=== PATIENT | male | born 1950 | race Caucasian/White ===

== ENCOUNTER 2018-04-19 16:59 | Emergency (ER) | payer MEDICARE, OTHER ==
[2018-04-19 17:04] VITALS: BMI 29.6
[2018-04-19] MEDS ORDERED: Albuterol-Ipratrop 3 mg / 0.5 (3 ml) UD IH STA (17:39)
--- NOTE | 2018-04-19 17:53 | ED PDOC ---
Arrival/HPI - General Chief Complaint: Shortness Of Breath Time Seen by Provider: 04/19/18 17:09 Historian: Patient, Spouse - History of Present Illness Narrative History of Present Illness (Text): 04/19/18 17:52 Pt is a 67 yo M with PMH of CHF, COPD, asthma, a. fib presents to ED with progressively worsening dyspnea. Patient states that he always short of breath at baseline. He states that he can only walk 1 one block before becoming short of breath and requires 3 pillows at night to sleep. Patient states that the shortness of breath has progressively worsened over the last month. Patient saw his PMD, Dr. Martinez, 4 days ago who gave him augmentin and prednisone. However, symptoms did not improve. Patient was evaluated by his PMD today, who also noticed new LE swelling. She could not give an Rx for Lasix at that time due to minor hypotension. At that time, Dr. Martinez advised the patient to proceed to the ED for evaluation. Currently, patient denies CP, n/v/d, abdominal pain, fever, chills, WATSON, or dizziness. Of note patient's has noticed that the patient has been audibly more wheezy recently. PMD: Michelle Time/Duration: 1 week Past Medical History - Infectious Disease Hx of Infectious Diseases: None - Cardiac Hx Congestive Heart Failure: Yes Hx Hypertension: Yes - Pulmonary Hx Asthma: Yes - Neurological Hx Paralysis: No - Hematological/Oncological Hx Blood Transfusions: No - Musculoskeletal/Rheumatological Hx Musculoskeletal Disorders: No - Psychiatric Hx Emotional Abuse: No Hx Physical Abuse: No Hx Substance Use: No - Anesthesia Hx Anesthesia Reactions: No Hx Malignant Hyperthermia: No - Suicidal Assessment Feels Threatened In Home Enviroment: No Family/Social History Family/Social History: No Known Family HX Smoking Status: Never Smoked Hx Alcohol Use: No Hx Substance Use: No Allergies/Home Meds Allergies/Adverse Reactions: Allergies No Known Allergies Allergy (Verified 04/03/12 12:26) Home Medications: Home Meds Medication Instructions Recorded Confirmed Albuterol Sulfate [Proair Hfa] 0.09 mg IH DAILY PRN 08/11/15 04/19/18 Amiodarone [Cordarone] 200 mg PO DAILY 08/11/15 04/19/18 Carvedilol [Coreg] 3.125 mg PO BID 08/11/15 04/19/18 Enalapril Maleate 2.5 mg PO DAILY 08/11/15 04/19/18 Montelukast [Singulair] 10 mg PO DAILY 08/11/15 04/19/18 Digoxin [Lanoxin] 0.125 mg PO DAILY 07/09/17 04/19/18 Ascorbic Acid [Vitamin C 500 mg 1 tab PO DAILY 04/19/18 04/19/18 Tab] Docusate [Colace] 1 cap PO DAILY 04/19/18 04/19/18 Esomeprazole Magnesium [Nexium] 1 cap PO DAILY 04/19/18 04/19/18 Ferrous Sulfate [Feosol] 1 tab PO DAILY 04/19/18 04/19/18 Fluticasone/Vilanterol [Breo 1 puff IH DAILY 04/19/18 04/19/18 Ellipta 200-25 Mcg INH] Folic Acid [Folic Acid] 1 tab PO DAILY 04/19/18 04/19/18 Levocetirizine Dihydrochloride 1 tab PO DAILY 04/19/18 04/19/18 [Xyzal] Tiotropium [place] [Spiriva 2.5 puff IH DAILY 04/19/18 04/19/18 Respimat] Review of Systems - Physician Review All systems were reviewed & negative as marked: Yes (12 point ROS reviewed and is negative other than what is stated in HPI.) Physical Exam Vital Signs Reviewed: Yes Vital Signs Temp Pulse Resp BP Pulse Ox 04/19/18 19:26 97.7 F 53 L 18 125/60 99 04/19/18 18:07 52 L 20 122/59 L 99 04/19/18 18:06 122/59 L 04/19/18 17:08 97.5 F L 53 L 18 146/65 100 Temperature: Afebrile Blood Pressure: Normal Pulse: Bradycardic Respiratory Rate: Normal Appearance: Positive for: Non-Toxic Pain Distress: None Mental Status: Positive for: Alert and Oriented X 3 - Systems Exam Head: Present: Atraumatic, Normocephalic Pupils: Present: PERRL Extroacular Muscles: Present: EOMI Conjunctiva: Present: Normal Mouth: Present: Moist Mucous Membranes Neck: Present: Normal Range of Motion Respiratory/Chest: Present: Wheezes (b/l). No: Clear to Auscultation, Respiratory Distress, Accessory Muscle Use, Rales, Rhonchi Cardiovascular: Present: Normal S1, S2, Bradycardic. No: Murmurs, Irregular Rhythm, Rub, Gallop Abdomen: No: Tenderness, Distention, Rebound, Guarding Upper Extremity: Present: Normal Inspection. No: Cyanosis, Edema Lower Extremity: Present: Edema (b/l 2+). No: Tenderness, Swelling Neurological: Present: GCS=15, CN II-XII Intact, Speech Normal Skin: Present: Warm, Dry, Normal Color. No: Rashes Psychiatric: Present: Alert, Oriented x 3, Normal Insight, Normal Concentration Medical Decision Making ED Course and Treatment: 04/19/18 18:45 67 yo M presents to ED with progressive dyspnea and LE swelling. Plan: - CBC, CMP, coags - ABG shock - BNP - Cardiac Iso - CXR - EKG - Solumedrol - Lasix - duoneb EKG reviewed and showed rate 52. Sinus bradcardia with 1st degree AV block. 04/19/18 19:36 CXR reviewed by myself shows minor blunting of the right costovertebral angle. No active disease otherwise. Labs were reviewed and discussed with patient. Mild elevation of BNP (1500) and LFT's in setting of chronic CHF. Patient stated that dyspnea improved with breathing treatments and solumedrol. Patient was able to ambulate around without dyspnea. As patient is hemodynamically stable, he will be discharged. Patient was advised to complete his already prescribed prednisone and amoxicillin and to continue his other medications as prescribed. Patient given an Rx for PO Lasix and counselled on the adverse affects. Patient to follow up with PMD on discharge. - Lab Interpretations Lab Results: 04/19/18 17:45 04/19/18 17:45 Lab Results 04/19/18 18:17: pCO2 29 L, pO2 86.0, HCO3 17.6 L, ABG pH 7.39, ABG Total CO2 18.5 L, ABG O2 Saturation 96.3, ABG Base Excess -6.0 L, ABG Potassium 3.8, Glucose 93, Lactate 1.4, FiO2 21.0, Sodium 131.0 L, Chloride 106.0, Arterial Blood Potassium 3.8 04/19/18 17:45: Digoxin 1.2 04/19/18 17:45: Sodium 132, Potassium 4.3, Chloride 102, Carbon Dioxide 19 L, Anion Gap 16, BUN 19, Creatinine 1.2, Est GFR ( Amer) > 60, Est GFR (Non- Af Amer) > 60, Random Glucose 100, Calcium 8.3 L, Phosphorus 3.9, Magnesium 1.7 , Total Bilirubin 0.9, AST 101 H, ALT 64 H, Alkaline Phosphatase 144 H, Lactate Dehydrogenase 653, Total Creatine Kinase 60, Troponin I < 0.01, NT-Pro-B Natriuret Pep 1500 H, Total Protein 6.6, Albumin 3.3, Globulin 3.3, Albumin/ Globulin Ratio 1.0 L 04/19/18 17:45: PT 14.8 H, INR 1.29 H, APTT 28.9 04/19/18 17:45: WBC 6.5 D, RBC 3.05 L, Hgb 10.0 L, Hct 29.7 L, MCV 97.4, MCH 32.8, MCHC 33.7, RDW 14.9 H, Plt Count 81 L, MPV 12.3 H, Gran % 73.7 H, Lymph % (Auto) 15.5 L, Mcintosh % (Auto) 10.1 H, Eos % (Auto) 0.5 L, Baso % (Auto) 0.2, Gran # 4.81, Lymph # (Auto) 1.0 L, Mcintosh # (Auto) 0.7 H, Eos # (Auto) 0.0, Baso # (Auto) 0.01 - RAD Interpretation Radiology Orders: 04/19/18 18:31 CXR [CHEST PORTABLE] [RAD] Stat - Medication Orders Current Medication Orders: Discontinued Medications Albuterol/Ipratropium (Duoneb 3 Mg/0.5 Mg (3 Ml) Ud) 3 ml IH STAT STA Stop: 04/19/18 17:40 Last Admin: 04/19/18 17:52 Dose: 3 ml Furosemide (Lasix) 40 mg IVP STAT STA Stop: 04/19/18 17:52 Last Admin: 04/19/18 18:06 Dose: 40 mg MAR Blood Pressure Document 04/19/18 18:06 SRE (Rec: 04/19/18 18:06 SRE [id number]) Blood Pressure Blood Pressure (100/60-150/90) 122/59 IVP Administration Document 04/19/18 18:06 SRE (Rec: 04/19/18 18:06 SRE [id number]) Charges for Administration # of IVP Administrations 1 Methylprednisolone (Solu-Medrol) 125 mg IVP STAT STA Stop: 04/19/18 17:40 Last Admin: 04/19/18 17:51 Dose: 125 mg IVP Administration Document 04/19/18 17:51 SRE (Rec: 04/19/18 17:52 SRE [id number]) Charges for Administration # of IVP Administrations 1 Disposition/Present on Arrival - Present on Arrival Any Indicators Present on Arrival: No History of DVT/PE: No History of Uncontrolled Diabetes: No Urinary Catheter: No History of Decub. Ulcer: No History Surgical Site Infection Following: None - Disposition Have Diagnosis and Disposition been Completed?: Yes Diagnosis: CHF (congestive heart failure), COPD (chronic obstructive pulmonary disease), Edema of lower extremity Disposition: HOME/ ROUTINE Disposition Time: 19:45 Patient Plan: Discharge Patient Problems: Current Active Problems Problem Status Onset CHF (congestive heart failure) Acute COPD (chronic obstructive pulmonary disease) Acute Edema of lower extremity Acute Condition: STABLE Discharge Instructions (ExitCare): Heart Failure (ED), Exacerbation of COPD (DC ) Additional Instructions: 1. Follow up with PMD within 1 week 2. Complete Prednisone and Amoxicillin as prescribed 3. Take Lasix once daily, if BP becomes to low or symptoms such as excessive fatigue or feeling like you will pass out, stop medications 4. Maintain adequate hydration as Lasix will cause increased urination 5. Take all other medications as prescribed 6. Return to ED if symptoms persist. MIN MILLER, thank you for letting us take care of you today. Your provider was Rahul Mendoza DO and you were treated for SOB AND ANKLES SWOLLEN. The emergency medical care you received today was directed at your acute symptoms. If you were prescribed any medication, please fill it and take as directed. It may take several days for your symptoms to resolve. Return to the Emergency Department if your symptoms worsen, do not improve, or if you have any other problems. Please contact your doctor or call one of the physicians/clinics you have been referred to that are listed on the Patient Visit Information form that is included in your discharge packet. Bring any paperwork you were given at discharge with you along with any medications you are taking to your follow up visit. Our treatment cannot replace ongoing medical care by a primary care provider outside of the emergency department. Thank you for allowing the [facility] team to be part of your care today. Prescriptions: Furosemide [Lasix] 20 mg PO DAILY #10 tablet Forms: [facility] ([place]inyar[place])
[2018-04-19 17:57] LABS: BASO # 0.01 K/mm3 (0.0-2.0); BASO % 0.2 % (0.0-3.0); EOS % 0.5 % (1.5-5.0); GRAN # 4.81 (1.4-6.5); GRAN % 73.7 % (50.0-68.0); LYMPH % 15.5 % (22.0-35.0); MEAN CELL VOLUME 97.4 fl (80.0-105.0); MEAN CORPUSCULAR HEMOGLOBIN 32.8 pg (25.0-35.0); MEAN CORPUSCULAR HGB CONC 33.7 g/dl (31.0-37.0); MEAN PLATELET VOLUME 12.3 fl (7.0-11.0); MONO # 0.7 (0.1-0.6); MONO % 10.1 % (1.0-6.0); RBC 3.05 10^6/uL (3.5-6.1); RED CELL DISTRIBUTION WIDTH 14.9 % (11.5-14.5)
[2018-04-19 17:59] LABS: WHITE BLOOD COUNT 6.5 10^3/ul (4.5-11.0)
[2018-04-19 18:08] VITALS: O2SAT 99
[2018-04-19 18:13] LABS: INR 1.29 (0.93-1.08); PARTIAL THROMBOPLASTIN TIME 28.9 Seconds (25.1-36.5); PROTHROMBIN TIME 14.8 SECONDS (9.4-12.5)
[2018-04-19 18:17] LABS: ALBUMIN 3.3 g/dL (3.0-4.8); ALT/SGPT 64 U/L (7-56); AST/SGOT 101 U/L (17-59); BLOOD UREA NITROGEN 19 mg/dL (7-21); CALCIUM 8.3 mg/dL (8.4-10.5); GFR AFRICAN-AMERICAN > 60; GFR NON-AFRICAN AMERICAN > 60
[2018-04-19 18:22] LABS: ARTERIAL BLOOD GAS HCO3 17.6 mmol/L (21-28); ARTERIAL BLOOD GAS O2 SAT 96.3 % (95-98); ARTERIAL BLOOD GAS PCO2 29 mm/Hg (35-45); ARTERIAL BLOOD GAS PH 7.39 (7.35-7.45); ARTERIAL BLOOD GAS TCO2 18.5 mmol.L (22-28)
[2018-04-19 18:28] LABS: B-TYPE NATRIURETIC PEPTIDE 1500 pg/mL (0-450); TROPONIN I < 0.01 ng/mL
[2018-04-19 19:27] VITALS: BP 125/60; PULSE 53; RESP 18; TEMP 97.7
--- NOTE | 2018-04-20 08:55 | RAD ---
HISTORY: dyspnea COMPARISON: No prior. FINDINGS: LUNGS: No active pulmonary disease. PLEURA: No significant pleural effusion identified, no pneumothorax apparent. CARDIOVASCULAR: Mild cardiomegaly OSSEOUS STRUCTURES: No significant abnormalities. VISUALIZED UPPER ABDOMEN: Normal. OTHER FINDINGS: None. IMPRESSION: No active disease.
--- NOTE | 2018-04-20 09:54 | CARD ---
APPROVED REPORT EKG Measurement Heart [id number] <Conclusion> Sinus bradycardia with 1st degree AV block Low voltage QRS limb leads NSSTW changes
== END 2018-04-19 19:38 | disposition home or self-care (01) ==
LOC: ED 16:59
DX: J44.9 Chronic obstructive pulmonary disease, unspecified (principal); I50.9 Heart failure, unspecified; R60.0 Localized edema; I10 Essential (primary) hypertension; I48.91 Unspecified atrial fibrillation
CPT/HCPCS: 36600; 71045; 80053; 80162; 82550; 82803; 83615; 83735; 83880; 84100; 84484; 85025; 85610; 85730; 93005; 94640; 96374; 96375; 99285; J1940; J2930

== ENCOUNTER 2018-09-17 19:21 | Inpatient (IN) | payer OTHER, MEDICARE ==
[2018-09-17 19:39] VITALS: BMI 25.7
--- NOTE | 2018-09-17 20:16 | ED PDOC ---
Arrival/HPI - General Chief Complaint: Shortness Of Breath Time Seen by Provider: 09/17/18 19:30 Historian: Patient - History of Present Illness Narrative History of Present Illness (Text): 09/17/18 19:25 68 year old male, whose past medical history includes CHF, COPD, asthma, and a- fib, presents to the emergency department complaining of shortness of breath and leg swelling. Patient reports leg swelling is more on the right than the left for the past 3 days. Patient states he's has shortness of breath. The patient denies any fever, chills, chest pain, abdominal pain, nausea, vomiting, diarrhea, urinary symptoms, back pain, neck pain, headache, dizziness, or any other complaints. PMD: Dr. Martinez Time/Duration: Other (3 days) Symptom Onset: Gradual Symptom Course: Unchanged Activities at Onset: Light Context: Home Past Medical History - Provider Review Nursing Documentation Reviewed: Yes - Infectious Disease Hx of Infectious Diseases: None - Cardiac Hx Congestive Heart Failure: Yes Hx Hypertension: Yes - Pulmonary Hx Asthma: Yes - Neurological Hx Paralysis: No - Hematological/Oncological Hx Blood Transfusions: No - Musculoskeletal/Rheumatological Hx Musculoskeletal Disorders: No - Psychiatric Hx Emotional Abuse: No Hx Physical Abuse: No Hx Substance Use: No - Surgical History Hx Cataract Extraction: Yes - Anesthesia Hx Anesthesia Reactions: No Hx Malignant Hyperthermia: No - Suicidal Assessment Feels Threatened In Home Enviroment: No Family/Social History - Physician Review Nursing Documentation Reviewed: Yes Family/Social History: No Known Family HX Smoking Status: Never Smoked Hx Alcohol Use: No Hx Substance Use: No Allergies/Home Meds Allergies/Adverse Reactions: Allergies No Known Allergies Allergy (Verified 04/03/12 12:26) Home Medications: Home Meds Medication Instructions Recorded Confirmed RX: Albuterol Sulfate [Proair Hfa] 0.09 mg IH DAILY PRN 08/11/15 09/18/18 RX: Amiodarone [Cordarone] 200 mg PO DAILY 08/11/15 09/18/18 RX: Carvedilol [Coreg] 3.125 mg PO BID 08/11/15 09/18/18 RX: Enalapril Maleate 2.5 mg PO DAILY 08/11/15 09/18/18 RX: Montelukast [Singulair] 10 mg PO DAILY 08/11/15 09/18/18 Ascorbic Acid [Vitamin C 500 mg 1 tab PO DAILY 04/19/18 09/18/18 Tab] Docusate [Colace] 1 cap PO DAILY 04/19/18 09/18/18 Ferrous Sulfate [Feosol] 1 tab PO DAILY 04/19/18 09/18/18 Fluticasone/Vilanterol [Breo 1 puff IH DAILY 04/19/18 09/18/18 Ellipta 200-25 Mcg INH] Folic Acid 1 tab PO DAILY 04/19/18 09/18/18 Levocetirizine Dihydrochloride 1 tab PO DAILY 04/19/18 09/18/18 [Xyzal] RX: Esomeprazole Magnesium [Nexium] 1 cap PO DAILY 04/19/18 09/18/18 Tiotropium [place] [Spiriva 2.5 puff IH DAILY 04/19/18 09/18/18 Respimat] Review of Systems - Physician Review All systems were reviewed & negative as marked: Yes - Review of Systems Constitutional: absent: Fevers, Other (Chills) Respiratory: SOB Cardiovascular: absent: Chest Pain Gastrointestinal: absent: Abdominal Pain, Diarrhea, Nausea, Vomiting Genitourinary Male: absent: Dysuria, Frequency, Hematuria Musculoskeletal: Other (leg swelling ). absent: Back Pain, Neck Pain Neurological: absent: Headache, Dizziness Physical Exam Vital Signs Reviewed: Yes Vital Signs Temp Pulse Resp BP Pulse Ox 09/17/18 19:43 98.3 F 50 L 18 125/60 99 Temperature: Afebrile Blood Pressure: Normal Pulse: Bradycardic Respiratory Rate: Normal Appearance: Positive for: Well-Appearing, Non-Toxic, Comfortable Pain Distress: None Mental Status: Positive for: Alert and Oriented X 3 - Systems Exam Head: Present: Atraumatic, Normocephalic Pupils: Present: PERRL Extroacular Muscles: Present: EOMI Conjunctiva: Present: Normal Mouth: Present: Moist Mucous Membranes Neck: Present: Normal Range of Motion Respiratory/Chest: Present: Rales (at bases ), Other (poor airway entry). No: Respiratory Distress, Accessory Muscle Use Cardiovascular: Present: Regular Rate and Rhythm, Normal S1, S2. No: Murmurs Abdomen: No: Tenderness, Distention, Peritoneal Signs Back: Present: Normal Inspection Upper Extremity: Present: Normal Inspection. No: Cyanosis, Edema Lower Extremity: Present: Swelling (right leg swelling ). No: Tommie's Sign Neurological: Present: GCS=15, CN II-XII Intact, Speech Normal Skin: Present: Warm, Dry, Normal Color. No: Rashes Psychiatric: Present: Alert, Oriented x 3, Normal Insight, Normal Concentration Medical Decision Making ED Course and Treatment: 09/17/18 19:25 Impression: 68 year old male presents complaining of shortness of breath and leg swelling for the past 3 days. Plan: -- EKG -- Labs -- CXR -- Duplex LE bilaterally US -- Blood Culture -- Reassess and disposition Prior Visits: Notes and results from previous visits were reviewed. Progress Notes: 09/17/18 19:34 EKG shows Sinus Bradycardia at 51 BPM with low voltage QRS, non-specific ST/T wave changes. Interpreted by me 09/17/18 21:22 CXR Impression: As read by me, mild CHF with cardiomegaly 09/17/18 21:23 Duplex LE bilaterally US Impressive: Negative for DVT 09/17/18 22:[address] Martinez who is aware and agrees with the plan. Accepts patient into her service. - Lab Interpretations I have reviewed the lab results: Yes - RAD Interpretation Radiology Orders: 09/17/18 19:36 DUPLEX LOWER EXTRM VEIN BILAT [US] Stat 09/17/18 19:37 CHEST PORTABLE [RAD] Stat - EKG Interpretation Interpreted by ED Physician: Yes Type: 12 lead EKG - Scribe Statement The provider has reviewed the documentation as recorded by the Shannan Kumar Provider Scribe Attestation: All medical record entries made by the Shannan were at my direction and personally dictated by me. I have reviewed the chart and agree that the record accurately reflects my personal performance of the history, physical exam, medical decision making, and the department course for this patient. I have also personally directed, reviewed, and agree with the discharge instructions and disposition. Disposition/Present on Arrival - Present on Arrival Any Indicators Present on Arrival: No History of DVT/PE: No History of Uncontrolled Diabetes: No Urinary Catheter: No History of Decub. Ulcer: No History Surgical Site Infection Following: None - Disposition Have Diagnosis and Disposition been Completed?: Yes Diagnosis: CHF (congestive heart failure), COPD (chronic obstructive pulmonary disease) Disposition: HOSPITALIZED Disposition Time: :00 Condition: FAIR
[2018-09-17 20:20] LABS: INR 1.37; PARTIAL THROMBOPLASTIN TIME 35.8 Seconds (25.1-36.5); PROTHROMBIN TIME 15.7 SECONDS (9.4-12.5)
[2018-09-17 20:21] LABS: BASO # 0.02 K/mm3 (0.0-2.0); BASO % 0.3 % (0.0-3.0); EOS # 0.1 (0.0-0.7); EOS % 1.7 % (1.5-5.0); GRAN # 4.32 (1.4-6.5); GRAN % 71.4 % (50.0-68.0); HEMOGLOBIN 10.4 g/dL (14.0-18.0); LYMPH # 0.8 (1.2-3.4); LYMPH % 13.7 % (22.0-35.0); MEAN CELL VOLUME 94.1 fl (80.0-105.0); MEAN CORPUSCULAR HEMOGLOBIN 32.4 pg (25.0-35.0); MEAN CORPUSCULAR HGB CONC 34.4 g/dl (31.0-37.0); MEAN PLATELET VOLUME 12.1 fl (7.0-11.0); MONO # 0.8 (0.1-0.6); MONO % 12.9 % (1.0-6.0); RBC 3.21 10^6/uL (3.5-6.1); RED CELL DISTRIBUTION WIDTH 14.8 % (11.5-14.5); WHITE BLOOD COUNT 6.1 10^3/uL (4.5-11.0)
[2018-09-17 20:22] LABS: ALBUMIN 3.3 g/dL (3.0-4.8); ALT/SGPT 52 U/L (7-56); AST/SGOT 91 U/L (17-59); BLOOD UREA NITROGEN 15 mg/dL (7-21); CALCIUM 8.2 mg/dL (8.4-10.5); GFR NON-AFRICAN AMERICAN 50
[2018-09-17 20:32] LABS: B-TYPE NATRIURETIC PEPTIDE 2030 pg/mL (0-450); TROPONIN I < 0.01 ng/mL
[2018-09-17] MEDS ORDERED: Albuterol-Ipratrop 3 mg / 0.5 (3 ml) UD IH STA (21:52)
[2018-09-18] MEDS: Albuterol-Ipratrop 3 mg / 0.5 (3 ml) UD IH PRN (03:02)
--- NOTE | 2018-09-18 08:50 | RAD ---
Date of service: 09/17/2018 HISTORY: sob COMPARISON: 04/19/2018 FINDINGS: LUNGS: No active pulmonary disease. PLEURA: No significant pleural effusion identified, no pneumothorax apparent. CARDIOVASCULAR: No aortic atherosclerotic calcification present. Mild cardiomegaly no pulmonary vascular congestion. OSSEOUS STRUCTURES: No significant abnormalities. VISUALIZED UPPER ABDOMEN: Normal. OTHER FINDINGS: None. IMPRESSION: No active disease.
--- NOTE | 2018-09-18 09:31 | US ---
HISTORY: Leg pain and swelling. Evaluate for DVT PHYSICIAN(S): Justin Husain MD. TECHNIQUE: Duplex sonography and color-flow Doppler with graded compression were used to evaluate the deep venous systems of both lower extremities. The exam is somewhat limited by edema FINDINGS: The visualized deep venous systems of both lower extremities are sonographically normal and compressible. Normal wave forms and augmentation are seen. There is no sonographic evidence for deep venous thrombosis in the visualized segments of both lower extremities. IMPRESSION: No sonographic evidence for deep venous thrombosis in the visualized segments of both lower extremities.
[2018-09-18] MEDS ORDERED: Albuterol HFA 90 mcg/actuation (8 g) IH PRN (11:31)
[2018-09-18] MEDS ORDERED: TIOTROPIUM BROMIDE IH SCH (11:45)
[2018-09-18] MEDS ORDERED: Non Formulary Medication (Fluticasone/Vilanterol [Breo Ellipta 200-25 Mcg Inh] 1 PUFF) IH SCH (11:45)
[2018-09-18] MEDS ORDERED: Tiotropium 18 mcg Cap For Inhalation IH ONE (11:45)
[2018-09-18] MEDS: PREDNISOLONE ACETATE 1% OS SCH ×3 (13:46→21:22)
[2018-09-18] MEDS: PREDNISOLONE ACETATE 1% OD SCH ×2 (13:50→18:11)
[2018-09-18] MEDS ORDERED: Home Med 1 UNIT OD SCH (14:00)
[2018-09-18] MEDS: Sodium Chloride 3% 500 ML IV SCH (21:17)
--- NOTE | 2018-09-19 01:00 | CON ---
DATE: 09/18/2018 REASON FOR CONSULTATION: Cardiac evaluation, history of paroxysmal atrial fibrillation, admitted with shortness of breath. BRIEF CLINICAL HISTORY: This is a 68-year-old male with past medical history significant for mitral stenosis, moderate mitral regurgitation, atrial fibrillation, mild cardiomyopathy, admitted with progressively shortness of breath and increased leg swelling for 3 to 4 days. Denies any chest pain. Denies any palpitation. PAST MEDICAL HISTORY: Significant for CHF, COPD, asthma, atrial fibrillation, mitral stenosis as well as mitral regurgitation in the past. History of cardiac workup as follows: Most recently a stress test on 07/09/2018 shows abnormal myocardial perfusion study partially reversible anterior apical suspicious ischemia. In compared the last study 08/11, the scan findings are similar except for slightly lesser reversible, ejection fraction 61%. Following that, patient had a cardiac catheterization done dated 09/02/2015 that revealed normal coronaries, moderate decreased LV function, ejection fraction 35%, EDP in the range of 16 to 18. Anterolateral hypokinesis noted consistent with VA, spontaneously dissolution of the clot in LAD. Right heart cath upper limit normal to border line. Patient underwent right heart catheterization at that time, also that revealed RA pressure 15, right ventricular pressure 35/16, pulmonary capillary wedge pressure 33/10, PA pressure 33/10, mean PA of 20, pulmonary capillary catheter wedge pressure 16-17 mm, pulmonary vascular resistance is 1 Ward unit, cardiac output index using thermodilution, cardiac output 3.7 L, cardiac index 2.3 L/min. Mean gradient across the mitral valve 3.26 mm, mitral valve area came out 1.94 mmHg consistent with mild mitral stenosis. The patient had recent echo dated 07/08/2018 that shows no PE, no vegetation, no thrombus, mitral valve noted, [id number] mitral regurgitation, moderate mitral stenosis, mild aortic stenosis, aortic sclerosis, trace aortic regurgitation, [id number] mitral regurgitation, [id number]-xr-[id number] tricuspid regurgitation, [id number] pulmonary insufficiency, ejection fraction 55% to 60%. Patient was in AFib by the time of this study, the echo calculated right ventricular systolic pressure 50 with underestimating the two RSV because of configuration of the TR jet dated 07/08/2018, mostly sent EKG in the office Dr. Galvez 08/30/2018 with a normal sinus rate of 56. SOCIAL HISTORY: Denies any history of alcohol abuse. PHYSICAL EXAMINATION: VITAL SIGNS: Height of the patient 5 feet 3 niches. Weight of the patient 174 pounds. Body mass index 30 kg/m2. Heart rate of 51 and blood pressure 115/56. HEENT: PERRLA. Extraocular muscles intact. NECK: Supple. No carotid bruit or thyromegaly. CHEST: Clear to auscultation. HEART: S1 and S2 regular. ABDOMEN: Soft. EXTREMITIES: Clubbing and cyanosis negative. LABORATORY DATA: WBC , hemoglobin 10.5, hematocrit 30.2, platelet count 82,000. Chemistry shows sodium 125, potassium , chloride 94, carbon dioxide 19, anion gap of 15, BUN 15, creatinine 1.4. BNP 2030. Troponin 0.01. Chest x-ray, mild congestion noted. EKG showed sinus bradycardia at the rate of 51. IMPRESSION: A 68-year-old male with past medical history significant for rheumatic mitral valve disease, mild mitral stenosis, [id number] mitral regurgitation, mild aortic stenosis, fkbaigzq-[id number]-twfvfl tricuspid regurgitation, average systolic pressure 60, severe tricuspid regurgitation. Dilated right atrium, dilated left atrium, right ventricle with dilated decreased left ventricular function, preserved left ventricular function. History of paroxysmal atrial fibrillation, on amiodarone. The bradycardia is most likely secondary to beta-elsie and amiodarone. Admitted with mild congestive heart failure, patient with right heart failure. RECOMMENDATIONS: Continue heparin, continue Coreg, continue Lasix. Further recommendation will depend on hospital course. We will start 3% saline and continue free water excretion with IV Lasix. We will supplement electrolytes as needed. We will follow with you. Thank you Dr. Martinez for providing us the opportunity in taking care of the patient, Des Billy. Alfonso Almodovar MD
--- NOTE | 2018-09-19 03:28 | CON ---
DATE: 09/18/2018 PULMONARY CONSULT REFERRING PHYSICIAN: Dr. Martinez REASON FOR CONSULTATION: Cough, shortness of breath, history of sleep apnea syndrome and asthma. HISTORY OF PRESENT ILLNESS: This is a 68-year-old gentleman well known to me from the office, known, very compliant with the followup, has a known history of sleep apnea syndrome and noncompliant, recently re-qualified, but waiting for CPAP arrival. Also, has a history of cardiomyopathy with alcohol-induced which improved LV function from the last couple of years, has also but not very compliant with his bronchodilator, history of hypertension, comes into ER with cough, shortness of breath, leg swelling. PAST MEDICAL HISTORY: As per history of present illness. ALLERGIES: NONE KNOWN. SOCIAL HISTORY: No history of smoking. Alcohol use 4 years ago. FAMILY HISTORY: No significant cardiopulmonary disease reported. MEDICATIONS: He is on albuterol/Atrovent nebulizer, also on Colace 100 mg twice a day, amiodarone 200 mg daily, Coreg 3.125 mg twice a day, DuoNeb every 4 hours p.r.n., ferrous sulfate 324 mg daily, getting Breo Ellipta 1 puff daily, hypertonic saline was given at 20 mL per hour, Lasix 40 mg twice a day, Xyzal 1 tablet daily, Pepcid 40 mg daily, Singulair 10 mg daily, Spiriva inhaled daily, Tylenol p.r.n., vitamin C 500 mg daily, Zestril 2.5 mg daily. REVIEW OF SYSTEMS: No headache, no rhinitis. Has cough, shortness of breath. No chest pain. Has increased abdominal girth and leg swelling. No dysuria. No diarrhea. PHYSICAL EXAMINATION: GENERAL: Mild distress. VITAL SIGNS: Temperature is 98, heart rate 50, respiratory rate is 20, blood pressure 110/59, pulse ox 99%, 2 liters nasal cannula. HEENT: Moist mucous membrane. Crowded airway. Mallampati score is four. NECK: Supple. No JVD. LUNGS: Has one third of crackles. HEART: S1, S2. ABDOMEN: Soft, nontender, no organomegaly. EXTREMITIES: There is edema of the both lower extremities. NEUROLOGIC: Awake, follows simple commands. LABORATORY DATA: Shows hemoglobin 10.4, hematocrit 30.2, WBC 6.1, platelet count is 82,000. INR 1.37. PTT 36. Sodium 125, potassium 4.1, chloride 94, bicarbonate 19, BUN 15, creatinine 1.4, glucose 116, calcium 8.2, magnesium 1.5, total bili 1.7, AST 21, ALT 52, alk phos is 168. Troponin less than 0.01. ProBNP 2030. Albumin is 3.3. Microbiology, blood culture, there is no growth. Chest x-ray done in ER shows no active pulmonary disease. 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 Need to get a new echocardiogram, assess RV, LV function. Agree with Lasix, afterload generation manager, beta-elsie. We will place him on inhaled bronchodilator. CPAP with 35% oxygen while sleeping. Follow up labs in the morning. Thank you and we will follow with you. Alfonso Ansari MD
--- NOTE | 2018-09-19 03:45 | HP ---
DATE OF EXAM: 09/18/2018 The patient was seen and examined at the bedside on 09/18/2018. CHIEF COMPLAINT: Shortness of breath, swelling of the leg. HISTORY OF PRESENT ILLNESS: Mr. Des Billy is a 68-year-old male with past medical history of congestive heart failure, COPD, asthma, atrial fibrillation, came to the emergency department complaining of shortness of breath, swelling of the leg, he has cataract surgery 3 days ago. The patient reports leg swelling, is more on the right than the left over the past 3 days. The patient states he has shortness of breath. Denies fever, chills and nausea, vomiting, diarrhea. No hematuria or hematochezia. No headache. No dizziness. PAST MEDICAL HISTORY: Congestive heart failure, hypertension, asthma, cataract surgery. FAMILY HISTORY: Father and mother, noncontributory. HABITS: No smoking. No drugs. No ethanol. ALLERGIES: THE PATIENT IS NOT ALLERGIC WITH ANY MEDICATIONS. HOME MEDICATIONS: ProAir, methadone, Coreg, enalapril, Singulair, Colace, iron, fluticasone, folic acid, Xyzal, Nexium, Respimat. REVIEW OF SYSTEMS: The patient was seen and examined at the bedside. Still having shortness of breath with coughing. Still has swelling of the legs. No fever. No chills. No headache. No dizziness. Still has swelling of the legs. PHYSICAL EXAMINATION: VITAL SIGNS: Temperature 98.3, pulse 50, respiratory rate 18, blood pressure 127/60, pulse oximetry 99. HEENT: Head is normocephalic and atraumatic. Eyes; PERRLA. Extraocular muscles are intact. Conjunctivae are clear. Nose is patent. Mucous membranes are moist. NECK: Supple. No carotid bruit. No JVD or thyromegaly. CHEST: Bilaterally symmetrical. HEART: S1 and S2 positive. LUNGS: Positive wheezing bilaterally. ABDOMEN: Soft. Bowel sounds present. No organomegaly. EXTREMITIES: Positive edema. NEUROLOGIC: The patient is awake, alert. Moving all 4 extremities. No focal deficit. LABORATORY DATA: White blood cells 6.1, hemoglobin 10.4, hematocrit 30.2, platelets 82,000. Sodium 125, potassium 4.1, BUN 15, creatinine 1.2. ASSESSMENT AND PLAN: Mr. Des Billy is a 68-year-old male with anemia, thrombocytopenia, hyponatremia, hypochloremia, hypomagnesemia, hypocalcemia, abnormal liver function test, congestive heart failure, history of cardiomyopathy, history of chronic obstructive pulmonary disease, asthma, history of ethanol abuse. Bilateral Doppler of the leg is done. No sonographic evidence of deep vein thrombosis, individualized segments of the both lower extremities. Chest x-ray is reviewed by me. History of atrial fibrillation. Came with shortness of breath, swelling of the leg, started on home medications, Lasix. Seen by Dr. Almodovar and Dr. Ansari. Gastrointestinal and deep venous thrombosis prophylaxes given. Repeat labs. We will follow up. Jewell Martinez MD
[2018-09-19 06:58] LABS: GRAN # 6.37 (1.4-6.5); GRAN % 89.7 % (50.0-68.0); HEMOGLOBIN 10.3 g/dL (14.0-18.0); LYMPH # 0.4 (1.2-3.4); LYMPH % 6.1 % (22.0-35.0); MEAN CELL VOLUME 91.8 fl (80.0-105.0); MEAN CORPUSCULAR HEMOGLOBIN 32.3 pg (25.0-35.0); MEAN CORPUSCULAR HGB CONC 35.2 g/dl (31.0-37.0); MEAN PLATELET VOLUME 12.5 fl (7.0-11.0); MONO # 0.3 (0.1-0.6); MONO % 4.2 % (1.0-6.0); RBC 3.19 10^6/uL (3.5-6.1); RED CELL DISTRIBUTION WIDTH 14.6 % (11.5-14.5); WHITE BLOOD COUNT 7.1 10^3/uL (4.5-11.0)
[2018-09-19 07:06] LABS: B-TYPE NATRIURETIC PEPTIDE 2920 pg/mL (0-450)
[2018-09-19 07:10] LABS: LDL CHOLESTEROL 103 mg/dL (0-129)
[2018-09-19 07:18] LABS: ALBUMIN 3.1 g/dL (3.0-4.8); ALT/SGPT 54 U/L (7-56); AST/SGOT 78 U/L (17-59); BLOOD UREA NITROGEN 20 mg/dL (7-21); CALCIUM 8.4 mg/dL (8.4-10.5); GFR NON-AFRICAN AMERICAN 50; HDL CHOLESTEROL 40 mg/dL (29-60)
--- NOTE | 2018-09-19 09:37 | CP.PCM.PN ---
Subjective - Date & Time of Evaluation Date of Evaluation: 09/19/18 Time of Evaluation: 06:35 - Subjective Subjective: Awake, alert, no distress Reason for consultation and follow up: Cardiac evaluation of shortness of breath, history of paroxysmal atrial fibrillation Seen and examined by me and Dr. Almodovar Objective - Vital Signs/Intake and Output Vital Signs (last 24 hours): Temp Pulse Resp BP Pulse Ox 98.1 F 66 20 112/58 L 99 09/18/18 18:00 09/19/18 06:00 09/18/18 18:00 09/18/18 21:24 09/18/18 06:00 Intake and Output: 09/19/18 09/19/18 06:59 18:59 Intake Total 1280 Output Total 2400 Balance -1120 - Medications Medications: Current Medications Acetaminophen (Tylenol 325mg Tab) 650 mg PO Q4H PRN PRN Reason: Pain, Mild (1-3) Albuterol Sulfate (Albuterol 0.5% Inhal Liana (2.5 Mg/0.5 Ml) Ud) 2.5 mg IH DAILY [facility] Albuterol/Ipratropium (Duoneb 3 Mg/0.5 Mg (3 Ml) Ud) 3 ml IH Q4H PRN PRN Reason: Shortness of Breath Last Admin: 09/18/18 03:02 Dose: 3 ml Amiodarone HCl (Cordarone) 200 mg PO DAILY [facility] Last Admin: 09/18/18 12:17 Dose: 200 mg Ascorbic Acid (Vitamin C 500 Mg Tab) 500 mg PO DAILY [facility] Carvedilol (Coreg) 3.125 mg PO BID [facility] Last Admin: 09/18/18 17:33 Dose: Not Given Docusate Sodium (Colace) 100 mg PO DAILY [facility] Famotidine (Pepcid) 40 mg PO HS [facility] Last Admin: 09/18/18 21:23 Dose: 40 mg Ferrous Sulfate (Feosol) 324 mg PO DAILY [facility] Folic Acid (Folic Acid) 1 mg PO DAILY [facility] Furosemide (Lasix) 40 mg IVP Q12 [facility] Last Admin: 09/18/18 21:24 Dose: 40 mg Home Med (Home Med) 0 unit OS QID [facility] Last Admin: 09/18/18 21:23 Dose: 1 unit Home Med (Home Med) 0 unit OS QID [facility] Last Admin: 09/18/18 21:22 Dose: 1 unit Home Med (Home Med) 0 unit OD BID [facility] Sodium Chloride (Hypertonic Saline 3%) 500 mls @ 20 mls/hr IV .Q24H [facility] Stop: 09/20/18 23:59 Last Admin: 09/18/18 21:17 Dose: 20 mls/hr Lisinopril (Zestril) 2.5 mg PO DAILY [facility] Montelukast Sodium (Singulair) 10 mg PO DAILY [facility] Last Admin: 09/18/18 12:12 Dose: 10 mg Non-Formulary Medication (Fluticasone/Vilanterol [Breo Ellipta 200-25 Mcg Inh]) 1 puff IH DAILY [facility] Non-Formulary Medication (Levocetirizine Dihydrochloride [Xyzal]) 1 tab PO DAILY [facility] Tiotropium [place] (Spiriva) 18 mcg IH DAILY [facility] - Labs Labs: 09/19/18 06:00 09/19/18 06:00 PT 15.7 SECONDS (9.4-12.5) H 09/17/18 19:52 INR 1.37 09/17/18 19:52 APTT 35.8 Seconds (25.1-36.5) 09/17/18 19:52 - Constitutional Appears: Non-toxic, No Acute Distress - Head Exam Head Exam: NORMAL INSPECTION, NORMOCEPHALIC - Eye Exam Eye Exam: Normal appearance Pupil Exam: NORMAL ACCOMODATION - ENT Exam ENT Exam: Mucous Membranes Moist, Normal Exam - Respiratory Exam Respiratory Exam: Decreased Breath Sounds, Clear to Ausculation Bilateral, NORMAL BREATHING PATTERN - Cardiovascular Exam Cardiovascular Exam: REGULAR RHYTHM, +S1, +S2 Additional comments: Telemetry NSR 70's - GI/Abdominal Exam GI & Abdominal Exam: Soft, Normal Bowel Sounds - Extremities Exam Extremities Exam: Full ROM, Normal Capillary Refill - Neurological Exam Neurological Exam: Alert, Awake, Oriented x3 - Psychiatric Exam Psychiatric exam: Normal Affect, Normal Mood - Skin Skin Exam: Dry, Normal Color, Warm Assessment and Plan - Assessment and Plan (Free Text) Assessment: A 68 year old male who came in to the ER due to shortness of breath and leg swelling for the past 3 days prior to admission. History of mitral stenosis,moderate mitral regurgitation, CHF, COPD,, asthma, atrial fibrillation. chest Xray showed mild congestion on admission, EKG, bradycardia at 50's. Troponin normal, elevated BNP, Admitted for mild exacerbation of CHF. Bradycardia maybe due to betablocker and Amiodarone.Will continue. Plan: Denies shortness of breath Heart rate stable Blood pressure controlled Sodium today 128, improving will continue 3%NSS total 500cc Continue to diurese On Amiodarone 200 mg daily,Coreg 3.125 mg BID, Lasix 40 mg BID,Lisinopril 2.5 mg daily Continue current treatment Continue current medication Strict I&O Chart reviewed So far ,clinically stable Will follow up Plan and treatment discussed with Dr. Almodovar
[2018-09-19] MEDS ORDERED: LEVOCETIRIZINE DIHYDROCHLORIDE PO SCH (10:00)
[2018-09-19] MEDS ORDERED: ENALAPRIL MALEATE 2.5 MG PO SCH (10:00)
[2018-09-19] MEDS ORDERED: Non Formulary Medication (Ferrous Sulfate [Feosol] 1 TAB) PO SCH (10:00)
[2018-09-19] MEDS: Tiotropium 18 mcg Cap For Inhalation IH SCH (10:28)
[2018-09-19] MEDS: PREDNISOLONE ACETATE 1% OD SCH ×2 (10:29→18:56)
[2018-09-19] MEDS: Non Formulary Medication (Fluticasone/Vilanterol [Breo Ellipta 200-25 Mcg Inh] 1 PUFF) IH SCH (10:33)
[2018-09-19] MEDS: PREDNISOLONE ACETATE 1% OS SCH ×4 (10:35→21:34)
[2018-09-19] MEDS: LEVOCETIRIZINE DIHYDROCHLORIDE PO SCH (11:07)
[2018-09-19] MEDS: Albuterol 0.5% Inhal Sol (2.5 mg/0.5 ml) UD IH SCH (20:12)
--- NOTE | 2018-09-19 23:13 | PN ---
DATE: 09/19/2018 PULMONARY PROGRESS NOTE REFERRING PHYSICIAN: Jewell Martinez MD. SUBJECTIVE: He is lying in the bed, feeling a little better, seen by Cardiology. Still, no echocardiogram available. No chest pain or nausea. Still gets short of breath with exertion. Used CPAP about 2 to 3 hours last night. No nausea, no vomiting. No diarrhea. Still has leg swelling. PHYSICAL EXAMINATION: GENERAL: In no acute distress. VITAL SIGNS: Temperature 98, heart rate 62, respiratory rate 18, blood pressure 97/60, pulse ox 99% on nasal cannula. HEENT: Moist mucous membrane. Crowded airway. Mallampati score is 4. NECK: Supple. No JVD. LUNGS: Has one third of crackles. HEART: S1, S2. ABDOMEN: Soft, nontender, no organomegaly. EXTREMITIES: Still has edema. NEUROLOGIC: Awake, alert, follows simple commands. MEDICATIONS: He is on Albuterol Atrovent nebulizer; also on Colace 100 mg daily; amiodarone 200 mg daily; Coreg 3.125 mg twice a day; DuoNeb every 4 hours p.r.n.; ferrous sulfate 324 mg daily; folic acid 1 mg daily; also on hypertonic saline 20 mL per hour, this is 3%; Lasix 40 mg twice day; Xyzal 1 tab daily; Pepcid 40 mg daily; Singulair 10 mg daily; Spiriva inhaled daily; Tylenol p.r.n.; vitamin C 500 mg daily; and Zestril 2.5 mg daily. LABORATORY DATA: Shows hemoglobin 10.3, hematocrit 29.3, WBC 7.1, platelet count is 72, INR 1.37, PTT 36. Last sodium is 131, potassium 4.4, chloride 98, bicarbonate 19, BUN 20, creatinine 1.4, glucose 130, hemoglobin A1c 5.2, calcium 8.4, phosphorus 3.7, magnesium 1.4. Total bilirubin 1.5, AST 78, ALT 54, alkaline phosphatase 119. ProBNP 2920. Albumin is 3.1. Cholesterol is 147. TSH is 1.87. Microbiology: Blood culture, there is no growth. IMPRESSION AND PLAN: Cardiomyopathy, history of alcohol use in the remote past, atrial fibrillation, chronic obstructive lung disease, sleep apnea syndrome, hyponatremia. Recently had sleep study, has sleep apnea syndrome. Encouraged to use CPAP at least 4 to 6 hour. Need echocardiogram to assess right ventricular and left ventricular function. Continue diuretics, afterload scheme technician, bronchodilator. Follow up labs in the morning. Thank you and we will follow with you. Alfonso Ansari MD
[2018-09-20] MEDS: Sodium Chloride 3% 500 ML IV SCH (00:26)
--- NOTE | 2018-09-20 02:13 | PN ---
DATE: 09/19/2018 SUBJECTIVE: Patient is 68 years old male. Patient was seen and examined at the bedside, looking comfortable. Swelling of the leg is better, but still there. Shortness of breath is better. No chest pain. No nausea, vomiting, diarrhea. Used CPAP about 2-3 hours last night. No fever. No chill. PHYSICAL EXAMINATION: VITAL SIGNS: Temperature 98, heart rate 80 , respiratory rate 18, blood pressure 97/60, pulse oximetry 99% on room air. HEENT: Head: Normocephalic, atraumatic. Eyes: PERRLA. Extraocular muscles intact. Conjunctivae clear. Nose patent. Mucous membranes moist. NECK: Supple. No carotid bruit. No JVD or thyromegaly. CHEST: Bilaterally symmetrical. HEART: S1 and S2 positive. LUNGS: Clear to auscultation. ABDOMEN: Soft. Bowel sounds present. No organomegaly. EXTREMITIES: Positive edema. NEUROLOGICAL: Awake, alert, and moving all 4 extremities. No focal deficit. MEDICATIONS: Albuterol, Colace, amiodarone, Coreg, DuoNeb, folic acid , Pepcid, Singulair, Spiriva, Tylenol. LABORATORY DATA: Hemoglobin 10.3, hematocrit is noted , white blood 7.3, platelets 72,000. Sodium 131, potassium 4.4, BUN 20, creatinine 1.4. Hemoglobin A1c is 5.2. AST 78 and ALT 54. TSH 1.84. ASSESSMENT AND PLAN: Mr. Des Billy with multiple medical problems, chronic obstructive pulmonary disease, cardiomyopathy, history of alcohol abuse in the remote past, atrial fibrillation, chronic obstructive lung disease, hyponatremia, and sleep apnea syndrome. I encouraged to use continuous positive airway at least 4 to 6 hours. Need echocardiogram to assess the right ventricular and left ventricular function. Associate Product Manager is on the case. Continue diuretics, afterload reduction, bronchodilator, physical therapy, out of bed. Reviewed Dr. Ansari's note and equipment service associate's note. Discussion done with patient and nursing staff. Gastrointestinal and deep venous thrombosis prophylaxes. Repeat labs. We will follow up. Jewell Martinez MD [facility] # [id number]
[2018-09-20 06:18] LABS: EOS % 0.1 % (1.5-5.0); GRAN # 5.93 (1.4-6.5); GRAN % 78.5 % (50.0-68.0); HEMOGLOBIN 10.3 g/dL (14.0-18.0); LYMPH # 0.8 (1.2-3.4); LYMPH % 10.6 % (22.0-35.0); MEAN CELL VOLUME 93.4 fl (80.0-105.0); MEAN CORPUSCULAR HEMOGLOBIN 32.5 pg (25.0-35.0); MEAN CORPUSCULAR HGB CONC 34.8 g/dl (31.0-37.0); MEAN PLATELET VOLUME 12.1 fl (7.0-11.0); MONO # 0.8 (0.1-0.6); MONO % 10.8 % (1.0-6.0); RBC 3.17 10^6/uL (3.5-6.1); RED CELL DISTRIBUTION WIDTH 15.1 % (11.5-14.5); WHITE BLOOD COUNT 7.6 10^3/uL (4.5-11.0)
[2018-09-20 06:23] LABS: BLOOD UREA NITROGEN 23 mg/dL (7-21); CALCIUM 8.4 mg/dL (8.4-10.5); GFR NON-AFRICAN AMERICAN 50
--- NOTE | 2018-09-20 07:31 | CP.PCM.PN ---
Subjective - Date & Time of Evaluation Date of Evaluation: 09/20/18 Time of Evaluation: 06:50 - Subjective Subjective: Lying in bed,awake, alert, no distress Reason for consultation and follow up: Cardiac evaluation of shortness of breath, history of paroxysmal atrial fibrillation Seen and examined by me and Dr. Almodovar Objective - Vital Signs/Intake and Output Vital Signs (last 24 hours): Temp Pulse Resp BP Pulse Ox 97.7 F 56 L 19 110/54 L 100 09/20/18 06:00 09/20/18 06:00 09/20/18 06:00 09/20/18 06:00 09/20/18 06:00 Intake and Output: 09/20/18 09/20/18 06:59 18:59 Intake Total 620 Output Total 825 Balance -205 - Medications Medications: Current Medications Acetaminophen (Tylenol 325mg Tab) 650 mg PO Q4H PRN PRN Reason: Pain, Mild (1-3) Albuterol Sulfate (Albuterol 0.5% Inhal Liana (2.5 Mg/0.5 Ml) Ud) 2.5 mg IH DAILY [facility] Last Admin: 09/19/18 20:12 Dose: 2.5 mg Albuterol/Ipratropium (Duoneb 3 Mg/0.5 Mg (3 Ml) Ud) 3 ml IH Q4H PRN PRN Reason: Shortness of Breath Last Admin: 09/18/18 03:02 Dose: 3 ml Amiodarone HCl (Cordarone) 200 mg PO DAILY [facility] Last Admin: 09/19/18 10:28 Dose: 200 mg Ascorbic Acid (Vitamin C 500 Mg Tab) 500 mg PO DAILY [facility] Last Admin: 09/19/18 10:28 Dose: 500 mg Carvedilol (Coreg) 3.125 mg PO BID [facility] Last Admin: 09/19/18 18:57 Dose: Not Given Docusate Sodium (Colace) 100 mg PO DAILY [facility] Last Admin: 09/19/18 10:29 Dose: 100 mg Famotidine (Pepcid) 40 mg PO HS [facility] Last Admin: 09/19/18 21:33 Dose: 40 mg Ferrous Sulfate (Feosol) 324 mg PO DAILY [facility] Last Admin: 09/19/18 10:28 Dose: 324 mg Folic Acid (Folic Acid) 1 mg PO DAILY [facility] Last Admin: 09/19/18 10:29 Dose: 1 mg Furosemide (Lasix) 40 mg IVP Q12 [facility] Last Admin: 09/19/18 21:33 Dose: 40 mg Home Med (Home Med) 0 unit OS QID [facility] Last Admin: 09/19/18 21:34 Dose: 1 unit Home Med (Home Med) 0 unit OS QID [facility] Last Admin: 09/19/18 21:34 Dose: 1 unit Home Med (Home Med) 0 unit OD BID [facility] Last Admin: 09/19/18 18:56 Dose: 1 unit Sodium Chloride (Hypertonic Saline 3%) 500 mls @ 20 mls/hr IV .Q24H [facility] Stop: 09/20/18 23:59 Last Admin: 09/20/18 00:26 Dose: 20 mls/hr Lisinopril (Zestril) 2.5 mg PO DAILY [facility] Last Admin: 09/19/18 10:28 Dose: 2.5 mg Montelukast Sodium (Singulair) 10 mg PO DAILY [facility] Last Admin: 09/19/18 10:28 Dose: 10 mg Non-Formulary Medication (Fluticasone/Vilanterol [Breo Ellipta 200-25 Mcg Inh]) 1 puff IH DAILY [facility] Last Admin: 09/19/18 10:33 Dose: 1 puff Non-Formulary Medication (Levocetirizine Dihydrochloride [Xyzal]) 1 tab PO DAILY [facility] Last Admin: 09/19/18 11:07 Dose: Not Given Tiotropium [place] (Spiriva) 18 mcg IH DAILY [facility] Last Admin: 09/19/18 10:28 Dose: 18 mcg - Labs Labs: 09/20/18 05:30 09/20/18 05:30 PT 15.7 SECONDS (9.4-12.5) H 09/17/18 19:52 INR 1.37 09/17/18 19:52 APTT 35.8 Seconds (25.1-36.5) 09/17/18 19:52 - Constitutional Appears: Non-toxic, No Acute Distress - Head Exam Head Exam: NORMAL INSPECTION, NORMOCEPHALIC - Eye Exam Eye Exam: Normal appearance Pupil Exam: NORMAL ACCOMODATION - ENT Exam ENT Exam: Mucous Membranes Dry - Respiratory Exam Respiratory Exam: Decreased Breath Sounds, NORMAL BREATHING PATTERN - Cardiovascular Exam Cardiovascular Exam: Bradycardia, +S1, +S2 - GI/Abdominal Exam GI & Abdominal Exam: Soft, Normal Bowel Sounds - Extremities Exam Extremities Exam: Full ROM, Normal Capillary Refill - Neurological Exam Neurological Exam: Alert, Awake, Oriented x3 - Psychiatric Exam Psychiatric exam: Normal Affect, Normal Mood - Skin Skin Exam: Dry, Normal Color, Warm Assessment and Plan - Assessment and Plan (Free Text) Assessment: A 68 year old male who came in to the ER due to shortness of breath and leg swelling for the past 3 days prior to admission. History of mitral stenosis,moderate mitral regurgitation, CHF, COPD,, asthma, atrial fibrillation. chest Xray showed mild congestion on admission, EKG, bradycardia at 50's. Troponin normal, elevated BNP, Admitted for mild exacerbation of CHF. Bradycardia maybe due to betablocker and Amiodarone.Will continue. NSS 3% for low sodium with improvement. For ECHO to evaluate LV function. Plan: Symptoms clinically improved For Echo today to evaluate LV function Denies shortness of breath Heart rate stable Blood pressure controlled Sodium 134 today, improved, completed 3% NSS total 500cc given Continue to paz On Amiodarone 200 mg daily,Coreg 3.125 mg BID, Lasix 40 mg BID, Lisinopril 2.5 mg daily Continue current treatment Continue current medication Strict I&O Chart reviewed Will follow up Plan and treatment discussed with Dr. Almodovar
--- NOTE | 2018-09-20 08:45 | PN ---
DATE: 09/19/2018 REASON FOR CONSULTATION: Cardiac evaluation, history of paroxysmal atrial fibrillation, admitted with shortness of breath, decompensated congestive heart failure, acute on chronic systolic dysfunction as well as valvular dysfunction. SUBJECTIVE: The patient feels a little better. not in acute distress. PHYSICAL EXAMINATION VITAL SIGNS: Examination as follows, vital signs, temperature afebrile, heart rate 54, blood pressure 109/58. HEENT: PERRLA intact. NECK: Supple. No carotid bruits or thyromegaly. CHEST: Clear to auscultation. HEART: S1 and S2, regular. ABDOMEN: Soft. EXTREMITIES: Clubbing and cyanosis, negative. LABORATORY DATA: WBC 7.1, hemoglobin 10.3, hematocrit 29.3, platelet count 72. Chemistry shows sodium 120, potassium 4.4, chloride 90, carbon dioxide 19, anion gap of 15, BUN 20, creatinine 1.4. IMPRESSION: Acute decompensated congestive heart failure secondary to valvular dysfunction. Last echo shows preserved left ventricular function, history of atrial fibrillation, on amiodarone, now he is in normal sinus bradycardia. Last echo dated shows no pulmonary embolism. No vegetation. No thrombus. Moderate mitral stenosis. Mild aortic stenosis. Mild to moderate mitral regurgitation. Ejection fraction 60%. RECOMMENDATION: Continue IV Lasix. Bradycardia secondary to amiodarone. Continue lisinopril. Continue Coreg. We will get MUGA scan tomorrow to assess LV function. Monitor electrolytes and supplement as needed. The patient was on 3% saline with Lasix to get free excretion of the water and the sodium is going up, today is 128. We will repeat SMA-7 tomorrow. We will repeat the blood workup in the morning. Monitor I's and O's. Again this note is an addition to dictated by our nurse practitioner. The patient has 1.2 L or 1200 mL negative fluid balance. Feels a lot better. Thank you Dr. Martinez for providing us the opportunity in taking care of the patient, Des Billy. Alfonso Almodovar MD
[2018-09-20] MEDS ORDERED: Potassium Chloride 20 mEq ER Tab PO ONE (09:34)
--- NOTE | 2018-09-20 10:20 | CARD ---
APPROVED REPORT Date of service: 09/17/2018 EKG Measurement Heart [id number] <Conclusion> Sinus bradycardia with 1st degree AV block Low voltage QRS Poor Progression of R in V1-V2. Non Specific ST_T Changes. Abnormal ECG
[2018-09-20] MEDS: PREDNISOLONE ACETATE 1% OD SCH ×2 (10:49→18:36)
[2018-09-20] MEDS: Magnesium Sulfate 2 gm/50 ml 2 GM/50 ML BAG IVPB ONE ×2 (10:53→11:53)
--- NOTE | 2018-09-20 12:23 | PN ---
DATE: 09/20/2018 REASON FOR CONSULTATION: History of paroxysmal atrial fibrillation, decompensated congestive heart failure, swelling of the legs, hyponatremia. SUBJECTIVE: Patient feels a lot better. Denies any chest pain, shortness of breath or any palpitation. LABORATORY DATA: Sodium went to 134, potassium 3.8, magnesium 1.8. ASSESSMENT AND PLAN: Acute decompensated congestive heart failure, paroxysmal atrial fibrillation, mitral stenosis and mitral regurgitation. RECOMMENDATION: Discontinue 3% saline, supplement potassium, supplement magnesium. We will get MUGA scan today to assess LV function. We will change Lasix to p.o. from tomorrow. Possible discharge home in a.m. He will supplement and potassium. Discontinue IV Lasix. Hopefully, they will start from 40 from tomorrow. This note is in addition to dictated by our nurse practitioner, Alie Perea. Thank you Dr. Martinez for providing us the opportunity in taking care of the patient, Des Billy. Alfonso Almodovar MD
[2018-09-20] MEDS: PREDNISOLONE ACETATE 1% OS SCH ×2 (15:20→21:23)
[2018-09-20] MEDS: Tiotropium 18 mcg Cap For Inhalation IH SCH (15:29)
[2018-09-20] MEDS: LEVOCETIRIZINE DIHYDROCHLORIDE PO SCH (15:33)
[2018-09-20] MEDS: Non Formulary Medication (Fluticasone/Vilanterol [Breo Ellipta 200-25 Mcg Inh] 1 PUFF) IH SCH (15:38)
--- NOTE | 2018-09-20 18:53 | CARD ---
APPROVED REPORT Date of service: 09/20/2018 EXAM: Two-dimensional and M-mode echocardiogram with Doppler and color Doppler. INDICATION PULMONARY EDEMA 2D DIMENSIONS Left Atrium (2D)4.4 (1.6-4.0cm)IVSd1.0 (0.7-1.1cm) LVDd4.1 (3.9-5.9cm)PWd0.9 (0.7-1.1cm) LVDs2.9 (2.5-4.0cm)FS (%) 29.7 % LVEF (%)57.2 (>50%) M-Mode DIMENSIONS Aortic Root3.00 (2.2-3.7cm)Aortic Cusp Exc.1.60 (1.5-2.0cm) Aortic Valve AoV Peak Flltmmdl264.0cm/Srinivasan Peak GR.14mmHg Mitral Valve MV E Zioorcsi242.0cm/sMV A Ipguufcz11.9cm/sMV [id number] E/A ratio1.9MVA (PHT)1.22ue8FIA (Planimetry)1.63cm2 TDI E/Lateral E'0.0E/Medial E'0.0 Pulmonary Valve PV Peak Bfoqjayw67.3cm/sPV Peak Grad.3mmHg Tricuspid Valve TR Peak Qxbvykzl816fq/sRAP JBRWRGTZ52kvNlZQ Peak Gr.41mmHg [id number] LEFT VENTRICLE The left ventricle is normal size. There is normal left ventricular wall thickness. The left ventricular function is normal.EF-55% There is normal LV segmental wall motion. Transmitral Doppler flow pattern is Grade II-pseudonormal filling dynamics. No left ventricle thrombus noted on this study. There is no ventricular septal defect visualized. There is no left ventricular aneurysm. There is no mass noted in the left ventricle. RIGHT VENTRICLE The right ventricle is moderately dilated. There is normal right ventricular wall thickness. Systolic function of RV is moderately reduced. ATRIA The left atrium is mild to moderately dilated. The right atrium is severely dilated. The interatrial septum is intact with no evidence for an atrial septal defect. The interatrial septum bows toward left atrium consistent with elevated right atrial pressure. AORTIC VALVE The aortic valve is normal in structure. There is mild aortic regurgitation. There is no aortic valvular stenosis. There is no aortic valvular vegetation. MITRAL VALVE The mitral valve appears rheumatic, with decrease excursion. The mitral valve is calcified and displays decreased opening. Mitral annular calcification is moderate to severe. Mitral regurgitation is mild. There is moderate mitral valve stenosis. ( Rheumatic) MVA 1.2-1.3 by PHT, and !.6 by planimetry. There is no evidence of mitral valve prolapse. TRICUSPID VALVE The tricuspid valve leaflets are thickened , but open well. There is severe tricuspid regurgitation.RVSP-51 mmof Hg. There is moderate pulmonary hypertension. There is no tricuspid valve stenosis. There is no tricuspid valve prolapse or vegetation. PULMONIC VALVE The pulmonary valve is normal in structure. There is mild pulmonic valvular regurgitation. There is no pulmonic valvular stenosis. GREAT VESSELS The aortic root is normal in size. The ascending aorta is normal in size. The pulmonary artery is normal. The IVC is normal in size and collapses >50% with inspiration. PERICARDIAL EFFUSION There is no pleural effusion. There is no pericardial effusion. <Conclusion> The left ventricular function is normal.EF-55% Systolic function of RV is moderately reduced. The right atrium is severely dilated. The interatrial septum is intact with no evidence for an atrial septal defect. The interatrial septum bows toward left atrium consistent with elevated right atrial pressure. There is mild aortic regurgitation. Mitral regurgitation is mild. There is moderate mitral valve stenosis. ( Rheumatic) MVA 1.2-1.3 by PHT, and !.6 by planimetry. There is severe tricuspid regurgitation.RVSP-51 mmof Hg. There is moderate pulmonary hypertension. There is mild pulmonic valvular regurgitation. The IVC is normal in size and collapses >50% with inspiration. There is no pericardial effusion.
--- NOTE | 2018-09-21 00:32 | PN ---
DATE: 09/20/2018 SUBJECTIVE: The patient is 68 years old male. The patient was seen and examined at bedside, 09/20/2018 and looking comfortable. Still has swelling of the legs, but little bit better. Shortness of breath is better. Cough is better. No fever. No chills. No nausea, vomiting, or diarrhea. No hematuria. No hematochezia. No headache. No dizziness. No chest pain. No palpitations. PHYSICAL EXAMINATION: VITAL SIGNS: Temperature 97.7, pulse 56, respiratory rate 19, blood pressure 110/57, and pulse oximetry 100%. HEENT: Head is normocephalic and atraumatic. Eyes; PERRLA. Extraocular muscles are intact. Conjunctivae clear. Nose patent. NECK: Supple. No carotid bruits, JVD, thyromegaly. CHEST: Bilaterally symmetrical. HEART: S1 and S2 positive. LUNGS: Clear to auscultation. ABDOMEN: Soft. Bowel sounds present. No organomegaly. EXTREMITIES: No edema. No cyanosis. NEUROLOGIC: The patient is awake, alert, moving all four extremities. No focal deficits. LABORATORY DATA: White blood cell 7.6, hemoglobin 10.3, hematocrit 29.6, platelets 71,000. Sodium 134, potassium 3.8, BUN 23, creatinine 1.4, and glucose 100. MEDICATIONS: Tylenol, albuterol, DuoNeb, amiodarone, vitamin C, Colace, Pepcid, Zestril, Singulair, Xyzal, and Spiriva. ASSESSMENT AND PLAN: Mr. Des Billy is a 68-year-old male with anemia, came with shortness of breath, swelling of the legs, still has swelling of the legs, but little bit better, history of mitral stenosis, moderate mitral regurgitation, has decompensated congestive heart failure, chronic obstructive pulmonary disease, asthma, and atrial fibrillation. Chest x-ray showed mild congestion, history of bradycardia at 50s. Elevated BNP. According to staff mechanical engineer, bradycardic and was on beta-elsie and amiodarone. Sodium improved. Symptoms clinically improved. Need echo and liver function evaluation. Sodium improved with 3% normal saline. Continue diuretics, amiodarone, Lasix, out of bed with physical therapy. Actually, echocardiography done showed left ventricular function is normal 55%, right atrium is severely dilated, severe tricuspid regurgitation, no pericardial effusion. Seen by Dr. Almodovar and Dr. Ansari. The patient has a history of cardiomyopathy, history of alcohol abuse in the remote past, sleep apnea syndrome. Gastrointestinal and deep venous thrombosis prophylaxes. Repeat labs. We will follow up. Jewell Martinez MD MTDGhazal
--- NOTE | 2018-09-21 02:36 | PN ---
DATE: 09/20/2018 PULMONARY PROGRESS NOTE REFERRING PHYSICIAN: Dr. Martinez. SUBJECTIVE: The patient is lying in the bed, head at 45 degrees. Night was unremarkable. Tolerated CPAP for 5 hours. Cough and shortness breath are improved. No chest pain, nausea, vomiting, or diarrhea. Decreased leg swelling. OBJECTIVE: GENERAL: No acute distress. VITAL SIGNS: Temperature is 99, heart rate is 97, respiratory rate is 18, blood pressure 105/57. HEENT: Moist mucous membranes. Crowded airway. NECK: Supple. No JVD. LUNGS: Have one-third of crackles. HEART: S1, S2. ABDOMEN: Soft, nontender. No organomegaly. EXTREMITY: Has edema. NEUROLOGIC: Neurologically, awake, alert, follows simple commands. MEDICATIONS: He is on Colace 100 mg daily, amiodarone 200 mg daily, Coreg 3.15 mg daily, DuoNeb every 4 hours p.r.n., ferrous sulfate 324 mg daily, folic acid 1 mg daily, Lasix 40 mg daily, Xyzal 1 tablet daily, Pepcid 40 mg daily, Singulair 10 mg daily, Spiriva inhaled daily, Tylenol p.r.n., vitamin C 500 mg daily, and Zestril 2.5 mg daily. LABORATORY DATA: Shows hemoglobin 10.3, hematocrit 29.6, WBC 7.6, platelet count is 71. Sodium 134, potassium 3.8, chloride 103, bicarbonate 23, BUN 23, creatinine 1.4, glucose is 100, calcium 8.4, phosphorus 3.5, magnesium is 1.4. Microbiology, blood culture had been negative. Had echocardiogram done today, which shows right ventricular systolic pressure is 51, severe tricuspid regurg, LV ejection fraction 55, systolic function of RV is moderately reduced, right atrium is severely dilated, mitral regurg is mild. There is a moderate mitral valve stenosis, severe tricuspid regurg, moderate pulmonary hypertension. IMPRESSION AND PLAN: Cardiomyopathy with valvular heart disease, mildly decreased systolic function with severe pulmonary hypertension, history of asthma, sleep apnea syndrome, hyponatremia. Pulmonary point of view slowly improving. Continue diuretics, afterload patient support tech, beta-elsie. Add inhaled bronchodilator, gastric prophylaxis, deep venous thrombosis prophylaxis. Cardiology followup. Encourage CPAP use at night. We will follow with you. Alfonso Ansari MD [facility] # [id number]
[2018-09-21] MEDS: Arformoterol 15 mcg/2 ml Inh Sol IH SCH ×2 (07:45→20:50)
[2018-09-21] MEDS: Budesonide 0.5 mg/2 ml Inhal Susp UD IH SCH ×2 (07:45→20:51)
[2018-09-21 07:57] LABS: HEMOGLOBIN 10.3 g/dL (14.0-18.0); MEAN CELL VOLUME 94.7 fl (80.0-105.0); MEAN CORPUSCULAR HGB CONC 33.8 g/dl (31.0-37.0); MEAN PLATELET VOLUME 11.8 fl (7.0-11.0); RBC 3.22 10^6/uL (3.5-6.1); RED CELL DISTRIBUTION WIDTH 15.2 % (11.5-14.5); WHITE BLOOD COUNT 5.7 10^3/uL (4.5-11.0)
[2018-09-21 08:10] LABS: ALB/GLOB RATIO 0.9 (1.1-1.8); ALBUMIN 2.9 g/dL (3.0-4.8); ALT/SGPT 57 U/L (7-56); AST/SGOT 77 U/L (17-59); BILIRUBIN,DIRECT 0.8 mg/dL (0.0-0.4); BLOOD UREA NITROGEN 23 mg/dL (7-21); CALCIUM 8.3 mg/dL (8.4-10.5); GFR NON-AFRICAN AMERICAN 50
[2018-09-21] MEDS: Tiotropium 18 mcg Cap For Inhalation IH SCH (09:56)
[2018-09-21] MEDS: LEVOCETIRIZINE DIHYDROCHLORIDE PO SCH (09:58)
[2018-09-21] MEDS: PREDNISOLONE ACETATE 1% OD SCH ×2 (09:59→18:54)
[2018-09-21] MEDS: Non Formulary Medication (Fluticasone/Vilanterol [Breo Ellipta 200-25 Mcg Inh] 1 PUFF) IH SCH (10:00)
[2018-09-21] MEDS: PREDNISOLONE ACETATE 1% OS SCH ×2 (10:00→14:30)
[2018-09-21] MEDS: Albuterol 0.5% Inhal Sol (2.5 mg/0.5 ml) UD IH SCH (11:37)
--- NOTE | 2018-09-21 14:05 | CP.PCM.CON ---
<Narciso Pablo - Last Filed: 09/21/18 14:07> History of Present Illness - History of Present Illness History of Present Illness: PGY6 GI Fellow Consult Note Patient is a 68yo male with PMHx significant for CHF, COPD, asthma, history of alcohol abuse (sober 6 years) and atrial fibrillation who presented to the ED with complain of SOB and LE edema. Our service was consulted for abnormal LFTs and diarrhea. Per the patient and nursing staff, no episodes of diarrhea noted since arrival to the floor. Patient also denies this history and has no abdominal pain at time of interview/examination. Symptoms have improved since admission with diuresis and breathing treatments. In regards to the abnormal LFTs, there is concern for congestive hepatopathy given his known history of CHF with right sided disease/severe TR/moderate pulmonary hypertension. At present, denies any abdominal pain, nausea, vomiting, weight loss, change in bowel habits, rectal bleeding. No prior history of IVDU and denies knowledge of viral hepatitis infection. 12 system ROS performed and negative except where stated PMHx: See HPI PSHx: Nasal fracture repair FHx: Discussed with patient and noncontributory Social: Sober for 6 years, prior heavy EtOH abuse; denies tobacco or illicit drug use Endo: No prior endoscopic evaluations Past Patient History - Infectious Disease Hx of Infectious Diseases: None - Past Social History Smoking Status: Never Smoked - CARDIAC Hx Cardiac Disorders: Yes (A fib) Hx Congestive Heart Failure: Yes - PULMONARY Hx Chronic Obstructive Pulmonary Disease (COPD): Yes - NEUROLOGICAL Hx Paralysis: No - HEMATOLOGICAL/ONCOLOGICAL Hx Blood Transfusions: No - MUSCULOSKELETAL/RHEUMATOLOGICAL Hx Musculoskeletal Disorders: No - PSYCHIATRIC Hx Emotional Abuse: No Hx Physical Abuse: No Hx Substance Use: No - SURGICAL HISTORY Hx Cataract Extraction: Yes - ANESTHESIA Hx Anesthesia Reactions: No Hx Malignant Hyperthermia: No Meds Allergies/Adverse Reactions: Allergies Allergy/AdvReac Type Severity Reaction Status Date / Time No Known Allergies Allergy Verified 04/03/12 12:26 - Medications Medications: Current Medications Acetaminophen (Tylenol 325mg Tab) 650 mg PO Q4H PRN PRN Reason: Pain, Mild (1-3) Albuterol Sulfate (Albuterol 0.5% Inhal Liana (2.5 Mg/0.5 Ml) Ud) 2.5 mg IH DAILY [facility] Last Admin: 09/21/18 11:37 Dose: 2.5 mg Albuterol/Ipratropium (Duoneb 3 Mg/0.5 Mg (3 Ml) Ud) 3 ml IH Q4H PRN PRN Reason: Shortness of Breath Last Admin: 09/18/18 03:02 Dose: 3 ml Amiodarone HCl (Cordarone) 200 mg PO DAILY [facility] Last Admin: 09/20/18 10:47 Dose: 200 mg Arformoterol Tartrate (Brovana) 15 mcg IH [id number] [facility] Last Admin: 09/21/18 07:45 Dose: 15 mcg Ascorbic Acid (Vitamin C 500 Mg Tab) 500 mg PO DAILY [facility] Last Admin: 09/21/18 09:58 Dose: 500 mg Budesonide (Pulmicort Respules) 0.5 mg IH [id number] [facility] Last Admin: 09/21/18 07:45 Dose: 0.5 mg Carvedilol (Coreg) 3.125 mg PO BID [facility] Last Admin: 09/20/18 18:34 Dose: 3.125 mg Docusate Sodium (Colace) 100 mg PO DAILY [facility] Last Admin: 09/21/18 09:57 Dose: 100 mg Famotidine (Pepcid) 40 mg PO HS [facility] Last Admin: 09/20/18 21:22 Dose: 40 mg Ferrous Sulfate (Feosol) 324 mg PO DAILY [facility] Last Admin: 09/21/18 09:57 Dose: 324 mg Folic Acid (Folic Acid) 1 mg PO DAILY [facility] Last Admin: 09/21/18 09:56 Dose: 1 mg Furosemide (Lasix) 40 mg PO DAILY [facility] Home Med (Home Med) 0 unit OS QID [facility] Last Admin: 09/21/18 09:59 Dose: 1 unit Home Med (Home Med) 0 unit OS QID [facility] Last Admin: 09/21/18 10:00 Dose: Not Given Home Med (Home Med) 0 unit OD BID [facility] Last Admin: 09/21/18 09:59 Dose: 1 unit Lisinopril (Zestril) 2.5 mg PO DAILY [facility] Last Admin: 09/20/18 10:50 Dose: 2.5 mg Montelukast Sodium (Singulair) 10 mg PO DAILY [facility] Last Admin: 09/21/18 09:57 Dose: 10 mg Non-Formulary Medication (Fluticasone/Vilanterol [Breo Ellipta 200-25 Mcg Inh]) 1 puff IH DAILY [facility] Last Admin: 09/21/18 10:00 Dose: Not Given Non-Formulary Medication (Levocetirizine Dihydrochloride [Xyzal]) 1 tab PO DAILY [facility] Last Admin: 09/21/18 09:58 Dose: Not Given Tiotropium [place] (Spiriva) 18 mcg IH DAILY [facility] Last Admin: 09/21/18 09:56 Dose: 18 mcg Physical Exam - Constitutional Appears: Non-toxic, No Acute Distress - Eye Exam Eye Exam: EOMI, PERRL - ENT Exam ENT Exam: Mucous Membranes Moist - Respiratory Exam Respiratory Exam: Rales, Wheezes. absent: Clear to Auscultation Bilateral, Rhonchi - Cardiovascular Exam Cardiovascular Exam: RRR, +S1, +S2 - GI/Abdominal Exam GI & Abdominal Exam: Normal Bowel Sounds, Soft. absent: Distended, Firm, Gua rding, Organomegaly, Rigid, Tenderness - Extremities Exam Extremities exam: Positive for: pedal edema Additional comments: 2+ LE edema - Neurological Exam Neurological exam: Alert, Oriented x3 - Psychiatric Exam Psychiatric exam: Normal Affect, Normal Mood - Skin Skin Exam: Dry, Warm Results - Vital Signs Recent Vital Signs: Last Vital Signs Temp 98.3 F 09/21/18 06:00 Pulse 56 L 09/21/18 06:00 Resp 17 09/21/18 06:00 BP 111/54 L 09/21/18 06:00 Pulse Ox 98 09/21/18 06:00 - Labs Result Diagrams: 09/21/18 07:00 09/21/18 07:00 Labs: Laboratory Results - last 24 hr 09/21/18 09/21/18 07:00 07:00 WBC 5.7 D RBC 3.22 L Hgb 10.3 L Hct 30.5 L MCV 94.7 MCH 32.0 MCHC 33.8 RDW 15.2 H Plt Count 75 L MPV 11.8 H Sodium 134 Potassium 3.8 Chloride 103 Carbon Dioxide 22 Anion Gap 12 BUN 23 H Creatinine 1.4 Est GFR ( Amer) > 60 Est GFR (Non-Af Amer) 50 Random Glucose 95 Calcium 8.3 L Total Bilirubin 2.1 H Direct Bilirubin 0.8 H AST 77 H ALT 57 H Alkaline Phosphatase 99 Total Protein 6.2 Albumin 2.9 L Globulin 3.3 Albumin/Globulin Ratio 0.9 L Assessment & Plan - Assessment and Plan (Free Text) Assessment: Patient is a 68yo male with PMHx significant for CHF, COPD, asthma, history of alcohol abuse (sober 6 years) and atrial fibrillation who presented to the ED with complain of SOB and LE edema -Acute CHF exacerbation -Abnormal LFTs - concern for congestive hepatopathy -Indirect hyperbilirubinemia Plan: -LFTs noted; recommend trending CMP in conjunction with ongoing acute CHF therapy -Indirect hyperbilirubinemia may be 2/2 stressed, volume overloaded state - known valvular lesions may predispose patient to hemolysis -Check LDH, reticulocyte count, viral hepatitis panel -Recommend CT abdomen/pelvis with oral contrast to evaluate liver -Ongoing CHF care with cardiology recommendations noted -Diet as tolerated - Date & Time Date: 09/21/18 Time: 07:00 <Julian Godoy V - Last Filed: 09/23/18 00:12> Meds - Medications Medications: Current Medications Acetaminophen (Tylenol 325mg Tab) 650 mg PO Q4H PRN PRN Reason: Pain, Mild (1-3) Albuterol Sulfate (Albuterol 0.5% Inhal Liana (2.5 Mg/0.5 Ml) Ud) 2.5 mg IH DAILY [facility] Last Admin: 09/22/18 07:43 Dose: 2.5 mg Albuterol/Ipratropium (Duoneb 3 Mg/0.5 Mg (3 Ml) Ud) 3 ml IH Q4H PRN PRN Reason: Shortness of Breath Last Admin: 09/18/18 03:02 Dose: 3 ml Amiodarone HCl (Cordarone) 200 mg PO DAILY [facility] Last Admin: 09/22/18 09:44 Dose: 200 mg Arformoterol Tartrate (Brovana) 15 mcg IH [id number] [facility] Last Admin: 09/22/18 20:28 Dose: 15 mcg Ascorbic Acid (Vitamin C 500 Mg Tab) 500 mg PO DAILY [facility] Last Admin: 09/22/18 09:44 Dose: 500 mg Budesonide (Pulmicort Respules) 0.5 mg IH [id number] [facility] Last Admin: 09/22/18 20:28 Dose: 0.5 mg Carvedilol (Coreg) 3.125 mg PO BID [facility] Last Admin: 09/22/18 09:45 Dose: Not Given Docusate Sodium (Colace) 100 mg PO DAILY [facility] Last Admin: 09/22/18 09:43 Dose: 100 mg Famotidine (Pepcid) 40 mg PO HS [facility] Last Admin: 09/22/18 22:21 Dose: 40 mg Ferrous Sulfate (Feosol) 324 mg PO DAILY [facility] Last Admin: 09/22/18 09:44 Dose: 324 mg Folic Acid (Folic Acid) 1 mg PO DAILY [facility] Last Admin: 09/22/18 09:43 Dose: 1 mg Furosemide (Lasix) 40 mg IVP BID [facility] Last Admin: 09/22/18 16:30 Dose: 40 mg Home Med (Home Med) 0 unit OS QID [facility] Last Admin: 09/22/18 22:09 Dose: 1 unit Home Med (Home Med) 0 unit OD BID [facility] Last Admin: 09/22/18 10:30 Dose: 1 unit Home Med (Home Med) 1 unit OD QID [facility] Last Admin: 09/22/18 22:11 Dose: 1 unit Lisinopril (Zestril) 2.5 mg PO DAILY [facility] Last Admin: 09/22/18 09:47 Dose: 2.5 mg Montelukast Sodium (Singulair) 10 mg PO DAILY [facility] Last Admin: 09/22/18 09:43 Dose: 10 mg Non-Formulary Medication (Fluticasone/Vilanterol [Breo Ellipta 200-25 Mcg Inh]) 1 puff IH DAILY [facility] Last Admin: 09/22/18 09:59 Dose: Not Given Non-Formulary Medication (Levocetirizine Dihydrochloride [Xyzal]) 1 tab PO DAILY [facility] Last Admin: 09/22/18 09:53 Dose: Not Given Tiotropium [place] (Spiriva) 18 mcg IH DAILY [facility] Last Admin: 09/22/18 09:44 Dose: 18 mcg Results - Vital Signs Recent Vital Signs: Last Vital Signs Temp 98.7 F 09/22/18 22:00 Pulse 66 09/22/18 22:00 Resp 20 09/22/18 22:00 BP 119/52 L 09/22/18 22:00 Pulse Ox 94 L 09/22/18 22:00 - Labs Result Diagrams: 09/21/18 07:00 09/22/18 07:00 Labs: Laboratory Results - last 24 hr 09/22/18 07:00 Sodium 135 Potassium 3.4 L Chloride 103 Carbon Dioxide 23 Anion Gap 12 BUN 22 H Creatinine 1.2 Est GFR ( Amer) > 60 Est GFR (Non-Af Amer) 60 Random Glucose 97 Calcium 8.0 L Total Bilirubin 2.4 H AST 92 H ALT 62 H Alkaline Phosphatase 93 Total Protein 6.0 Albumin 2.8 L Globulin 3.2 Albumin/Globulin Ratio 0.9 L Attending/Attestation - Attestation I have personally seen and examined this patient.: Yes I have fully participated in the care of the patient.: Yes I have reviewed all pertinent clinical information: Yes Notes (Text): p 09/23/18 00:12
[2018-09-21] MEDS ORDERED: PrednisoLONE 1% Opht Susp(5 ml) OD SCH (18:00)
[2018-09-21] MEDS ORDERED: Home Med 1 UNIT OD SCH ×3 (18:00)
[2018-09-21] MEDS: PREDNISOLONE 1% OD SCH ×2 (18:54→21:57)
--- NOTE | 2018-09-21 21:14 | PN ---
DATE: 09/21/2018 PULMONARY PROGRESS NOTE REFERRING PHYSICIAN: Jewell Martinez MD. SUBJECTIVE: He is lying in the bed, still has some cough and shortness of breath. No chest pain. No nausea, no vomiting, no diarrhea. Decreased leg swelling but still there. PHYSICAL EXAMINATION: GENERAL: In no acute distress. VITAL SIGNS: Temperature is 98, heart rate is 62, respiratory rate is 18, blood pressure 106/66, pulse ox 98% on room air. HEENT: Moist mucous membrane. Crowded airway. Mallampati score is 4. NECK: Supple. No JVD. LUNGS: Have basilar crackles, scattered rhonchi. HEART: S1 and S2. ABDOMEN: Soft, nontender, no organomegaly. EXTREMITIES: Does have edema. NEUROLOGIC: Awake, alert, and follows simple command. MEDICATIONS: He is on Brovana inhaled twice a day, Colace 100 mg daily, amiodarone 200 mg daily, Coreg 3.125 mg twice a day, DuoNeb every 4 hours p.r.n., ferrous sulfate 324 mg daily, folic acid 1 mg daily, also on Lasix now 40 mg daily, Xyzal 1 tablet daily, Pepcid 40 mg at bedtime, Pulmicort inhaled twice a day, Singulair 10 mg daily , Spiriva 1 capsule inhaled daily, Tylenol p.r.n., vitamin C 500 mg daily, and Zestril 2.5 mg daily. LABORATORY DATA: Shows hemoglobin 10.3, hematocrit 30.5, WBC 5.7, platelet count is 75, retic count is 1.57. Sodium 134, potassium 3.8, chloride 103, bicarbonate 22, BUN 23, creatinine 1.4, glucose 95, calcium is 8.3. Total bili 0.8, AST 77, ALT 57, alk phos is 99. Albumin is 2.9. Microbiology, blood culture, there is no growth. IMPRESSION AND PLAN: Cardiomyopathy, valvular heart disease, also mildly decreased systolic function, pulmonary hypertension, chronic obstructive lung disease, sleep apnea syndrome, status post hyponatremia. Case discussed with Dr. Martinez. Still has basilar crackles and edema. We will increase Lasix to 40 twice a day. Continue inhaled bronchodilator, beta-elsie, afterload infectious waste technician. Follow up electrolytes in the morning. Thank you and we will follow with you. Alfonso Ansari MD [facility] # [id number]
--- NOTE | 2018-09-22 07:16 | PN ---
DATE: 09/21/2018 SUBJECTIVE: The patient was seen and examined at the bedside, looking comfortable, still having shortness of breath, still having swelling of the ankles. Cough is better. No chest pain. No abdominal pain. PHYSICAL EXAMINATION: VITAL SIGNS: Temperature 98, heart rate 62, blood pressure 102/62, pulse oximetry 98% on room air. HEENT: Head: Normocephalic, atraumatic. Eyes: PERRLA. Extraocular muscles intact. Conjunctivae clear. Nose patent. NECK: Supple. No carotid bruit or thyromegaly. CHEST: Bilaterally symmetrical. HEART: S1 and S2 positive. LUNGS: Have bilateral crackles, scattered rhonchi. ABDOMEN: Soft, nontender. No organomegaly. EXTREMITIES: Still has edema, especially on the ankles, pitting edema. NEUROLOGIC: The patient is awake, alert, follows simple commands. MEDICATIONS: Colace, amiodarone, Coreg, DuoNeb, ferrous sulfate, folic acid, Lasix, Xyzal, Pepcid, Singulair, Spiriva, Tylenol and Zestril. LABORATORY DATA: Hemoglobin 10.3, hematocrit 30.5, white blood cells 5.7 and platelets 75,000. Sodium 135, potassium 3.8, BUN 23, creatinine 1.4. AST 74, ALT 67. ASSESSMENT AND PLAN: Mr. Des Billy is a 68-year-old male with cardiomyopathy, valvular heart disease, decreased diastolic dysfunction, pulmonary hypertension, chronic obstructive lung disease, sleep apnea syndrome, hyponatremia who is admitted with exacerbation of decompensated congestive heart failure, still has bibasilar crackles and edema. I will increase Lasix to 40 twice a day. Discussion with Dr. Ansari, patient's and patient himself. Continue inhaled bronchodilator after load reduction. Repeat labs. We will follow up. Jewell Martinez MD MTDD
[2018-09-22] MEDS: Budesonide 0.5 mg/2 ml Inhal Susp UD IH SCH ×2 (07:36→20:28)
[2018-09-22] MEDS: Arformoterol 15 mcg/2 ml Inh Sol IH SCH ×2 (07:43→20:28)
[2018-09-22] MEDS: Albuterol 0.5% Inhal Sol (2.5 mg/0.5 ml) UD IH SCH (07:43)
[2018-09-22 08:46] LABS: ALB/GLOB RATIO 0.9 (1.1-1.8); ALBUMIN 2.8 g/dL (3.0-4.8); ALT/SGPT 62 U/L (7-56); AST/SGOT 92 U/L (17-59); BLOOD UREA NITROGEN 22 mg/dL (7-21); GFR NON-AFRICAN AMERICAN 60
[2018-09-22] MEDS: Tiotropium 18 mcg Cap For Inhalation IH SCH (09:44)
[2018-09-22] MEDS: LEVOCETIRIZINE DIHYDROCHLORIDE PO SCH (09:53)
[2018-09-22] MEDS: PREDNISOLONE 1% OD SCH ×4 (09:58→22:11)
[2018-09-22] MEDS: Non Formulary Medication (Fluticasone/Vilanterol [Breo Ellipta 200-25 Mcg Inh] 1 PUFF) IH SCH (09:59)
[2018-09-22] MEDS: PREDNISOLONE ACETATE 1% OD SCH (10:30)
[2018-09-22] MEDS ORDERED: Barium Sulfate Susp 2.1% w/v, 2.0% w/w 450 mL Bottle PO ONE (10:58)
--- NOTE | 2018-09-22 12:32 | CP.PCM.PN ---
<Narciso Pablo - Last Filed: 09/22/18 12:29> Subjective - Date & Time of Evaluation Date of Evaluation: 09/22/18 Time of Evaluation: 08:20 - Subjective Subjective: PGY6 GI Fellow Progress Note Patient seen and examined bedside this morning. The patient states that he is feeling much better. Denies any shortness of breath this morning. Lower extremities less edematous per patient. 12 system ROS performed and negative except where stated Objective - Vital Signs/Intake and Output Vital Signs (last 24 hours): Temp Pulse Resp BP Pulse Ox 98.7 F 59 L 18 110/56 L 97 09/22/18 06:00 09/22/18 09:47 09/22/18 06:00 09/22/18 09:49 09/22/18 06:00 Intake and Output: 09/22/18 09/22/18 06:59 18:59 Intake Total 200 Output Total 400 Balance -200 - Medications Medications: Current Medications Acetaminophen (Tylenol 325mg Tab) 650 mg PO Q4H PRN PRN Reason: Pain, Mild (1-3) Albuterol Sulfate (Albuterol 0.5% Inhal Liana (2.5 Mg/0.5 Ml) Ud) 2.5 mg IH DAILY [facility] Last Admin: 09/22/18 07:43 Dose: 2.5 mg Albuterol/Ipratropium (Duoneb 3 Mg/0.5 Mg (3 Ml) Ud) 3 ml IH Q4H PRN PRN Reason: Shortness of Breath Last Admin: 09/18/18 03:02 Dose: 3 ml Amiodarone HCl (Cordarone) 200 mg PO DAILY [facility] Last Admin: 09/22/18 09:44 Dose: 200 mg Arformoterol Tartrate (Brovana) 15 mcg IH [id number] [facility] Last Admin: 09/22/18 07:43 Dose: 15 mcg Ascorbic Acid (Vitamin C 500 Mg Tab) 500 mg PO DAILY [facility] Last Admin: 09/22/18 09:44 Dose: 500 mg Budesonide (Pulmicort Respules) 0.5 mg IH [id number] [facility] Last Admin: 09/22/18 07:36 Dose: 0.5 mg Carvedilol (Coreg) 3.125 mg PO BID [facility] Last Admin: 09/22/18 09:45 Dose: Not Given Docusate Sodium (Colace) 100 mg PO DAILY [facility] Last Admin: 09/22/18 09:43 Dose: 100 mg Famotidine (Pepcid) 40 mg PO HS [facility] Last Admin: 09/21/18 21:42 Dose: 40 mg Ferrous Sulfate (Feosol) 324 mg PO DAILY [facility] Last Admin: 09/22/18 09:44 Dose: 324 mg Folic Acid (Folic Acid) 1 mg PO DAILY [facility] Last Admin: 09/22/18 09:43 Dose: 1 mg Furosemide (Lasix) 40 mg IVP BID [facility] Last Admin: 09/22/18 09:49 Dose: Not Given Home Med (Home Med) 0 unit OS QID [facility] Last Admin: 09/22/18 09:58 Dose: 1 unit Home Med (Home Med) 0 unit OD BID [facility] Last Admin: 09/21/18 18:54 Dose: 1 unit Home Med (Home Med) 1 unit OD QID [facility] Last Admin: 09/22/18 09:58 Dose: 1 unit Lisinopril (Zestril) 2.5 mg PO DAILY [facility] Last Admin: 09/22/18 09:47 Dose: 2.5 mg Montelukast Sodium (Singulair) 10 mg PO DAILY [facility] Last Admin: 09/22/18 09:43 Dose: 10 mg Non-Formulary Medication (Fluticasone/Vilanterol [Breo Ellipta 200-25 Mcg Inh]) 1 puff IH DAILY [facility] Last Admin: 09/22/18 09:59 Dose: Not Given Non-Formulary Medication (Levocetirizine Dihydrochloride [Xyzal]) 1 tab PO DAILY [facility] Last Admin: 09/22/18 09:53 Dose: Not Given Tiotropium [place] (Spiriva) 18 mcg IH DAILY [facility] Last Admin: 09/22/18 09:44 Dose: 18 mcg - Labs Labs: 09/21/18 07:00 09/22/18 07:00 PT 15.7 SECONDS (9.4-12.5) H 09/17/18 19:52 INR 1.37 09/17/18 19:52 APTT 35.8 Seconds (25.1-36.5) 09/17/18 19:52 - Constitutional Appears: Non-toxic, No Acute Distress - Eye Exam Eye Exam: EOMI, PERRL - ENT Exam ENT Exam: Mucous Membranes Moist - Respiratory Exam Respiratory Exam: Rales. absent: Clear to Ausculation Bilateral, Rhonchi, Wheezes - Cardiovascular Exam Cardiovascular Exam: RRR, +S1, +S2 - GI/Abdominal Exam GI & Abdominal Exam: Soft, Normal Bowel Sounds. absent: Distended, Firm, Guarding, Rigid, Tenderness, Organomegaly - Extremities Exam Additional comments: 1+ B/L LE edema - Neurological Exam Neurological Exam: Alert, Awake, Oriented x3 - Psychiatric Exam Psychiatric exam: Normal Affect, Normal Mood - Skin Skin Exam: Dry, Warm Assessment and Plan - Assessment and Plan (Free Text) Assessment: Patient is a 68yo male with PMHx significant for CHF, COPD, asthma, history of alcohol abuse (sober 6 years) and atrial fibrillation who presented to the ED with complain of SOB and LE edema -Acute CHF exacerbation -Abnormal LFTs - concern for congestive hepatopathy -Indirect hyperbilirubinemia Plan: -Riticulocyte count and LDH both borderline high; indirect hyperbilirubinemia noted -LFTs noted -Suspect congestive hepatopathy and underlying cirrhosis in setting of severe right sided heart disease (Severe TR and pulmonary HTN) -Viral hepatitis panel pending -CT A/P ordered yesterday, remains pending - evaluate liver parencyhma -Treatment of acute CHF ongoing - cardiology following -Diet as tolerated <Jayne,Kovil V - Last Filed: 09/23/18 00:00> Objective - Vital Signs/Intake and Output Vital Signs (last 24 hours): Temp Pulse Resp BP Pulse Ox 98.7 F 66 20 119/52 L 94 L 09/22/18 22:00 09/22/18 22:00 09/22/18 22:00 09/22/18 22:00 09/22/18 22:00 Intake and Output: 09/22/18 09/23/18 18:59 06:59 Intake Total 920 240 Output Total 851 200 Balance 69 40 - Medications Medications: Current Medications Acetaminophen (Tylenol 325mg Tab) 650 mg PO Q4H PRN PRN Reason: Pain, Mild (1-3) Albuterol Sulfate (Albuterol 0.5% Inhal Liana (2.5 Mg/0.5 Ml) Ud) 2.5 mg IH DAILY [facility] Last Admin: 09/22/18 07:43 Dose: 2.5 mg Albuterol/Ipratropium (Duoneb 3 Mg/0.5 Mg (3 Ml) Ud) 3 ml IH Q4H PRN PRN Reason: Shortness of Breath Last Admin: 09/18/18 03:02 Dose: 3 ml Amiodarone HCl (Cordarone) 200 mg PO DAILY [facility] Last Admin: 09/22/18 09:44 Dose: 200 mg Arformoterol Tartrate (Brovana) 15 mcg IH [id number] [facility] Last Admin: 09/22/18 20:28 Dose: 15 mcg Ascorbic Acid (Vitamin C 500 Mg Tab) 500 mg PO DAILY [facility] Last Admin: 09/22/18 09:44 Dose: 500 mg Budesonide (Pulmicort Respules) 0.5 mg IH [id number] [facility] Last Admin: 09/22/18 20:28 Dose: 0.5 mg Carvedilol (Coreg) 3.125 mg PO BID [facility] Last Admin: 09/22/18 09:45 Dose: Not Given Docusate Sodium (Colace) 100 mg PO DAILY [facility] Last Admin: 09/22/18 09:43 Dose: 100 mg Famotidine (Pepcid) 40 mg PO HS [facility] Last Admin: 09/22/18 22:21 Dose: 40 mg Ferrous Sulfate (Feosol) 324 mg PO DAILY [facility] Last Admin: 09/22/18 09:44 Dose: 324 mg Folic Acid (Folic Acid) 1 mg PO DAILY [facility] Last Admin: 09/22/18 09:43 Dose: 1 mg Furosemide (Lasix) 40 mg IVP BID [facility] Last Admin: 09/22/18 16:30 Dose: 40 mg Home Med (Home Med) 0 unit OS QID [facility] Last Admin: 09/22/18 22:09 Dose: 1 unit Home Med (Home Med) 0 unit OD BID [facility] Last Admin: 09/22/18 10:30 Dose: 1 unit Home Med (Home Med) 1 unit OD QID [facility] Last Admin: 09/22/18 22:11 Dose: 1 unit Lisinopril (Zestril) 2.5 mg PO DAILY [facility] Last Admin: 09/22/18 09:47 Dose: 2.5 mg Montelukast Sodium (Singulair) 10 mg PO DAILY [facility] Last Admin: 09/22/18 09:43 Dose: 10 mg Non-Formulary Medication (Fluticasone/Vilanterol [Breo Ellipta 200-25 Mcg Inh]) 1 puff IH DAILY [facility] Last Admin: 09/22/18 09:59 Dose: Not Given Non-Formulary Medication (Levocetirizine Dihydrochloride [Xyzal]) 1 tab PO DAILY [facility] Last Admin: 09/22/18 09:53 Dose: Not Given Tiotropium [place] (Spiriva) 18 mcg IH DAILY [facility] Last Admin: 09/22/18 09:44 Dose: 18 mcg - Labs Labs: 09/21/18 07:00 09/22/18 07:00 PT 15.7 SECONDS (9.4-12.5) H 09/17/18 19:52 INR 1.37 09/17/18 19:52 APTT 35.8 Seconds (25.1-36.5) 09/17/18 19:52 Attending/Attestation - Attestation I have personally seen and examined this patient.: Yes I have fully participated in the care of the patient.: Yes I have reviewed all pertinent clinical information, including history, physical exam and plan: Yes Notes (Text): p 09/23/18 00:00
--- NOTE | 2018-09-22 16:01 | CT ---
Date of service: 09/22/2018 PROCEDURE: CT Abdomen and Pelvis with contrast HISTORY: abnormal LFTs, diarrhea COMPARISON: 08/18/2016. TECHNIQUE: CT scan of the abdomen and pelvis was performed without administration of intravenous contrast. Oral contrast was administered. Coronal and sagittal reformatted images were obtained. Radiation dose: Total exam DLP = 619.96 mGy-cm. This CT exam was performed using one or more of the following dose reduction techniques: Automated exposure control, adjustment of the mA and/or kV according to patient size, and/or use of iterative reconstruction technique. FINDINGS: LOWER THORAX: Moderate pleural effusions and compressive atelectasis in the lung bases LIVER: Enlarged nodular cirrhotic liver. Normal homogeneous enhancement. No gross lesion or ductal dilatation. GALLBLADDER AND BILE DUCTS: Well distended. No calcified gallstones, wall thickening or pericholecystic fluid. PANCREAS: Normal in size with homogeneous enhancement. No gross lesion or ductal dilatation. SPLEEN: Severe splenomegaly. ADRENALS: No discrete nodule. KIDNEYS AND URETERS: Normal in size with homogeneous enhancement. No hydronephrosis. No solid mass. VASCULATURE: No aortic aneurysm. There are perisplenic varices. BOWEL: The nasogastric tube terminates in the stomach. The small bowel loops are normal in caliber. The colon is grossly normal in appearance. No bowel wall thickening or obstruction. APPENDIX: Normal appendix. PERITONEUM: Small ascites. No free air. LYMPH NODES: No enlarged lymph nodes. BLADDER: Partially decompressed and grossly normal in appearance. REPRODUCTIVE: The prostate gland is normal in size. BONES: No acute fracture. Within normal limits for the patient's age. OTHER FINDINGS: There is diffuse anasarca. IMPRESSION: Cirrhosis of liver with portal hypertension and moderate splenomegaly. Moderate bilateral pleural effusion and small abdominal and pelvic ascites.
--- NOTE | 2018-09-22 22:30 | PN ---
DATE: 09/22/2018 SUBJECTIVE: The patient was seen and examined on the bedside on 09/22/2018. Looking comfortable, but still has swelling of the legs and even coughing is better. Shortness of breath is better. I reviewed CAT scan of the abdomen and chest. PHYSICAL EXAMINATION: VITAL SIGNS: Temperature 99, blood pressure 115/60, respiratory rate 18, pulse oximetry 94. HEENT: Head normocephalic, atraumatic. Eyes PERRLA. Extraocular muscles intact. Conjunctivae clear. Nose patent. Mucous membrane moist. NECK: Supple. No carotid bruit. No JVD or thyromegaly. CHEST: Bilaterally symmetrical. HEART: S1 and S2 positive. LUNGS: Clear to auscultation. ABDOMEN: Soft. Bowel sounds positive. No organomegaly. EXTREMITIES: Positive edema. No cyanosis. NEUROLOGICAL: The patient is awake and alert. Follows simple commands. Moving all 4 extremities. MEDICATIONS: Albuterol, Brovana, Colace, amiodarone, Coreg, albuterol, ferrous sulfate, folic acid, Lasix, Xyzal, Pepcid, Pulmicort, Singular, Spiriva, Tylenol, Zestril on hold. LABORATORY DATA: White blood cells 5.7, hemoglobin 10.3, hematocrit 30.5, platelets 75, reticulocyte count 1.57. Sodium 135, potassium 4.3, BUN 22, creatinine 1.2, glucose 97, AST 92, ALT 62. ASSESSMENT AND PLAN: Mr. Des Billy, 68-year-old male with hyponatremia, hypokalemia, low BUN, hypocalcemia, abnormal liver function test trending up, anemia, thrombocytopenia. Went for CAT scan of the abdomen and pelvis. It showed cirrhosis of the liver with portal hypertension and moderate splenomegaly. Moderate bilateral pleural effusion, small abdominal and pelvic ascites. The patient has history of ethanol abuse in the past, congestive heart failure, chronic obstructive pulmonary disease, asthma, atrial fibrillation. Swelling of the leg is better, but still there. Acute congestive heart failure exacerbation. Abnormal liver function test. Concern may be "congestive hepatopathy." hyperbilirubinemia noted. Suspect congestive hepatopathy and underlying cirrhosis in the liver of severe right-sided heart disease (severe tricuspid regurgitation and pulmonary hypertension). Rule out viral hepatitis. GI and Cardiology and Pulmonary are on the case. Discussion done with the , was standing on the bedside. Sleep apnea syndrome. Lasix is increased, but is on hold because of the low blood pressure that is why I held lisinopril. Waiting for the watch repair person tomorrow to give opinion. Meanwhile, continue present treatment. Repeat labs. We will follow up. Jewell Martinez MD MTDD
--- NOTE | 2018-09-22 23:55 | PN ---
DATE: 09/22/2018 PULMONARY PROGRESS NOTE REFERRING PHYSICIAN: Jewell Martinez MD SUBJECTIVE: He is lying in the bed, head at 45 degrees. Night was unremarkable. Breathing is improved. No nausea, no vomiting, no diarrhea. No abdominal pain. Still has ankle swelling. OBJECTIVE: GENERAL: In no acute distress. VITAL SIGNS: Temp is 99, heart rate 62, respiratory rate is 18, blood pressure 115/60, pulse ox 97% on room air. HEENT: Moist mucous membranes. Crowded airway. NECK: Supple. No JVD. LUNGS: Have a few crackles at the bases. Prolonged expiratory phase. HEART: S1 and S2. ABDOMEN: Soft, nontender, no organomegaly. EXTREMITIES: Still have lower extremity edema. NEUROLOGICAL: Awake and alert, follows simple command. MEDICATIONS: He is on Brovana inhaled twice a day, Colace 100 mg daily, amiodarone 200 mg daily, Coreg 3.125 mg twice a day, DuoNeb every 4 hours p.r.n., ferrous sulfate 325 mg daily, also getting Breo Ellipta 1 puff daily, folic acid 1 mg daily, also on Lasix 40 mg twice a day, also getting Xyzal 1 tablet daily, Pepcid 40 mg at bedtime, Pulmicort inhaled twice a day, Singulair 10 mg daily, Spiriva 18 mcg inhaled daily, Tylenol p.r.n., vitamin C 500 mg daily and Zestril 2.5 mg daily. LABORATORY DATA: Reviewed. Sodium 135, potassium 3.4, chloride 103, bicarbonate 23, BUN 22, creatinine 1.2, glucose is 97, calcium is 8, total bili 2.4. AST 92, ALT 62, alk phos is 93. Albumin is 2.8. Microbiology: Blood culture, this is no growth. CAT scan of the abdomen and pelvis is done, which shows cirrhosis of the liver with portal hypertension and moderate splenomegaly, moderate bilateral pleural effusion, and small abdominal and pelvic ascites. IMPRESSION AND PLAN: Cardiomyopathy, valvular heart disease, mildly decreased systolic function, pulmonary hypertension, chronic obstructive lung disease, sleep apnea syndrome, has a cirrhotic liver with portal hypertension, small ascites. Spoke to the patient and his in detail. We will continue diuretics, afterload candle maker, bronchodilator. Seen by Gastroenterology, need to do anemia workup. We will restrict fluid for 1200 mL for 24 hours. Follow up labs in the morning. Thank you, and we will follow with you. Alfonso Ansari MD
[2018-09-23] MEDS: Albuterol-Ipratrop 3 mg / 0.5 (3 ml) UD IH PRN (02:38)
--- NOTE | 2018-09-23 06:49 | CP.PCM.PN ---
Subjective - Date & Time of Evaluation Date of Evaluation: 09/23/18 Time of Evaluation: 06:15 - Subjective Subjective: Lying in bed,No distress, awake, alert, feels okay Reason for consultation and follow up: Cardiac evaluation of shortness of breath, history of paroxysmal atrial fibrillation Seen and examined by me and Dr. Almodovar Objective - Vital Signs/Intake and Output Vital Signs (last 24 hours): Temp Pulse Resp BP Pulse Ox 98.7 F 66 20 119/52 L 94 L 09/22/18 22:00 09/22/18 22:00 09/22/18 22:00 09/22/18 22:00 09/22/18 22:00 Intake and Output: 09/22/18 09/23/18 18:59 06:59 Intake Total 920 240 Output Total 851 700 Balance 69 -460 - Medications Medications: Current Medications Acetaminophen (Tylenol 325mg Tab) 650 mg PO Q4H PRN PRN Reason: Pain, Mild (1-3) Albuterol Sulfate (Albuterol 0.5% Inhal Liana (2.5 Mg/0.5 Ml) Ud) 2.5 mg IH DAILY [facility] Last Admin: 09/22/18 07:43 Dose: 2.5 mg Amiodarone HCl (Cordarone) 200 mg PO DAILY [facility] Last Admin: 09/22/18 09:44 Dose: 200 mg Arformoterol Tartrate (Brovana) 15 mcg IH [id number] [facility] Last Admin: 09/22/18 20:28 Dose: 15 mcg Ascorbic Acid (Vitamin C 500 Mg Tab) 500 mg PO DAILY [facility] Last Admin: 09/22/18 09:44 Dose: 500 mg Budesonide (Pulmicort Respules) 0.5 mg IH [id number] [facility] Last Admin: 09/22/18 20:28 Dose: 0.5 mg Carvedilol (Coreg) 3.125 mg PO BID [facility] Last Admin: 09/22/18 09:45 Dose: Not Given Docusate Sodium (Colace) 100 mg PO DAILY [facility] Last Admin: 09/22/18 09:43 Dose: 100 mg Famotidine (Pepcid) 40 mg PO HS [facility] Last Admin: 09/22/18 22:21 Dose: 40 mg Ferrous Sulfate (Feosol) 324 mg PO DAILY [facility] Last Admin: 09/22/18 09:44 Dose: 324 mg Folic Acid (Folic Acid) 1 mg PO DAILY [facility] Last Admin: 09/22/18 09:43 Dose: 1 mg Furosemide (Lasix) 40 mg IVP BID [facility] Last Admin: 09/22/18 16:30 Dose: 40 mg Home Med (Home Med) 0 unit OS QID [facility] Last Admin: 09/22/18 22:09 Dose: 1 unit Home Med (Home Med) 0 unit OD BID [facility] Last Admin: 09/22/18 10:30 Dose: 1 unit Home Med (Home Med) 1 unit OD QID [facility] Last Admin: 09/22/18 22:11 Dose: 1 unit Lisinopril (Zestril) 2.5 mg PO DAILY [facility] Last Admin: 09/22/18 09:47 Dose: 2.5 mg Montelukast Sodium (Singulair) 10 mg PO DAILY [facility] Last Admin: 09/22/18 09:43 Dose: 10 mg Non-Formulary Medication (Fluticasone/Vilanterol [Breo Ellipta 200-25 Mcg Inh]) 1 puff IH DAILY [facility] Last Admin: 09/22/18 09:59 Dose: Not Given Non-Formulary Medication (Levocetirizine Dihydrochloride [Xyzal]) 1 tab PO DAILY [facility] Last Admin: 09/22/18 09:53 Dose: Not Given Tiotropium [place] (Spiriva) 18 mcg IH DAILY [facility] Last Admin: 09/22/18 09:44 Dose: 18 mcg - Labs Labs: 09/21/18 07:00 09/22/18 07:00 PT 15.7 SECONDS (9.4-12.5) H 09/17/18 19:52 INR 1.37 09/17/18 19:52 APTT 35.8 Seconds (25.1-36.5) 09/17/18 19:52 - Constitutional Appears: Non-toxic, No Acute Distress - Head Exam Head Exam: NORMAL INSPECTION, NORMOCEPHALIC - Eye Exam Eye Exam: Normal appearance Pupil Exam: NORMAL ACCOMODATION - ENT Exam ENT Exam: Mucous Membranes Moist, Normal Exam - Respiratory Exam Respiratory Exam: Decreased Breath Sounds, Clear to Ausculation Bilateral, NORMAL BREATHING PATTERN - Cardiovascular Exam Cardiovascular Exam: +S1, +S2 Additional comments: No JVD - GI/Abdominal Exam GI & Abdominal Exam: Soft, Normal Bowel Sounds - Extremities Exam Extremities Exam: Full ROM Additional comments: trace edema - Neurological Exam Neurological Exam: Alert, Awake, Oriented x3 - Psychiatric Exam Psychiatric exam: Normal Affect, Normal Mood - Skin Skin Exam: Dry, Normal Color, Warm Assessment and Plan - Assessment and Plan (Free Text) Assessment: A 68 year old male who came in to the ER due to shortness of breath and leg swelling for the past 3 days prior to admission. History of mitral stenosis,moderate mitral regurgitation, CHF, COPD,, asthma, atrial fibrillation. chest Xray showed mild congestion on admission, EKG, bradycardia at 50's. Troponin normal, elevated BNP, Admitted for mild exacerbation of CHF. Bradycardia maybe due to betablocker and Amiodarone.Will continue. NSS 3% for low sodium with improvement. ECHO done, LVEF 55%, moderatley reduced systolic function of RV,Severely dilated right atrium,mild aortic and mitral regurgitation, moderate mitral valve stenosis (rheumatic), severe tricuspid regurgitation, RVSP 51 mmHg, moderate pulmonary hypertension, mild pulmonic valve regurgitation, no pericardial effusion. Plan: Denies shortness of breath, feels better Refuses CPAP/BIPAP at night Lisinopril held due to low blood pressure over the weekend Elevated LFT's, CT of abdomen done-cirrhosis of liver with portal hypertension and moderate splenomegaly, moderate bilateral pleural effusion and small abdominal and pelvic ascites. For MUGA to evaluate LV function Heart rate stable Blood pressure controlled Continue to diurese as long as blood pressure tolerates On Amiodarone 200 mg daily,Coreg 3.125 mg BID, Lasix 40 mg BID, Lisinopril 2.5 mg daily Continue current treatment Continue current medication Strict I&O Chart reviewed Will follow up Plan and treatment discussed with Dr. Almodovar
[2018-09-23 07:10] LABS: HEMOGLOBIN 9.9 g/dL (14.0-18.0); MEAN CELL VOLUME 94.5 fl (80.0-105.0); MEAN CORPUSCULAR HEMOGLOBIN 32.2 pg (25.0-35.0); MEAN CORPUSCULAR HGB CONC 34.1 g/dl (31.0-37.0); MEAN PLATELET VOLUME 11.2 fl (7.0-11.0); RBC 3.07 10^6/uL (3.5-6.1); RED CELL DISTRIBUTION WIDTH 14.9 % (11.5-14.5); WHITE BLOOD COUNT 5.6 10^3/uL (4.5-11.0)
[2018-09-23 07:19] LABS: IRON 48 ug/dL (45-180)
[2018-09-23 07:29] LABS: % IRON SATURATION 19 % (20-55); TOTAL IRON BINDING CAPACITY 256 ug/dL (261-462)
[2018-09-23] MEDS: Albuterol 0.5% Inhal Sol (2.5 mg/0.5 ml) UD IH SCH ×2 (07:31→13:41)
[2018-09-23] MEDS: Arformoterol 15 mcg/2 ml Inh Sol IH SCH ×2 (07:31→19:43)
[2018-09-23] MEDS: Budesonide 0.5 mg/2 ml Inhal Susp UD IH SCH ×2 (07:31→19:43)
[2018-09-23 07:37] LABS: ALB/GLOB RATIO 0.9 (1.1-1.8); ALBUMIN 2.7 g/dL (3.0-4.8); ALT/SGPT 73 U/L (7-56); AST/SGOT 110 U/L (17-59); BLOOD UREA NITROGEN 17 mg/dL (7-21); GFR NON-AFRICAN AMERICAN > 60
[2018-09-23 08:29] VITALS: RESP 18
[2018-09-23 09:14] LABS: HEPATITIS B SURFACE AG Negative (NEGATIVE)
[2018-09-23 09:20] LABS: HEPATITIS A IGM NEGATIVE (NEGATIVE); HEPATITIS B CORE AB NEGATIVE (NEGATIVE)
[2018-09-23 09:31] LABS: HEPATITIS C ANTIBODY NEGATIVE (NEGATIVE)
[2018-09-23] MEDS: PREDNISOLONE ACETATE 1% OD SCH ×2 (11:16→17:57)
[2018-09-23] MEDS: Tiotropium 18 mcg Cap For Inhalation IH SCH (11:16)
[2018-09-23] MEDS: PREDNISOLONE 1% OD SCH ×4 (11:16→21:29)
--- NOTE | 2018-09-23 11:17 | CP.PCM.PN ---
Subjective - Date & Time of Evaluation Date of Evaluation: 09/23/18 Time of Evaluation: 11:14 - Subjective Subjective: Gastroenterology Fellow/PGY6 Progress Note Patient feels well. Tolerating diet. Resolved shortness of breath. Normal bowel movement yesterday. A 12-point review of systems negative except for as above. Objective - Vital Signs/Intake and Output Vital Signs (last 24 hours): Temp Pulse Resp BP Pulse Ox 98 F 63 18 101/54 L 98 09/23/18 06:00 09/23/18 06:00 09/23/18 06:00 09/23/18 06:00 09/23/18 06:00 Intake and Output: 09/23/18 09/23/18 06:59 18:59 Intake Total 240 Output Total 700 Balance -460 - Medications Medications: Current Medications Acetaminophen (Tylenol 325mg Tab) 650 mg PO Q4H PRN PRN Reason: Pain, Mild (1-3) Albuterol Sulfate (Albuterol 0.5% Inhal Liana (2.5 Mg/0.5 Ml) Ud) 2.5 mg IH DAILY [facility] Last Admin: 09/23/18 07:31 Dose: 2.5 mg Amiodarone HCl (Cordarone) 200 mg PO DAILY [facility] Last Admin: 09/22/18 09:44 Dose: 200 mg Arformoterol Tartrate (Brovana) 15 mcg IH [id number] [facility] Last Admin: 09/23/18 07:31 Dose: 15 mcg Ascorbic Acid (Vitamin C 500 Mg Tab) 500 mg PO DAILY [facility] Last Admin: 09/22/18 09:44 Dose: 500 mg Budesonide (Pulmicort Respules) 0.5 mg IH [id number] [facility] Last Admin: 09/23/18 07:31 Dose: 0.5 mg Carvedilol (Coreg) 3.125 mg PO BID [facility] Last Admin: 09/22/18 09:45 Dose: Not Given Docusate Sodium (Colace) 100 mg PO DAILY [facility] Last Admin: 09/22/18 09:43 Dose: 100 mg Famotidine (Pepcid) 40 mg PO HS [facility] Last Admin: 09/22/18 22:21 Dose: 40 mg Ferrous Sulfate (Feosol) 324 mg PO DAILY [facility] Last Admin: 09/22/18 09:44 Dose: 324 mg Folic Acid (Folic Acid) 1 mg PO DAILY [facility] Last Admin: 09/22/18 09:43 Dose: 1 mg Furosemide (Lasix) 40 mg IVP BID [facility] Last Admin: 09/22/18 16:30 Dose: 40 mg Home Med (Home Med) 0 unit OS QID [facility] Last Admin: 09/22/18 22:09 Dose: 1 unit Home Med (Home Med) 0 unit OD BID [facility] Last Admin: 09/22/18 10:30 Dose: 1 unit Home Med (Home Med) 1 unit OD QID [facility] Last Admin: 09/22/18 22:11 Dose: 1 unit Lisinopril (Zestril) 2.5 mg PO DAILY [facility] Last Admin: 09/22/18 09:47 Dose: 2.5 mg Montelukast Sodium (Singulair) 10 mg PO DAILY [facility] Last Admin: 09/22/18 09:43 Dose: 10 mg Non-Formulary Medication (Fluticasone/Vilanterol [Breo Ellipta 200-25 Mcg Inh]) 1 puff IH DAILY [facility] Last Admin: 09/22/18 09:59 Dose: Not Given Non-Formulary Medication (Levocetirizine Dihydrochloride [Xyzal]) 1 tab PO DAILY [facility] Last Admin: 09/22/18 09:53 Dose: Not Given Tiotropium [place] (Spiriva) 18 mcg IH DAILY [facility] Last Admin: 09/22/18 09:44 Dose: 18 mcg - Labs Labs: 09/23/18 06:20 09/23/18 06:20 PT 15.7 SECONDS (9.4-12.5) H 09/17/18 19:52 INR 1.37 09/17/18 19:52 APTT 35.8 Seconds (25.1-36.5) 09/17/18 19:52 - Constitutional Appears: Non-toxic, No Acute Distress - Head Exam Head Exam: ATRAUMATIC, NORMOCEPHALIC - Eye Exam Eye Exam: EOMI, PERRL. absent: Scleral icterus Pupil Exam: PERRL. absent: Miosis, Mydriatic - ENT Exam ENT Exam: Mucous Membranes Moist, Normal Oropharynx - Neck Exam Neck Exam: Full ROM, Normal Inspection - Respiratory Exam Respiratory Exam: Clear to Ausculation Bilateral. absent: Rales, Rhonchi, Wheezes - Cardiovascular Exam Cardiovascular Exam: RRR, +S1, +S2. absent: Gallop, Rubs - GI/Abdominal Exam GI & Abdominal Exam: Soft, Normal Bowel Sounds. absent: Distended, Firm, Guarding, Rigid, Tenderness, Organomegaly, Rebound - Extremities Exam Extremities Exam: Normal Inspection, Pedal Edema - Neurological Exam Neurological Exam: Alert, Awake Additional comments: no asterixis - Psychiatric Exam Psychiatric exam: Normal Affect, Normal Mood - Skin Skin Exam: Dry, Intact, Normal Color, Warm Assessment and Plan - Assessment and Plan (Free Text) Assessment: 68 year old male with PMH of Afib, CHF, COPD, asthma, and prior alcohol abuse (six year sobriety) presenting with shortness of breath and leg swelling. Active treatment of right-sided CHF decompensation, indirect hyperbilirubinemia/elevated transaminasases likely 2/2 congestive hepatopathy. No prior EGD or colonoscopy. Plan: -MELD pending -CT A/P- cirrhosis, small ascites, pleural effusions -hepatitis panel negative -cardiology managing diuretics -consider addition of spironolactone once CHF exacerbation and Lasix dose mo dified -renal function improving -LFTs stable -tolerating diet-low salt -will benefit from elective EGD for variceal screening once medically optimized -will benefit from elective colonoscopy for colorectal cancer screening
[2018-09-23] MEDS: Non Formulary Medication (Fluticasone/Vilanterol [Breo Ellipta 200-25 Mcg Inh] 1 PUFF) IH SCH (11:19)
[2018-09-23] MEDS: LEVOCETIRIZINE DIHYDROCHLORIDE PO SCH (11:20)
[2018-09-23 12:08] LABS: FOLATE > 20.0 ng/mL
[2018-09-23 12:22] LABS: INR 1.6; PROTHROMBIN TIME 18.6 SECONDS (9.4-12.5)
[2018-09-23] MEDS ORDERED: Potassium Chloride 20 mEq ER Tab PO ONE (13:27)
--- NOTE | 2018-09-23 14:53 | PN ---
DATE: 09/23/2018 REASON FOR CONSULTATION: Cardiac evaluation, admitted with CHF, severe diastolic dysfunction and valvular dysfunction, history of paroxysmal atrial fibrillation. This note is in addition to dictated by our nurse practitioner, Alie Perea. SUBJECTIVE: Patient feels okay. Recent echo done on Sunday revealed preserved left ventricular ejection fraction of 55%, moderate mitral stenosis valve area and 1.6 by planimetry, rheumatic mitral valve, aortic valve appears okay, mild aortic regurgitation noted, severe tricuspid regurgitation noted. History of decreased LV function in the past which improved. History of paroxysmal atrial fibrillation, now patient is on amiodarone, now patient is in sinus nae. RECOMMENDATION: We will get a MUGA scan to assess LV function. In the interim, continue amiodarone 200 mg daily, carvedilol 3.125 mg daily and continue Lasix. Further recommended hospital course. Okay to discharge with discharge planning. Once the patient is cleared from Pulmonary point of view, the patient can be discharged home. We will supplement potassium. We can change Lasix to p.o. from tomorrow. We will follow up the echo when it is done. Thank you Dr. Martinez for providing us the opportunity in taking care of the patient, Des Billy. Alfonso Almodovar MD
--- NOTE | 2018-09-23 17:17 | CARD ---
APPROVED REPORT Date of service: 09/23/2018 INDICATION Congestive Heart Failure EVALUATE LV AND RV EJECTION FRACTION PROCEDURE The above named patient recieved 28.3 millicuries of Tc99m tagged red blood cells intravenously. After achieving equilibrium, gated imaging of 16/frame/cycle was performed utillizing Gamma camera interfaced with a digital computer and gated device. Gated imaging was then performed in the left anterior oblique, anterior, and the left lateral projections. Findings Calculated LV Ejection Fraction is 67%. Impressions Calculated Ejection Fraction is 67 %.
--- NOTE | 2018-09-23 23:59 | PN ---
DATE: 09/23/2018 SUBJECTIVE: The patient is seen and examined on the bedside, looking comfortable. Swelling of the legs is better. Shortness of breath is better. Coughing is better. No fever. No chills. Today, he went for nuclear test. PHYSICAL EXAMINATION: VITAL SIGNS: Temperature 98.7, pulse 66, respiratory rate 20, blood pressure 190/52, pulse oximetry 94. HEENT: Head normocephalic, atraumatic. Eyes PERRLA. Extraocular muscles intact. Conjunctivae clear. Nose patent. Mucous membrane moist. NECK: Supple. No carotid bruit. No JVD or thyromegaly. CHEST: Bilaterally symmetrical. HEART: S1 and S2 positive. LUNGS: Clear to auscultation. ABDOMEN: Soft. Bowel sounds positive. No organomegaly. EXTREMITIES: Trace edema. NEUROLOGICAL: The patient is awake and alert. Moving all 4 extremities. No focal deficits. MEDICATIONS: Tylenol, albuterol, amiodarone, Brovana, vitamin C, Pulmicort, Coreg, Colace, Pepcid, Feosol, folic acid, Lasix, Zestril, Singulair. LABORATORY DATA: White blood cells 5.7, hemoglobin 10.3, hematocrit 30.5, platelets 75. Sodium 135, potassium 3.4, BUN 22, creatinine 1.2, glucose 97. ASSESSMENT AND PLAN: Mr. Des Billy, a 68-year-old male with anemia, thrombocytopenia, hypokalemia, renal insufficiency. Came with shortness of breath, swelling of the leg, history of mitral stenosis, moderate mitral regurgitation, congestive heart failure, chronic obstructive pulmonary disease, asthma, atrial fibrillation, bradycardia at 60s. Bradycardia beta blockers and amiodarone. Got IV fluid. Discontinued by Dr. Almodovar. He made the patient's IV Lasix to p.o. I reviewed Dr. Almodovar's notes. I reviewed GI notes also. According to GI, the patient will need Aldactone also. Out of bed, physical therapy. Discussion done with the patient, nursing staff. Continue amiodarone, Coreg, Lasix, lisinopril. The patient went for cardiac imaging nuclear test, showed 67% calculated ejection fraction. Seen by Dr. Ansari. History of cirrhosis, cardiomyopathy, valvular heart disease, pulmonary hypertension, sleep apnea syndrome. Has small ascites. Continue diuretics, afterload reduction, bronchodilators. GI is on the case also. Want to do scopes as outpatient. Discussion done with the patient and the patient's nurse. Out of bed, physical therapy. We will follow up. Jewell Martinez MD MTDD
--- NOTE | 2018-09-24 06:07 | CP.PCM.PN ---
Subjective - Date & Time of Evaluation Date of Evaluation: 09/24/18 Time of Evaluation: 06:20 - Subjective Subjective: Lying in bed,No distress, awake, alert, Reason for consultation and follow up: Cardiac evaluation of shortness of breath, history of paroxysmal atrial fibrillation Seen and examined by me and Dr. Almodovar Objective - Vital Signs/Intake and Output Vital Signs (last 24 hours): Temp Pulse Resp BP Pulse Ox 98.7 F 62 18 111/55 L 96 09/23/18 22:14 09/23/18 22:14 09/23/18 22:14 09/23/18 22:14 09/23/18 22:14 Intake and Output: 09/23/18 09/24/18 18:59 06:59 Intake Total 100 Output Total 300 Balance -200 - Medications Medications: Current Medications Acetaminophen (Tylenol 325mg Tab) 650 mg PO Q4H PRN PRN Reason: Pain, Mild (1-3) Albuterol Sulfate (Albuterol 0.5% Inhal Liana (2.5 Mg/0.5 Ml) Ud) 2.5 mg IH DAILY [facility] Last Admin: 09/23/18 13:41 Dose: Not Given Amiodarone HCl (Cordarone) 200 mg PO DAILY [facility] Last Admin: 09/23/18 11:19 Dose: Not Given Arformoterol Tartrate (Brovana) 15 mcg IH [id number] [facility] Last Admin: 09/23/18 19:43 Dose: 15 mcg Ascorbic Acid (Vitamin C 500 Mg Tab) 500 mg PO DAILY [facility] Last Admin: 09/23/18 11:20 Dose: 500 mg Budesonide (Pulmicort Respules) 0.5 mg IH [id number] [facility] Last Admin: 09/23/18 19:43 Dose: 0.5 mg Carvedilol (Coreg) 3.125 mg PO BID [facility] Last Admin: 09/23/18 17:57 Dose: Not Given Docusate Sodium (Colace) 100 mg PO DAILY [facility] Last Admin: 09/23/18 11:19 Dose: 100 mg Famotidine (Pepcid) 40 mg PO HS [facility] Last Admin: 09/23/18 21:18 Dose: 40 mg Ferrous Sulfate (Feosol) 324 mg PO DAILY [facility] Last Admin: 09/23/18 11:18 Dose: 324 mg Folic Acid (Folic Acid) 1 mg PO DAILY [facility] Last Admin: 09/23/18 11:18 Dose: 1 mg Furosemide (Lasix) 40 mg PO 0800,1400 [facility] Home Med (Home Med) 0 unit OS QID [facility] Last Admin: 09/23/18 21:18 Dose: 1 unit Home Med (Home Med) 0 unit OD BID [facility] Last Admin: 09/23/18 17:57 Dose: 1 unit Home Med (Home Med) 1 unit OD QID [facility] Last Admin: 09/23/18 21:29 Dose: 1 unit Lisinopril (Zestril) 2.5 mg PO DAILY [facility] Last Admin: 09/22/18 09:47 Dose: 2.5 mg Montelukast Sodium (Singulair) 10 mg PO DAILY [facility] Last Admin: 09/23/18 11:20 Dose: 10 mg Non-Formulary Medication (Fluticasone/Vilanterol [Breo Ellipta 200-25 Mcg Inh]) 1 puff IH DAILY [facility] Last Admin: 09/23/18 11:19 Dose: Not Given Non-Formulary Medication (Levocetirizine Dihydrochloride [Xyzal]) 1 tab PO D AILY [facility] Last Admin: 09/23/18 11:20 Dose: Not Given Tiotropium [place] (Spiriva) 18 mcg IH DAILY [facility] Last Admin: 09/23/18 11:16 Dose: 18 mcg - Labs Labs: 09/23/18 06:20 09/23/18 06:20 PT 18.6 SECONDS (9.4-12.5) H 09/23/18 12:00 INR 1.60 09/23/18 12:00 APTT 35.8 Seconds (25.1-36.5) 09/17/18 19:52 - Constitutional Appears: Non-toxic, No Acute Distress - Head Exam Head Exam: NORMAL INSPECTION, NORMOCEPHALIC - Eye Exam Eye Exam: Normal appearance Pupil Exam: NORMAL ACCOMODATION - ENT Exam ENT Exam: Mucous Membranes Moist - Respiratory Exam Respiratory Exam: Decreased Breath Sounds, Clear to Ausculation Bilateral, NORMAL BREATHING PATTERN - Cardiovascular Exam Cardiovascular Exam: +S1, +S2 Additional comments: No JVD - GI/Abdominal Exam GI & Abdominal Exam: Soft, Normal Bowel Sounds - Extremities Exam Extremities Exam: Full ROM - Neurological Exam Neurological Exam: Alert, Awake, Oriented x3 - Psychiatric Exam Psychiatric exam: Normal Affect, Normal Mood - Skin Skin Exam: Dry, Normal Color, Warm Assessment and Plan - Assessment and Plan (Free Text) Assessment: A 68 year old male who came in to the ER due to shortness of breath and leg swelling for the past 3 days prior to admission. History of mitral stenosis,moderate mitral regurgitation, CHF, COPD,, asthma, atrial fibrillation. chest Xray showed mild congestion on admission, EKG, bradycardia at 50's. Troponin normal, elevated BNP, Admitted for mild exacerbation of CHF. Bradycardia maybe due to betablocker and Amiodarone.Will continue. NSS 3% for low sodium with improvement. ECHO done, LVEF 55%, moderatley reduced systolic function of RV,Severely dilated right atrium,mild aortic and mitral regurgitation, moderate mitral valve stenosis (rheumatic), severe tricuspid regurgitation, RVSP 51 mmHg, moderate pulmonary hypertension, mild pulmonic valve regurgitation, no pericardial effusion.Symptoms improved. Elevated LFT's, CT of abdomen done-cirrhosis of liver with portal hypertension and moderate, splenomegaly, moderate bilateral pleural effusion and small abdominal and pelvic,ascites. Plan: Muga done yesterday-LVEF 67% Denies shortness of breath, feels better Heart rate stable Blood pressure controlled On Amiodarone 200 mg daily,Coreg 3.125 mg BID, Lasix 40 mg BID, Lisinopril 2.5 mg daily Out patient EGD as per GI Continue current treatment Continue current medication Cardiac status stable May discharge from cardiac standpoint Strict I&O Chart reviewed Will follow up Plan and treatment discussed with Dr. Almodovar
[2018-09-24] MEDS: Albuterol 0.5% Inhal Sol (2.5 mg/0.5 ml) UD IH SCH (07:15)
[2018-09-24] MEDS: Budesonide 0.5 mg/2 ml Inhal Susp UD IH SCH ×2 (07:15→19:41)
[2018-09-24] MEDS: Arformoterol 15 mcg/2 ml Inh Sol IH SCH (07:15)
[2018-09-24 07:24] LABS: BLOOD UREA NITROGEN 16 mg/dL (7-21); CALCIUM 7.9 mg/dL (8.4-10.5); GFR NON-AFRICAN AMERICAN > 60
--- NOTE | 2018-09-24 08:12 | CP.PCM.PN ---
<DarienVesna - Last Filed: 09/24/18 08:09> Subjective - Date & Time of Evaluation Date of Evaluation: 09/24/18 Time of Evaluation: 08:09 - Subjective Subjective: Gastroenterology Fellow/PGY6 Progress Note Patient feels well. Tolerating diet. Bilateral leg swelling improving. A 12- point review of systems negative except for as above. Objective - Vital Signs/Intake and Output Vital Signs (last 24 hours): Temp Pulse Resp BP Pulse Ox 98.3 F 64 18 108/54 L 98 09/24/18 06:00 09/24/18 06:00 09/24/18 06:00 09/24/18 06:00 09/24/18 06:00 Intake and Output: 09/24/18 09/24/18 06:59 18:59 Intake Total 100 Output Total 300 Balance -200 - Medications Medications: Current Medications Acetaminophen (Tylenol 325mg Tab) 650 mg PO Q4H PRN PRN Reason: Pain, Mild (1-3) Albuterol Sulfate (Albuterol 0.5% Inhal Liana (2.5 Mg/0.5 Ml) Ud) 2.5 mg IH DAILY [facility] Last Admin: 09/24/18 07:15 Dose: 2.5 mg Amiodarone HCl (Cordarone) 200 mg PO DAILY [facility] Last Admin: 09/23/18 11:19 Dose: Not Given Arformoterol Tartrate (Brovana) 15 mcg IH [id number] [facility] Last Admin: 09/24/18 07:15 Dose: 15 mcg Ascorbic Acid (Vitamin C 500 Mg Tab) 500 mg PO DAILY [facility] Last Admin: 09/23/18 11:20 Dose: 500 mg Budesonide (Pulmicort Respules) 0.5 mg IH [id number] [facility] Last Admin: 09/24/18 07:15 Dose: 0.5 mg Carvedilol (Coreg) 3.125 mg PO BID [facility] Last Admin: 09/23/18 17:57 Dose: Not Given Docusate Sodium (Colace) 100 mg PO DAILY [facility] Last Admin: 09/23/18 11:19 Dose: 100 mg Famotidine (Pepcid) 40 mg PO HS [facility] Last Admin: 09/23/18 21:18 Dose: 40 mg Ferrous Sulfate (Feosol) 324 mg PO DAILY [facility] Last Admin: 09/23/18 11:18 Dose: 324 mg Folic Acid (Folic Acid) 1 mg PO DAILY [facility] Last Admin: 09/23/18 11:18 Dose: 1 mg Furosemide (Lasix) 40 mg PO 0800,1400 [facility] Home Med (Home Med) 0 unit OS QID [facility] Last Admin: 09/23/18 21:18 Dose: 1 unit Home Med (Home Med) 0 unit OD BID [facility] Last Admin: 09/23/18 17:57 Dose: 1 unit Home Med (Home Med) 1 unit OD QID [facility] Last Admin: 09/23/18 21:29 Dose: 1 unit Lisinopril (Zestril) 2.5 mg PO DAILY [facility] Last Admin: 09/22/18 09:47 Dose: 2.5 mg Montelukast Sodium (Singulair) 10 mg PO DAILY [facility] Last Admin: 09/23/18 11:20 Dose: 10 mg Non-Formulary Medication (Fluticasone/Vilanterol [Breo Ellipta 200-25 Mcg Inh]) 1 puff IH DAILY [facility] Last Admin: 09/23/18 11:19 Dose: Not Given Non-Formulary Medication (Levocetirizine Dihydrochloride [Xyzal]) 1 tab PO DAILY [facility] Last Admin: 09/23/18 11:20 Dose: Not Given Tiotropium [place] (Spiriva) 18 mcg IH DAILY [facility] Last Admin: 09/23/18 11:16 Dose: 18 mcg - Labs Labs: 09/23/18 06:20 09/24/18 06:30 PT 18.6 SECONDS (9.4-12.5) H 09/23/18 12:00 INR 1.60 09/23/18 12:00 APTT 35.8 Seconds (25.1-36.5) 09/17/18 19:52 - Constitutional Appears: Non-toxic, No Acute Distress - Head Exam Head Exam: ATRAUMATIC, NORMOCEPHALIC - Eye Exam Eye Exam: EOMI, PERRL. absent: Scleral icterus Pupil Exam: PERRL. absent: Miosis, Mydriatic - ENT Exam ENT Exam: Mucous Membranes Moist, Normal Oropharynx - Neck Exam Neck Exam: Full ROM, Normal Inspection - Respiratory Exam Respiratory Exam: Clear to Ausculation Bilateral. absent: Rales, Rhonchi, Wheezes - Cardiovascular Exam Cardiovascular Exam: RRR, +S1, +S2. absent: Gallop, Rubs - GI/Abdominal Exam GI & Abdominal Exam: Soft, Normal Bowel Sounds. absent: Distended, Firm, Guarding, Rigid, Tenderness, Organomegaly, Rebound - Extremities Exam Extremities Exam: Normal Inspection, Pedal Edema - Neurological Exam Neurological Exam: Alert, Awake - Psychiatric Exam Psychiatric exam: Normal Affect, Normal Mood - Skin Skin Exam: Dry, Intact, Normal Color, Warm Assessment and Plan - Assessment and Plan (Free Text) Assessment: 68 year old male with PMH of Afib, CHF, COPD, asthma, and prior alcohol abuse (six year sobriety) presenting with shortness of breath and leg swelling. Active treatment of right-sided CHF decompensation, indirect hyperbilirubinemia/elevated transaminasases likely 2/2 congestive hepatopathy. No prior EGD or colonoscopy. Plan: -CT A/P- cirrhosis, small ascites, pleural effusions -hepatitis panel negative -cardiology managing diuretics -renal function improving -LFTs stable -tolerating low salt diet -will require for outpatient follow up for ongoing medical management of cirrhosis -will benefit from elective EGD for variceal screening once medically optimized -will benefit from elective colonoscopy for colorectal cancer screening <Julian Godoy V - Last Filed: 09/24/18 21:52> Objective - Vital Signs/Intake and Output Vital Signs (last 24 hours): Temp Pulse Resp BP Pulse Ox 98 F 56 L 18 107/54 L 96 09/24/18 14:00 09/24/18 17:52 09/24/18 14:00 09/24/18 17:52 09/24/18 14:00 Intake and Output: 09/24/18 09/25/18 18:59 06:59 Intake Total 540 Output Total 300 Balance 240 - Medications Medications: Current Medications Acetaminophen (Tylenol 325mg Tab) 650 mg PO Q4H PRN PRN Reason: Pain, Mild (1-3) Amiodarone HCl (Cordarone) 200 mg PO DAILY [facility] Last Admin: 09/24/18 13:08 Dose: 200 mg Ascorbic Acid (Vitamin C 500 Mg Tab) 500 mg PO DAILY [facility] Last Admin: 09/24/18 09:32 Dose: 500 mg Budesonide (Pulmicort Respules) 0.5 mg IH [id number] [facility] Last Admin: 09/24/18 19:41 Dose: Not Given Carvedilol (Coreg) 3.125 mg PO BID [facility] Last Admin: 09/24/18 17:52 Dose: Not Given Docusate Sodium (Colace) 100 mg PO DAILY [facility] Last Admin: 09/24/18 09:30 Dose: 100 mg Famotidine (Pepcid) 40 mg PO HS [facility] Last Admin: 09/23/18 21:18 Dose: 40 mg Ferrous Sulfate (Feosol) 324 mg PO DAILY [facility] Last Admin: 09/24/18 09:32 Dose: 324 mg Folic Acid (Folic Acid) 1 mg PO DAILY [facility] Last Admin: 09/24/18 13:07 Dose: 1 mg Furosemide (Lasix) 40 mg PO DAILY [facility] Home Med (Home Med) 0 unit OS QID [facility] Last Admin: 09/24/18 17:53 Dose: 1 unit Home Med (Home Med) 0 unit OD BID [facility] Last Admin: 09/24/18 14:46 Dose: 1 unit Home Med (Home Med) 1 unit OD QID [facility] Last Admin: 09/24/18 17:57 Dose: 1 unit Lisinopril (Zestril) 2.5 mg PO DAILY [facility] Last Admin: 09/22/18 09:47 Dose: 2.5 mg Montelukast Sodium (Singulair) 10 mg PO DAILY [facility] Last Admin: 09/24/18 09:30 Dose: 10 mg Non-Formulary Medication (Fluticasone/Vilanterol [Breo Ellipta 200-25 Mcg Inh]) 1 puff IH DAILY [facility] Last Admin: 09/24/18 14:49 Dose: Not Given Non-Formulary Medication (Levocetirizine Dihydrochloride [Xyzal]) 1 tab PO DAILY [facility] Last Admin: 09/24/18 13:12 Dose: Not Given Spironolactone (Aldactone) 25 mg PO DAILY [facility] Last Admin: 09/24/18 17:58 Dose: 25 mg Tiotropium [place] (Spiriva) 18 mcg IH DAILY [facility] Last Admin: 09/24/18 09:33 Dose: 18 mcg - Labs Labs: 09/23/18 06:20 09/24/18 06:30 PT 18.6 SECONDS (9.4-12.5) H 09/23/18 12:00 INR 1.60 09/23/18 12:00 APTT 35.8 Seconds (25.1-36.5) 09/17/18 19:52 Attending/Attestation - Attestation I have personally seen and examined this patient.: Yes I have fully participated in the care of the patient.: Yes I have reviewed all pertinent clinical information, including history, physical exam and plan: Yes Notes (Text): This is an addendum to GI progress report dictated by the GI Fellow.The patient was seen and examined earlier. Medical records, lab studies, imagings were reviewed. Last 24 hours events reviewed. Agreed with the above treatment plan as outlined in GI Fellow 's notes with the addition of the following Patient is feeling better No complaints of abdominal pain on examination abdomen soer Cirrhosis of the liver probably cardiac cirrhosis secondary to valvular disease patient does have significant tricuspid regurgitation, mitral stenosis Patient would benefit from elective EGD to rule out varices Elective colonoscopy Discussed with patient at length, cardiology note reviewed 09/24/18 21:47
--- NOTE | 2018-09-24 09:11 | PN ---
DATE: 09/23/2018 PULMONARY PROGRESS NOTE REFERRING PHYSICIAN: Jewell Martinez MD. SUBJECTIVE: He is lying in the bed, head at 45 degrees. Feels better. Decreased leg swelling. No nausea, no vomiting, no diarrhea. PHYSICAL EXAMINATION: GENERAL: In no acute distress. VITAL SIGNS: Temperature is 98, heart rate is 56, respiratory rate is 18, blood pressure 110/62, pulse ox 98% on room air. HEENT: Moist mucous membrane. Crowded airway. NECK: Supple. No JVD. LUNGS: Have a few crackles. Prolonged expiratory phase. HEART: S1 and S2. ABDOMEN: Soft, nontender, no organomegaly. EXTREMITIES: Do have edema still. NEUROLOGIC: Awake, alert, and follows simple command. MEDICATIONS: He is on Brovana inhaled twice a day, Colace 100 mg daily, amiodarone 200 mg daily, Coreg 3.125 mg twice a day, ferrous sulfate 324 mg daily, also on Ellipta 1 puff daily, folic acid 1 mg daily, Lasix 40 mg twice a day, Pepcid 40 mg daily, Pulmicort inhaled twice a day, Singulair 10 mg daily, Spiriva 1 capsule inhaled daily, Tylenol p.r.n. basis, vitamin C 500 mg daily, and Zestril 2.5 mg daily. LABORATORY DATA: Shows hemoglobin 9.9, hematocrit is 29, WBC 5.6, platelet is 81, and reticulocyte count is 1.57. INR 1.6. Sodium 134, potassium 2.4, chloride 101, bicarbonate 26, BUN 17, creatinine 1.1, glucose is 93, calcium 8.1. Iron is 48, ferritin is 111. Total bili 2.4, AST 110, ALT 73, alk phos is 85. Albumin is 2.6. Vitamin B12 579. Folate is greater than 20. Hepatitis profile is negative. Microbiology, blood culture has been negative. Had a MUGA scan done which shows calculated ejection fraction about 67%. IMPRESSION AND PLAN: Cardiomyopathy, mostly valvular heart disease; pulmonary hypertension; chronic obstructive lung disease; sleep apnea syndrome; cirrhotic liver with portal hypertension; small ascites. 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 There may be a component of sleep apnea syndrome. Urged him to use CPAP. Gastric and DVT prophylaxis. The patient was placed on fluid restriction. Follow up labs in the morning. Thank you and we will follow with you. Alfonso Ansari MD
[2018-09-24] MEDS: Tiotropium 18 mcg Cap For Inhalation IH SCH (09:33)
[2018-09-24] MEDS: PREDNISOLONE 1% OD SCH ×3 (10:07→17:57)
--- NOTE | 2018-09-24 11:02 | PN ---
DATE: 09/24/2018 REASON FOR CONSULTATION AND FOLLOWUP: Cardiac evaluation with CHF, severe diastolic dysfunction, valvular dysfunction, history of paroxysmal atrial fibrillation. This note again is in addition to dictated by our nurse practitioner. SUBJECTIVE: A 68-year-old male with history of rheumatic valve disease, moderate mitral stenosis, mild aortic regurgitation, severe tricuspid regurgitation. The patient was treated with IV Lasix. Yesterday, MUGA scan was done that showed ejection fraction calculated by MUGA as 67% dated 09/23/2018. The patient had echocardiography on 09/20/2018 that shows ejection fraction of 55%. RECOMMENDATION: Continue Lasix to p.o., continue amiodarone to prevent going back in AFib. The patient is in normal sinus. Continue Coreg 3.125 mg, continue low dose lisinopril. Lasix has been changed to p.o. The patient is stable from Cardiology point of view, cleared to be discharged. The patient will be discharged when cleared by other subspecialists. From Cardiology point of view, cleared. No further cardiac workup is planned or warranted. Continue current treatment. Discussed with the patient. Thank you Dr. Martinez for providing us the opportunity in taking care of the patient, Des Billy. This note is in addition to dictated by our nurse practitioner, Alie Perea. Alfonso Almodovar MD
[2018-09-24] MEDS: PREDNISOLONE ACETATE 1% OD SCH ×2 (12:57→14:46)
[2018-09-24] MEDS: LEVOCETIRIZINE DIHYDROCHLORIDE PO SCH (13:12)
[2018-09-24] MEDS: Non Formulary Medication (Fluticasone/Vilanterol [Breo Ellipta 200-25 Mcg Inh] 1 PUFF) IH SCH (14:49)
[2018-09-24 15:17] VITALS: TEMP 98; O2SAT 96
[2018-09-24 17:58] VITALS: BP 107/54; PULSE 56
--- NOTE | 2018-09-24 21:42 | PN ---
DATE: 09/24/2018 PULMONARY PROGRESS NOTE REFERRING PHYSICIAN: Jewell Martinez MD SUBJECTIVE: The patient is lying in the bed, head at 45 degrees. Night was unremarkable. Feels better. Decreased shortness of breath. No chest pain, tolerated CPAP well. No nausea. No vomiting. No diarrhea. Decreased leg swelling. OBJECTIVE: GENERAL: In no distress. VITAL SIGNS: Temperature is 98, heart rate is 56, respiratory rate is 18, blood pressure is 107/54, and pulse ox 96% on room air. HEENT: Moist mucous membrane. Crowded airway. NECK: Supple. No JVD. LUNGS: Has a better airflow with few rhonchi. HEART: S1 and S2. ABDOMEN: Soft and nontender. No organomegaly. EXTREMITIES: Trace edema. NEUROLOGIC: Awake, alert and follows simple command. MEDICATIONS: He is on Aldactone 25 mg daily, Colace 100 mg daily, amiodarone 200 mg daily, ferrous sulfate 324 mg daily, folic acid 1 mg daily, Lasix 40 mg daily, Xyzal home medication, Pepcid 40 mg daily, Pulmicort inhaled twice a day, Singulair 10 mg daily, Spiriva inhaled daily, Tylenol p.r.n. basis, vitamin C 500 mg daily, and Zestril 2.5 mg daily. LABORATORY DATA: Shows hemoglobin 9.9, hematocrit 29, WBC 5.6, and platelet is 81,000. Sodium 135, potassium 3.8, chloride 100, bicarbonate 27, BUN 16, creatinine 1, glucose 93, and calcium is 7.9. Iron is 48, TIBC 256, ferritin is 111, and total bili 2.4. Vitamin B12 is 579. Folate is more than 20. Microbiology, blood culture has no growth. IMPRESSION AND PLAN: Cardiomyopathy, has a valvular heart disease, pulmonary hypertension, chronic obstructive lung disease, sleep apnea syndrome, cirrhotic liver with portal hypertension, and small ascites. Case discussed with Dr. Martinez in detail. Discharge planning with Lasix and spironolactone. Continue inhaled bronchodilator. Encourage continuous positive airway pressure use. Gastric and deep venous thrombosis prophylaxes. Fluid restriction. The patient educated about fluid restriction. He expressed understanding. Thank you and we will follow with you. Alfonso Ansari MD [facility] # [id number]
--- NOTE | 2018-09-27 17:03 | PQF ---
PROVIDER RESPONSE TEXT: Moderate persistent REVIEWER QUERY TEXT: Asthma Specificity and Type Asthma is documented in the Medical Record. Please specify the type and severity of asthma and indic ate if this is associated with exacerbation or status asthmaticus. Such as: -- Mild intermittent -- Mild persistent -- Moderate persistent -- Severe persistent -- Exercise induced bronchospasm -- Cough variant asthma -- Other, please specify The patient's Clinical Indicators include: Please see below. Thank you. Query created by: Brigid Epstein on 09/25/2018 3:13 PM Electronically signed by: Alfonso Ansari MD 09/27/2018 4:59 PM
== END 2018-09-24 21:51 | disposition home or self-care (01) | DRG 292 ==
LOC: ED 19:21 → ERH 22:55 → 2RNO 09-18 02:25 → OBSVTOIN 09-18 15:13 → 5RNO 09-20 23:37
PROVIDERS: ADMIT Internal Medicine; ATTEND Internal Medicine
PROC: 5A09457 Assistance with Respiratory Ventilation, 24-96 Consecutive Hours, Continuous Positive Airway Pressure (ICD-10-PCS; principal; 2018-09-19)
DX: I11.0 Hypertensive heart disease with heart failure (principal); E87.1 Hypo-osmolality and hyponatremia; K76.6 Portal hypertension; R18.8 Other ascites; I50.43 Acute on chronic combined systolic (congestive) and diastolic (congestive) heart failure; D69.6 Thrombocytopenia, unspecified; E83.42 Hypomagnesemia; E83.51 Hypocalcemia; E87.6 Hypokalemia; E87.8 Other disorders of electrolyte and fluid balance, not elsewhere classified; D64.9 Anemia, unspecified; G47.30 Sleep apnea, unspecified; I27.29 Other secondary pulmonary hypertension; I08.8 Other rheumatic multiple valve diseases; I48.0 Paroxysmal atrial fibrillation; J45.40 Moderate persistent asthma, uncomplicated; I50.82 Biventricular heart failure; J44.9 Chronic obstructive pulmonary disease, unspecified; K74.60 Unspecified cirrhosis of liver; N28.9 Disorder of kidney and ureter, unspecified; Z91.19 Patient's noncompliance with other medical treatment and regimen; Z98.49 Cataract extraction status, unspecified eye

== ENCOUNTER 2018-10-29 13:17 | Inpatient (IN) | payer OTHER, MEDICARE ==
[2018-10-29 13:26] VITALS: BMI 24.7
--- NOTE | 2018-10-29 13:45 | ED PDOC ---
Arrival/HPI - General Time Seen by Provider: 10/29/18 13:29 Historian: Patient, Spouse - History of Present Illness Narrative History of Present Illness (Text): 10/29/18 13:44 68 year old male, whose past medical history includes CHF, COPD, asthma, and a- fib, presents to the emergency department s/p syncopal episode. Patient's states he got up around 5-6 in the morning to use the bathroom when she heard a thumb, she realized the patient had fainted. She denies any seizure activity. Patient states he has been experiencing shortness of breath for the past few days. He spoke to his PMD earlier today who sent him to the emergency department for further evaluation. He denies any chest pain, palpations, trauma, fever, chills, headache, dizziness, chest pain, abdominal pain, nausea, vomiting, diarrhea, back pain, neck pain, or any other complaint. PMD: Dr. Martinez Time/Duration: 4-6 hours Symptom Onset: Sudden Activities at Onset: Light Context: Home Past Medical History - Provider Review Nursing Documentation Reviewed: Yes - Infectious Disease Hx of Infectious Diseases: None - Cardiac Hx Cardiac Disorders: Yes (A fib) Hx Congestive Heart Failure: Yes - Pulmonary Hx Chronic Obstructive Pulmonary Disease (COPD): Yes - Neurological Hx Paralysis: No - Hematological/Oncological Hx Blood Transfusions: No - Musculoskeletal/Rheumatological Hx Musculoskeletal Disorders: No - Psychiatric Hx Emotional Abuse: No Hx Physical Abuse: No Hx Substance Use: No - Surgical History Hx Cataract Extraction: Yes - Anesthesia Hx Anesthesia Reactions: No Hx Malignant Hyperthermia: No - Suicidal Assessment Feels Threatened In Home Enviroment: No Family/Social History - Physician Review Nursing Documentation Reviewed: Yes Family/Social History: No Known Family HX Smoking Status: Never Smoked Hx Alcohol Use: No Hx Substance Use: No Allergies/Home Meds Allergies/Adverse Reactions: Allergies No Known Allergies Allergy (Verified 10/29/18 14:00) Home Medications: Home Meds Medication Instructions Recorded Confirmed Albuterol Sulfate [Proair Hfa] 0.09 mg IH DAILY PRN 08/11/15 10/29/18 Amiodarone [Cordarone] 200 mg PO DAILY 08/11/15 10/29/18 Carvedilol [Coreg] 3.125 mg PO BID 08/11/15 10/29/18 Enalapril Maleate 2.5 mg PO DAILY 08/11/15 10/29/18 Montelukast [Singulair] 10 mg PO DAILY 08/11/15 10/29/18 Ascorbic Acid [Vitamin C 500 mg 1 tab PO DAILY 04/19/18 10/29/18 Tab] Esomeprazole Magnesium [Nexium] 1 cap PO DAILY 04/19/18 10/29/18 Ferrous Sulfate [Feosol] 1 tab PO DAILY 04/19/18 10/29/18 Fluticasone/Vilanterol [Breo 1 puff IH DAILY 04/19/18 10/29/18 Ellipta 200-25 Mcg INH] Folic Acid 1 tab PO DAILY 04/19/18 10/29/18 Levocetirizine Dihydrochloride 1 tab PO DAILY 04/19/18 10/29/18 [Xyzal] Tiotropium [place] [Spiriva 2.5 puff IH DAILY 04/19/18 10/29/18 Respimat] Review of Systems - Physician Review All systems were reviewed & negative as marked: Yes - Review of Systems Constitutional: absent: Fevers Eyes: absent: Vision Changes Respiratory: SOB Cardiovascular: Syncope Gastrointestinal: absent: Abdominal Pain, Diarrhea, Nausea, Vomiting Musculoskeletal: absent: Back Pain, Neck Pain Neurological: absent: Headache, Dizziness Physical Exam Vital Signs Reviewed: Yes Vital Signs Temp Pulse Resp BP Pulse Ox 10/29/18 13:21 98.0 F 57 L 18 99/58 L 95 Temperature: Afebrile Blood Pressure: Hypotensive Pulse: Bradycardic Respiratory Rate: Normal Appearance: Positive for: Well-Appearing, Non-Toxic, Comfortable Pain Distress: None Mental Status: Positive for: Alert and Oriented X 3 Finger Stick Blood Glucose: 130 - Systems Exam Head: Present: Atraumatic, Normocephalic Pupils: Present: PERRL Extroacular Muscles: Present: EOMI Conjunctiva: Present: Normal Mouth: Present: Moist Mucous Membranes Neck: Present: Normal Range of Motion Respiratory/Chest: Present: Rales (mild bibasilar rales). No: Respiratory Distress, Accessory Muscle Use Cardiovascular: Present: Regular Rate and Rhythm, Normal S1, S2. No: Murmurs Abdomen: No: Tenderness, Distention, Peritoneal Signs Back: Present: Normal Inspection Upper Extremity: Present: Normal Inspection. No: Cyanosis, Edema Lower Extremity: Present: Normal Inspection. No: Edema Neurological: Present: GCS=15, CN II-XII Intact, Speech Normal Skin: Present: Warm, Dry, Normal Color. No: Rashes Psychiatric: Present: Alert, Oriented x 3, Normal Insight, Normal Concentration Medical Decision Making ED Course and Treatment: 10/29/18 13:44 Impression: 68 year old male who presents to the emergency department s/p syncopal episode. Plan: -- Head CT w/o contrast -- EKG -- Labs -- Chest X-ray -- Urinalysis -- Reassess and disposition Prior Visits: Notes and results from previous visits were reviewed. Progress Notes: 10/29/18 15:[address] reviewed by radiologist, shows: IMPRESSION: mild age related neuro degenerative findings are appreciated. Motion artifacts degrade the quality of this exam. No definitive acute intracranial findings are appreciable at this time. Follow-up cross-sectional imaging of the brain can be performed as clinically warranted. 10/29/18 15:25 EKG shows normal sinus rhythm rate approximately 60 with a primary AV block and a nonspecific intraventricular conduction delay with no acute ST or T-wave changes and Q waves inferiorly 10/29/18 15:28 reports that the patient got up to use the bathroom early this morning nayeli chiu at was still dark out. She heard a thump in the bathroom and went in to find him on the floor confused. She reports that there was no seizure activity, but in light of his hyponatremia he may have had a seizure and was then postictal. Case was discussed with the PMD who agrees to admit. She requests ICU admission. Discussed with the management trainer who accepts to ICU. 10/29/18 15:56 Chest X-ray reviewed by radiologist, shows: Impression: questionable atypical pneumonitis the reactive airways disease ease/bronchitis are possibility. No alveolitis or pleural effusion bilaterally. No pulmonary vascular congestion. - Lab Interpretations Lab Results: Lab Results 10/29/18 13:23: POC Glucose (mg/dL) 130 H I have reviewed the lab results: Yes - RAD Interpretation Radiology Orders: CT scan of the head as read by the radiologist shows a poor quality exam secondary to motion artifact, but otherwise unremarkable. chest one view shows increased markings with no infiltrate effusion or cardiomegaly. Software Configuration Engineer: Radiologist - EKG Interpretation Interpreted by ED Physician: Yes Type: 12 lead EKG - Scribe Statement The provider has reviewed the documentation as recorded by the Scribe Yohana Macrinacynthia Provider Scribe Attestation: All medical record entries made by the Scribe were at my direction and personally dictated by me. I have reviewed the chart and agree that the record accurately reflects my personal performance of the history, physical exam, medical decision making, and the department course for this patient. I have also personally directed, reviewed, and agree with the discharge instructions and disposition. Disposition/Present on Arrival - Present on Arrival Any Indicators Present on Arrival: No History of DVT/PE: No History of Uncontrolled Diabetes: No Urinary Catheter: No History of Decub. Ulcer: No History Surgical Site Infection Following: None - Disposition Have Diagnosis and Disposition been Completed?: Yes Diagnosis: Hyponatremia, CHF (congestive heart failure), Syncope, Seizure Disposition: HOSPITALIZED Disposition Time: 15:08 Patient Plan: Admission, ICU Condition: SERIOUS Discharge Instructions (ExitCare): Heart Failure (ED), Syncope (ED) Referrals: Jewell Martinez MD [Primary Care Provider] - Follow up with primary
[2018-10-29 14:32] LABS: EOS # 0.1 (0.0-0.7); EOS % 0.4 % (1.5-5.0); GRAN # 9.65 (1.4-6.5); GRAN % 85.7 % (50.0-68.0); HEMOGLOBIN 12.5 g/dL (14.0-18.0); LYMPH # 0.7 (1.2-3.4); LYMPH % 6.3 % (22.0-35.0); MEAN CELL VOLUME 89.3 fl (80.0-105.0); MEAN CORPUSCULAR HEMOGLOBIN 32.6 pg (25.0-35.0); MEAN CORPUSCULAR HGB CONC 36.4 g/dl (31.0-37.0); MEAN PLATELET VOLUME 13.4 fl (7.0-11.0); MONO # 0.9 (0.1-0.6); MONO % 7.6 % (1.0-6.0); RBC 3.84 10^6/uL (3.5-6.1); RED CELL DISTRIBUTION WIDTH 14.2 % (11.5-14.5); WHITE BLOOD COUNT 11.3 10^3/uL (4.5-11.0)
[2018-10-29 14:45] LABS: URINE BILIRUBIN NEGATIVE (NEGATIVE); URINE BLOOD NEGATIVE (NEGATIVE); URINE GLUCOSE (UA) NEGATIVE (NEGATIVE); URINE LEUKOCYTE ESTERASE NEGATIVE Leu/uL (NEGATIVE); URINE PROTEIN NEGATIVE mg/dL (<30 mg/dL); URINE UROBILINOGEN 0.2 E.U./dL (<1 E.U./dL)
[2018-10-29 14:50] LABS: URINE APPEARANCE CLEAR (CLEAR); URINE COLOR YELLOW (YELLOW)
[2018-10-29 14:50] LABS: ALB/GLOB RATIO 0.9 (1.1-1.8); ALBUMIN 3.7 g/dL (3.0-4.8); ALT/SGPT 79 U/L (7-56); AST/SGOT 108 U/L (17-59); BLOOD UREA NITROGEN 26 mg/dL (7-21); CALCIUM 8.9 mg/dL (8.4-10.5); GFR NON-AFRICAN AMERICAN 43
--- NOTE | 2018-10-29 15:07 | CT ---
Date of service: 10/29/2018 PROCEDURE: CT HEAD WITHOUT CONTRAST. HISTORY: syncope COMPARISON: None available. TECHNIQUE: Axial computed tomography images were obtained through the head/brain without intravenous contrast. Radiation dose: Total exam DLP = 1943.44 mGy-cm. This CT exam was performed using one or more of the following dose reduction techniques: Automated exposure control, adjustment of the mA and/or kV according to patient size, and/or use of iterative reconstruction technique. FINDINGS: Motion artifacts degrade the quality of this examination significantly. Numerous series were performed to attempt to overcome this issue. HEMORRHAGE: No intracranial hemorrhage. BRAIN: The benítez-white matter differentiation is well preserved. There is no mass effect or definitive edema pattern appreciated including the cortex. There is proportional expansion of the ventriculosulcal and cisternal spaces however in a pattern most compatible with diffuse cerebral atrophy. No suspicious extra-axial fluid collection is identified in the midline brain anatomy appears grossly nonfocal as imaged. Bilateral basal ganglia calcification identified. VENTRICLES: Unremarkable. No hydrocephalus. CALVARIUM: Unremarkable. PARANASAL SINUSES: Unremarkable as visualized. No significant inflammatory changes. MASTOID AIR CELLS: Unremarkable as visualized. No inflammatory changes. OTHER FINDINGS: None. IMPRESSION: Mild age related neuro degenerative findings are appreciated. Motion artifacts degrade the quality of this exam. No definitive acute intracranial findings are appreciable at this time. Follow-up cross-sectional imaging of the brain can be performed as clinically warranted.
--- NOTE | 2018-10-29 15:44 | RAD ---
Date of service: 10/29/2018 HISTORY: sob COMPARISON: Frontal chest radiograph 09/17/2018. FINDINGS: LUNGS: Improved penetration is appreciate the mid to inferior lung zones with borderline increase in reticular markings at the bases. Remaining lung davis appear clear. PLEURA: No significant pleural effusion identified, no pneumothorax apparent. CARDIOVASCULAR: No aortic atherosclerotic calcification present. Normal cardiac size. No pulmonary vascular congestion. OSSEOUS STRUCTURES: No significant abnormalities. VISUALIZED UPPER ABDOMEN: Normal. OTHER FINDINGS: None. IMPRESSION: Questionable atypical pneumonitis the reactive airways disease ease/bronchitis are possibility. No alveolitis or pleural effusion bilaterally. No pulmonary vascular congestion.
[2018-10-29 15:52] LABS: TROPONIN I < 0.01 ng/mL
[2018-10-29 15:53] LABS: B-TYPE NATRIURETIC PEPTIDE 966 pg/mL (0-450)
--- NOTE | 2018-10-29 16:15 | CP.PCM.CON ---
<Liam Manzo - Last Filed: 10/29/18 15:45> History of Present Illness - History of Present Illness History of Present Illness: Liam Manzo Internal Medicine Resident- Consult Note on Behalf of Critical Care Team Subjective: CC: Dizziness and Fall HPI: Patient is a 68 year old male with a past medical history of cataracts, COPD, alcoholism, and CHF who presents to the emergency room for evaluation and treatment of persistent dizziness and fall. In the emergency department the patient was found to have hyponatremia 117mmol/L. ICU team was consulted for management of aforementioned abnormal lab value. Patient seen at bedside. States dizziness began 3 days ago with no specific provoking event. Admits to being hospitalized 1 month ago where he was discharged with lasix 40mg PO daily in addition to his spironolactone. Also admits to decreased PO intake over the past week. Patient states that he got up from bed to use the bathroom where he attempted to sit however lost his balance causing him to experience a mechanical fall. Denies loss of consciousness and head trauma. Denies fever, chills, chest pain, SOB, palpitations, abdominal pain, nausea, vomiting, diarrhea, constipation, and urinary symptoms. 12 point ROS negative except as indicated in HPI PMHx: cataracts, alcoholism, COPD, and CHF PSHx: cataract surgery Allergies: none Social History: denied current ETOH use, alcoholism in the past last drink 6 years ago, denies tobacco use, denies illicit drug use Family History: mother/father- hypertension Medications: esomeprazole 40mg daily, carvedilol3.125 mg BID, amiodarone 200mg PO daily, levocetirizine 5mg PO daily, montelukast 10mg PO daily, enalapril 2.5 PO daily PMD: Dr. Horne Cardiology: Dr. Galvez Physical Examination: - Constitutional Appears: Well, No Acute Distress - Head Exam Head Exam: ATRAUMATIC, NORMAL INSPECTION, NORMOCEPHALIC - Eye Exam Eye Exam: EOMI, Normal appearance, PERRL - ENT Exam ENT Exam: Mucous Membranes Dry, Normal Exam, No lingular injury - Neck Exam Neck exam: Positive for: Normal Inspection - Respiratory Exam Respiratory Exam: Clear to Auscultation Bilateral, NORMAL BREATHING PATTERN - Cardiovascular Exam Cardiovascular Exam: REGULAR RHYTHM, +S1, +S2. absent: Gallop, JVD, Rubs - GI/Abdominal Exam GI & Abdominal Exam: Normal Bowel Sounds, Soft. absent: Tenderness - Back Exam Back exam: NORMAL INSPECTION - Neurological Exam Neurological exam: AAOx 3, patient is responds to verbal stimuli, follows commands, moves extremities past midline, CN II- XII intact bilaterally, muscle strength is 5/5 bilateral upper and lower extremities, sensation is intact to touch throughout, no dysmetria, NIHSS 0 - Psychiatric Exam Psychiatric exam: Normal Affect, Normal Mood - Skin Skin Exam: Dry, Intact, Normal Color, War Assessment and Plan: Patient is a 68 year old male with a past medical history of cataracts, COPD, alcoholism, and CHF who was admitted for evaluation and treatment of persistent dizziness and fall. In the emergency department the patient was found to have hyponatremia 117mmol/L. ICU team was consulted for management of aforementioned abnormal lab value. Neuro Dizziness - 10/19/2018 CT head without contrast- Mild age related neuro degenerative findings are appreciated. Motion artifacts degrade the quality of this exam. No definitive acute intracranial findings - likely secondary to dehydration - high risk fall precautions - IVF NS @ 60cc/hr Cardiovascular: Congestive Heart Failure - 09/20/18 Echocardiogram- LVEF 57%, systolic function of RV moderately reduced, right atrium dilated - continue home amiodarone 200mg PO daily - hold home carvedilol 3.125 mg PO BID - hold home enalapril 2.5 mg PO daily Resp: COPD - 10/29/18 CXR: Questionable atypical pneumonitis the reactive airways disease ease/bronchitis are possibility. No alveolitis or pleural effusion bilaterally. No pulmonary vascular congestion. - supp O2 prn - maintain SaO2 >92% GI GI ppx: - protonix 40mg PO daily Renal Hyponatremia - serum osmolality, urine osmolality, and urine sodium ordered and pending - continue IVF NS@ 60cc/hr - monitor lytes via BMP q6h Heme DVT Ppx - SCD Patient case discussed with and plan approved by attending physician, Past Patient History - Infectious Disease Hx of Infectious Diseases: None - Past Social History Smoking Status: Never Smoked - CARDIAC Hx Cardiac Disorders: Yes (A fib) Hx Congestive Heart Failure: Yes - PULMONARY Hx Chronic Obstructive Pulmonary Disease (COPD): Yes - NEUROLOGICAL Hx Paralysis: No - HEENT Hx HEENT Problems: Yes Hx Cataracts: Yes - RENAL Hx Chronic Kidney Disease: No - ENDOCRINE/METABOLIC Hx Endocrine Disorders: No - HEMATOLOGICAL/ONCOLOGICAL Hx Blood Transfusions: No - INTEGUMENTARY Hx Dermatological Problems: No - MUSCULOSKELETAL/RHEUMATOLOGICAL Hx Musculoskeletal Disorders: No - GASTROINTESTINAL Hx Gastrointestinal Disorders: No - GENITOURINARY/GYNECOLOGICAL Hx Genitourinary Disorders: No - PSYCHIATRIC Hx Emotional Abuse: No Hx Physical Abuse: No Hx Substance Use: No - SURGICAL HISTORY Hx Cataract Extraction: Yes - ANESTHESIA Hx Anesthesia Reactions: No Hx Malignant Hyperthermia: No Meds Allergies/Adverse Reactions: Allergies Allergy/AdvReac Type Severity Reaction Status Date / Time No Known Allergies Allergy Verified 10/29/18 14:00 Results - Vital Signs Recent Vital Signs: Last Vital Signs Temp 98.0 F 10/29/18 13:21 Pulse 57 L 10/29/18 13:21 Resp 18 10/29/18 13:21 BP 99/58 L 10/29/18 13:21 Pulse Ox 95 10/29/18 13:21 - Labs Result Diagrams: 10/29/18 14:20 10/29/18 14:20 Labs: Laboratory Results - last 24 hr 10/29/18 10/29/18 10/29/18 13:23 14:20 14:20 WBC 11.3 H D RBC 3.84 Hgb 12.5 L D Hct 34.3 L MCV 89.3 D MCH 32.6 MCHC 36.4 RDW 14.2 Plt Count 73 L MPV 13.4 H Gran % 85.7 H Lymph % (Auto) 6.3 L [place] % (Auto) 7.6 H Eos % (Auto) 0.4 L Baso % (Auto) 0.0 Gran # 9.65 H Lymph # (Auto) 0.7 L [place] # (Auto) 0.9 H Eos # (Auto) 0.1 Baso # (Auto) 0.00 Sodium 117 L* Potassium 5.2 H Chloride 85 L Carbon Dioxide 19 L Anion Gap 18 BUN 26 H Creatinine 1.6 H Est GFR ( Amer) 52 Est GFR (Non-Af Amer) 43 POC Glucose (mg/dL) 130 H Random Glucose 128 H Calcium 8.9 Phosphorus 3.2 Magnesium 1.9 Total Bilirubin 2.7 H AST 108 H ALT 79 H Alkaline Phosphatase 169 H D Lactate Dehydrogenase 449 Total Creatine Kinase 27 L Total Protein 7.5 Albumin 3.7 Globulin 3.9 Albumin/Globulin Ratio 0.9 L Urine Color Urine Appearance Urine pH Ur Specific Chicken Urine Protein Urine Glucose (UA) Urine Ketones Urine Blood Urine Nitrate Urine Bilirubin Urine Urobilinogen Ur Leukocyte Esterase 10/29/18 14:30 WBC RBC Hgb Hct MCV MCH MCHC RDW Plt Count MPV Gran % Lymph % (Auto) [place] % (Auto) Eos % (Auto) Baso % (Auto) Gran # Lymph # (Auto) [place] # (Auto) Eos # (Auto) Baso # (Auto) Sodium Potassium Chloride Carbon Dioxide Anion Gap BUN Creatinine Est GFR ( Amer) Est GFR (Non-Af Amer) POC Glucose (mg/dL) Random Glucose Calcium Phosphorus Magnesium Total Bilirubin AST ALT Alkaline Phosphatase Lactate Dehydrogenase Total Creatine Kinase Total Protein Albumin Globulin Albumin/Globulin Ratio Urine Color Yellow Urine Appearance Clear Urine pH 6.0 Ur Specific Chicken 1.015 Urine Protein Negative Urine Glucose (UA) Negative Urine Ketones Negative Urine Blood Negative Urine Nitrate Negative Urine Bilirubin Negative Urine Urobilinogen 0.2 Ur Leukocyte Esterase Negative <Devin Gil - Last Filed: 10/29/18 17:42> Meds - Medications Medications: Current Medications Amiodarone HCl (Cordarone) 200 mg PO DAILY [facility] Sodium Chloride (Sodium Chloride 0.9%) 1,000 mls @ 60 mls/hr IV .[id number] [facility] Last Admin: 10/29/18 16:31 Dose: 60 mls/hr Pantoprazole Sodium (Protonix Ec Tab) 40 mg PO DAILY [facility] Results - Vital Signs Recent Vital Signs: Last Vital Signs Temp 98.0 F 10/29/18 13:21 Pulse 54 L 10/29/18 16:36 Resp 16 10/29/18 16:36 BP 97/48 L 10/29/18 16:36 Pulse Ox 97 10/29/18 16:36 - Labs Result Diagrams: 10/29/18 14:20 10/29/18 14:20 Labs: Laboratory Results - last 24 hr 10/29/18 10/29/18 10/29/18 13:23 14:20 14:20 WBC 11.3 H D RBC 3.84 Hgb 12.5 L D Hct 34.3 L MCV 89.3 D MCH 32.6 MCHC 36.4 RDW 14.2 Plt Count 73 L MPV 13.4 H Gran % 85.7 H Lymph % (Auto) 6.3 L [place] % (Auto) 7.6 H Eos % (Auto) 0.4 L Baso % (Auto) 0.0 Gran # 9.65 H Lymph # (Auto) 0.7 L [place] # (Auto) 0.9 H Eos # (Auto) 0.1 Baso # (Auto) 0.00 Sodium 117 L* Potassium 5.2 H Chloride 85 L Carbon Dioxide 19 L Anion Gap 18 BUN 26 H Creatinine 1.6 H Est GFR ( Amer) 52 Est GFR (Non-Af Amer) 43 POC Glucose (mg/dL) 130 H Random Glucose 128 H Calcium 8.9 Phosphorus 3.2 Magnesium 1.9 Total Bilirubin 2.7 H AST 108 H ALT 79 H Alkaline Phosphatase 169 H D Lactate Dehydrogenase 449 Total Creatine Kinase 27 L Troponin I < 0.01 NT-Pro-B Natriuret Pep 966 H Total Protein 7.5 Albumin 3.7 Globulin 3.9 Albumin/Globulin Ratio 0.9 L Urine Color Urine Appearance Urine pH Ur Specific Chicken Urine Protein Urine Glucose (UA) Urine Ketones Urine Blood Urine Nitrate Urine Bilirubin Urine Urobilinogen Ur Leukocyte Esterase 10/29/18 14:30 WBC RBC Hgb Hct MCV MCH MCHC RDW Plt Count MPV Gran % Lymph % (Auto) [place] % (Auto) Eos % (Auto) Baso % (Auto) Gran # Lymph # (Auto) [place] # (Auto) Eos # (Auto) Baso # (Auto) Sodium Potassium Chloride Carbon Dioxide Anion Gap BUN Creatinine Est GFR ( Amer) Est GFR (Non-Af Amer) POC Glucose (mg/dL) Random Glucose Calcium Phosphorus Magnesium Total Bilirubin AST ALT Alkaline Phosphatase Lactate Dehydrogenase Total Creatine Kinase Troponin I NT-Pro-B Natriuret Pep Total Protein Albumin Globulin Albumin/Globulin Ratio Urine Color Yellow Urine Appearance Clear Urine pH 6.0 Ur Specific Chicken 1.015 Urine Protein Negative Urine Glucose (UA) Negative Urine Ketones Negative Urine Blood Negative Urine Nitrate Negative Urine Bilirubin Negative Urine Urobilinogen 0.2 Ur Leukocyte Esterase Negative Assessment & Plan - Assessment and Plan (Free Text) Assessment: Patient seen and examined on rounds with resident, agree with note with following additions/exceptions: Patient is 68yo male with PMhx cataracts, COPD, alcoholism, and CHF who presents to the emergency room for fall/syncope at home. As per the patient and his , patient was found confused in the bathroom, unclear if syncope/LOC, ?seizure. Pt denies LOC. Pt's labs, imaging, chart reviewed. Na 117, FANNY Patient has been on Lasix and Spironolactone. Does not endorse post ictal state, tounge bites, loss of urinary/bowel control. Hyponatremia FANNY CHF, chronic COPD Dehydration Recommend: - supp2 o2 as needed, duonebs PRN, - panculture, UCx, BCx, Procal - Hold Lasix, Mir - IVF NS 60cc/hr, goal correction of Na 6-8 meq/24hr - check UA, Ulytes, TSH, Uric Acid - Obtain renal eval - VEEG - Renal sono - BP control - GI ppx - DVT ppx - Admit to MICU
[2018-10-29] MEDS ORDERED: Sodium Chloride 0.45% 1,000 ML IV SCH (16:30)
[2018-10-29] MEDS ORDERED: Sodium Chloride 0.9% 1,000 ML IV SCH (16:30)
[2018-10-29 18:22] LABS: CALCIUM 8.4 mg/dL (8.4-10.5)
[2018-10-29] MEDS ORDERED: Sodium Chloride 3% 500 ML IV SCH (20:00)
[2018-10-29] MEDS ORDERED: Influenza Vaccine 60 mcg/0.5 mL SYR (4YR UP) IM ONE (20:27)
[2018-10-29] MEDS ORDERED: Pneumococcal 23-Valent Vaccine IM ONE (20:27)
[2018-10-29 21:13] LABS: OSMOLALITY,URINE 397 mosm/kg (300-1000)
--- NOTE | 2018-10-30 00:29 | CON ---
DATE: 10/29/2018 PULMONARY CRITICAL CARE CONSULTATION REFERRING PHYSICIAN: Dr. Martinez REASON FOR CONSULTATION: Chronic obstructive lung disease, sleep apnea syndrome, admitted with hypotension, hyponatremia. HISTORY OF PRESENT ILLNESS: This is a 68-year-old gentleman well-known to me from office and previous admission, has cardiomyopathy, chronic obstructive lung disease, history of excessive alcohol use in the past, cirrhotic liver, supposed to come to see Dr. Martinez in the office, apparently did not show up, call was made to his house, found that he was not feeling well. Dr. Martinez advised family to bring him to emergency room where he was found to be severely hyponatremic. According to family, he had a very poor appetite for the last couple of weeks. Been taking his diuretics which was stopped actually 2 days ago. He went to washroom where he had a near syncopal episode. Presently lying in the bed, is at bedside. No cough. No sputum production. No hemoptysis. Denied any diarrhea. No leg pain or leg swelling. PAST MEDICAL HISTORY: As per history of present illness. ALLERGIES: NONE KNOWN. SOCIAL HISTORY: Stopped smoking a few years ago. Denied any alcohol use. FAMILY HISTORY: Positive for hypertension. MEDICATIONS: He is on amiodarone 200 mg daily, Protonix 40 mg daily, IV fluid normal saline 60 mL per hour. HOME MEDICATIONS: Include Spiriva inhaled daily, Singulair 10 mg daily, also getting Xyzal at bedtime, Breo Ellipta one puff daily, ferrous sulfate daily, Nexium daily, enalapril 2.5 mg daily, Coreg 3.125 mg twice a day. REVIEW OF SYSTEM: No headache. No rhinitis. Gets dizzy spells when standing or walking. No chest pain. No abdominal pain. No dysuria. No leg pain or leg swelling. PHYSICAL EXAMINATION: GENERAL: No acute distress. VITAL SIGNS: Temp is 98, heart rate is 52, respiratory rate is 16, blood pressure on arrival 90/60, pulse ox 97% on room air. HEENT: Moist mucous membrane. No ulcer or thrust noted. NECK: Supple. No JVD. LUNGS: Have a fair airflow with few scattered rhonchi. HEART: S1 and S2. ABDOMEN: Soft, nontender, nondistended. EXTREMITIES: No edema. NEUROLOGIC: Awake, alert, follows simple commands. LABORATORY DATA: Shows hemoglobin 12.5, hematocrit 34.3, WBC 11.3, platelet count is 73. Sodium 117, potassium 5.2, chloride 85, bicarbonate 19, BUN 26, creatinine 1.6, glucose 128. Serum osmolality is 250. Calcium is 8.4, phosphorus 3.2, magnesium 1.9, AST 108, ALT 79, alk phos is 169. LDH 449. Troponin less than 0.01. Albumin 3.7. TSH 3.48. Urine osmolarity is 397. Has a CAT scan of the head done which shows mild age-related degenerative changes, otherwise unremarkable. Chest x-ray was done which shows apical pneumonitis or may be reactive airway. IMPRESSION AND PLAN: Severe hyponatremia, cardiomyopathy with valvular heart disease, pulmonary hypertension, chronic obstructive lung disease, sleep apnea syndrome, cirrhotic liver, has portal hypertension. Case discussed with Dr. Martinez in detail. Also spoke to the patient's at bedside. We will place hypertonic saline 3%, 30 mL per hour, continue normal saline 50 mL per hour. May continue amiodarone, beta blockers. Hold vasodilator. We will DC Singulair. May continue antihistamine. Add inhaled bronchodilators p.r.n. basis. With severe hyponatremia, may need to watch in ICU setting. Will not hurst to correct the sodium. Follow up electrolyte in the morning. We will place on CPAP while sleeping. Thank you and we will follow with you. Alfonso Ansari MD
[2018-10-30 01:26] LABS: BLOOD UREA NITROGEN 22 mg/dL (7-21); CALCIUM 8.5 mg/dL (8.4-10.5); GFR NON-AFRICAN AMERICAN 50
[2018-10-30 04:54] LABS: EOS # 0.1 (0.0-0.7); EOS % 0.5 % (1.5-5.0); GRAN # 7.38 (1.4-6.5); LYMPH % 10.7 % (22.0-35.0); MEAN CELL VOLUME 89.6 fl (80.0-105.0); MEAN CORPUSCULAR HEMOGLOBIN 32.5 pg (25.0-35.0); MEAN CORPUSCULAR HGB CONC 36.3 g/dl (31.0-37.0); MEAN PLATELET VOLUME 13.1 fl (7.0-11.0); MONO # 0.8 (0.1-0.6); MONO % 8.8 % (1.0-6.0); RBC 3.38 10^6/uL (3.5-6.1); RED CELL DISTRIBUTION WIDTH 14.4 % (11.5-14.5); WHITE BLOOD COUNT 9.2 10^3/uL (4.5-11.0)
[2018-10-30 05:08] LABS: BLOOD UREA NITROGEN 21 mg/dL (7-21); CALCIUM 8.4 mg/dL (8.4-10.5); GFR NON-AFRICAN AMERICAN 55
--- NOTE | 2018-10-30 05:53 | HP ---
DATE OF EXAM: CHIEF COMPLAINT: Fatigue, tired, syncopal episode. HISTORY OF PRESENT ILLNESS: Mr. Des Billy is a 68 years old male with past medical history of congestive heart failure, COPD, asthma, atrial fibrillation came to the emergency department, has presyncopal episode. The patient's stated that he got up around 5 to 6 in the morning to use bathroom when she heard a noise; she realized that the patient has fainted. She denies any seizure activity. The patient states that he has been experiencing shortness of breath for the past few days; actually today was his appointment in the office and he missed appointment last week for labs analysis. Today, they spoke to my office about the patient's condition. I told them to take the patient to the emergency room for evaluation. I saw the patient in the emergency room, no chest pain, palpitation, trauma, fevers, chills, headache, dizziness. The patient is a little bit lethargic; otherwise, he does not have any complaints. Length of time discussion done with Dr. Ansari and the patient's . PAST MEDICAL HISTORY: Atrial fibrillation, congestive heart failure, COPD, cardiomyopathy, history of ethanol abuse. FAMILY HISTORY: Father and mother noncontributory. HABITS: Never smoked. No drugs. No ethanol. ALLERGIES: THE PATIENT IS NOT ALLERGIC WITH ANY MEDICATION. HOME MEDICATIONS: ProAir, amiodarone, Coreg, enalapril, Singulair, Nexium, Feosol, Ventolin, folic acid, Xyzal, Respimat, Spiriva. REVIEW OF SYSTEMS: The patient was seen and examined at bedside in the emergency room looking comfortable. No vision changes; just coughing and shortness of breath and has syncopal attack early today in the morning at home. No abdominal pain. No diarrhea, nausea or vomiting. No back pain. No chest pain. No headache or dizziness. PHYSICAL EXAMINATION: VITAL SIGNS: Temperature 98.0, pulse 57, respiratory rate 18, blood pressure 99/59, pulse oximetry 95%. HEENT: Head: Normocephalic and atraumatic. Eyes: PERRLA, extraocular muscles intact. Conjunctivae clear. Nose patent. Mucous membranes moist. NECK: Supple. No carotid bruit. No JVD or thyromegaly. CHEST: Bilaterally symmetrical. HEART: S1 and S2 positive. LUNGS: Clear to auscultation. ABDOMEN: Soft. Bowel sounds positive. No organomegaly. EXTREMITIES: No edema. No cyanosis. NEUROLOGIC: The patient is awake and alert. Moving all four extremities. No focal deficits. LABORATORY DATA: White blood cell 15.3, hemoglobin 12.5, hematocrit 34.3, platelets 73. Sodium 116, admission was 117 and repeat is 115. Potassium 5.2, BUN 25, creatinine 1.5, glucose 122. ASSESSMENT AND PLAN: Mr. Des Billy is a 68 years old male with leukocytosis, anemia, thrombocytopenia, hyponatremia, hypochloremia, hyperkalemia, increased BUN and dehydration, hyperglycemia, abnormal liver function test, rule out congestive heart failure, history of chronic obstructive pulmonary disease, asthma, cirrhosis of the liver, looks like new-onset seizure, may be hypotension attack. CAT scan of the head done, it showed mild age-related neurodegenerative findings appreciated. Motion artifact degrade; required . No definite acute intracranial findings are appreciated at this time. Chest x-ray is reviewed by me. The patient had been seen by the credit charge authorizer for ICU admission. The patient has just dizziness and fall x2 last week. History of heavy alcohol use, quit many years ago as per the patient. ICU team consulted for the management of abnormal labs; was discharged from the hospital one month ago and the patient's appetite is not great as per . Discussion done with Dr. Ansari. Not have any history of postictal state, tongue bite, loss of urine/bowel control. Recommended DuoNeb. Peralta culture to rule out infection. Reviewed sonography. Gastrointestinal and deep venous thrombosis prophylaxes. Repeat labs. Appreciated credit charge authorizer and emergency room physicians input. We will follow up. Jewell Martinez MD MTDGhazal
--- NOTE | 2018-10-30 08:03 | CARD ---
APPROVED REPORT Date of service: 10/29/2018 EKG Measurement Heart [id number] <Conclusion> Sinus bradycardia with 1st degree AVB RBBB LAHB trifasicular block STTW changes c/w ischemia
[2018-10-30] MEDS: Levalbuterol 0.63 MG/3 ML Inhal Soln UD IH SCH ×2 (08:36→13:18)
[2018-10-30] MEDS: Budesonide 0.5 mg/2 ml Inhal Susp UD IH SCH ×2 (08:36→15:30)
--- NOTE | 2018-10-30 09:12 | CP.PCM.PN ---
<ManzoLiam starkey - Last Filed: 10/30/18 09:14> Subjective - Date & Time of Evaluation Date of Evaluation: 10/30/18 Time of Evaluation: 08:30 - Subjective Subjective: Liam Manzo Internal Medicine Resident- Progress Note on Behalf of Critical Care Team Subjective: Patient seen and examined at bedside. States generalized weakness has significantly improved relative to baseline. States dizziness has resolved. Offers no new complaints at this time. Denies fever, chills, chest pain, SOB, palpitations, abdominal pain, nausea, vomiting, diarrhea, constipation, and urinary symptoms. 12 point ROS negative except as indicated in HPI Physical Examination: - Constitutional Appears: Well, No Acute Distress - Head Exam Head Exam: ATRAUMATIC, NORMAL INSPECTION, NORMOCEPHALIC - Eye Exam Eye Exam: EOMI, Normal appearance, PERRL - ENT Exam ENT Exam: Mucous Membranes Dry, Normal Exam, No lingular injury - Neck Exam Neck exam: Positive for: Normal Inspection - Respiratory Exam Respiratory Exam: Clear to Auscultation Bilateral, NORMAL BREATHING PATTERN - Cardiovascular Exam Cardiovascular Exam: REGULAR RHYTHM, +S1, +S2. absent: Gallop, JVD, Rubs - GI/Abdominal Exam GI & Abdominal Exam: Normal Bowel Sounds, Soft. absent: Tenderness - Back Exam Back exam: NORMAL INSPECTION - Neurological Exam Neurological exam: AAOx 3, patient is responds to verbal stimuli, follows commands, moves extremities past midline, CN II- XII intact bilaterally, muscle strength is 5/5 bilateral upper and lower extremities, sensation is intact to touch throughout, no dysmetria, NIHSS 0 - Psychiatric Exam Psychiatric exam: Normal Affect, Normal Mood - Skin Skin Exam: Dry, Intact, Normal Color, War Assessment and Plan: Patient is a 68 year old male with a past medical history of cataracts, COPD, alcoholism, and CHF who was admitted for evaluation and treatment of persistent dizziness and fall. In the emergency department the patient was found to have hyponatremia 117mmol/L. ICU team was consulted for management of aforementioned abnormal lab value. Neuro Dizziness - 10/19/2018 CT head without contrast- Mild age related neuro degenerative findi ngs are appreciated. Motion artifacts degrade the quality of this exam. No definitive acute intracranial findings - likely secondary to dehydration - high risk fall precautions - was given 3% NS overnight. Stopped IVF NS @ 60cc/hr Cardiovascular: Congestive Heart Failure - 09/20/18 Echocardiogram- LVEF 57%, systolic function of RV moderately reduced, right atrium dilated - continue home amiodarone 200mg PO daily - continue to hold home carvedilol 3.125 mg PO BID - continue hold home enalapril 2.5 mg PO daily Resp: COPD - 10/29/18 CXR: Questionable atypical pneumonitis the reactive airways disease ease/bronchitis are possibility. No alveolitis or pleural effusion bilaterally. No pulmonary vascular congestion. - supp O2 prn - maintain SaO2 >92% GI GI ppx: - protonix 40mg PO daily Renal Hyponatremia - serum osmolality, urine osmolality, and urine sodium ordered and pending - continue IVF NS@ 60cc/hr - monitor lytes via BMP q6h- goal correction is 0.25-0.50 meq/hr, sodium 122 this AM Heme DVT Ppx - SCD Dispo: Sodium level 122. Hemodynamically stable for transfer to [facility]. Patient case discussed with and plan approved by attending physician, Dr. Gil. Objective - Vital Signs/Intake and Output Vital Signs (last 24 hours): Temp Pulse Resp BP Pulse Ox 98.6 F 59 L 18 100/49 L 98 10/30/18 06:00 10/30/18 08:35 10/29/18 19:58 10/29/18 19:58 10/29/18 19:58 Intake and Output: 10/30/18 10/30/18 06:59 18:59 Intake Total 465 Output Total 1000 Balance -535 - Medications Medications: Current Medications Amiodarone HCl (Cordarone) 200 mg PO DAILY [facility] Budesonide (Pulmicort Respules) 0.5 mg IH 0730,1530,2330 [facility] Last Admin: 10/30/18 08:36 Dose: 0.5 mg Sodium Chloride (Sodium Chloride 0.9%) 1,000 mls @ 60 mls/hr IV .[id number] [facility] Last Admin: 10/29/18 16:31 Dose: 60 mls/hr Sodium Chloride (Hypertonic Saline 3%) 500 mls @ 30 mls/hr IV .[id number] [facility] Last Admin: 10/29/18 19:57 Dose: 30 mls/hr Levalbuterol HCl (Xopenex) 0.63 mg IH TIDRESP [facility] Last Admin: 10/30/18 08:36 Dose: 0.63 mg Pantoprazole Sodium (Protonix Ec Tab) 40 mg PO DAILY [facility] - Labs Labs: 10/30/18 04:45 10/30/18 04:45 <Devin Gil - Last Filed: 10/30/18 13:28> Objective - Vital Signs/Intake and Output Vital Signs (last 24 hours): Temp Pulse Resp BP Pulse Ox 98.6 F 72 31 H 100/49 L 96 10/30/18 06:00 10/30/18 11:40 10/30/18 11:40 10/30/18 11:39 10/30/18 11:40 Intake and Output: 10/30/18 10/30/18 06:59 18:59 Intake Total 465 Output Total 1000 Balance -535 - Medications Medications: Current Medications Amiodarone HCl (Cordarone) 200 mg PO DAILY [facility] Last Admin: 10/30/18 11:39 Dose: 200 mg Budesonide (Pulmicort Respules) 0.5 mg IH 0730,1530,2330 [facility] Last Admin: 10/30/18 08:36 Dose: 0.5 mg Sodium Chloride (Hypertonic Saline 3%) 500 mls @ 30 mls/hr IV .[id number] [facility] Last Admin: 10/29/18 19:57 Dose: 30 mls/hr Sodium Chloride (Sodium Chloride 0.9%) 1,000 mls @ 100 mls/hr IV .Q10H [facility] Last Admin: 10/30/18 10:00 Dose: 100 mls/hr Levalbuterol HCl (Xopenex) 0.63 mg IH TIDRESP [facility] Last Admin: 10/30/18 13:18 Dose: 0.63 mg Pantoprazole Sodium (Protonix Ec Tab) 40 mg PO DAILY [facility] Last Admin: 10/30/18 11:39 Dose: 40 mg - Labs Labs: 10/30/18 04:45 10/30/18 12:00 Assessment and Plan - Assessment and Plan (Free Text) Assessment: Assessment: Patient seen and examined on rounds with resident, agree with note with following additions/exceptions: Patient is 68yo male with PMhx cataracts, COPD, alcoholism, and CHF who presents to the emergency room for fall/syncope at home. As per the patient and his , patient was found confused in the bathroom, unclear if syncope/LOC, ?seizure. Pt denies LOC, post ictal state, tounge bites, loss of urinary/bowel control. Pt's labs, imaging, chart reviewed. Na 123 currently improving FANNY improving Hyponatremia FANNY CHF, chronic COPD Dehydration Recommend: - supp2 o2 as needed, duonebs PRN, - panculture, UCx, BCx, Procal - Hold Lasix, [place] - IVF NS 60cc/hr, goal correction of Na 6-8 meq/24hr - check UA, Ulytes, TSH, Uric Acid - Obtain renal eval - VEEG - Renal sono - BP control - GI ppx - DVT ppx - Stable, transfer to tele
[2018-10-30] MEDS ORDERED: Sodium Chloride 0.9% 1,000 ML IV SCH (09:38)
[2018-10-30] MEDS: Pantoprazole 40 mg EC Tab PO SCH (11:39)
[2018-10-30 12:31] LABS: BLOOD UREA NITROGEN 20 mg/dL (7-21); CALCIUM 8.5 mg/dL (8.4-10.5); GFR NON-AFRICAN AMERICAN 55
[2018-10-30] MEDS ORDERED: Sodium Chloride 3% 500 ML IV SCH (14:00)
--- NOTE | 2018-10-30 14:41 | PN ---
PULMONARY PROGRESS NOTE DATE: 10/30/2018 SUBJECTIVE: The patient is sitting up in bed. No acute distress. No overnight events reported. The patient reports feeling better today. No headache, rhinitis, cough, shortness of breath, chest pain, abdominal pain, nausea, vomiting, diarrhea, leg pain or leg swelling reported. OBJECTIVE: GENERAL: No acute distress. VITAL SIGNS: Blood pressure 100/49, pulse 68, oxygen saturation 97% and temperature 98.6. HEENT: Moist mucous membranes. NECK: Supple. No JVD. LUNGS: Fair airflow bilaterally. Few rhonchi. CARDIOVASCULAR: S1 and S2 audible. ABDOMEN: Soft and nontender. No distention. EXTREMITIES: No bilateral lower extremity edema. NEUROLOGIC: Awake, alert and verbal. Follows commands. MEDICATIONS: Reviewed. Amiodarone 200 mg daily, Pulmicort 0.5 mg inhalation 3 times a day, Xopenex 0.63 mg inhalation 3 times a day, Protonix 40 mg daily, hypertonic saline 500 mL of 30 mL per hour, sodium chloride 0.9 at 100 mL per hour. LABORATORY DATA: Reviewed. WBC 9.2, RBC 3.38, hemoglobin 11, hematocrit 30.3 and platelets 63. Sodium 123, potassium 4.9, chloride 97, carbon dioxide 17, anion gap 14, BUN 20, creatinine 1.3, GFR greater than 60, random glucose 143, calcium 8.5. IMPRESSION AND PLAN: Severe hyponatremia, cardiomyopathy with valvular heart disease, pulmonary hypertension, sleep apnea syndrome, chronic obstructive lung disease, cirrhotic liver, portal hypertension. We will decrease hypertonic saline 3% to 20 mL per hour. Continue beta-blockers. Continue inhaled bronchodilators. We will not try to correct sodium too quickly. We will order ProBNP and CMP in the morning. Continue continuous positive airway pressure at bedtime, head of bed elevated at 45 degrees, sleep apnea precaution, gastric prophylaxis, deep venous thrombosis prophylaxis. Case discussed with nursing staff. Critical care time spent 35 minutes This patient was seen and examined with Dr. Ansari. Discussed assessment and plan as described above. Thank you for this consult. We will follow with you. Kenan Prudence, SCRIPT GIRL Alfonso Ansari MD [facility] # [id number] JOSUE
--- NOTE | 2018-10-31 04:39 | PN ---
DATE: 10/30/2018 SUBJECTIVE: The patient is a 68-year-old male. The patient was seen and examined at bedside on 10/30/2018. Looking comfortable. Still in the unit. Weakness is getting little bit better. No fever. No chills. No hematuria. No hematochezia. No headache. No dizziness. No chest pain. No palpitation. PHYSICAL EXAMINATION: VITAL SIGNS: Blood pressure 100/50, pulse 68, oxygenation is 97%, temperature is 98.6. HEENT: Head, normocephalic and atraumatic. Eyes, PERRLA. Extraocular muscles intact. Conjunctivae clear. Nose patent. Mucous membrane moist. NECK: Supple. No carotid bruit, JVD, or thyromegaly. CHEST: Bilaterally symmetrical. HEART: S1 and S2 positive. LUNGS: Clear to auscultation. ABDOMEN: Soft. Bowel sounds present. No organomegaly. EXTREMITIES: No bilateral edema. No cyanosis. NEUROLOGIC: The patient is awake and alert. Follows simple commands. MEDICATIONS: Amiodarone, Pulmicort, Xopenex, Protonix, hypertonic saline, and sodium chloride. LABORATORIES: White blood cell 9.2, hemoglobin 11, hematocrit 30.3, platelets 63. Sodium 123, potassium 4.9, BUN 20, creatinine 1.3. ASSESSMENT AND PLAN: Mr. Des Billy is a 68-year-old male with multiple medical problems, came with new onset seizures, hyponatremia, cardiomyopathy with valvular heart disease, pulmonary hypertension, sleep apnea syndrome, chronic obstructive lung disease, cirrhotic liver, and portal hypertension. Dr. Ansari decreased hypertonic saline 3% to 20 mL per hour. Continue beta blockers, inhaled bronchodilators, out of bed, physical therapy. Gastrointestinal and deep venous thrombosis prophylaxes. We repeat laboratories. Discussion done with intensive care unit nursing staff and with the patient . We will follow. Jewell Martinez MD MTDGhazal
[2018-10-31 07:14] LABS: BASO # 0.01 K/mm3 (0.0-2.0); BASO % 0.1 % (0.0-3.0); GRAN # 9.95 (1.4-6.5); GRAN % 86.8 % (50.0-68.0); LYMPH # 0.6 (1.2-3.4); LYMPH % 5.1 % (22.0-35.0); MEAN CELL VOLUME 90.5 fl (80.0-105.0); MEAN CORPUSCULAR HEMOGLOBIN 31.6 pg (25.0-35.0); MEAN CORPUSCULAR HGB CONC 34.9 g/dl (31.0-37.0); MEAN PLATELET VOLUME 13.6 fl (7.0-11.0); MONO # 0.9 (0.1-0.6); RBC 3.48 10^6/uL (3.5-6.1); RED CELL DISTRIBUTION WIDTH 14.9 % (11.5-14.5); WHITE BLOOD COUNT 11.5 10^3/uL (4.5-11.0)
[2018-10-31 07:46] LABS: ALB/GLOB RATIO 0.8 (1.1-1.8); ALBUMIN 2.9 g/dL (3.0-4.8); ALT/SGPT 83 U/L (7-56); AST/SGOT 112 U/L (17-59); BLOOD UREA NITROGEN 18 mg/dL (7-21); CALCIUM 8.3 mg/dL (8.4-10.5); GFR NON-AFRICAN AMERICAN > 60
[2018-10-31] MEDS: Budesonide 0.5 mg/2 ml Inhal Susp UD IH SCH ×2 (08:56→19:48)
[2018-10-31] MEDS: Levalbuterol 0.63 MG/3 ML Inhal Soln UD IH SCH ×3 (08:56→19:48)
[2018-10-31] MEDS: Enoxaparin 40 mg Syringe SC SCH (09:45)
[2018-10-31] MEDS: Pantoprazole 40 mg EC Tab PO SCH (10:00)
[2018-10-31] MEDS ORDERED: Sodium Chloride 3% 500 ML IV SCH (13:08)
[2018-10-31] MEDS: Cefepime 1gm in NS 100ml 1 GM/100 ML BAG IVPB SCH ×2 (13:51→21:45)
--- NOTE | 2018-10-31 13:58 | RAD ---
Date of service: 10/31/2018 HISTORY: rule out infiltrate COMPARISON: He 10/29/2018 FINDINGS: LUNGS: No active pulmonary disease. PLEURA: No significant pleural effusion identified, no pneumothorax apparent. CARDIOVASCULAR: No aortic atherosclerotic calcification present. Normal cardiac size. No pulmonary vascular congestion. OSSEOUS STRUCTURES: No significant abnormalities. VISUALIZED UPPER ABDOMEN: Normal. OTHER FINDINGS: None. IMPRESSION: No active disease.
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
--- NOTE | 2018-10-31 14:37 | PN ---
PULMONARY PROGRESS NOTE DATE: 10/31/2018 SUBJECTIVE: The patient is sitting up in bed, has fever today. No headache, rhinitis, cough, shortness of breath, chest pain, abdominal pain, nausea, vomiting, diarrhea, leg pain or leg swelling reported. OBJECTIVE: GENERAL: No acute distress. VITAL SIGNS: Blood pressure 124/58, pulse 86, temperature 99.8, and oxygen saturation 96% on nasal cannula. HEENT: Moist mucous membranes. NECK: Supple. No JVD. LUNGS: Few rhonchi bilaterally. CARDIOVASCULAR: S1 and S2 audible. ABDOMEN: Soft and nontender. No distention. No organomegaly. EXTREMITIES: No bilateral lower extremity edema. NEUROLOGIC: Awake, alert, and verbal. Follows simple commands. MEDICATIONS: Reviewed. Amiodarone 200 mg p.o. daily, Pulmicort 0.5 mg three times a day, cefepime 1 g every 8 hours, doxycycline 100 mg every 12 hours, Lovenox 40 mg daily, Xopenex 0.63 mg inhalation three times a day, Protonix 40 mg daily, hypertonic saline 3% at 20 mL per hour every 24 hours. LABORATORY DATA: Reviewed. WBC 11.5, RBC 3.48, hemoglobin 11.0, hematocrit 31.5 and platelets 64. Sodium 127, potassium 5.0, chloride 101, carbon dioxide 17, anion gap 13, BUN 18, creatinine 1.1, GFR greater than 60, random glucose 111, calcium 8.3, total bilirubin 2.5, AST 112, ALT 83, alkaline phosphatase 127, total protein 6.5, albumin 2.9, globulin 3.6, and albumin-globulin ratio 0.8. IMPRESSION AND PLAN: Severe hyponatremia, cardiomyopathy with valvular heart disease, pulmonary hypertension, sleep apnea syndrome, chronic obstructive lung disease, cirrhotic liver, portal hypertension. The patient febrile today, we will order blood cultures, urine cultures, chest x-ray for influenza A and B. We will increase hypertonic solution to 30 mL per hour. Continue antibiotic therapy, inhaled bronchodilators, deep venous thrombosis prophylaxis, gastric prophylaxis. We will try not to correct sodium too quickly. Continue continuous positive airway pressure use at night, head of bed elevated at 45 degrees, sleep apnea precaution. Critical care time spent more than 35 minutes. This patient was seen and examined with Dr. Ansari. Discussed assessment and plan as described above. Thank you for this consult. We will follow with you. Kenan Montague APN Alfonso Ansari MD [facility] # [id number] JOSUE
[2018-10-31 18:43] LABS: URINE BILIRUBIN NEGATIVE (NEGATIVE); URINE BLOOD LARGE (NEGATIVE); URINE GLUCOSE (UA) NEGATIVE (NEGATIVE); URINE LEUKOCYTE ESTERASE LARGE Leu/uL (NEGATIVE); URINE PROTEIN 30 mg/dL (<30 mg/dL); URINE UROBILINOGEN 0.2 E.U./dL (<1 E.U./dL)
[2018-10-31 18:46] LABS: URINE APPEARANCE SLIGHT-CLOUDY (CLEAR); URINE COLOR AMBER (YELLOW)
[2018-10-31 18:57] LABS: URINE BACTERIA MOD /hpf; URINE RBC TNTC /hpf (0-2); URINE WBC TNTC /hpf (0-6)
[2018-10-31 20:20] LABS: BLOOD UREA NITROGEN 16 mg/dL (7-21); CALCIUM 8.2 mg/dL (8.4-10.5); GFR NON-AFRICAN AMERICAN 60
--- NOTE | 2018-11-01 03:22 | PN ---
DATE: 10/31/2018 SUBJECTIVE: The patient is a 68-year-old male. The patient was seen and examined at the bedside, 10/31/2018. The patient was seen in the unit. was on the bedside. Length of time question done, all questions answered. The patient is having cough and shortness of breath is better. No chest pain. No abdominal pain. No nausea, vomiting, diarrhea. He is feeling little bit cold. No fever. No chills. PHYSICAL EXAMINATION: VITAL SIGNS: Temperature 99.8; T-max 99.9, 100.4 last night; pulse 73; blood pressure 112/47; respiratory rate 17. HEENT: Head normocephalic and atraumatic. Eyes, PERRLA. Extraocular muscles intact. Conjunctivae clear. Nose patent. Mucous membrane moist. NECK: Supple. No carotid bruit. No JVD or thyromegaly. CHEST: Bilaterally symmetrical. HEART: S1 and S2 positive. LUNGS: Clear to auscultation. ABDOMEN: Soft. Bowel sounds present. No organomegaly. EXTREMITIES: No edema. No cyanosis. NEUROLOGIC: The patient is awake and alert. Moving all four extremities. No focal deficit. MEDICATIONS: Amiodarone, doxycycline, Lovenox, cefepime, Protonix, Pulmicort, Xopenex. LABORATORY DATA: White blood cells 11.5, hemoglobin 11, hematocrit 31.5, platelets 54. Sodium 130, potassium 4.5, BUN 16, creatinine 1.2. ASSESSMENT: Mr. Des Billy is a 68-year-old male with leukocytosis, anemia, thrombocytopenia, hyponatremia, improving slowly, hyperglycemia, hypocalcemia, abnormal liver function test, proteinuria, hematuria, urinary tract infection, has fever last night. Infectious Diseases consult called with Dr. Salvador Choudhury. The patient has history of cataract, chronic obstructive pulmonary disease, history of alcoholism, chronic congestive heart failure, has systemic inflammatory response syndrome. As per Infectious Disease, rule out sepsis due to community acquired pneumonia or acute bronchitis. The patient was started on p.o. doxycycline. We will follow with blood culture, sputum culture, chest x-ray, urine legionella antigens ordered. We will repeat chest x-rays. Seen by the associate marketing manager. Lots of time discussion done with the patient's , increase the hypertonic solution to 30 mL per hour. Continue inhaled bronchodilator, antibiotics. Continue positive airway pressure use at night. Gastrointestinal and deep venous thrombosis prophylaxis. Repeat labs. Discussion done with the . Reviewed chest x-ray done today. No active disease. We will follow up. Jewell Martinez MD MTDGhazal
[2018-11-01] MEDS: Cefepime 1gm in NS 100ml 1 GM/100 ML BAG IVPB SCH ×2 (05:16→14:11)
[2018-11-01 07:21] LABS: BASO # 0.01 K/mm3 (0.0-2.0); BASO % 0.1 % (0.0-3.0); EOS % 0.2 % (1.5-5.0); GRAN # 10.11 (1.4-6.5); GRAN % 79.7 % (50.0-68.0); HEMOGLOBIN 10.3 g/dL (14.0-18.0); LYMPH # 1.1 (1.2-3.4); MEAN CELL VOLUME 91.7 fl (80.0-105.0); MEAN CORPUSCULAR HEMOGLOBIN 31.5 pg (25.0-35.0); MEAN CORPUSCULAR HGB CONC 34.3 g/dl (31.0-37.0); MEAN PLATELET VOLUME 12.6 fl (7.0-11.0); MONO # 1.4 (0.1-0.6); RBC 3.27 10^6/uL (3.5-6.1); RED CELL DISTRIBUTION WIDTH 15.3 % (11.5-14.5); WHITE BLOOD COUNT 12.7 10^3/uL (4.5-11.0)
[2018-11-01 07:56] LABS: ALB/GLOB RATIO 0.8 (1.1-1.8); ALBUMIN 2.6 g/dL (3.0-4.8); ALT/SGPT 93 U/L (7-56); AST/SGOT 118 U/L (17-59); BLOOD UREA NITROGEN 17 mg/dL (7-21); GFR NON-AFRICAN AMERICAN 60
[2018-11-01] MEDS: Levalbuterol 0.63 MG/3 ML Inhal Soln UD IH SCH ×3 (08:15→19:46)
[2018-11-01] MEDS: Budesonide 0.5 mg/2 ml Inhal Susp UD IH SCH (08:15)
--- NOTE | 2018-11-01 10:02 | RAD ---
Date of service: 11/01/2018 HISTORY: rule out pneumonia COMPARISON: 10/31/2018 FINDINGS: LUNGS: No active pulmonary disease. PLEURA: No significant pleural effusion identified, no pneumothorax apparent. CARDIOVASCULAR: No aortic atherosclerotic calcification present. Normal cardiac size. No pulmonary vascular congestion. OSSEOUS STRUCTURES: No significant abnormalities. VISUALIZED UPPER ABDOMEN: Normal. OTHER FINDINGS: None. IMPRESSION: No active disease.
[2018-11-01] MEDS: Pantoprazole 40 mg EC Tab PO SCH (10:03)
[2018-11-01] MEDS: Enoxaparin 40 mg Syringe SC SCH (10:03)
--- NOTE | 2018-11-01 11:52 | PN ---
PULMONARY PROGRESS NOTE DATE: 11/01/2018 SUBJECTIVE: The patient is sitting up in bed. Reports feeling well today. No acute distress. No overnight events reported. No headache, rhinitis, cough, shortness of breath, chest pain, abdominal pain, nausea, vomiting, diarrhea, leg pain or leg swelling reported. OBJECTIVE: GENERAL: No acute distress. VITAL SIGNS: Blood pressure 118/62, pulse 78, temperature 99.1, and oxygen saturation 99%. HEENT: Moist mucous membranes. NECK: Supple. No JVD. LUNGS: Few rhonchi bilaterally. CARDIOVASCULAR: S1 and S2 audible. ABDOMEN: Soft and nontender. No distention. No organomegaly. EXTREMITIES: No bilateral lower extremity edema. NEUROLOGIC: Awake, alert, and verbal. Follows simple commands. MEDICATIONS: Reviewed. Amiodarone 200 mg daily, Pulmicort 0.5 mg inhalation three times a day, cefepime 1 g every 8 hours, doxycycline 100 mg every 12 hours, Lovenox 40 mg daily, Xopenex 0.63 mg inhalation three times a day, Protonix 40 mg daily. LABORATORY DATA: Reviewed. WBC 12.7, RBC 3.27, hemoglobin 10.3, hematocrit 30 and platelets 62. Sodium 130, potassium 4.3, chloride 107, carbon dioxide 16, anion gap 14, BUN 17, creatinine 1.2, GFR 60, random glucose 112, calcium 8.0, total bilirubin 3.0, AST 118, ALT 93, alkaline phosphatase 107, total protein 5.9, albumin 2.6, globulin 3.3, and albumin-globulin ratio 0.7. DIAGNOSTIC DATA: Chest x-ray shows no active disease. IMPRESSION AND PLAN: Severe hyponatremia, cardiomyopathy with valvular heart disease, pulmonary hypertension, sleep apnea precaution, chronic obstructive lung disease, cirrhosis of the liver, portal hypertension. Continue antibiotic therapy, inhaled bronchodilators, deep venous thrombosis prophylaxis, gastric prophylaxis. Discussed with nursing staff to use continuous positive airway pressure machine at night for the patient, head of bed elevated at 45 degrees, sleep apnea precaution. The patient would benefit from physical therapy, out of bed to chair. This patient was seen and examined with Dr. Ansari. Discussed assessment and plan as described above. Thank you for this consult. We will follow with you. Kenan Montague APN Alfonso Ansari MD [facility] # [id number]
--- NOTE | 2018-11-01 14:55 | CP.PCM.PN ---
Subjective - Date & Time of Evaluation Date of Evaluation: 11/01/18 Time of Evaluation: 10:20 - Subjective Subjective: Comfortable in bed, no fevers. Objective - Vital Signs/Intake and Output Vital Signs (last 24 hours): Temp Pulse Resp BP Pulse Ox 99.8 F H 83 20 124/58 L 96 10/31/18 12:00 10/31/18 12:00 10/31/18 12:00 10/31/18 09:46 10/31/18 12:00 Intake and Output: 10/31/18 10/31/18 06:59 18:59 Intake Total 400 Balance 400 - Medications Medications: Current Medications Amiodarone HCl (Cordarone) 200 mg PO DAILY [facility] Last Admin: 10/31/18 09:46 Dose: 200 mg Budesonide (Pulmicort Respules) 0.5 mg 0730,1530,2330 [facility] Last Admin: 10/31/18 08:56 Dose: 0.5 mg Enoxaparin Sodium (Lovenox) 40 mg SC DAILY [facility]; Protocol Last Admin: 10/31/18 09:45 Dose: 40 mg Doxycycline Hyclate 100 mg/ (Sodium Chloride) 100 mls @ 100 mls/hr IVPB Q12 [facility]; Protocol Last Admin: 10/31/18 12:24 Dose: 100 mls/hr Cefepime HCl (Maxipime 1gm) 1 gm in 100 mls @ 100 mls/hr IVPB Q8 [facility]; Protocol Last Admin: 10/31/18 13:51 Dose: 100 mls/hr Sodium Chloride (Hypertonic Saline 3%) 500 mls @ 30 mls/hr IV .[id number] [facility] Levalbuterol HCl (Xopenex) 0.63 mg TIDRESP [facility] Last Admin: 10/31/18 13:20 Dose: 0.63 mg Pantoprazole Sodium (Protonix Ec Tab) 40 mg PO DAILY [facility] Last Admin: 10/31/18 10:00 Dose: 40 mg - Labs Labs: 10/31/18 06:30 10/31/18 06:30 - Constitutional Appears: Chronically Ill - Head Exam Head Exam: NORMAL INSPECTION - Respiratory Exam Respiratory Exam: Decreased Breath Sounds - Cardiovascular Exam Cardiovascular Exam: +S1, +S2 - GI/Abdominal Exam GI & Abdominal Exam: Soft. absent: Tenderness Assessment and Plan - Assessment and Plan (Free Text) Plan: Assessment systemic inflammatory response syndrome, R/O sepsis due to HCAP or acute bronchitis cataracts COPD history of alcholism chronic CHF Plan continue Merrem and Doxycycline day 2; blood cx are negative so far, follow up PCT, urine Legionella Ag will continue to monitor clinically
[2018-11-01] MEDS: Meropenem IV 1 gm in NS 1 GM/50 ML BAG IVPB SCH ×2 (16:40→22:02)
[2018-11-01] MEDS ORDERED: Meropenem IV 1 gm in NS 1 GM/50 ML BAG IVPB SCH (22:00)
--- NOTE | 2018-11-02 03:58 | PN ---
DATE: 11/01/2018 SUBJECTIVE: The patient was seen and examined at the bedside, on 11/01/2018. Looking comfortable. was seen on the bedside. No fever. No chills. No hematuria or hematochezia. No swelling of the legs. No chest pain. No palpitation. No headache. No dizziness. PHYSICAL EXAMINATION: VITAL SIGNS: Blood pressure 118/62, pulse 78, respiratory rate 18 , temperature 99.1, and oxygenation 99%. HEENT: Head normocephalic and atraumatic. Eyes, PERRLA. Extraocular muscles intact. Conjunctivae clear. Nose patent. Mucous membrane moist. NECK: Supple. No carotid bruit. No JVD or thyromegaly. LUNGS: Few rhonchi bilaterally. HEART: S1 and S2 positive. ABDOMEN: Soft, nontender. No organomegaly. EXTREMITIES: No bilateral edema. NEUROLOGIC: Awake, alert. Follows simple commands. MEDICATIONS: Amiodarone, Pulmicort, cefepime, doxycycline, Lovenox, Xopenex, and Protonix. LABORATORIES: White blood cell 12.7, hematocrit 33.2, hemoglobin 10.3, platelet 62. Sodium 130, potassium 4.3, BUN 17, and creatinine 1.2. AST 118, ALT 93. ASSESSMENT AND PLAN: Mr. Des Billy is a 68-year-old male with severe hyponatremia, cardiomyopathy with valvular heart disease, pulmonary hypertension, sleep apnea precautions, chronic obstructive lung disease, cirrhosis of the liver, and portal hypertension. Continue antibiotic therapy, inhaled bronchodilators, deep venous thrombosis prophylaxis, gastric prophylaxis. Discussion done with Dr. Ansari, patient's , patient, and nursing staff. Blood cultures negative, no growth up to now. Methicillin-resistant Staphylococcus aureus not detected, but urine preliminary shows Gram-negative rods. Infectious Disease is on the case. Repeat laboratories. We will follow up. Jewell Martinez MD MTDGhazal
[2018-11-02] MEDS: Budesonide 0.5 mg/2 ml Inhal Susp UD IH SCH ×4 (07:57→20:50)
[2018-11-02] MEDS: Levalbuterol 0.63 MG/3 ML Inhal Soln UD IH SCH ×3 (07:57→20:50)
[2018-11-02 09:03] LABS: BASO # 0.02 K/mm3 (0.0-2.0); BASO % 0.2 % (0.0-3.0); EOS # 0.1 (0.0-0.7); EOS % 0.7 % (1.5-5.0); GRAN # 7.32 (1.4-6.5); GRAN % 75.2 % (50.0-68.0); HEMOGLOBIN 9.7 g/dL (14.0-18.0); LYMPH # 1.1 (1.2-3.4); LYMPH % 11.2 % (22.0-35.0); MEAN CELL VOLUME 90.5 fl (80.0-105.0); MEAN CORPUSCULAR HEMOGLOBIN 31.8 pg (25.0-35.0); MEAN CORPUSCULAR HGB CONC 35.1 g/dl (31.0-37.0); MEAN PLATELET VOLUME 11.6 fl (7.0-11.0); MONO # 1.2 (0.1-0.6); MONO % 12.7 % (1.0-6.0); RBC 3.05 10^6/uL (3.5-6.1); RED CELL DISTRIBUTION WIDTH 15.7 % (11.5-14.5); WHITE BLOOD COUNT 9.7 10^3/uL (4.5-11.0)
[2018-11-02] MEDS: Enoxaparin 40 mg Syringe SC SCH (09:08)
[2018-11-02] MEDS: Meropenem IV 1 gm in NS 1 GM/50 ML BAG IVPB SCH ×2 (09:08→21:46)
[2018-11-02 09:21] LABS: BLOOD UREA NITROGEN 21 mg/dL (7-21); CALCIUM 8.2 mg/dL (8.4-10.5); GFR NON-AFRICAN AMERICAN 60
[2018-11-02] MEDS: Pantoprazole 40 mg EC Tab PO SCH (11:05)
--- NOTE | 2018-11-02 14:27 | PN ---
DATE: 11/02/2018 LOCATION: The patient is in room 270, bed 2. SUBJECTIVE: The patient was seen earlier this morning. The patient still has a low-grade fever this morning. He is awake and responsive. PHYSICAL EXAMINATION: VITAL SIGNS: His temperature is 100.3, heart rate of 74, respiratory rate of 18 and blood pressure of 89/49. Examination of HEENT is unremarkable. NECK: Supple. LUNGS: Have decreased breath sounds. HEART: Normal S1, S2. ABDOMEN: Soft, nontender. LABORATORY EXAMINATION: Reveals a white count of 9.7, hemoglobin of 9 and platelets of 57,000. The patient has had low platelets in the past. Chemistries revealed the patient has a creatinine of 1.2, and on admission, it was 1.6. Prior to that, the patient's creatinine was 1.0 in September. LFTs are mildly elevated. Alk phos is 127. Urinalysis is noted, too numerous to count wbc's, many bacteria. Urine for Legionella antigen is negative. The cultures reveal a Gram-negative josephine in the blood and E. coli in the urine. Radiologically, the patient had a chest x-ray yesterday, which revealed no active disease. Chest x-ray the day before, which revealed no active disease. CAT scan of the head which revealed no acute findings. Chest x-ray on the , which is reviewed with questionable pneumonitis, reactive disease. Review of orders reveals the patient to be on doxycycline, meropenem, amiodarone and Lovenox. ASSESSMENT AND PLAN: A 68-year-old male with past medical history significant for chronic obstructive lung disease, history of alcoholism, chronic congestive heart failure, admitted now with severe sepsis with hypotension, leukocytosis, tachycardia, dyspnea, positive urinalysis and with Gram-negative josephine bacteremia secondary to Gram-negative josephine urine as the source, must rule out underlying prostate disease and must rule out underlying GI pathology. Recommend Urology evaluation. We will order a PSA and we will also order a CAT scan of the abdomen and pelvis with p.o. contrast only to rule out GI pathology as a source of the Gram-negative bacteremia and severe sepsis with acute kidney injury that appears to be resolving. Case discussed with Dr. Martinez. Should have Urology evaluation. Joseph Honeycutt MD [facility] # [id number]
[2018-11-02] MEDS ORDERED: Iohexol 240 (50 ml) ONE (16:52)
--- NOTE | 2018-11-02 19:24 | PN ---
DATE: 11/02/2018 PULMONARY PROGRESS NOTE REFERRING PHYSICIAN: Jewell Martinez MD SUBJECTIVE: The patient is lying in bed. Family at bedside. No acute distress. No overnight events reported. No headache, rhinitis, cough, shortness of breath, chest pain, abdominal pain, nausea, vomiting, diarrhea, leg pain or leg swelling reported. OBJECTIVE VITAL SIGNS: Blood pressure 110/52, pulse 77, temperature 98, oxygen saturation 97% on room air. GENERAL: No acute distress. HEENT: Moist mucous membranes. NECK: Supple. No JVD. LUNGS: Clear bilaterally. CARDIOVASCULAR: S1 and S2 audible. ABDOMEN: Soft and nontender. No distention. No organomegaly. EXTREMITIES: No bilateral lower extremity edema. NEUROLOGIC: Awake, alert, verbal. Follows simple commands. MEDICATIONS: Reviewed. Amiodarone 200 mg p.o. daily, Pulmicort 0.5 mg inhalation three times a day, Lovenox 40 mg daily subcu, Xopenex 0.63 mg inhalation three times a day, meropenem 1 g every 12 hours, Protonix 40 mg daily. LABORATORY DATA: Reviewed. WBC 9.7, RBC 3.05, hemoglobin 9.7, hematocrit 27.6, platelets 57. Sodium 130, potassium 4.3, chloride 106, carbon dioxide 18, anion gap 11, BUN 21, creatinine 1.2, GFR 60. Random glucose 107, calcium 8.2. PSA 3.6. Urine culture positive for E. coli. Blood culture final shows gram-variable bacilli. IMPRESSION AND PLAN: Severe hyponatremia, cardiomyopathy, valvular heart disease, pulmonary hypertension, sleep apnea precaution, chronic obstructive lung disease, cirrhosis of the liver, portal hypertension. Continue with antibiotic therapy , inhaled bronchodilators, gastric prophylaxis. Continue continuous positive airway pressure use at night. Sleep apnea precaution. Head of bed elevated at 45 degrees. Case was discussed with Dr. Martinez. The patient was seen and examined by Dr. Ansari. Discussed assessment and plan as described above. Thank you for this consult. We will follow with you. Kenan Prudence, INSTITUTION LIBRARIAN Alfonso Ansari MD [facility] # [id number]
--- NOTE | 2018-11-02 23:20 | PN ---
DATE: 11/02/2018 SUBJECTIVE: The patient was seen and examined at bedside on 11/02/2018. was seen on the bedside also. Having a fever of low grade and getting chills. Gave Tylenol for that. Having headache. No hematuria or hematochezia. Coughing is better. Shortness of breath is better. PHYSICAL EXAMINATION: VITAL SIGNS: Temperature 100.3, heart rate 74, respiratory rate 18, and blood pressure 89/49. HEENT: Head, normocephalic and atraumatic. Eyes, PERRLA. Extraocular muscles intact. Conjunctivae clear. Nose patent. Mucous membranes are moist. NECK: Supple. No carotid bruit. No JVD or thyromegaly. CHEST: Bilaterally symmetrical. HEART: S1 and S2 positive. LUNGS: Clear to auscultation. ABDOMEN: Soft. Bowel sounds present. No organomegaly. EXTREMITIES: No edema. No cyanosis. NEUROLOGIC: The patient is awake and alert. Moving all four extremities. No focal deficits. MEDICATIONS: Cordarone, Lovenox, Merrem, Protonix, Pulmicort, Xopenex, and Tylenol p.r.n. LABORATORY DATA: White blood cell 9.7, hemoglobin 9.7, hematocrit 27.6, platelets 57. Sodium 130, potassium 4.3, BUN 21, creatinine 1.2, and calcium 8.2. ASSESSMENT AND PLAN: Mr. Des Billy is a 68-year-old male with leukocytosis, anemia, thrombocytopenia, hyponatremia, hypocalcemia, abnormal liver function test trending up, proteinuria, hematuria, urinary tract infection. Urine Legionella pneumoniae antigen is negative. Urine culture shows E. coli, and blood culture shows Gram-negative rods. Getting antibiotics. Dr. Honeycutt is on the case. History of chronic obstructive pulmonary disease, history of alcoholism, chronic congestive heart failure, now has severe sepsis, hypotension, leukocytosis, tachycardia, dyspnea. We will do prostate-specific antigen, rule out underlying gastrointestinal pathology. We will call Gastrointestinal and Infectious Disease. Recommended urological evaluation. Need CAT scan of the abdomen and pelvis with p.o. contrast only to rule out gastrointestinal pathology as a source of Gram-negative bacteremia and severe sepsis with acute kidney injury that appears to be resolving. Discussion done with Dr. Joseph Honeycutt, nursing staff, and nurse practitioner of Dr. Cohn, Prudence. We will follow up. Jewell Martinez MD
[2018-11-03] MEDS: Pantoprazole 40 mg EC Tab PO SCH (06:15)
[2018-11-03 06:50] LABS: BLOOD UREA NITROGEN 22 mg/dL (7-21); CALCIUM 8.1 mg/dL (8.4-10.5); GFR NON-AFRICAN AMERICAN > 60
[2018-11-03 06:52] LABS: EOS # 0.1 (0.0-0.7); GRAN # 7.15 (1.4-6.5); GRAN % 80.2 % (50.0-68.0); HEMOGLOBIN 10.2 g/dL (14.0-18.0); LYMPH # 0.7 (1.2-3.4); LYMPH % 7.8 % (22.0-35.0); MEAN CELL VOLUME 90.7 fl (80.0-105.0); MEAN CORPUSCULAR HEMOGLOBIN 31.8 pg (25.0-35.0); MEAN CORPUSCULAR HGB CONC 35.1 g/dl (31.0-37.0); MEAN PLATELET VOLUME 12.1 fl (7.0-11.0); RBC 3.21 10^6/uL (3.5-6.1); RED CELL DISTRIBUTION WIDTH 15.8 % (11.5-14.5); WHITE BLOOD COUNT 8.9 10^3/uL (4.5-11.0)
[2018-11-03] MEDS: Budesonide 0.5 mg/2 ml Inhal Susp UD IH SCH ×2 (08:28→14:30)
[2018-11-03] MEDS: Levalbuterol 0.63 MG/3 ML Inhal Soln UD IH SCH ×3 (08:30→20:51)
--- NOTE | 2018-11-03 09:45 | CT ---
Date of service: 11/02/2018 PROCEDURE: CT Abdomen and Pelvis with contrast HISTORY: sepsis COMPARISON: 09/22/2018. CT abdomen and pelvis. TECHNIQUE: Oral contrast only. Radiation dose: Total exam DLP = 427.69 mGy-cm. This CT exam was performed using one or more of the following dose reduction techniques: Automated exposure control, adjustment of the mA and/or kV according to patient size, and/or use of iterative reconstruction technique. FINDINGS: LOWER THORAX: Trace bilateral pleural effusions. These findings are diminished compared to the prior study. Atelectatic changes at the lung bases. LIVER: Cirrhotic liver unchanged. No visible focal hepatic masses. GALLBLADDER AND BILE DUCTS: Distended gallbladder. PANCREAS: Unremarkable. No gross lesion or ductal dilatation. SPLEEN: Stable splenomegaly. ADRENALS: Unremarkable. No mass. KIDNEYS AND URETERS: Unremarkable. No hydronephrosis. No solid mass. VASCULATURE: Unremarkable. No aortic aneurysm. No atherosclerotic calcification or mural plaque present. BOWEL: Distended stomach without focal mural abnormality. Thickening of wall of the colon particularly ascending colon accentuated by under distension. APPENDIX: Normal appendix. PERITONEUM: Trace ascites. No free air. LYMPH NODES: Unremarkable. No enlarged lymph nodes. BLADDER: Trace air within the urinary bladder. Etiology/significance unknown. REPRODUCTIVE: Unremarkable. BONES: No acute fracture. OTHER FINDINGS: No acute findings related to/ accounting for the clinical presentation. No significant interval change compared to the prior examination(s). Concordant results (preliminary interpretation) provided by [employer]. Procedure Completed: 20:06. Preliminary Report: Dictated and Authenticated: 21:02. Final Interpretation: 09:39. November 03, 2018 IMPRESSION: Unremarkable contrast enhanced CT of the abdomen and pelvis.
[2018-11-03] MEDS: Meropenem IV 1 gm in NS 1 GM/50 ML BAG IVPB SCH ×2 (10:52→21:32)
[2018-11-03] MEDS: Enoxaparin 40 mg Syringe SC SCH (10:53)
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
--- NOTE | 2018-11-03 13:50 | PN ---
DATE: 11/03/2018 SUBJECTIVE: The patient is in bed, in no acute distress. He was seen earlier today. He is still having fevers. PHYSICAL EXAMINATION: VITAL SIGNS: Temperature is 101.7, respiratory rate of 18, heart rate of 81, and blood pressure 117/50. HEENT: Unremarkable. NECK: Supple. LUNGS: Decreased breath sounds. HEART: Normal S1 and S2. ABDOMEN: Soft. LABORATORY DATA: Reveals white count of 8.9, hemoglobin of 10. Chemistries are noted; BUN of 22, creatinine is 1.0, PSA is elevated at 3.6. Urinalysis is noted. His serology is negative and microbiology reveals E. coli in the blood and E. coli in the blood is resistant only to ampicillin and E. coli in the urine also resistant to ampicillin and cefazolin. Imaging; the patient had a CAT scan of the abdomen and pelvis yesterday which revealed an unremarkable contrast and he had CT of the abdomen and pelvis, read by Dr. Ford James. His kidneys are unremarkable and the patient does have a distended gallbladder where biliary ducts is not mentioned. ASSESSMENT AND PLAN: He is a 68-year-old male, who is seen in 270, bed 01 this morning and who was admitted with history of chronic obstructive lung disease, history of alcoholism and chronic congestive heart failure, admitted with severe sepsis with Escherichia coli bacteremia, Escherichia coli , rule out gastrointestinal pathology and gallbladder as a source, and must also rule out prostatitis with elevated PSA Urology evaluation, currently on meropenem. Continues to have fever, concern about the gallbladder. We will order a HIDA scan and an ultrasound of biliary duct to rule out acute gallbladder disease and we will follow with you. Joseph Honeycutt MD
[2018-11-03 14:04] LABS: INR 1.67; PROTHROMBIN TIME 19.2 SECONDS (9.4-12.5)
--- NOTE | 2018-11-03 15:01 | US ---
Date of service: 11/03/2018 HISTORY: fever COMPARISON: None. TECHNIQUE: Sonographic evaluation of the right upper quadrant of the abdomen. FINDINGS: LIVER: Measures 13.4 x 16.7 cm in length. Normal echogenicity of the liver parenchyma. No mass. No intrahepatic bile duct dilatation. GALLBLADDER: Unremarkable. No gallstones. COMMON BILE DUCT: Measures 5.4 mm. No stones. No dilatation. PANCREAS: Unremarkable as visualized. No mass. No ductal dilatation. RIGHT KIDNEY: Measures 3.5 x 9.6 cm in length. Normal echogenicity. No calculus, mass, or hydronephrosis. AORTA: No aneurysmal dilatation. IVC: Unremarkable. OTHER FINDINGS: Partially thrombosed portal vein. Hepato pedal flow is maintained. IMPRESSION: Partially thrombosed main portal vein. Preservation of hepato pedal flow. Otherwise unremarkable study.
--- NOTE | 2018-11-03 22:56 | PN ---
DATE: 11/03/2018 SUBJECTIVE: Patient seen and examined at bedside, looking comfortable. No fever. No chills. No hematuria. No hematochezia. No swelling of the legs. No chest pain. No palpitations. No headache. No dizziness. Patient seen by GI doctor, Dr. Godoy. Discussion done with him and all consultatnts PHYSICAL EXAMINATION: VITAL SIGNS: Temperature 98.2, pulse 76, respiratory rate 18, blood pressure 96/56, pulse oximetry 97. HEENT: Head normocephalic, atraumatic. Eyes PERRLA. Extraocular muscles intact. Conjunctivae clear. Nose patent. Mucous membrane moist. NECK: Supple. No carotid bruits. No JVD. No thyromegaly. CHEST: Bilaterally symmetrical. HEART: S1, S2 positive. LUNGS: Clear to auscultation. ABDOMEN: Soft. Bowel sounds positive. No organomegaly. EXTREMITIES: No edema. No cyanosis. NEUROLOGIC: The patient is awake and alert. Moving all 4 extremities. No focal deficits. LABORATORY DATA: White blood cell 8.9, hemoglobin 10.2, hematocrit 29.1, platelets 74. Sodium 126, potassium 4.6, BUN 20, creatinine 1.0, glucose 101. ASSESSMENT AND PLAN: Mr. Wenceslao Nunes is a 68-year-old male with anemia, hypernatremia, increased BUN, has history of congestive heart failure, chronic obstructive pulmonary disease, history of alcohol abuse, history of atrial fibrillation, came in with syncopal attack and fatigue found to have septic due to Escherichia coli bacteremia due to urinary tract infection. Gastroenterology consult is for possible gastrointestinal source. Blood cultures positive. Patient has little bit ascites, getting antibiotics. Cirrhosis of liver, cardiac, and/or ethanol abuse. Ascites is not clinically important at this time. According to Gastroenterology, patient need EGD. looks like infectious source is from Escherichia coli bacteremia due to urinary tract infection. No significant ascites, would benefit from outpatient screening. Low sodium diet. Continue Coreg. Discussion done with , patient, and Jayne. Urology is on the case. Dr. Honeycutt is thinking of ordering HIDA scan. Repeat labs. We will follow up. Jewell Martinez MD [facility] # [id number]
--- NOTE | 2018-11-03 23:27 | PN ---
DATE: 11/03/2018 SUBJECTIVE: He is lying in the bed, keeps spiking fever. Last fever was international organizer 101.7. is at bedside. No headache. No rhinitis. No nausea, vomiting or diarrhea. No leg pain or leg swelling. OBJECTIVE GENERAL: In no acute distress. VITAL SIGNS: T-max 101, hear rate 76, respiratory rate 18, blood pressure 99/52. HEENT: Moist mucous membranes. No ulcer or thrush noted. NECK: Supple. No JVD. LUNGS: Fair airflow with rhonchi. HEART: S1 and S2. ABDOMEN: Soft and nontender. No organomegaly. EXTREMITIES: No edema. NEUROLOGIC: Awake, alert. Follows simple commands. MEDICATIONS: He is on amiodarone 200 mg daily, meropenem 1 g IV every 12 hours, Protonix 40 mg daily, Pulmicort inhaler twice a day, Xopenex inhaler every 8 hours. LABORATORY DATA: Shows hemoglobin 10.2, hematocrit 29.1, WBC 8.9, platelet count is 74. INR 1.67. Sodium 126, potassium 4.8, chloride 101, bicarbonate 19, BUN 22, creatinine 1, glucose 101, calcium 8.1. PSA antigen 3.6. Microbiology: Urine culture has E. coli, also blood culture has E. coli with different sensitivity. Had a gallbladder ultrasound done, which suggested partially thrombosed main pulmonary vein portal flow. Also a CT of the abdomen and pelvis done, which shows no acute finding related to accounting for the clinical presentation. IMPRESSION AND PLAN: Chronic obstructive lung disease, obstructive sleep apnea syndrome, recurrent hyponatremia, cardiomyopathy, valvular heart disease, pulmonary hypertension, cirrhotic liver, partially thrombosed portal vein, bacteremia and urinary tract infection with two different organisms. CT of the abdomen is unremarkable. is unremarkable. Seen by Dr. Honeycutt of Infectious Diseases. Ordered HIDA scan. Has recurrent hyponatremia. We placed him on fluid restriction 1000 mL a day. Follow up electrolytes. Thank you and we will follow with you. Alfonso Ansari MD
[2018-11-04] MEDS: Pantoprazole 40 mg EC Tab PO SCH (05:32)
[2018-11-04 06:40] LABS: BASO # 0.01 K/mm3 (0.0-2.0); BASO % 0.1 % (0.0-3.0); EOS % 0.2 % (1.5-5.0); GRAN # 7.57 (1.4-6.5); HEMOGLOBIN 10.2 g/dL (14.0-18.0); LYMPH # 0.7 (1.2-3.4); LYMPH % 7.2 % (22.0-35.0); MEAN CELL VOLUME 90.3 fl (80.0-105.0); MEAN CORPUSCULAR HEMOGLOBIN 32.1 pg (25.0-35.0); MEAN CORPUSCULAR HGB CONC 35.5 g/dl (31.0-37.0); MEAN PLATELET VOLUME 11.5 fl (7.0-11.0); MONO % 10.5 % (1.0-6.0); RBC 3.18 10^6/uL (3.5-6.1); RED CELL DISTRIBUTION WIDTH 15.8 % (11.5-14.5); WHITE BLOOD COUNT 9.2 10^3/uL (4.5-11.0)
[2018-11-04 07:00] LABS: ALB/GLOB RATIO 0.8 (1.1-1.8); ALBUMIN 2.7 g/dL (3.0-4.8); ALT/SGPT 70 U/L (7-56); AST/SGOT 71 U/L (17-59); BLOOD UREA NITROGEN 27 mg/dL (7-21); CALCIUM 8.2 mg/dL (8.4-10.5); GFR NON-AFRICAN AMERICAN > 60
[2018-11-04] MEDS: Levalbuterol 0.63 MG/3 ML Inhal Soln UD IH SCH ×2 (09:17→13:18)
[2018-11-04] MEDS: Budesonide 0.5 mg/2 ml Inhal Susp UD IH SCH (09:17)
[2018-11-04] MEDS: Meropenem IV 1 gm in NS 1 GM/50 ML BAG IVPB SCH (09:30)
[2018-11-04] MEDS ORDERED: Sodium Chloride 0.9% 1,000 ML IV SCH (10:30)
[2018-11-04] MEDS ORDERED: Etomidate 20 mg/10ml Inj IV ONE (10:47)
[2018-11-04] MEDS ORDERED: Lidocaine PF 2% (5 ml) Inj (For Cardiac Arrhy) ONE (10:48)
[2018-11-04] MEDS ORDERED: Propofol 10 mg/ml Inj (20 ML) ONE (10:48)
[2018-11-04] MEDS ORDERED: Phenylephrine 10 mg/ml Inj ONE (10:56)
[2018-11-04] MEDS ORDERED: Levalbuterol 1.25 MG/3 ML Inhal Soln UD IH STA (11:07)
[2018-11-04] MEDS ORDERED: Levalbuterol 1.25 MG/3 ML Inhal Soln UD IH ONE (11:07)
[2018-11-04] MEDS ORDERED: Levalbuterol 1.25 MG/3 ML Inhal Soln UD ONE (11:12)
[2018-11-04 12:03] VITALS: O2SAT 98
--- NOTE | 2018-11-04 12:16 | PCM.EEG ---
Electroencephalogram Report - Electroencephalogram Report Procedure Date: 11/02/18 Medication: Amiodaron, meropenen, Propofol Interpretation: Technical Information: This was a 16 -channel EEG, 1-channel EKG routine EEG performed using an [employer] machine. Electrodes were applied using the 10/20 international placement system. Start; 14;57 End; 15;45 Total; 1hour 10 min. Clinical Information: Syncope During resting wakefulness there was a symmetric posterior dominant rhythm at 8.5-9.5 Hz, 30-50 uV, which was reactive to eye opening and closing. Drowsiness (seen at 15;08) was associated with fragmentation of the posterior dominant rhythm and with slow roving eye movements. Hyperventilation was not performed. Photic stimulation was performed and there were no changes on the record. Focal abnormality; none Impression: Impression: This is a normal awake and drowsy electroencephalogram.
--- NOTE | 2018-11-04 12:29 | PN ---
DATE: 11/04/2018 REFERRING PHYSICIAN: Jewell Martinez MD SUBJECTIVE: The patient is lying in bed. No acute distress. No overnight events reported. No headache, rhinitis, cough, shortness of breath, chest pain, abdominal pain, nausea, vomiting, diarrhea, leg pain or leg swelling reported. OBJECTIVE: VITAL SIGNS: Blood pressure 110/65, pulse 93, temperature 98.3, oxygen saturation 98% on room air. GENERAL: No acute distress. HEENT: Moist mucous membranes. NECK: Supple. No JVD. LUNGS: Fair airflows, few rhonchi. CARDIOVASCULAR: S1 and S2 audible. ABDOMEN: Soft and nontender. No organomegaly. No distention. EXTREMITIES: No bilateral lower extremity edema. NEUROLOGIC: Awake, alert, verbal. Follows commands. MEDICATIONS: Reviewed. Amiodarone 200 mg daily, Pulmicort 0.5 mg inhalation three times a day, Xopenex 0.63 mg inhalation three times a day, meropenem 1 g IV piggyback every 12 hours, Protonix 40 mg daily, sodium chloride 1000 mL at 100 mL per hour. LABORATORY DATA: Reviewed. WBC 9.2, RBC 3.18, hemoglobin 10.2, hematocrit 28.7, platelets 83. Sodium 127, potassium 4.9, chloride 103, carbon dioxide 16, anion gap 13, BUN 27, creatinine 1.1, GFR greater than 60, random glucose 107, calcium 8.2, total bilirubin 1.7. AST 71, ALT 70, alkaline phosphatase 128, total protein 6.1, albumin 2.7, globulin 3.4, and albumin-globulin ration 0.8. IMPRESSION AND PLAN: Chronic obstructive lung disease, obstructive sleep apnea syndrome, recurrent hyponatremia, cardiomyopathy, valvular heart disease, pulmonary hypertension, cirrhotic liver, partially thrombosed portal vein, bacteremia and urinary tract infection. Source unknown for bacteremia, has suspected urinary tract infection and bacteremia with two different organisms, followed by Infectious Disease. The patient is scheduled for hepatobiliary iminodiacetic acid scan this morning. Due to hyponatremia, continue fluid restrictions of 1000 mL a day. Follow up electrolytes closely. Continue continuous positive airway pressure use at bedtime. Sleep apnea precaution. Continue inhaled bronchodilator, gastric prophylaxis. This patient was seen and examined by Dr. Ansari. Discussed assessment and plan as described above. Thank you for this consult. We will follow with you. Kenan Montague APN Alfonso Ansari MD [facility] # [id number]
[2018-11-04] MEDS ORDERED: Cefpodoxime (Vantin) 200 mg Tab PO SCH (13:48)
[2018-11-04 15:39] LABS: TOTAL PSA 4.3 ng/mL (< or = 4.0)
[2018-11-04 18:17] VITALS: BP 115/57; RESP 20; TEMP 97.9
[2018-11-04 18:36] VITALS: PULSE 81
--- NOTE | 2018-11-06 09:00 | PN ---
DATE: 11/04/2018 SUBJECTIVE: The patient is in bed in no acute distress, nontoxic. PHYSICAL EXAMINATION: GENERAL: Temperature is 98, blood pressure is 115/50, respiratory rate of 18, heart rate of 75. HEENT: Unremarkable. NECK: Supple. LUNGS: Decreased breath sounds. HEART: Normal S1, S2. ABDOMEN: Soft, nontender. LABORATORY EXAMINATION: Reveals a white count of 9.2, hemoglobin of 10. Chemistries are noted. Serology is noted and urinalysis is noted. Microbiology reveals Escherichia Coli in the urine which is pansensitive and Escherichia Coli in the blood which is also sensitive, both sensitive to quinolones and the patient has been afebrile now.. The patient had esophagogastroduodenoscopy and esophageal varices, gastritis, and esophagitis was noted. The patient also had an ultrasound of the gallbladder, which was unremarkable with no stones. The common bile duct measures at 5.4 mm. Review of medications reveals the patient to be on meropenem. The patient's white count is reviewed to be normal. Chemistries reveals the patient's creatinine at 1. LFTs are noted. PSA is 3.6,. Urology consult has been ordered by Dr. Mratinez. Dr. Martinez's progress note is reviewed. Review of medications are noted. ASSESSMENT/PLAN He is a 68-year-old male who was seen earlier this morning and admitted with chronic obstructive lung disease, alcoholic liver disease, congestive heart failure admitted with severe sepsis with Escherichia Coli bacteremia secondary to Escherichia Coli urine as the source and possible prostatitis with an elevated PSA and negative ultrasound of gallbladder. We will discontinue the HIDA and the patient also had a CT scan of the abdomen and pelvis which was negative and ultrasound of common bile duct which was negative and we will discontinue the intravenous antibiotics and meropenem and use Cipro 500 mg p.o. b.i.d. times 14 days for prostatitis and bacteremia and follow up with Urology. Unfortunately review of medication reveals the patient is on amiodarone, which s a level 2 interaction with quinolones. We may able use cefpodoxime to complete the therapy because of the drug-drug interaction and 200 mg p.o. b.i.d. cefpodoxime x 14 days. Unable to use quinolones because of the amiodarone and level 2 drug-drug interactions. May use cefpodoxime 200 mg p.o. b.i.d. times 14 days. Follow up with Urology for prostatitis and elevated PSA. Joseph Honeycutt MD [facility] # [id number]
== END 2018-11-04 18:53 | disposition home or self-care (01) | DRG 871 ==
LOC: ED 13:17 → ERH 15:19 → ICU 20:24 → 2RSO 10-31 22:34
PROVIDERS: ADMIT Internal Medicine; ATTEND Internal Medicine
PROC: 0DJ08ZZ Inspection of Upper Intestinal Tract, Via Natural or Artificial Opening Endoscopic (ICD-10-PCS; principal; 2018-11-04 10:15)
DX: A41.51 Sepsis due to Escherichia coli [E. coli] (principal); I81 Portal vein thrombosis; N39.0 Urinary tract infection, site not specified; N17.9 Acute kidney failure, unspecified; E87.1 Hypo-osmolality and hyponatremia; I42.9 Cardiomyopathy, unspecified; K76.6 Portal hypertension; R18.8 Other ascites; I85.10 Secondary esophageal varices without bleeding; I38 Endocarditis, valve unspecified; K74.69 Other cirrhosis of liver; R65.20 Severe sepsis without septic shock; E86.0 Dehydration; I11.0 Hypertensive heart disease with heart failure; I50.9 Heart failure, unspecified; E87.5 Hyperkalemia; D69.6 Thrombocytopenia, unspecified; E83.51 Hypocalcemia; N41.9 Inflammatory disease of prostate, unspecified; G47.33 Obstructive sleep apnea (adult) (pediatric); I25.10 Atherosclerotic heart disease of native coronary artery without angina pectoris; J44.9 Chronic obstructive pulmonary disease, unspecified; K29.50 Unspecified chronic gastritis without bleeding; I27.20 Pulmonary hypertension, unspecified; I48.0 Paroxysmal atrial fibrillation; I44.30 Unspecified atrioventricular block; R56.9 Unspecified convulsions; D64.9 Anemia, unspecified; E87.8 Other disorders of electrolyte and fluid balance, not elsewhere classified; H26.9 Unspecified cataract; F10.21 Alcohol dependence, in remission; Z87.891 Personal history of nicotine dependence

== ENCOUNTER 2018-12-25 18:17 | Inpatient (IN) | payer MEDICARE, OTHER ==
[2018-12-25 18:33] VITALS: BMI 25.2
[2018-12-25 19:50] LABS: BASO # 0.01 K/mm3 (0.0-2.0); BASO % 0.1 % (0.0-3.0); EOS # 0.1 (0.0-0.7); EOS % 0.6 % (1.5-5.0); HEMOGLOBIN 11.7 g/dL (14.0-18.0); LYMPH # 1.4 (1.2-3.4); LYMPH % 15.4 % (22.0-35.0); MEAN CELL VOLUME 98.2 fl (80.0-105.0); MEAN CORPUSCULAR HEMOGLOBIN 34.2 pg (25.0-35.0); MEAN CORPUSCULAR HGB CONC 34.8 g/dl (31.0-37.0); MEAN PLATELET VOLUME 13.3 fl (7.0-11.0); MONO # 0.7 (0.1-0.6); MONO % 7.6 % (1.0-6.0); RBC 3.42 10^6/uL (3.5-6.1); RED CELL DISTRIBUTION WIDTH 19.6 % (11.5-14.5); WHITE BLOOD COUNT 8.8 10^3/uL (4.5-11.0)
[2018-12-25 20:00] LABS: INR 1.64; PROTHROMBIN TIME 18.2 SECONDS (9.4-12.5)
[2018-12-25 20:03] LABS: ACETAMINOPHEN < 10.0 ug/ml (10.0-20.0); SALICYLATE < 1 mg/dL (2.0-20.0)
[2018-12-25 20:05] LABS: ALB/GLOB RATIO 0.7 (1.1-1.8); ALBUMIN 2.7 g/dL (3.0-4.8); ALT/SGPT 57 U/L (7-56); AST/SGOT 179 U/L (17-59); BLOOD UREA NITROGEN 39 mg/dL (7-21); CALCIUM 8.4 mg/dL (8.4-10.5); GFR NON-AFRICAN AMERICAN 43
[2018-12-25 20:16] LABS: TROPONIN I < 0.01 ng/mL
[2018-12-25 20:25] LABS: URINE BILIRUBIN NEGATIVE (NEGATIVE); URINE BLOOD NEGATIVE (NEGATIVE); URINE GLUCOSE (UA) NEGATIVE (NEGATIVE); URINE LEUKOCYTE ESTERASE NEGATIVE Leu/uL (NEGATIVE); URINE PROTEIN NEGATIVE mg/dL (<30 mg/dL); URINE UROBILINOGEN 0.2 E.U./dL (<1 E.U./dL)
[2018-12-25 20:26] LABS: URINE APPEARANCE CLEAR (CLEAR); URINE COLOR YELLOW (YELLOW)
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
[2018-12-25 20:47] LABS: BARBITURATES, UR NEGATIVE (NEGATIVE); BENZODIAZEPINES, UR NEGATIVE (NEGATIVE); OPIATES, UR NEGATIVE (NEGATIVE); PHENCYCLIDINE, UR NEGATIVE (NEGATIVE)
[2018-12-25] MEDS ORDERED: Sodium Chloride 0.9% 1,000 ML IV STA (22:29)
--- NOTE | 2018-12-26 08:22 | RAD ---
Date of service: 12/25/2018 HISTORY: pain COMPARISON: Portable chest 11/01/2018. FINDINGS: LUNGS: Diminished inspiratory volume. Limited linear atelectasis left base. No consolidation bilaterally. PLEURA: No significant pleural effusion identified, no pneumothorax apparent. CARDIOVASCULAR: No aortic atherosclerotic calcification present. Normal cardiac size. No pulmonary vascular congestion. OSSEOUS STRUCTURES: No significant abnormalities. VISUALIZED UPPER ABDOMEN: Normal. OTHER FINDINGS: None. IMPRESSION: Diminished inspiratory volume. No consolidation bilaterally. Linear atelectasis inferior left lung zone. No pleural effusion or pulmonary vascular congestion.
--- NOTE | 2018-12-26 08:37 | CT ---
Date of service: 12/25/2018 PROCEDURE: CT HEAD WITHOUT CONTRAST. HISTORY: ams COMPARISON: 10/29/2018 TECHNIQUE: Axial computed tomography images were obtained through the head/brain without intravenous contrast. Radiation dose: Total exam DLP = 793.19 mGy-cm. This CT exam was performed using one or more of the following dose reduction techniques: Automated exposure control, adjustment of the mA and/or kV according to patient size, and/or use of iterative reconstruction technique. FINDINGS: HEMORRHAGE: No intracranial hemorrhage. BRAIN: No mass effect or edema. Mild atrophy and microvascular changes. Physiologic calcifications of the basal ganglia. VENTRICLES: Unremarkable. No hydrocephalus. CALVARIUM: Unremarkable. PARANASAL SINUSES: Unremarkable as visualized. No significant inflammatory changes. MASTOID AIR CELLS: Unremarkable as visualized. No inflammatory changes. OTHER FINDINGS: The report concurs with the preliminary [facility] report IMPRESSION: No acute intracranial findings
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
[2018-12-26] MEDS: Insulin Reg-LOW-Coverage SC SCH ×3 (13:37→22:59)
--- NOTE | 2018-12-26 14:49 | CP.PCM.APN ---
Subjective - Date & Time of Evaluation Date of Evaluation: 12/26/18 Time of Evaluation: 12:35 - Subjective Subjective: pt. seen in bed, resting. Offers no complaints. Objective - Vital Signs/Intake and Output Vital Signs (last 24 hours): Temp Pulse Resp BP Pulse Ox 97.7 F 58 L 18 109/55 L 94 L 12/26/18 06:00 12/26/18 06:00 12/26/18 06:00 12/26/18 06:00 12/26/18 06:00 Intake and Output: 12/26/18 12/26/18 06:59 18:59 Intake Total 120 Balance 120 - Medications Medications: Current Medications Acetaminophen (Tylenol 325mg Tab) 650 mg PO Q4H PRN PRN Reason: Fever >100.5 F Insulin Human Regular (Humulin R Low) 0 units SC ACHS [facility]; Protocol Last Admin: 12/26/18 13:37 Dose: Not Given Lactulose (Enulose) 20 gm PO TID [facility] Last Admin: 12/26/18 13:37 Dose: 20 gm Rifaximin (Xifaxan) 550 mg PO BID [facility]; Protocol - Labs Labs: 12/25/18 19:46 12/25/18 19:46 PT 18.2 SECONDS (9.4-12.5) H 12/25/18 19:46 INR 1.64 12/25/18 19:46 APTT 44.0 Seconds (26.9-38.3) H 12/25/18 19:46 - Head Exam Head Exam: NORMOCEPHALIC - Eye Exam Eye Exam: absent: Conjunctival injection, EOMI, Normal appearance, Nystagmus, Periorbital swelling, Periorbital tenderness, PERRL, Scleral icterus - ENT Exam ENT Exam: absent: Mucous Membranes Dry, Mucous Membranes Moist, Normal Exam, Normal External Ear Exam, Normal Oropharynx, TM's Normal Bilaterally - Neck Exam Neck Exam: Full ROM - Respiratory Exam Respiratory Exam: NORMAL BREATHING PATTERN - Cardiovascular Exam Cardiovascular Exam: REGULAR RHYTHM, +S1, +S2 - GI/Abdominal Exam GI & Abdominal Exam: Distended, Soft, Diminished Bowel Sounds - Rectal Exam Rectal Exam: Deferred - Exam Exam: absent: Circumcision, NORMAL INSPECTION, Scrotal Swelling, Testicular Tenderness, Uretheral Discharge, Testicular Vertical Lie, Bladder Distension External exam: absent: Ecchymosis, Erythema, Lacerations, Lesions, NORMAL EXTERNAL EXAM, Swelling Speculum exam: absent: Cervical Discharge, Erythema, Foreign Body, Laceration, NORMAL SPECULUM EXAM, Tissue, Vaginal Bleeding, Vaginal Discharge Bimanual exam: absent: Adenexal Mass, Adnexal, Cervical Motion Tendernes, NORMAL BIMANUAL EXAM, Uterine Enlargement, Uterine Tenderness - Extremities Exam Extremities Exam: Full ROM - Neurological Exam Neurological Exam: Alert, Awake, Oriented x3 - Psychiatric Exam Psychiatric exam: Normal Affect, Normal Mood - Skin Skin Exam: Dry, Intact, Normal Color, Warm Assessment and Plan - Assessment and Plan (Free Text) Assessment: ITS Impressions Head CT 12/25/18 19:29 IMPRESSION: No acute intracranial findings Chest X-Ray 12/25/18 19:31 IMPRESSION: Diminished inspiratory volume. No consolidation bilaterally. Linear atelectasis inferior left lung zone. No pleural effusion or pulmonary vascular congestion. 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 Plan: 1. Hepatic Encephalopathy Enulose tid for BMs. Abdomen us completed, IR consult for eval of paracentesis pending. Further recs per GI., trend ammonia levels, liver enzymes. 2. Confusion likely secondary to Hepatic Encephalopathy monitor mentation, and continue Lactulose until 3 bms per day, per GI. Will continue to monitor clinical status and follow closely.
--- NOTE | 2018-12-26 15:27 | CARD ---
APPROVED REPORT Date of service: 12/25/2018 EKG Measurement Heart [id number] <Conclusion> Sinus bradycardia with 1st degree AV block Right bundle branch block Left anterior fascicular block Bifascicular block Cannot rule out Inferior infarct (masked by fascicular block?), age undetermined Abnormal ECG
--- NOTE | 2018-12-26 16:25 | US ---
Date of service: 12/26/2018 HISTORY: assess ascites COMPARISON: Limited abdomen ultrasound 11/03/2018. TECHNIQUE: Sonographic evaluation of the right upper quadrant of the abdomen. FINDINGS: Limited ultrasound of the peritoneal cavity was performed for evaluation of ascites which is increased in the interval and appears moderate to severe. Incidental note is a shrunken cirrhotic liver with color and spectral Doppler analysis of the main portal vein fails demonstrate consistent blood flow suspicious for portal venous thrombosis. Some blood flow may be present in the periphery of the main portal vein. OTHER FINDINGS: None . IMPRESSION: Moderate to severe ascites. Incidental note is made of possible portal venous thrombosis. This may be incomplete. Further clinical correlation advised. Contrast CT the abdomen may be helpful for added characterization.
--- NOTE | 2018-12-27 02:34 | PN ---
DATE: 12/26/2018 SUBJECTIVE: The patient is 68-year-old male. The patient was seen and examined at the bedside on 12/26/2018, looking comfortable. No fever. No chills. No hematuria. No hematochezia. No headache. No dizziness. Abdomen is distended. PHYSICAL EXAMINATION: VITAL SIGNS: Temperature 97.7, pulse 58, respirations 18, blood pressure 109/55, pulse oximetry 94. HEENT: Head is normocephalic and atraumatic. Eyes: PERRLA. Extraocular muscles intact. Conjunctivae clear. Nose patent. Mucous membranes moist. NECK: Supple. No carotid bruit. No JVD or thyromegaly. CHEST: Bilateral symmetrical. HEART: S1 and S2 positive. LUNGS: Clear bilateral. ABDOMEN: Soft. Bowel sounds present. No organomegaly. EXTREMITIES: No edema. No cyanosis. NEUROLOGIC: Patient is awake, alert, moving all 4 extremities. No focal deficits. LABORATORY DATA: White blood 6.8, hemoglobin 11.7, hematocrit 33.6, and platelets 106. Sodium 130, potassium 3.9, BUN 39, creatinine 1.6, glucose 110. ASSESSMENT AND PLAN: Mr. 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 Ordered blood culture, urine culture, and sensitivity. IR guided abdominal paracentesis. Low-sodium diet. 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 Started lactulose 3 times a day. Added to make sure that patient does not have hepatobiliary carcinoma, hepatocellular carcinoma . I did no more therapy at this time. Appreciated input from Dr. Liam Manzo. CAT scan of head done. Reviewed by me. Hepatic encephalopathy. Continue monitoring. Repeat labs. We will followup. Jewell Martinez MD MTDD
[2018-12-27] MEDS: Insulin Reg-LOW-Coverage SC SCH ×4 (08:39→22:25)
[2018-12-27] MEDS ORDERED: [UNRECOGNIZED DRUG - OTHER] INH PRN (10:12)
[2018-12-27] MEDS ORDERED: Non Formulary Medication (Ferrous Sulfate [Feosol] 1 TAB) PO SCH (10:15)
[2018-12-27] MEDS ORDERED: ENALAPRIL MALEATE 2.5 MG PO SCH (10:15)
[2018-12-27] MEDS ORDERED: Levothyroxine 25 MCG TAB PO SCH (10:15)
[2018-12-27 12:36] LABS: BODY FLUID TYPE PERITONEAL
--- NOTE | 2018-12-27 13:00 | US ---
PROCEDURE: Ultrasound guided paracentesis. HISTORY: Alcoholic cirrhosis. New onset ascites. Needs diagnostic and therapeutic paracentesis PHYSICIAN(S): Justin Husain MD. TECHNIQUE: The relative risks and indications for the procedure were explained to the patient and informed written consent obtained. Sonography of the abdomen was performed in a supine position. This revealed a small to moderate amount of non-loculated ascites, greatest in the right lower quadrant. A puncture site was selected and the area was prepped and draped in the usual sterile fashion. 1% Xylocaine was used to anesthetize the skin and soft tissues. A 7 Nepali paracentesis catheter was trocared into the right lower quadrantand 2400 cc of clear, straw-colored fluid aspirated. The appropriate labs were sent IMPRESSION: Ultrasound-guided paracentesis in the right lower quadrant. 2400 cc of clear straw-colored fluid was aspirated. Labs were sent
[2018-12-27 13:01] LABS: BODY FLUID RBC 113.3 /uL (0.0-0.0)
[2018-12-27 13:02] LABS: BF GROSS APPEARANCE CLEAR (CLEAR); BODY FLUID TOTAL COUNT 100 (0-0)
--- NOTE | 2018-12-27 13:05 | CP.PCM.PN ---
<Jeff Manzo - Last Filed: 12/27/18 13:05> Subjective - Date & Time of Evaluation Date of Evaluation: 12/27/18 Time of Evaluation: 08:00 - Subjective Subjective: PGY 5 GI Follow-up Pt seen and examined bedside denies any abd pain s/p paracenetsis 2.4L tolerating diet ROS: 12 point ROS conducted, neg other than above Objective - Vital Signs/Intake and Output Vital Signs (last 24 hours): Temp Pulse Resp BP Pulse Ox 97.9 F 62 18 102/57 L 97 12/27/18 06:00 12/27/18 10:42 12/27/18 06:00 12/27/18 10:42 12/27/18 06:00 Intake and Output: 12/27/18 12/27/18 06:59 18:59 Intake Total 680 Balance 680 - Medications Medications: Current Medications Acetaminophen (Tylenol 325mg Tab) 650 mg PO Q4H PRN PRN Reason: Fever >100.5 F Arformoterol Tartrate (Brovana) 15 mcg IH [id number] [facility] Ascorbic Acid (Vitamin C 500 Mg Tab) 500 mg PO DAILY [facility] Budesonide (Pulmicort Respules) 0.5 mg IH [id number] [facility] Carvedilol (Coreg) 3.125 mg PO BID [facility] Last Admin: 12/27/18 10:42 Dose: 3.125 mg Famotidine (Pepcid) 20 mg PO HS [facility] Ferrous Sulfate (Feosol) 324 mg PO DAILY [facility] Fluticasone Propionate (Flonase) 1 actuation NS HS [facility] Folic Acid (Folic Acid) 1 mg PO DAILY [facility] Furosemide (Lasix) 40 mg PO DAILY [facility] Insulin Human Regular (Humulin R Low) 0 units SC ACHS [facility]; Protocol Last Admin: 12/27/18 08:39 Dose: Not Given Lactulose (Enulose) 20 gm PO TID [facility] Last Admin: 12/27/18 10:42 Dose: 20 gm Levothyroxine Sodium (Synthroid) 25 mcg PO ACB [facility] Lisinopril (Zestril) 2.5 mg PO DAILY [facility] Loratadine (Claritin) 10 mg PO DAILY [facility] Rifaximin (Xifaxan) 550 mg PO BID [facility]; Protocol Last Admin: 12/27/18 10:41 Dose: 550 mg Sotalol HCl (Betapace) 80 mg PO BID [facility] - Labs Labs: 12/25/18 19:46 12/25/18 19:46 PT 18.2 SECONDS (9.4-12.5) H 12/25/18 19:46 INR 1.64 12/25/18 19:46 APTT 44.0 Seconds (26.9-38.3) H 12/25/18 19:46 - Constitutional Appears: Well, No Acute Distress - Head Exam Head Exam: ATRAUMATIC, NORMOCEPHALIC - Eye Exam Eye Exam: Normal appearance - ENT Exam ENT Exam: Mucous Membranes Moist, Normal Exam - Neck Exam Neck Exam: Normal Inspection - Respiratory Exam Respiratory Exam: Clear to Ausculation Bilateral, NORMAL BREATHING PATTERN. absent: Rales, Rhonchi, Wheezes, Respiratory Distress - Cardiovascular Exam Cardiovascular Exam: REGULAR RHYTHM, +S1, +S2 - GI/Abdominal Exam GI & Abdominal Exam: Distended, Soft, Normal Bowel Sounds. absent: Tenderness, Diminished Bowel Sounds, Hernia, Hypoactive Bowel Sounds, Mass, Organomegaly, Rebound - Extremities Exam Extremities Exam: absent: Joint Swelling, Pedal Edema - Neurological Exam Neurological Exam: Alert, Awake - Psychiatric Exam Psychiatric exam: Normal Affect, Normal Mood - Skin Skin Exam: Dry, Intact, Normal Color, Warm Assessment and Plan - Assessment and Plan (Free Text) Assessment: Des Billy is a 68M w/ hx of 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 Decompensated ETOH Liver cirrhosis, MELD-Na 12/25/18: 20 Grade 2 HE Ascite, s/p paracentesis Evidence of portal HTN (non-bandable varices) FANNY Portal Vein Thrombus? Plan: -s/p paracentesis 12/26 2.4L, no SBP -Daily MELD Labs; CMP iNR -Low sodium diet -needs f/u with GI or Nutrition Representative as oupt -continue lactulose TID for 2-3 BM daily -should eventually start diuretics once renal function improved -added AFP for HCC screening, Last Abd U/S 10/2018: no mass at that time -EGD 10/2018: non-bandable varices, would benefit from BB therapy -Abd u/s revealed partial portal vein thrombus?; will need contrast study to confirm when Cr normalizes Dr. Dr. Godoy <Julian Godoy V - Last Filed: 12/27/18 22:39> Objective - Vital Signs/Intake and Output Vital Signs (last 24 hours): Temp Pulse Resp BP Pulse Ox 98.1 F 60 18 97/49 L 97 12/27/18 14:00 12/27/18 19:42 12/27/18 14:00 12/27/18 18:08 12/27/18 14:00 Intake and Output: 12/27/18 12/28/18 18:59 06:59 Intake Total 360 Balance 360 - Medications Medications: Current Medications Acetaminophen (Tylenol 325mg Tab) 650 mg PO Q4H PRN PRN Reason: Fever >100.5 F Arformoterol Tartrate (Brovana) 15 mcg IH [id number] [facility] Last Admin: 12/27/18 19:42 Dose: 15 mcg Ascorbic Acid (Vitamin C 500 Mg Tab) 500 mg PO DAILY [facility] Budesonide (Pulmicort Respules) 0.5 mg IH [id number] [facility] Last Admin: 12/27/18 19:42 Dose: 0.5 mg Carvedilol (Coreg) 3.125 mg PO BID [facility] Last Admin: 12/27/18 18:04 Dose: Not Given Famotidine (Pepcid) 20 mg PO HS [facility] Last Admin: 12/27/18 22:24 Dose: 20 mg Ferrous Sulfate (Feosol) 324 mg PO DAILY [facility] Fluticasone Propionate (Flonase) 1 actuation NS HS [facility] Last Admin: 12/27/18 22:25 Dose: 1 actuation Folic Acid (Folic Acid) 1 mg PO DAILY [facility] Last Admin: 12/27/18 14:48 Dose: 1 mg Furosemide (Lasix) 40 mg PO DAILY [facility] Insulin Human Regular (Humulin R Low) 0 units SC [facility]; Protocol Last Admin: 12/27/18 22:25 Dose: Not Given Lactulose (Enulose) 20 gm PO TID [facility] Last Admin: 12/27/18 18:04 Dose: 20 gm Levothyroxine Sodium (Synthroid) 25 mcg PO ACB [facility] Last Admin: 12/27/18 14:50 Dose: 25 mcg Lisinopril (Zestril) 2.5 mg PO DAILY [facility] Loratadine (Claritin) 10 mg PO DAILY [facility] Rifaximin (Xifaxan) 550 mg PO BID [facility]; Protocol Last Admin: 12/27/18 18:06 Dose: 550 mg Sotalol HCl (Betapace) 80 mg PO BID [facility] Last Admin: 12/27/18 18:04 Dose: Not Given - Labs Labs: 12/25/18 19:46 12/27/18 13:35 PT 18.4 SECONDS (9.4-12.5) H 12/27/18 13:35 INR 1.63 12/27/18 13:35 APTT 44.0 Seconds (26.9-38.3) H 12/25/18 19:46 Attending/Attestation - Attestation I have personally seen and examined this patient.: Yes I have fully participated in the care of the patient.: Yes I have reviewed all pertinent clinical information, including history, physical exam and plan: Yes Notes (Text): This is an addendum to GI progress report dictated by the GI Fellow. The patient was seen and examined earlier. Medical records, lab studies, imagings were reviewed. Last 24 hours events reviewed. Agreed with the above treatment plan as outlined in GI Fellow 's notes with the addition of the following 12/27/18 22:39
--- NOTE | 2018-12-27 13:14 | CON ---
DATE: 12/27/2018 PULMONARY CONSULT NOTE REFERRING PHYSICIAN: Dr. Jewell Martinez. REASON FOR CONSULT: Chronic obstructive lung disease and sleep apnea syndrome. The patient admitted with ascites. HISTORY OF PRESENT ILLNESS: This is 68-year-old male well known to us from office in previous admission with past medical history significant for cardiomyopathy, chronic obstructive lung disease, history of excessive alcohol use in the past, cirrhotic liver, CHF, atrial fibrillation who presented to the emergency room due to altered mental status, abdominal distention. The patient is presently lying in bed. No acute distress. No cough, sputum production, hemoptysis, diarrhea, leg pain and leg swelling reported. PAST MEDICAL HISTORY: As per history of present illness. ALLERGIES: NO KNOWN ALLERGIES. SOCIAL HISTORY: Former smoker. Positive EtOH abuse. No illicit drug use. FAMILY HISTORY: Positive for hypertension. MEDICATIONS: Tylenol 650 mg every 4 hours p.r.n., vitamin C 500 mg daily, Coreg 3.125 mg twice a day, Pepcid 20 mg at bedtime, ferrous sulfate 324 mg daily, folic acid 1 mg daily, Lasix 40 mg daily, Humulin R sliding scale a.c. and at bedtime, lactulose 20 g three times a day, Synthroid 25 mcg in the morning, lisinopril 2.5 mg daily, Singulair 10 mg daily, Xyzal 1 tab daily, Breo inhalation p.r.n., Xifaxan 515 mg twice a day and sotalol 80 mg twice a day. REVIEW OF SYSTEMS: No headache, rhinitis, cough, shortness of breath, chest pain, abdominal pain, nausea, vomiting, diarrhea, leg pain and leg swelling reported. The patient does report abdominal distention. PHYSICAL EXAMINATION: GENERAL: No acute distress. VITAL SIGNS: Blood pressure 102/57, pulse 62, temperature 97.9 and oxygen saturation 97% on room air. HEENT: Moist mucous membranes. No ulcer or thrush. Icterus sclera bilaterally. NECK: Supple. No JVD. LUNGS: Fair airflow bilaterally. CARDIOVASCULAR: S1 and S2. ABDOMEN: Distended and nontender. EXTREMITIES: No bilateral lower extremity edema. NEUROLOGICAL: Awake, alert and verbal. Following commands. LABORATORY DATA: Reviewed. WBC 8.8, RBC 3.42, hemoglobin 11.7, hematocrit 33.6 and platelets 106. PT 18.2, INR 1.64 and APTT is 44. POC glucose 125, ammonia 33 and TSH 9.72. Sodium 137, potassium 3.9, chloride 106, carbon dioxide 23, anion gap 11, BUN 39, creatinine 1.6, GFR 43, random glucose 110, calcium 8.4, phosphorous 4.0, magnesium 1.9, total bilirubin 2.8, AST 179, ALT 57, alkaline phosphatase 137, lactate dehydrogenase 730, total creatine kinase 30, troponin less than 0.01, total protein 6.6, albumin 2.7, globulin 4.0 and albumin-globulin ratio 0.7. Alpha-fetoprotein 1.5. Blood cultures preliminary no growth after 24 hours. Urine culture final no growth. Electrocardiogram shows sinus bradycardia with first degree AV block, right bundle-branch block, left anterior fascicular block. Head CT showed no acute intracranial findings. Chest x-ray showed diminished inspiratory volume no consolidation bilaterally, linear atelectasis inferior, left lung zone, no pleural effusion, no pulmonary vascular congestion. Abdominal ultrasound shows shrunken cirrhotic liver, moderate to severe ascites, possible portal venous thrombus. IMPRESSION AND PLAN: Sleep apnea syndrome, chronic obstructive lung disease, ascites, portal venous thrombus, cardiomyopathy with valvular heart disease, pulmonary hypertension, portal hypertension. We will place the patient on inhaled bronchodilators. We will start antihistamine, Flonase nasal spray. We will discontinue Breo, Singulair and Xyzal, as Breo and Xyzal are non-pulmonary medication and Singulair should not be used in this patient at this time due to comorbidities. We will start the patient on continuous positive airway pressure machine 7 cm, 30% oxygen. We will refer anticoagulation/deep venous thrombosis prophylaxis treatment to gastrointestinal. Agree with consult of Dr. Justin Husain for paracentesis. We will need cytology culture, chemistry and cell count of fluid drained. We will place the patient on Brovana, Pulmicort, sleep apnea precaution, head of bed elevated at 45 degrees. This patient was seen and examined with Dr. Ansari. Discussed assessment and plan as described above. This patient was seen and examined with Kenan Montague, nurse practitioner. Discussed assessment and plan as described above. Thank you for this consult. We will follow with you. Kenan Montague APN Alfonso Ansari MD [facility] # [id number] [facility]ITAL[facility]azal
[2018-12-27 13:52] LABS: INR 1.63; PROTHROMBIN TIME 18.4 SECONDS (9.4-12.5)
--- NOTE | 2018-12-27 13:54 | CP.PCM.APN ---
Subjective - Date & Time of Evaluation Date of Evaluation: 12/27/18 Time of Evaluation: 12:45 - Subjective Subjective: Pt. just returned from paracentesis, no complaints at present, RR easy and unlabored. Objective - Vital Signs/Intake and Output Vital Signs (last 24 hours): Temp Pulse Resp BP Pulse Ox 97.9 F 62 18 102/57 L 97 12/27/18 06:00 12/27/18 10:42 12/27/18 06:00 12/27/18 10:42 12/27/18 06:00 Intake and Output: 12/27/18 12/27/18 06:59 18:59 Intake Total 680 Balance 680 - Medications Medications: Current Medications Acetaminophen (Tylenol 325mg Tab) 650 mg PO Q4H PRN PRN Reason: Fever >100.5 F Arformoterol Tartrate (Brovana) 15 mcg [facility] [id number] [facility] Ascorbic Acid (Vitamin C 500 Mg Tab) 500 mg PO DAILY [facility] Budesonide (Pulmicort Respules) 0.5 mg IH [id number] [facility] Carvedilol (Coreg) 3.125 mg PO BID [facility] Last Admin: 12/27/18 10:42 Dose: 3.125 mg Famotidine (Pepcid) 20 mg PO HS [facility] Ferrous Sulfate (Feosol) 324 mg PO DAILY [facility] Fluticasone Propionate (Flonase) 1 actuation NS HS [facility] Folic Acid (Folic Acid) 1 mg PO DAILY [facility] Furosemide (Lasix) 40 mg PO DAILY [facility] Insulin Human Regular (Humulin R Low) 0 units SC ACHS [facility]; Protocol Last Admin: 12/27/18 08:39 Dose: Not Given Lactulose (Enulose) 20 gm PO TID [facility] Last Admin: 12/27/18 10:42 Dose: 20 gm Levothyroxine Sodium (Synthroid) 25 mcg PO ACB [facility] Lisinopril (Zestril) 2.5 mg PO DAILY [facility] Loratadine (Claritin) 10 mg PO DAILY [facility] Rifaximin (Xifaxan) 550 mg PO BID [facility]; Protocol Last Admin: 12/27/18 10:41 Dose: 550 mg Sotalol HCl (Betapace) 80 mg PO BID [facility] - Labs Labs: 12/25/18 19:46 12/25/18 19:46 PT 18.4 SECONDS (9.4-12.5) H 12/27/18 13:35 INR 1.63 12/27/18 13:35 APTT 44.0 Seconds (26.9-38.3) H 12/25/18 19:46 - Constitutional Appears: Well - Head Exam Head Exam: NORMOCEPHALIC - Eye Exam Eye Exam: Normal appearance - ENT Exam ENT Exam: absent: Mucous Membranes Dry, Mucous Membranes Moist, Normal Exam, Normal External Ear Exam, Normal Oropharynx, TM's Normal Bilaterally - Neck Exam Neck Exam: Full ROM - Respiratory Exam Respiratory Exam: NORMAL BREATHING PATTERN - Cardiovascular Exam Cardiovascular Exam: +S1, +S2 - Rectal Exam Rectal Exam: Deferred - Exam Exam: absent: Circumcision, NORMAL INSPECTION, Scrotal Swelling, Testicular Tenderness, Uretheral Discharge, Testicular Vertical Lie, Bladder Distension External exam: absent: Ecchymosis, Erythema, Lacerations, Lesions, NORMAL EXTERNAL EXAM, Swelling Speculum exam: absent: Cervical Discharge, Erythema, Foreign Body, Laceration, NORMAL SPECULUM EXAM, Tissue, Vaginal Bleeding, Vaginal Discharge - Extremities Exam Extremities Exam: Full ROM - Skin Skin Exam: Dry, Intact Assessment and Plan - Assessment and Plan (Free Text) Assessment: ITS Impressions Head CT 12/25/18 19:29 IMPRESSION: No acute intracranial findings Chest X-Ray 12/25/18 19:31 IMPRESSION: Diminished inspiratory volume. No consolidation bilaterally. Linear atelectasis inferior left lung zone. No pleural effusion or pulmonary vascular congestion. Paracentesis Ultrasound 12/26/18 08:50 IMPRESSION: Ultrasound-guided paracentesis in the right lower quadrant. 2400 cc of clear straw-colored fluid was aspirated. Labs were sent Abdomen Ultrasound 12/26/18 12:36 IMPRESSION: Moderate to severe ascites. Incidental note is made of possible portal venous thrombosis. This may be incomplete. Further clinical correlation advised. Contrast CT the abdomen may be helpful for added characterization. 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 Plan: 1. Hepatic Encephalopathy Enulose tid for BMs. Abdomen us completed,s/p paracentesis today. Further recs per GI., trend ammonia levels, liver enzymes. 2. Confusion likely secondary to Hepatic Encephalopathy monitor mentation, and continue Lactulose until 3 bms per day, per GI. Will continue to monitor clinical status and follow closely.
[2018-12-27 14:00] LABS: ALB/GLOB RATIO 0.7 (1.1-1.8); ALBUMIN 2.6 g/dL (3.0-4.8); ALT/SGPT 59 U/L (7-56); AST/SGOT 177 U/L (17-59); BLOOD UREA NITROGEN 31 mg/dL (7-21); CALCIUM 8.1 mg/dL (8.4-10.5); GFR NON-AFRICAN AMERICAN 50
[2018-12-27] MEDS: Levothyroxine 25 MCG TAB PO SCH (14:50)
[2018-12-27] MEDS: Budesonide 0.5 mg/2 ml Inhal Susp UD IH SCH (19:42)
[2018-12-27] MEDS: Arformoterol 15 mcg/2 ml Inh Sol IH SCH (19:42)
--- NOTE | 2018-12-27 20:50 | HP ---
DATE OF EXAM: 12/25/2018 The patient was seen and examined at the bedside. CHIEF COMPLAINT: Altered mental status. HISTORY OF PRESENT ILLNESS: Mr. Des Billy, a 69 years old male, with past medical history of congestive heart failure, COPD, asthma, atrial fibrillation and history of ethanol abuse 6 years ago, came to the Emergency Department for altered mental status. Patient's abdomen is distended. The patient is not a very good historian, but that is my private patient. Patient is under care of Dr. Ansari, Dr. Galvez and Dr. Godoy recently by Jayne and Dr. Galvez. PAST MEDICAL HISTORY: Congestive heart failure, COPD, dizziness, cataract, history of scarring to the nose, had nasal surgery, history of fall, ataxia, ethanol abuse, quit 6 years ago. History of smoking, quit. FAMILY HISTORY: Father and mother noncontributory. HABITS: Former smoker and now quit smoking. Former ethanol abuser, now not drinking alcohol. No substance abuse. ALLERGIES: THE PATIENT IS NOT ALLERGIC WITH ANY MEDICATION. HOME MEDICATIONS: Coreg, enalapril, Singulair, vitamin C, iron, levocetirizine, Pepcid, Breo, Lasix, sotalol. REVIEW OF SYSTEMS: The patient was seen and examined at the bedside, looking comfortable. No fever, no chills. No hematuria or hematochezia. No headache, no dizziness, no chest pain, or palpitation. Actually, the patient had altered mental status, but do not look like in distress. Abdomen is distended. PHYSICAL EXAMINATION: VITAL SIGNS: Temperature 97.7, pulse 54, respiration 19, blood pressure , pulse oximeter 98. HEENT: Head is normocephalic, atraumatic. Eyes; PERRLA. Extraocular muscles are intact. Conjunctivae clear. Nose patent. Mucous membranes are moist. NECK: Supple. No carotid bruits. No thyromegaly. HEART: S1 and S2 positive. LUNGS: Clear to auscultation. ABDOMEN: Soft. Bowel sounds present. No organomegaly. Distended, tense and distended abdomen. FT is positive. No peritoneal signs. EXTREMITIES: No edema, no cyanosis. NEUROLOGIC: The patient is awake, alert, moving all four extremities. No focal deficits. LABORATORY DATA: White blood cell is 8.8, hemoglobin 11.7, hematocrit 33.6, platelets 106. Sodium 137, potassium 3.9, BUN 39, creatinine 1.6, glucose 132. ASSESSMENT AND PLAN: Mr. Des Billy, 68 years old male with renal insufficiency, hyperglycemia, abnormal liver function test, ammonia level 75, hypothyroidism, anemia. Urinalysis has been normal. Hemato toxicology negative. He is admitted with altered mental status. CAT scan of the head, chest has been done. Electrocardiography done noted by me. History of congestive heart failure. He is admitted for decompensated liver cirrhosis, history of ethanol abuse in the past, history of pulmonary hypertension, chronic obstructive pulmonary disease, asthma, atrial fibrillation, came with altered mental status. We admitted the patient for gastrointestinal consult. We will call interventional radiologist for paracentesis. Repeat labs. Patient has history of non-banded varices, portal hypertension, ascites. We will do AFP for HCC screening. We will followup. Jewell Martinez MD MTDGhazal
[2018-12-27] MEDS: Fluticasone Nasal 50 mcg/Spray NS SCH (22:25)
[2018-12-28] MEDS: Budesonide 0.5 mg/2 ml Inhal Susp UD IH SCH ×2 (07:02→20:17)
[2018-12-28] MEDS: Arformoterol 15 mcg/2 ml Inh Sol IH SCH ×2 (07:02→20:16)
[2018-12-28] MEDS ORDERED: Levothyroxine 25 MCG TAB PO SCH (07:30)
[2018-12-28] MEDS: Insulin Reg-LOW-Coverage SC SCH ×3 (07:32→18:23)
[2018-12-28] MEDS: Levothyroxine 25 MCG TAB PO SCH (07:38)
[2018-12-28 08:01] LABS: HEMOGLOBIN 11.1 g/dL (14.0-18.0); MEAN CORPUSCULAR HEMOGLOBIN 33.4 pg (25.0-35.0); MEAN CORPUSCULAR HGB CONC 33.4 g/dl (31.0-37.0); RBC 3.32 10^6/uL (3.5-6.1); RED CELL DISTRIBUTION WIDTH 19.2 % (11.5-14.5)
[2018-12-28 08:09] LABS: INR 1.71; PROTHROMBIN TIME 19.3 SECONDS (9.4-12.5)
[2018-12-28 08:23] LABS: ALB/GLOB RATIO 0.6 (1.1-1.8); ALBUMIN 2.4 g/dL (3.0-4.8); ALT/SGPT 57 U/L (7-56); AST/SGOT 151 U/L (17-59); BLOOD UREA NITROGEN 28 mg/dL (7-21); CALCIUM 7.9 mg/dL (8.4-10.5); GFR NON-AFRICAN AMERICAN 55
[2018-12-28] MEDS ORDERED: LEVOCETIRIZINE DIHYDROCHLORIDE PO SCH ×2 (10:00)
--- NOTE | 2018-12-28 12:41 | CP.PCM.PN ---
<Vesna Ledezma - Last Filed: 12/28/18 12:42> Subjective - Date & Time of Evaluation Date of Evaluation: 12/28/18 Time of Evaluation: 12:37 - Subjective Subjective: Gastroenterology Fellow/PGY6 Progress Note Patient resting comfortably. Oriented to person, place, and time. Admits to unchanged mild ankle swelling. Tolerating diet. Abdominal distension improved after paracentesis. Notes four bowel movements yesterday. Objective - Vital Signs/Intake and Output Vital Signs (last 24 hours): Temp Pulse Resp BP Pulse Ox 97.8 F 63 18 94/51 L 99 12/28/18 06:00 12/28/18 09:50 12/28/18 06:00 12/28/18 09:51 12/28/18 06:00 Intake and Output: 12/28/18 12/28/18 06:59 18:59 Intake Total 360 240 Balance 360 240 - Medications Medications: Current Medications Acetaminophen (Tylenol 325mg Tab) 650 mg PO Q4H PRN PRN Reason: Fever >100.5 F Arformoterol Tartrate (Brovana) 15 mcg IH [id number] [facility] Last Admin: 12/28/18 07:02 Dose: Not Given Ascorbic Acid (Vitamin C 500 Mg Tab) 500 mg PO DAILY [facility] Last Admin: 12/28/18 09:48 Dose: 500 mg Budesonide (Pulmicort Respules) 0.5 mg IH [id number] [facility] Last Admin: 12/28/18 07:02 Dose: Not Given Carvedilol (Coreg) 3.125 mg PO BID [facility] Last Admin: 12/28/18 09:51 Dose: Not Given Famotidine (Pepcid) 20 mg PO [facility] Last Admin: 12/27/18 22:24 Dose: 20 mg Ferrous Sulfate (Feosol) 324 mg PO DAILY [facility] Last Admin: 12/28/18 09:48 Dose: 324 mg Fluticasone Propionate (Flonase) 1 actuation NS [facility] Last Admin: 12/27/18 22:25 Dose: 1 actuation Folic Acid (Folic Acid) 1 mg PO DAILY [facility] Last Admin: 12/28/18 09:49 Dose: 1 mg Furosemide (Lasix) 40 mg PO DAILY [facility] Last Admin: 12/28/18 09:51 Dose: 40 mg Insulin Human Regular (Humulin R Low) 0 units SC [facility]; Protocol Last Admin: 12/28/18 07:32 Dose: Not Given Lactulose (Enulose) 20 gm PO TID [facility] Last Admin: 12/28/18 09:48 Dose: 20 gm Levothyroxine Sodium (Synthroid) 25 mcg PO ACB [facility] Last Admin: 12/28/18 07:38 Dose: 25 mcg Lisinopril (Zestril) 2.5 mg PO DAILY [facility] Last Admin: 12/28/18 09:51 Dose: Not Given Loratadine (Claritin) 10 mg PO DAILY [facility] Last Admin: 12/28/18 09:48 Dose: 10 mg Rifaximin (Xifaxan) 550 mg PO BID [facility]; Protocol Last Admin: 12/28/18 09:48 Dose: 550 mg Sotalol HCl (Betapace) 80 mg PO BID [facility] Last Admin: 12/28/18 09:50 Dose: 80 mg - Labs Labs: 12/28/18 07:20 12/28/18 07:20 PT 19.3 SECONDS (9.4-12.5) H 12/28/18 07:20 INR 1.71 12/28/18 07:20 APTT 44.0 Seconds (26.9-38.3) H 12/25/18 19:46 - Constitutional Appears: Non-toxic, No Acute Distress - Head Exam Head Exam: ATRAUMATIC, NORMOCEPHALIC - Eye Exam Eye Exam: EOMI, PERRL. absent: Scleral icterus Pupil Exam: PERRL. absent: Miosis, Mydriatic - ENT Exam ENT Exam: Mucous Membranes Moist, Normal Oropharynx - Neck Exam Neck Exam: Full ROM, Normal Inspection - Respiratory Exam Respiratory Exam: Clear to Ausculation Bilateral. absent: Rales, Rhonchi, Wheezes - Cardiovascular Exam Cardiovascular Exam: RRR, +S1, +S2. absent: Gallop, Rubs - GI/Abdominal Exam GI & Abdominal Exam: Soft, Normal Bowel Sounds. 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 Active treatment of decompensated cirrhosis 2/2 ascites and grade 2 hepatic encephalopathy, partial portal vein thrombosis on U/S. Prior EGD 10/2018 showed lower third of esophagus small varices. No prior colonoscopy. Plan: -MELD 20 -pending MRI Abdomen to evaluate portal system thrombosis (PVT) -on Lactulose 20mg TID, titrate to 3-4 bowel movements daily -continue Rifaximin 550mg BID -12/26 2.4 Liter paracentesis- no SBP -on Lasix 40mg daily -low sodium diet -recommend Hematology consultation for recommendation on PVT and thrombocytopenia -12/26/18 AFP 1.5 , U/S 10/2018- no hepatic lesions -will benefit from elective colonoscopy for colorectal cancer screening -will follow clinical course <Julian Godoy V - Last Filed: 12/28/18 17:15> Objective - Vital Signs/Intake and Output Vital Signs (last 24 hours): Temp Pulse Resp BP Pulse Ox 97.8 F 65 18 94/53 L 99 12/28/18 15:32 12/28/18 15:32 12/28/18 15:32 12/28/18 15:32 12/28/18 15:32 Intake and Output: 12/28/18 12/28/18 06:59 18:59 Intake Total 360 1260 Output Total 300 Balance 360 960 - Medications Medications: Current Medications Acetaminophen (Tylenol 325mg Tab) 650 mg PO Q4H PRN PRN Reason: Fever >100.5 F Arformoterol Tartrate (Brovana) 15 mcg IH [id number] [facility] Last Admin: 12/28/18 07:02 Dose: Not Given Ascorbic Acid (Vitamin C 500 Mg Tab) 500 mg PO DAILY [facility] Last Admin: 12/28/18 09:48 Dose: 500 mg Budesonide (Pulmicort Respules) 0.5 mg IH [id number] [facility] Last Admin: 12/28/18 07:02 Dose: Not Given Carvedilol (Coreg) 3.125 mg PO BID [facility] Last Admin: 02/16/19 09:51 Dose: Not Given Famotidine (Pepcid) 20 mg PO HS [facility] Last Admin: 12/27/18 22:24 Dose: 20 mg Ferrous Sulfate (Feosol) 324 mg PO DAILY [facility] Last Admin: 12/28/18 09:48 Dose: 324 mg Fluticasone Propionate (Flonase) 1 actuation NS HS [facility] Last Admin: 12/27/18 22:25 Dose: 1 actuation Folic Acid (Folic Acid) 1 mg PO DAILY [facility] Last Admin: 12/28/18 09:49 Dose: 1 mg Furosemide (Lasix) 40 mg PO DAILY [facility] Last Admin: 12/28/18 09:51 Dose: 40 mg Insulin Human Regular (Humulin R Low) 0 units SC ACHS [facility]; Protocol Last Admin: 12/28/18 13:25 Dose: Not Given Lactulose (Enulose) 20 gm PO TID [facility] Last Admin: 12/28/18 16:00 Dose: 20 gm Levothyroxine Sodium (Synthroid) 25 mcg PO ACB [facility] Last Admin: 12/28/18 07:38 Dose: 25 mcg Lisinopril (Zestril) 2.5 mg PO DAILY [facility] Last Admin: 12/28/18 09:51 Dose: Not Given Loratadine (Claritin) 10 mg PO DAILY [facility] Last Admin: 12/28/18 09:48 Dose: 10 mg Rifaximin (Xifaxan) 550 mg PO BID [facility]; Protocol Last Admin: 12/28/18 09:48 Dose: 550 mg Sotalol HCl (Betapace) 80 mg PO BID [facility] Last Admin: 12/28/18 09:50 Dose: 80 mg - Labs Labs: 12/28/18 07:20 12/28/18 07:20 PT 19.3 SECONDS (9.4-12.5) H 12/28/18 07:20 INR 1.71 12/28/18 07:20 APTT 44.0 Seconds (26.9-38.3) H 12/25/18 19:46 Attending/Attestation - Attestation I have personally seen and examined this patient.: Yes I have fully participated in the care of the patient.: Yes I have reviewed all pertinent clinical information, including history, physical exam and plan: Yes Notes (Text): This is an addendum to GI progress report dictated by the GI Fellow. The patient was seen and examined earlier. Medical records, lab studies, imagings were reviewed. Last 24 hours events reviewed. Agreed with the above treatment plan as outlined in GI Fellow's notes with the addition of the following This 68 year old pt with severe tricuspid regurgitation, mitral stenosis, and mitral regurgitation secondary to rheumatic heart disease, pulmonary hypertension, and COPD has cirrhosis of the liver secondary to cardiac and also EtOH use in the past. MELD-na was 20 with grade 2 hepatic encephalopathy on admission. EGD done on 11/04 showed small esophageal varices and chronic gastritis. Pt does have significant anemia. However, colonoscopy couldn't be done due to cardiac decompensation and pulmonary hypertension. Pt underwent abdominal doppler in view of the increase ascites which showed portal vein thrombosis. Review of the previous US study with radiologist was suggestive of mild thrombus in the past. Suggestive of probable chronic rather than acute. In view of the significant anemia, risk of bleeding, and chronicity, anticoagulation is deferred now pending further evaluation. Pt does have acute kidney injury, which is slowly improving. Requested MRI of liver with study of the portal vein without contrast to further evaluate. Will discuss with regarding hematological evaluation. Pt is at higher risk for colonoscopic evaluation at this present time. Pending further optimization. Family is reluctant for him to go through any colonoscopy preparation at this present time. 12/28/18 17:02
[2018-12-28] MEDS ORDERED: Potassium Chloride 20 mEq ER Tab PO ONE (15:41)
--- NOTE | 2018-12-28 20:46 | PN ---
DATE: 12/28/2018 PULMONARY PROGRESS NOTE REFERRING PHYSICIAN: Jewell Martinez MD SUBJECTIVE: The patient is sitting up in a chair, having lunch. Feels better. No headache. No rhinitis. No chest pain. Still has ascites. No leg swelling. OBJECTIVE: GENERAL: No acute distress. VITAL SIGNS: Temperature is 98, heart rate 65, respiratory rate is 18, blood pressure 94/53, pulse ox 99% on room air. HEENT: Moist mucous membrane. Crowded airway. NECK: Supple. No JVD. LUNGS: Have fair airflow with rhonchi. HEART: S1 and S2. ABDOMEN: Has some ascites. EXTREMITIES: No edema. NEUROLOGIC: Awake and follows simple command. MEDICATIONS: He is on Betapace 80 mg twice a day, Brovana inhaled twice a day, Claritin 10 mg daily, Coreg 3.125 mg twice a day, lactulose three times a day, ferrous sulfate 324 mg daily, Flonase once to each nostril at bedtime, folic acid 1 mg daily, insulin coverage, Lasix 40 mg daily, Pepcid 20 mg at bedtime, Pulmicort inhaled twice a day, Synthroid 25 mcg before breakfast, Tylenol p.r.n., vitamin C 500 mg daily, Xifaxan 550 mg twice a day, Zestril 2.5 mg daily. LABORATORY DATA: Shows hemoglobin 11.1, hematocrit 33.2, WBC 9, platelet is 85. INR 1.71. Sodium 140, potassium 3.4, chloride 114, bicarbonate 19, BUN is 28, creatinine 1.3, glucose 113, calcium 7.9. AST 151, ALT 57, alk phos is 103, albumin is 2.4. Microbiology: Blood culture, ascitic fluid and urine culture, there is no growth. IMPRESSION AND PLAN: Chronic obstructive lung disease, sleep apnea syndrome, cardiomyopathy with valvular heart disease, pulmonary hypertension, portal hypertension, cirrhotic liver, history of alcohol abuse in the past. Pulmonary point of view, doing okay. Continue inhaled bronchodilator. Continue antihistamine. Has a hepatic encephalopathy, on lactulose as well as on rifaximin. Also continue Synthroid. He is on Betapace now for cardiac arrhythmia. May need to continue Lasix for now. Thank you and we will follow with you. Alfonso Ansari MD [facility] # [id number]
[2018-12-29] MEDS: Insulin Reg-LOW-Coverage SC SCH ×5 (07:33→22:14)
[2018-12-29] MEDS: Fluticasone Nasal 50 mcg/Spray NS SCH ×2 (07:34→22:16)
[2018-12-29 07:55] LABS: INR 1.88; PROTHROMBIN TIME 21.2 SECONDS (9.4-12.5)
[2018-12-29] MEDS: Levothyroxine 25 MCG TAB PO SCH (08:19)
[2018-12-29 08:25] LABS: ALB/GLOB RATIO 0.6 (1.1-1.8); ALBUMIN 2.3 g/dL (3.0-4.8); CALCIUM 7.9 mg/dL (8.4-10.5)
[2018-12-29] MEDS: Arformoterol 15 mcg/2 ml Inh Sol IH SCH ×2 (08:46→19:45)
[2018-12-29] MEDS: Budesonide 0.5 mg/2 ml Inhal Susp UD IH SCH ×2 (08:47→19:45)
--- NOTE | 2018-12-29 08:48 | CP.PCM.PN ---
<Vesna Ledezma - Last Filed: 12/29/18 10:42> Subjective - Date & Time of Evaluation Date of Evaluation: 12/29/18 Time of Evaluation: 08:45 - Subjective Subjective: Gastroenterology Fellow/PGY6 Progress Note for Dr. Godoy Patient resting comfortably. Oriented to person, place, and time. Tolerating diet. Admits to three bowel movements yesterday. A 12-point review of systems negative except for as above. Objective - Vital Signs/Intake and Output Vital Signs (last 24 hours): Temp Pulse Resp BP Pulse Ox 97.7 F 57 L 18 86/47 L 97 12/29/18 06:00 12/29/18 06:00 12/29/18 06:00 12/29/18 06:00 12/29/18 06:00 - Medications Medications: Current Medications Acetaminophen (Tylenol 325mg Tab) 650 mg PO Q4H PRN PRN Reason: Fever >100.5 F Last Admin: 12/29/18 03:37 Dose: 650 mg Arformoterol Tartrate (Brovana) 15 mcg IH [id number] [facility] Last Admin: 12/28/18 20:16 Dose: 15 mcg Ascorbic Acid (Vitamin C 500 Mg Tab) 500 mg PO DAILY [facility] Last Admin: 12/28/18 09:48 Dose: 500 mg Budesonide (Pulmicort Respules) 0.5 mg IH [id number] [facility] Last Admin: 12/28/18 20:17 Dose: 0.5 mg Carvedilol (Coreg) 3.125 mg PO BID [facility] Last Admin: 12/28/18 18:23 Dose: Not Given Famotidine (Pepcid) 20 mg PO [facility] Last Admin: 12/28/18 23:20 Dose: 20 mg Ferrous Sulfate (Feosol) 324 mg PO DAILY [facility] Last Admin: 12/28/18 09:48 Dose: 324 mg Fluticasone Propionate (Flonase) 1 actuation NS [facility] Last Admin: 12/29/18 07:34 Dose: Not Given Folic Acid (Folic Acid) 1 mg PO DAILY [facility] Last Admin: 12/28/18 09:49 Dose: 1 mg Furosemide (Lasix) 40 mg PO DAILY [facility] Last Admin: 12/28/18 09:51 Dose: 40 mg Insulin Human Regular (Humulin R Low) 0 units SC [facility]; Protocol Last Admin: 12/29/18 07:33 Dose: Not Given Lactulose (Enulose) 20 gm PO TID [facility] Last Admin: 12/28/18 17:19 Dose: 20 gm Levothyroxine Sodium (Synthroid) 25 mcg PO ACB [facility] Last Admin: 12/29/18 08:19 Dose: 25 mcg Lisinopril (Zestril) 2.5 mg PO DAILY [facility] Last Admin: 12/28/18 09:51 Dose: Not Given Loratadine (Claritin) 10 mg PO DAILY [facility] Last Admin: 12/28/18 09:48 Dose: 10 mg Rifaximin (Xifaxan) 550 mg PO BID [facility]; Protocol Last Admin: 12/28/18 17:19 Dose: 550 mg Sotalol HCl (Betapace) 80 mg PO BID [facility] Last Admin: 12/28/18 17:19 Dose: 80 mg - Labs Labs: 12/28/18 07:20 12/29/18 07:30 PT 21.2 SECONDS (9.4-12.5) H 12/29/18 07:30 INR 1.88 12/29/18 07:30 APTT 44.0 Seconds (26.9-38.3) H 12/25/18 19:46 - Constitutional Appears: Non-toxic, No Acute Distress - Head Exam Head Exam: ATRAUMATIC, NORMOCEPHALIC - Eye Exam Eye Exam: EOMI, PERRL, Scleral icterus Pupil Exam: PERRL. absent: Miosis, Mydriatic - ENT Exam ENT Exam: Mucous Membranes Moist, Normal Oropharynx - Neck Exam Neck Exam: Full ROM, Normal Inspection - Respiratory Exam Respiratory Exam: Clear to Ausculation Bilateral. absent: Rales, Rhonchi, Wheezes - Cardiovascular Exam Cardiovascular Exam: RRR, +S1, +S2. absent: Gallop, Rubs - GI/Abdominal Exam GI & Abdominal Exam: Distended, Soft, Normal Bowel Sounds. absent: Firm, Guarding, Rigid, Tenderness, Organomegaly, Rebound - Extremities Exam Extremities Exam: Normal Inspection, Pedal Edema - Neurological Exam Neurological Exam: Alert, Awake Additional comments: no asterixis - Psychiatric Exam Psychiatric exam: Normal Affect, Normal Mood - Skin Skin Exam: Dry, Intact, Warm Additional comments: jaundice Assessment and Plan - Assessment and Plan (Free Text) Assessment: 68 year old male with PMH of 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 Active treatment of decompensated cirrhosis 2/2 ascites and grade 2 hepatic encephalopathy with partial portal vein thrombosis on U/S. Prior EGD 10/2018 showed lower third of esophagus small varices. No prior colonoscopy. Plan: -12/29/18 MELD 21 -pending MRI Abdomen to evaluate portal system thrombosis (with likely chronic partial PVT) -will defer anticoagulation in setting of anemia, risk of bleeding, and likely underlying chronic PVT -will consult hematology for inpout on PVT and anemia -on Lactulose 20mg TID, titrate to 3-4 bowel movements daily -continue Rifaximin 550mg BID -12/26 2.4 Liter paracentesis- no SBP -on Lasix 40mg daily -low sodium diet -recommend Hematology consultation for recommendation on PVT and thrombocytopenia -12/26/18 AFP 1.5 , U/S 10/2018- no hepatic lesions -unable to perform colonoscopy for anemia and colorectal cancer screening in setting of cardiac decompensation and pulmonary hypertension -recommend outpatient follow up for stool testing for colorectal cancer screening -will make outpatient appointment with hepatology at [facility] tomorrow -will follow clinical course Case discussed with Dr. Godoy <Julian Godoy V - Last Filed: 12/29/18 23:14> Objective - Vital Signs/Intake and Output Vital Signs (last 24 hours): Temp Pulse Resp BP Pulse Ox 98.2 F 60 18 104/54 L 98 12/29/18 22:00 12/29/18 22:00 12/29/18 22:00 12/29/18 22:00 12/29/18 22:00 Intake and Output: 12/29/18 12/30/18 18:59 06:59 Intake Total 1 Output Total 2 Balance -1 - Medications Medications: Current Medications Acetaminophen (Tylenol 325mg Tab) 650 mg PO Q4H PRN PRN Reason: Fever >100.5 F Last Admin: 12/29/18 03:37 Dose: 650 mg Arformoterol Tartrate (Brovana) 15 mcg IH [id number] Last Admin: 12/29/18 08:46 Dose: 15 mcg Ascorbic Acid (Vitamin C 500 Mg Tab) 500 mg PO DAILY [facility] Last Admin: 12/29/18 09:31 Dose: 500 mg Budesonide (Pulmicort Respules) 0.5 mg IH [id number] [facility] Last Admin: 12/29/18 08:47 Dose: 0.5 mg Carvedilol (Coreg) 3.125 mg PO BID [facility] Last Admin: 12/29/18 17:21 Dose: 3.125 mg Famotidine (Pepcid) 20 mg PO HS [facility] Last Admin: 12/29/18 22:16 Dose: 20 mg Ferrous Sulfate (Feosol) 324 mg PO DAILY [facility] Last Admin: 12/29/18 09:31 Dose: 324 mg Fluticasone Propionate (Flonase) 1 actuation NS HS [facility] Last Admin: 12/29/18 22:16 Dose: 1 spr Folic Acid (Folic Acid) 1 mg PO DAILY [facility] Last Admin: 12/29/18 09:31 Dose: 1 mg Furosemide (Lasix) 40 mg PO DAILY [facility] Last Admin: 12/29/18 09:34 Dose: 40 mg Insulin Human Regular (Humulin R Low) 0 units SC ACHS [facility]; Protocol Last Admin: 12/29/18 22:14 Dose: Not Given Lactulose (Enulose) 20 gm PO TID [facility] Last Admin: 12/29/18 17:20 Dose: 20 gm Levothyroxine Sodium (Synthroid) 25 mcg PO ACB [facility] Last Admin: 12/29/18 08:19 Dose: 25 mcg Lisinopril (Zestril) 2.5 mg PO DAILY [facility] Last Admin: 12/29/18 09:35 Dose: Not Given Loratadine (Claritin) 10 mg PO DAILY [facility] Last Admin: 12/29/18 09:31 Dose: 10 mg Rifaximin (Xifaxan) 550 mg PO BID [facility]; Protocol Last Admin: 12/29/18 17:20 Dose: 550 mg Sotalol HCl (Betapace) 80 mg PO BID [facility] Last Admin: 12/29/18 17:20 Dose: 80 mg - Labs Labs: 12/28/18 07:20 12/29/18 07:30 PT 21.2 SECONDS (9.4-12.5) H 12/29/18 07:30 INR 1.88 12/29/18 07:30 APTT 44.0 Seconds (26.9-38.3) H 12/25/18 19:46 Attending/Attestation - Attestation I have personally seen and examined this patient.: Yes I have fully participated in the care of the patient.: Yes I have reviewed all pertinent clinical information, including history, physical exam and plan: Yes Notes (Text): p 12/29/18 23:14
--- NOTE | 2018-12-29 21:24 | PN ---
DATE: 12/29/2018 REFERRING PHYSICIAN: Jewell Martinez MD SUBJECTIVE: He is lying in the bed. Head up at 45 degrees. Night was unremarkable. Feels better. Slowly re-accumulating the ascitic fluid. No cough. No sputum production. No nausea. No leg pain. No leg swelling. OBJECTIVE: GENERAL: In no acute distress. VITAL SIGNS: Temperature is 98, heart rate is 53, respiratory rate is 18, blood pressure 97/53, pulse ox 97% on room air. HEENT: Moist mucous membrane. No ulcer or thrush. NECK: Supple. No JVD. LUNGS: Fair airflow. No rhonchi. HEART: S1 and S2. ABDOMEN: Soft, has ascites, nontender. EXTREMITIES: There is no edema. NEUROLOGIC: Awake and alert. Follows simple command. MEDICATIONS: He is on Betapace 80 mg daily, Brovana inhaled twice a day, Claritin 10 mg daily, Coreg 3.125 mg twice a day, lactulose 20 g three times a day, ferrous sulfate 324 mg daily, Flonase one spray to each nostril daily, folic acid 1 mg daily, insulin coverage, Pepcid 20 mg at bedtime, Pulmicort inhaled twice a day, Synthroid 25 mcg a.c.b., Tylenol p.r.n., vitamin C 500 mg daily, rifaximin 550 mg twice a day, Zestril 2.5 mg daily. LABORATORY DATA: Reviewed and shows INR 1.8. Sodium 140, potassium 3.8, chloride 112, bicarbonate 19, BUN 29, creatinine 1.5, glucose 108, calcium 7.9, total bili 2.9, AST 144, ALT 52, alk phos is 117, albumin is 2.3. MICROBIOLOGY: Unremarkable. IMPRESSION AND PLAN: Chronic obstructive lung disease, sleep apnea syndrome, cardiomyopathy, valvular heart disease, pulmonary hypertension, portal hypertension, cirrhotic liver, history of alcohol abuse, portal vein thrombosis. Case was discussed with Dr. Martinez. Being followed by Gastroenterology. MRI of the abdomen is being done. May need to be referred to tertiary care for hepatology opinion. Pulmonary point of view, he is doing well. Continue bronchodilator. Keep head at 45 degrees. His asthma is well controlled. He has sleep apnea syndrome, not very compliant with the continuous positive airway pressure. Keep requesting to go home suspicious for me at least that he may be a closet drinker still. We will speak to the again and the patient in detail. Overall poor prognosis. Thank you and we will follow with you. Alfonso Ansari MD
--- NOTE | 2018-12-29 22:22 | PN ---
DATE: 12/29/2018 SUBJECTIVE: The patient is 68 years old male. The patient was seen and examined at bedside on 12/29/2018. Looking comfortable. No fever. No chills. No hematuria. No hematochezia. No headache. No dizziness. No chest pain. No palpitation. Oriented x3. Tolerating diet. Status post paracentesis. PHYSICAL EXAMINATION VITAL SIGNS: Temperature 97.7, pulse 57, respirations 18, blood pressure 86/47, pulse oxymetry 97%. HEENT: Head; normocephalic and atraumatic. Eyes; PERRLA. Extraocular muscles are intact. Conjunctivae clear. Nose patent. Mucous membranes moist. NECK: Supple. No carotid bruit. No JVD or thyromegaly. CHEST: Bilaterally symmetrical. HEART: S1 and S2 positive. LUNGS: Clear to auscultation. ABDOMEN: Soft. Fluid thrill is positive. No organomegaly. EXTREMITIES: No edema. No cyanosis. NEUROLOGIC: Awake and alert. Moving all 4 extremities. No focal deficits. MEDICATIONS: Tylenol, Brovana, vitamin C, Pulmicort, Coreg, Pepcid, iron, Flonase, folic acid, Lasix, lactulose, Synthroid, Zestril, Claritin, and sotalol. LABORATORY DATA: White blood cells 9, hemoglobin 11.1, hematocrit 33.2, and platelets 85. Sodium 140, potassium 3.8, BUN 39, creatinine 1.5, and glucose 109. ASSESSMENT AND PLAN: Mr. Wenceslao Nunes is a 68-year-old male with anemia, thrombocytopenia,hyperchloremia, high BUN, has a history of decompensated recurring/chronic cirrhosis, ascites, esophageal varices, congestive heart failure, pulmonary hypertension, chronic obstructive pulmonary disease, asthma, hypothyroidism, came with altered mental status, ammonia level was high. Active treatment of decompensated cirrhosis done. The patient has hepatic encephalopathy with partial portal vein thrombosis on ultrasound, has esophageal small varices not bleeding. Discussion done with Dr. Ansari and Dr. Godoy. The patient is going for MRI of abdomen for evaluation of portal system thrombosis. Discussion with Dr. Godoy about the patient's anticoagulation in the setting of anemia, risk of bleeding and likely underlying cirrhotic portal vein thrombosis. Hematology consult called. The patient is on lactulose 20 mg t.i.d. The plan is to titrate to 3 to 4 bowel movements daily. Continue rifaximin 550 mg b.i.d. On Lasix, low-sodium diet. Thrombocytopenia, Hematology consult called. GI and DVT prophylaxis. I gave to phone number of heat treat furnace operator at [facility] and [facility]. Sunday they will call to make appointment. Meanwhile, repeat labs, continue present treatment, GI and DVT prophylaxis. We will follow up. Jewell Martinez MD MTDD
--- NOTE | 2018-12-29 22:57 | PN ---
DATE: 12/28/2018 SUBJECTIVE: The patient is a 68-year-old male. The patient was seen and examined at the bedside on 12/28/2018. Looking comfortable. No fever. No chills. No hematuria, hematochezia. No headache. No dizziness. No chest pain. No palpitations, tolerating food very well. PHYSICAL EXAMINATION: VITAL SIGNS: Temperature 98.2, heart rate 65, respiratory rate 18, blood pressure 94/53, pulse oximetry 99% on room air. HEENT: Head: Normocephalic and atraumatic. Eyes: PERRLA. Extraocular muscles intact. Conjunctivae clear. Nose patent. Mucous membranes moist. NECK: Supple. No carotid bruit. No JVD or thyromegaly. CHEST: Bilateral symmetrical. HEART: S1 and S2 positive. LUNGS: Clear to auscultation. ABDOMEN: Soft. Bowel sounds present. No organomegaly. EXTREMITIES: No edema. No cyanosis. NEUROLOGIC: Patient is awake, alert, moving all four extremities. No focal deficits. MEDICATIONS: Betapace, Brovana, Claritin, Coreg, lactulose, ferrous sulfate, Flonase, folic acid, Lasix, vitamin C and Zestril. LABORATORY DATA: White blood cell is 9, hemoglobin 11.1, hematocrit 33.2, platelets 85. BUN 28, creatinine 1.3, AST 151, ALT 57. ASSESSMENT AND PLAN: Mr. Wenceslao Nunes is a 68-year-old male with anemia, chronic obstructive pulmonary disease, sleep apnea syndrome, cardiomyopathy, valvular heart disease, pulmonary hypertension, portal hypertension, cirrhotic liver, history of ethanol abuse. Discussion done with . Continue present treatment. Gastrointestinal and deep venous thrombosis prophylaxis, repeat labs. Came with hepatic encephalopathy, now ammonia level is improving. We will follow up. Jewell Martinez MD
[2018-12-30] MEDS: Levothyroxine 25 MCG TAB PO SCH (07:10)
[2018-12-30 07:17] LABS: ALB/GLOB RATIO 0.6 (1.1-1.8); ALBUMIN 2.3 g/dL (3.0-4.8); CALCIUM 8.2 mg/dL (8.4-10.5)
[2018-12-30] MEDS: Arformoterol 15 mcg/2 ml Inh Sol IH SCH ×2 (07:51→19:39)
[2018-12-30] MEDS: Budesonide 0.5 mg/2 ml Inhal Susp UD IH SCH ×2 (07:51→19:39)
[2018-12-30] MEDS: Insulin Reg-LOW-Coverage SC SCH ×4 (08:50→22:01)
--- NOTE | 2018-12-30 09:00 | PN ---
DATE: 12/27/2018 SUBJECTIVE: The patient is a 68-year-old male. The patient was seen and examined at the bedside. was sitting at the bedside also. The patient came back from paracentesis 2.4 L was removed, tolerated the procedure very well, and tolerating food very well. Mental level is improving. PHYSICAL EXAMINATION: VITAL SIGNS: Temperature 97.9, pulse 62, respiratory rate 18, blood pressure 102/57, and pulse oximetry 97. HEENT: Head is normocephalic and atraumatic. Eyes; PERRLA. Extraocular muscles intact. Conjunctivae clear. Nose patent. Mucous membranes moist. NECK: Supple. No carotid bruits. No JVD. No thyromegaly. CHEST: Bilaterally symmetrical. HEART: S1 and S2 positive. LUNGS: Clear to auscultation. ABDOMEN: Soft and distended. Fluid thrill positive. No organomegaly. EXTREMITIES: No edema. No cyanosis. NEUROLOGIC: The patient is awake, alert, and moving all four extremities. No focal deficits. MEDICATIONS: Acetaminophen, Brovana, vitamin C, Pulmicort, Coreg, Pepcid, Feosol, Flonase, folic acid, Lasix, lactulose, Synthroid, Zestril, Claritin, rifaximin, and sotalol. LABORATORY DATA: White blood cell 8.8, hemoglobin 11.7, hematocrit 33.3, and platelet 106. Sodium 137, potassium 3.9, BUN 39, creatinine 1.6, and glucose 110. ASSESSMENT AND PLAN: Mr. Wenceslao Davis is a 68-year-old male with anemia, thrombocytopenia, renal insufficiency, came with decompensated liver cirrhosis, history of ethanol abuse, history of congestive heart failure, chronic obstructive pulmonary disease, asthma, history of alcohol abuse for about 60 years, atrial fibrillation, came with altered mental status, ascites, status post paracentesis 2.4 L fluid is taken out, evidence of portal hypertension, non-bendable varices, acute kidney injury, and portal vein thrombosis questionable. No shortness of breath. Tolerated paracentesis procedure very well. The patient is advised low-sodium diet, dietitian consult called. Discussion done with the nurse to talk to the dietitian. Length of time discussion with the patient and group social worker. The patient is given phone number of [facility] and [facility] to call and make appointment there. No mass seen at that time with the last ultrasound done 10/2018. Esophagogastroduodenoscopy was done shows non-bendable varices, could benefit from BB therapy as per GI. According to GI, ultrasound is not adequate in identifying the chronicity of possibly portal vein thrombosis since the patient has renal failure, cannot get contrast at this time since the patient is higher bleeding risk; otherwise, we will not recommend anticoagulation at this time. We will get an MRI with contrast as recommended from radiologist as per Liam Manzo, DO working with Dr. Jayne brothers. Discussion done again with the family, reviewed Dr. Ansari's note and GI notes and nurse practitioner . We will follow up. Jewell Martinez MD MTDGhazal
--- NOTE | 2018-12-30 11:24 | PN ---
DATE: 12/30/2018 PULMONARY PROGRESS NOTE REFERRING PHYSICIAN: Jewell Martinez MD SUBJECTIVE: The patient is lying in bed. No acute distress. No overnight events reported. The patient reports he did not wear CPAP machine last night. No headache, rhinitis, cough, shortness of breath, chest pain, abdominal pain, nausea, vomiting, diarrhea, leg pain or leg swelling reported. The patient does report having some abdominal distention. OBJECTIVE: GENERAL: No acute distress. VITAL SIGNS: Blood pressure 146/73, pulse 65, temperature 99 oral and oxygen saturation 94% on room air. HEENT: Moist mucous membranes. NECK: Supple. No JVD. LUNGS: Fair airflow bilaterally. CARDIOVASCULAR: S1 and S2. ABDOMEN: Nontender, positive ascites. EXTREMITIES: No bilateral lower extremity edema. NEUROLOGIC: Awake, alert and verbal. Follows commands. MEDICATIONS: Reviewed. Tylenol 650 mg every 4 hours p.r.n. fever greater than 100.5, Brovana 15 mcg every 12 hours, vitamin C 500 mg daily, Pulmicort 0.5 mg inhalation every 12 hours, Coreg 3.125 mg twice a day, Pepcid 20 mg at bedtime, ferrous sulfate 324 mg daily, Flonase nasal spray at bedtime, folic acid 1 mg daily, Lasix 40 mg daily, Humulin R sliding scale a.c. and at bedtime, lactulose 20 g 3 times a day, Synthroid 25 mcg in the morning, lisinopril 2.5 mg daily, Claritin 10 mg daily, Xifaxan 550 mg twice a day and sotalol 80 mg twice a day. LABORATORY DATA: Reviewed. Sodium 136, potassium 4.1, chloride 111, carbon dioxide 19, anion gap 10, BUN 33, creatinine 1.8, GFR 37, POC glucose 89, random glucose 107, calcium 8.2, total bilirubin 2.9, AST 135, ALT 53, alkaline phosphatase 121, total protein 6.0, albumin 2.3, globulin 3.7 and albumin-globulin ratio 0.6. Ascitic fluid culture shows no anaerobes isolated, no growth after 3 days. Blood cultures preliminary shows no growth after 4 days. Abdomen MRI report pending. ASSESSMENT AND PLAN: Chronic obstructive lung disease, sleep apnea syndrome, cardiomyopathy, valvular heart disease, pulmonary hypertension, portal hypertension, cirrhotic liver, history of alcohol abuse, portal vein thrombosis. The patient continue to followup with Gastroenterology. MRI of the abdomen report pending. Pulmonary point of view, continue bronchodilator, head of bed elevated at 45 degrees, continue to encourage continuous positive airway pressure use at bedtime for sleep apnea syndrome, sleep apnea precaution. Patient is being referred to tertiary care for liver disease workup. Overall poor prognosis. This patient was seen and examined with Dr. Ansari. Discussed assessment and plan as described above. This patient was seen and examined with Kenan Montague, nurse practitioner. Discussed assessment and plan as described above. Thank you for this consult and we will follow with you. Kenan Montague APN Alfonso Ansari MD JOSUE
--- NOTE | 2018-12-30 13:18 | MRI ---
Date of service: 12/29/2018 PROCEDURE: MRI Abdomen without contrast HISTORY: Cirrhosis, rule out hepatic masses, evaluate portal vein COMPARISON: None available. TECHNIQUE: Multisequence, multiplanar MR images of the abdomen without gadolinium contrast enhancement. FINDINGS: LIVER: There is severe cirrhosis of the liver. The liver is atrophic and has an irregular contour. There is partial thrombosis of the portal vein. There is a small flow void centrally within the portal vein consistent with recanalization. GALLBLADDER: Unremarkable. SPLEEN: There is splenomegaly with the spleen measuring 14 cm in length and 8 cm transversely. PANCREAS: Unremarkable. ADRENALS: Unremarkable. KIDNEYS: Unremarkable. AORTA: No aneurysm. ASCITES: Severe ascites PERITONEUM: There is severe ascites LYMPH NODES: Unremarkable. OTHER FINDINGS: The report concurs with the preliminary [facility] report IMPRESSION: There is severe cirrhosis of the liver. The liver is atrophic and has an irregular contour. There is partial thrombosis of the portal vein. There is a small flow void centrally within the portal vein consistent with recanalization. Severe ascites
[2018-12-30 13:44] LABS: INR 1.85; PROTHROMBIN TIME 20.9 SECONDS (9.4-12.5)
--- NOTE | 2018-12-30 15:50 | CP.PCM.PN ---
<Jayne,Kovil V - Last Filed: 12/30/18 19:06> Objective - Vital Signs/Intake and Output Vital Signs (last 24 hours): Temp Pulse Resp BP Pulse Ox 97.6 F 49 L 18 90/52 L 100 12/30/18 14:22 12/30/18 14:22 12/30/18 14:22 12/30/18 18:45 12/30/18 14:22 - Medications Medications: Current Medications Acetaminophen (Tylenol 325mg Tab) 650 mg PO Q4H PRN PRN Reason: Fever >100.5 F Last Admin: 12/29/18 03:37 Dose: 650 mg Arformoterol Tartrate (Brovana) 15 mcg IH [id number] [facility] Last Admin: 12/30/18 07:51 Dose: 15 mcg Ascorbic Acid (Vitamin C 500 Mg Tab) 500 mg PO DAILY [facility] Last Admin: 12/30/18 11:40 Dose: 500 mg Budesonide (Pulmicort Respules) 0.5 mg IH [id number] [facility] Last Admin: 12/30/18 07:51 Dose: 0.5 mg Carvedilol (Coreg) 3.125 mg PO BID [facility] Last Admin: 12/30/18 18:45 Dose: Not Given Famotidine (Pepcid) 20 mg PO HS [facility] Last Admin: 12/29/18 22:16 Dose: 20 mg Ferrous Sulfate (Feosol) 324 mg PO DAILY [facility] Last Admin: 12/30/18 11:38 Dose: 324 mg Fluticasone Propionate (Flonase) 1 actuation NS HS [facility] Last Admin: 12/29/18 22:16 Dose: 1 spr Folic Acid (Folic Acid) 1 mg PO DAILY [facility] Last Admin: 12/30/18 11:38 Dose: 1 mg Furosemide (Lasix) 40 mg PO DAILY [facility] Insulin Human Regular (Humulin R Low) 0 units SC [facility]; Protocol Last Admin: 12/30/18 16:09 Dose: Not Given Lactulose (Enulose) 20 gm PO TID [facility] Last Admin: 12/30/18 18:46 Dose: 20 gm Levothyroxine Sodium (Synthroid) 25 mcg PO ACB [facility] Last Admin: 12/30/18 07:10 Dose: 25 mcg Lisinopril (Zestril) 2.5 mg PO DAILY [facility] Last Admin: 12/30/18 11:36 Dose: Not Given Loratadine (Claritin) 10 mg PO DAILY [facility] Last Admin: 12/30/18 11:38 Dose: 10 mg Rifaximin (Xifaxan) 550 mg PO BID [facility]; Protocol Last Admin: 12/30/18 18:47 Dose: 550 mg Sotalol HCl (Betapace) 80 mg PO BID [facility] Last Admin: 12/30/18 18:44 Dose: Not Given - Labs Labs: 12/28/18 07:20 12/30/18 06:40 PT 20.9 SECONDS (9.4-12.5) H 12/30/18 13:20 INR 1.85 12/30/18 13:20 APTT 44.0 Seconds (26.9-38.3) H 12/25/18 19:46 Attending/Attestation - Attestation I have personally seen and examined this patient.: Yes I have fully participated in the care of the patient.: Yes I have reviewed all pertinent clinical information, including history, physical exam and plan: Yes Notes (Text): This is an addendum to GI progress report dictated by the GI Fellow. The patient was seen and examined earlier. Medical records, lab studies, imagings were reviewed. Last 24 hours events reviewed. 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 liver unit Patient also has significant pulmonary hypertension, CHF and valvular heart disease, MS ,MR and TR tricuspid regurg History of rheumatic fever in the past Cirrhosis probably secondary to cardiac history and EtOH in the past Will discuss with Dr. Martinez and would recommend inpatient colonoscopy evaluation after further optimization Ascites appears to be refractory as patient develops AK I with minimal diuretic use. Long-term goal of management of ascites in this patient is probably periodic paracentesis 12/30/18 19:06 <Jeff Manzo - Last Filed: 12/30/18 19:40> Subjective - Date & Time of Evaluation Date of Evaluation: 12/30/18 Time of Evaluation: 09:00 - Subjective Subjective: PGY5 GI Follow-up Pt seen and examined bedside Denies any abd pain tolerating diet Denies any nausea, vomiting or diarrhea ROS: 12 point ROS conducted, neg other than above Objective - Vital Signs/Intake and Output Vital Signs (last 24 hours): Temp Pulse Resp BP Pulse Ox 97.6 F 49 L 18 88/48 L 100 12/30/18 14:22 12/30/18 14:22 12/30/18 14:22 12/30/18 14:22 12/30/18 14:22 Intake and Output: 12/30/18 12/30/18 06:59 18:59 Intake Total 240 Balance 240 - Medications Medications: Current Medications Acetaminophen (Tylenol 325mg Tab) 650 mg PO Q4H PRN PRN Reason: Fever >100.5 F Last Admin: 12/29/18 03:37 Dose: 650 mg Arformoterol Tartrate (Brovana) 15 mcg IH [id number] [facility] Last Admin: 12/30/18 07:51 Dose: 15 mcg Ascorbic Acid (Vitamin C 500 Mg Tab) 500 mg PO DAILY [facility] Last Admin: 12/30/18 11:40 Dose: 500 mg Budesonide (Pulmicort Respules) 0.5 mg IH [id number] [facility] Last Admin: 12/30/18 07:51 Dose: 0.5 mg Carvedilol (Coreg) 3.125 mg PO BID [facility] Last Admin: 12/30/18 11:34 Dose: Not Given Famotidine (Pepcid) 20 mg PO [facility] Last Admin: 12/29/18 22:16 Dose: 20 mg Ferrous Sulfate (Feosol) 324 mg PO DAILY [facility] Last Admin: 12/30/18 11:38 Dose: 324 mg Fluticasone Propionate (Flonase) 1 actuation NS HS [facility] Last Admin: 12/29/18 22:16 Dose: 1 spr Folic Acid (Folic Acid) 1 mg PO DAILY [facility] Last Admin: 12/30/18 11:38 Dose: 1 mg Furosemide (Lasix) 40 mg PO DAILY [facility] Insulin Human Regular (Humulin R Low) 0 units SC [facility]; Protocol Last Admin: 12/30/18 08:50 Dose: Not Given Lactulose (Enulose) 20 gm PO TID [facility] Last Admin: 12/30/18 11:38 Dose: 20 gm Levothyroxine Sodium (Synthroid) 25 mcg PO ACB [facility] Last Admin: 12/30/18 07:10 Dose: 25 mcg Lisinopril (Zestril) 2.5 mg PO DAILY [facility] Last Admin: 12/30/18 11:36 Dose: Not Given Loratadine (Claritin) 10 mg PO DAILY [facility] Last Admin: 12/30/18 11:38 Dose: 10 mg Rifaximin (Xifaxan) 550 mg PO BID [facility]; Protocol Last Admin: 12/30/18 11:37 Dose: 550 mg Sotalol HCl (Betapace) 80 mg PO BID [facility] Last Admin: 12/30/18 11:39 Dose: Not Given - Labs Labs: 12/28/18 07:20 12/30/18 06:40 PT 20.9 SECONDS (9.4-12.5) H 12/30/18 13:20 INR 1.85 12/30/18 13:20 APTT 44.0 Seconds (26.9-38.3) H 12/25/18 19:46 - Constitutional Appears: Well, No Acute Distress - Head Exam Head Exam: ATRAUMATIC, NORMOCEPHALIC - Eye Exam Eye Exam: Normal appearance - ENT Exam ENT Exam: Mucous Membranes Moist, Normal Exam - Neck Exam Neck Exam: Normal Inspection - Respiratory Exam Respiratory Exam: Clear to Ausculation Bilateral, NORMAL BREATHING PATTERN. absent: Rales, Rhonchi, Wheezes, Respiratory Distress - Cardiovascular Exam Cardiovascular Exam: REGULAR RHYTHM, +S1, +S2 - GI/Abdominal Exam GI & Abdominal Exam: Distended, Soft, Normal Bowel Sounds. 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 Active treatment of decompensated cirrhosis 2/2 ascites and grade 2 hepatic encephalopathy with partial portal vein thrombosis on U/S. Prior EGD 10/2018 showed lower third of esophagus small varices. No prior colonoscopy. Plan: -12/29/18 MELD 21 -MRI Abd cannot determine the age of the partial thrombus -will defer anticoagulation in setting of anemia, risk of bleeding, and likely underlying chronic PVT -consulted hematology for inpout on PVT and anemia -on Lactulose 20mg TID, titrate to 3-4 bowel movements daily -continue Rifaximin 550mg BID -12/26 2.4 Liter paracentesis- no SBP -recommend holding lasix 40mg Po in the setting of declining GFR -low sodium diet -12/26/18 AFP 1.5 , U/S 10/2018- no hepatic lesions -recommend cardiac consultation to medically optimize pt for possible Inpt colonoscopy this admission -will make outpatient appointment with hepatology at [facility] -will follow clinical course Case discussed with Dr. Godoy
[2018-12-30] MEDS: Fluticasone Nasal 50 mcg/Spray NS SCH (21:59)
[2018-12-31 07:39] LABS: ALB/GLOB RATIO 0.7 (1.1-1.8); ALBUMIN 2.4 g/dL (3.0-4.8); CALCIUM 8.4 mg/dL (8.4-10.5)
[2018-12-31] MEDS: Insulin Reg-LOW-Coverage SC SCH ×3 (08:00→16:30)
[2018-12-31] MEDS: Budesonide 0.5 mg/2 ml Inhal Susp UD IH SCH ×2 (08:31→20:07)
[2018-12-31] MEDS: Arformoterol 15 mcg/2 ml Inh Sol IH SCH ×2 (08:31→20:07)
[2018-12-31] MEDS: Levothyroxine 25 MCG TAB PO SCH (10:15)
--- NOTE | 2018-12-31 13:04 | PN ---
DATE: 12/31/2018 PULMONARY PROGRESS NOTE REFERRING PHYSICIAN: Jewell Martinez MD SUBJECTIVE: The patient is lying in bed. No acute distress. No overnight events reported. Did not wear CPAP machine last night. No headache, rhinitis, cough, shortness of breath, chest pain, abdominal pain, nausea, vomiting, diarrhea, leg pain or leg swelling reported. OBJECTIVE: GENERAL: No acute distress. VITAL SIGNS: Blood pressure 97/54, pulse 58, temperature 97.7 and oxygen saturation 97% on room air. HEENT: Moist mucous membranes. NECK: Supple. No JVD. LUNGS: Fair airflow bilaterally. CARDIOVASCULAR: S1 and S2. ABDOMEN: Soft and nontender. Positive ascites. EXTREMITIES: No bilateral lower extremity edema. NEUROLOGIC: Awake, alert and verbal. Follows commands. MEDICATIONS: Reviewed. Tylenol 650 mg every 4 hours p.r.n. fever greater than 100.5, Brovana 15 mcg every 12 hours, vitamin C 500 mg daily, Pulmicort 0.5 mg every 12 hours, Coreg 3.125 mg twice a day, Pepcid 20 mg at bedtime, ferrous sulfate 324 mg daily, Flonase nasal spray at bedtime, folic acid 1 mg daily, Lasix 40 mg daily, Humulin R sliding scale a.c. and at bedtime, lactulose 20 g three times a day, Synthroid 25 mcg in the morning, lisinopril 2.5 mg daily, Claritin 10 mg daily, Xifaxan 550 mg twice a day and sotalol 80 mg twice a day. LABORATORY DATA: Reviewed. Sodium 139, potassium 4.4, chloride 112, carbon dioxide 20, anion gap 11, BUN 42, creatinine 2.7, GFR 23, POC glucose 119, random glucose 111, calcium 8.4, total bilirubin 2.8, AST 134, ALT 55, alkaline phosphatase 131, total protein 6, albumin 2.4, globulin 3.6 and albumin-globulin ratio 0.7. Abdomen MRI shows severe cirrhosis of the liver, liver is atrophic and has an irregular contour. There is partial thrombus of the portal vein. There is a small flow void centrally within the portal vein consistent with recanalization, severe ascites. IMPRESSION AND PLAN: Chronic obstructive lung disease, sleep apnea syndrome, cardiomyopathy, valvular heart disease, pulmonary hypertension, portal hypertension, cirrhotic liver, history of alcohol abuse, portal vein thrombus. Continue to followup with Gastroenterology. Pulmonary point of view, the patient's asthma is doing well. Continue inhaled bronchodilator, head of bed elevated at 45 degrees, continue to encourage continuous positive airway pressure use at bedtime for sleep apnea syndrome, sleep apnea precaution. Overall prognosis is poor. This patient was seen and examined with Dr. Ansari. Discussed assessment and plan as described above. This patient was seen and examined with Kenan Montague, nurse practitioner. Discussed assessment and plan as described above. Thank you for this consult and we will follow with you. Kenan Montague APN Alfonso Ansari MD JOSUE
[2018-12-31 13:48] LABS: INR 1.73; PROTHROMBIN TIME 19.6 SECONDS (9.4-12.5)
--- NOTE | 2018-12-31 13:52 | CP.PCM.PN ---
<Jeff Manzo - Last Filed: 12/31/18 13:57> Subjective - Date & Time of Evaluation Date of Evaluation: 12/31/18 Time of Evaluation: 09:30 - Subjective Subjective: PGY5 GI Consult Pt seen and examined beside Denies any abd pain Denies any nausea, vomiting or diarrhea Alert and oriented x3 ROS: 12 point ROS conducted neg other than above Objective - Vital Signs/Intake and Output Vital Signs (last 24 hours): Temp Pulse Resp BP Pulse Ox 97.7 F 58 L 18 97/54 L 97 12/31/18 06:00 12/31/18 06:00 12/31/18 06:00 12/31/18 10:18 12/31/18 06:00 Intake and Output: 12/31/18 12/31/18 06:59 18:59 Intake Total 480 Balance 480 - Medications Medications: Current Medications Acetaminophen (Tylenol 325mg Tab) 650 mg PO Q4H PRN PRN Reason: Fever >100.5 F Last Admin: 12/29/18 03:37 Dose: 650 mg Arformoterol Tartrate (Brovana) 15 mcg IH [id number] [facility] Last Admin: 12/31/18 08:31 Dose: Not Given Ascorbic Acid (Vitamin C 500 Mg Tab) 500 mg PO DAILY [facility] Last Admin: 12/31/18 10:16 Dose: 500 mg Budesonide (Pulmicort Respules) 0.5 mg IH [id number] [facility] Last Admin: 12/31/18 08:31 Dose: Not Given Carvedilol (Coreg) 3.125 mg PO BID [facility] Last Admin: 12/31/18 10:16 Dose: Not Given Famotidine (Pepcid) 20 mg PO [facility] Last Admin: 12/30/18 21:59 Dose: 20 mg Ferrous Sulfate (Feosol) 324 mg PO DAILY [facility] Last Admin: 12/31/18 10:16 Dose: 324 mg Fluticasone Propionate (Flonase) 1 actuation NS [facility] Last Admin: 12/30/18 21:59 Dose: 1 spr Folic Acid (Folic Acid) 1 mg PO DAILY [facility] Last Admin: 12/31/18 10:16 Dose: 1 mg Furosemide (Lasix) 40 mg PO DAILY [facility] Last Admin: 12/31/18 10:18 Dose: Not Given Insulin Human Regular (Humulin R Low) 0 units SC [facility]; Protocol Last Admin: 12/31/18 08:00 Dose: Not Given Levothyroxine Sodium (Synthroid) 25 mcg PO ACB [facility] Last Admin: 12/31/18 10:15 Dose: 25 mcg Lisinopril (Zestril) 2.5 mg PO DAILY [facility] Last Admin: 12/31/18 10:15 Dose: Not Given Loratadine (Claritin) 10 mg PO DAILY [facility] Last Admin: 12/31/18 10:16 Dose: 10 mg Rifaximin (Xifaxan) 550 mg PO BID [facility]; Protocol Last Admin: 12/31/18 10:16 Dose: 550 mg Sotalol HCl (Betapace) 80 mg PO BID [facility] Last Admin: 12/31/18 10:17 Dose: Not Given - Labs Labs: 12/28/18 07:20 12/31/18 07:00 PT 20.9 SECONDS (9.4-12.5) H 12/30/18 13:20 INR 1.85 12/30/18 13:20 APTT 44.0 Seconds (26.9-38.3) H 12/25/18 19:46 - Constitutional Appears: Well, No Acute Distress - Head Exam Head Exam: ATRAUMATIC, NORMOCEPHALIC - Eye Exam Eye Exam: Normal appearance - ENT Exam ENT Exam: Mucous Membranes Moist, Normal Exam - Neck Exam Neck Exam: Normal Inspection - Respiratory Exam Respiratory Exam: Clear to Ausculation Bilateral, NORMAL BREATHING PATTERN. absent: Rales, Rhonchi, Wheezes, Respiratory Distress - Cardiovascular Exam Cardiovascular Exam: REGULAR RHYTHM, +S1, +S2 - GI/Abdominal Exam GI & Abdominal Exam: Distended, Soft, Normal Bowel Sounds. 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 Prior EGD 10/2018 showed lower third of esophagus small varices. No prior colonoscopy. Decompensated cirrhosis 2/2 ascites Grade 2 hepatic encephalopathy (resolved) Partial portal vein thrombosis FANNY, etiology likely 2/2 diuretics Plan: -12/29/18 MELD 21 -MRI Abd cannot determine the age of the partial thrombus -will defer anticoagulation in setting of anemia, risk of bleeding, and likely underlying chronic PVT -consulted hematology for inpout on PVT and anemia -continue Rifaximin 550mg BID -12/26 2.4 Liter paracentesis- no SBP -low sodium diet -12/26/18 AFP 1.5 , U/S 10/2018- no hepatic lesions -recommend cardiac consultation to medically optimize pt for possible Inpt colonoscopy this admission -held lasix 2/2 worsening renal function; will give 500cc NS bolus and start albumin 25g q 8hrs for 3 doses -hold all diuretics, NSAIDs, and other nephrotoxic drugs -will start on sun for anticipated colonoscopy on -will follow clinical course Case discussed with Dr. Godoy <Julian Godoy V - Last Filed: 12/31/18 22:38> Objective - Vital Signs/Intake and Output Vital Signs (last 24 hours): Temp Pulse Resp BP Pulse Ox 97.7 F 58 L 18 89/50 L 97 12/31/18 06:00 12/31/18 06:00 12/31/18 06:00 12/31/18 18:28 12/31/18 06:00 Intake and Output: 12/31/18 01/01/19 18:59 06:59 Intake Total 420 180 Balance 420 180 - Medications Medications: Current Medications Acetaminophen (Tylenol 325mg Tab) 650 mg PO Q4H PRN PRN Reason: Fever >100.5 F Last Admin: 12/29/18 03:37 Dose: 650 mg Albumin Human (Albumin Human 25% (25 Gm/100 Ml)) 25 gm IV Q8 [facility] Stop: 01/01/19 06:01 Last Admin: 12/31/18 22:26 Dose: 25 gm Arformoterol Tartrate (Brovana) 15 mcg IH [id number] [facility] Last Admin: 12/31/18 20:07 Dose: 15 mcg Ascorbic Acid (Vitamin C 500 Mg Tab) 500 mg PO DAILY [facility] Last Admin: 12/31/18 10:16 Dose: 500 mg Budesonide (Pulmicort Respules) 0.5 mg IH [id number] [facility] Last Admin: 12/31/18 20:07 Dose: 0.5 mg Carvedilol (Coreg) 3.125 mg PO BID [facility] Last Admin: 12/31/18 18:28 Dose: Not Given Famotidine (Pepcid) 20 mg PO HS [facility] Last Admin: 12/31/18 22:26 Dose: 20 mg Ferrous Sulfate (Feosol) 324 mg PO DAILY [facility] Last Admin: 12/31/18 10:16 Dose: 324 mg Fluticasone Propionate (Flonase) 1 actuation NS HS [facility] Last Admin: 12/31/18 22:26 Dose: 1 spr Folic Acid (Folic Acid) 1 mg PO DAILY [facility] Last Admin: 12/31/18 10:16 Dose: 1 mg Insulin Human Regular (Humulin R Low) 0 units SC [facility]; Protocol Last Admin: 12/31/18 16:30 Dose: Not Given Levothyroxine Sodium (Synthroid) 25 mcg PO ACB [facility] Last Admin: 12/31/18 10:15 Dose: 25 mcg Loratadine (Claritin) 10 mg PO DAILY [facility] Last Admin: 12/31/18 10:16 Dose: 10 mg Midodrine (Proamatine) 5 mg PO TID [facility] Last Admin: 12/31/18 18:28 Dose: 5 mg Rifaximin (Xifaxan) 550 mg PO BID [facility]; Protocol Last Admin: 12/31/18 18:29 Dose: 550 mg Sotalol HCl (Betapace) 80 mg PO BID [facility] Last Admin: 12/31/18 18:25 Dose: Not Given Vitamin E (Vitamin E 400 Units Cap) 400 intlu PO DAILY [facility] - Labs Labs: 12/31/18 08:00 12/31/18 07:00 PT 19.6 SECONDS (9.4-12.5) H 12/31/18 13:15 INR 1.73 12/31/18 13:15 APTT 44.0 Seconds (26.9-38.3) H 12/25/18 19:46 Attending/Attestation - Attestation I have personally seen and examined this patient.: Yes I have fully participated in the care of the patient.: Yes I have reviewed all pertinent clinical information, including history, physical exam and plan: Yes Notes (Text): This is an addendum to GI progress report dictated by the GI Fellow. The patient was seen and examined earlier. Medical records, lab studies, imagings were reviewed. Last 24 hours events reviewed. Agreed with the above treatment plan as outlined in GI Fellow 's notes with the addition of the following 12/31/18 22:37
[2018-12-31] MEDS ORDERED: Sodium Chloride 0.9% 500 ML IV STA (13:55)
[2018-12-31] MEDS: Albumin Human 25% (25 gm/100 ml) IV SCH ×2 (14:58→22:26)
[2018-12-31 15:08] LABS: HEMOGLOBIN 11.9 g/dL (14.0-18.0); MEAN CELL VOLUME 101.5 fl (80.0-105.0); MEAN CORPUSCULAR HEMOGLOBIN 34.6 pg (25.0-35.0); MEAN CORPUSCULAR HGB CONC 34.1 g/dl (31.0-37.0); RBC 3.44 10^6/uL (3.5-6.1); RED CELL DISTRIBUTION WIDTH 18.9 % (11.5-14.5); WHITE BLOOD COUNT 12.9 10^3/uL (4.5-11.0)
--- NOTE | 2018-12-31 15:53 | CP.PCM.PCO ---
Physician Communication Note - Physician Communication Note Physician Communication Note: pt. eval by liver specialist, dr. White,[facility]
--- NOTE | 2018-12-31 15:54 | PN ---
DATE: 12/31/2018 SUBJECTIVE: The patient is a 68-year-old male. The patient was seen and examined at the bedside on 12/31/2018. No change in the status, looking comfortable. Does not look like he is in distress. The patient was not wearing CPAP machine last night, as per the patient . No headache. No dizziness. No chest pain. No palpitation. Abdomen is fairly distended. PHYSICAL EXAMINATION VITAL SIGNS: Blood pressure 140/70, pulse 60, temperature 98.8, oxygen saturation is 94% on room air. HEENT: Head; normocephalic and atraumatic. Eyes; PERRLA. Extraocular muscles are intact. Conjunctivae clear. Nose patent. Mucous membranes moist. NECK: Supple. No carotid bruit. No JVD or thyromegaly. CHEST: Bilaterally symmetrical. HEART: S1 and S2 positive. LUNGS: Clear to auscultation. ABDOMEN: Soft. Bowel sounds present. No organomegaly. EXTREMITIES: No edema. No cyanosis. NEUROLOGIC: The patient is awake, alert, and moving all extremities. No focal deficits. MEDICATIONS: Tylenol, Brovana, vitamin B, Pulmicort, Pepcid, iron, folic acid, Lasix, insulin, lactulose, Synthroid, and lisinopril. LABORATORY DATA: Sodium 132, potassium 4.1, Bun 33, creatinine 1.8, glucose 89, calcium 8.2, AST 35, and ALT 53. ASSESSMENT AND PLAN: Mr. Wenceslao Nunes is a 68-year-old male with multiple medical problems, obsessive sleep apnea syndrome, cardiomyopathy, chronic obstructive lung disease, valvular heart disease, pulmonary hypertension, portal hypertension, cirrhosis of liver, history of alcohol abuse, and portal vein thrombosis. Gastrointestinal, Pulmonary, and Records Associate on the case. MRI of the abdomen done, reviewed by me. Continue bronchodilators. Continue to encourage continuous positive airway pressure use at bedtime for sleep. Discussion done with the patient. Overall prognosis is poor. Gastrointestinal prophylaxis, repeat labs, and we will followup. Jewell Martinez MD
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
[2018-12-31] MEDS: Fluticasone Nasal 50 mcg/Spray NS SCH (22:26)
[2019-01-01] MEDS ORDERED: Sodium Chloride 0.9% 1,000 ML IV SCH ×2 (00:30→19:15)
[2019-01-01] MEDS: Insulin Reg-LOW-Coverage SC SCH ×5 (01:24→22:05)
--- NOTE | 2019-01-01 02:09 | CP.PCM.PN ---
<DeCharity - Last Filed: 01/01/19 02:12> Subjective - Date & Time of Evaluation Date of Evaluation: 01/01/19 Time of Evaluation: 02:00 - Subjective Subjective: Night PGY-3 resident note Called by nurse due to urinary retention and difficulty inserting Bush Patient is 68 y/o with liver cirrhosis and ascites s/p paracentesis, patient with urine retention, 900 cc on bladder scan, distended abdomen and abdominal discomfort. Nurse and nurse program manager environmental planning attempted to insert Bush however there was resistance. Patient started to complain of abdominal pain, chills and rectal temp was around 100.5. Objective - Vital Signs/Intake and Output Vital Signs (last 24 hours): Temp Pulse Resp BP Pulse Ox 97.8 F 58 L 18 88/52 L 98 12/31/18 22:58 12/31/18 22:58 12/31/18 22:58 12/31/18 22:58 12/31/18 22:58 Intake and Output: 12/31/18 01/01/19 18:59 06:59 Intake Total 420 180 Balance 420 180 - Medications Medications: Current Medications Acetaminophen (Tylenol 325mg Tab) 650 mg PO Q4H PRN PRN Reason: Fever >100.5 F Last Admin: 12/29/18 03:37 Dose: 650 mg Albumin Human (Albumin Human 25% (25 Gm/100 Ml)) 25 gm IV Q8 [facility] Stop: 01/01/19 06:01 Last Admin: 12/31/18 22:26 Dose: 25 gm Arformoterol Tartrate (Brovana) 15 mcg IH [id number] [facility] Last Admin: 12/31/18 20:07 Dose: 15 mcg Ascorbic Acid (Vitamin C 500 Mg Tab) 500 mg PO DAILY [facility] Last Admin: 12/31/18 10:16 Dose: 500 mg Budesonide (Pulmicort Respules) 0.5 mg IH [id number] [facility] Last Admin: 12/31/18 20:07 Dose: 0.5 mg Carvedilol (Coreg) 3.125 mg PO BID [facility] Last Admin: 12/31/18 18:28 Dose: Not Given Famotidine (Pepcid) 20 mg PO HS [facility] Last Admin: 12/31/18 22:26 Dose: 20 mg Ferrous Sulfate (Feosol) 324 mg PO DAILY [facility] Last Admin: 12/31/18 10:16 Dose: 324 mg Fluticasone Propionate (Flonase) 1 actuation NS HS [facility] Last Admin: 12/31/18 22:26 Dose: 1 spr Folic Acid (Folic Acid) 1 mg PO DAILY [facility] Last Admin: 12/31/18 10:16 Dose: 1 mg Sodium Chloride (Sodium Chloride 0.9%) 1,000 mls @ 50 mls/hr IV .Q20H [facility] Insulin Human Regular (Humulin R Low) 0 units SC ACHS [facility]; Protocol Last Admin: 01/01/19 01:24 Dose: Not Given Levothyroxine Sodium (Synthroid) 25 mcg PO ACB [facility] Last Admin: 12/31/18 10:15 Dose: 25 mcg Loratadine (Claritin) 10 mg PO DAILY [facility] Last Admin: 12/31/18 10:16 Dose: 10 mg Midodrine (Proamatine) 5 mg PO TID [facility] Last Admin: 12/31/18 18:28 Dose: 5 mg Rifaximin (Xifaxan) 550 mg PO BID [facility]; Protocol Last Admin: 12/31/18 18:29 Dose: 550 mg Sotalol HCl (Betapace) 80 mg PO BID [facility] Last Admin: 12/31/18 18:25 Dose: Not Given Tramadol HCl (Ultram) 50 mg PO ONCE ONE Stop: 01/01/19 02:06 Vitamin E (Vitamin E 400 Units Cap) 400 intlu PO DAILY [facility] - Labs Labs: 12/31/18 08:00 12/31/18 07:00 PT 19.6 SECONDS (9.4-12.5) H 12/31/18 13:15 INR 1.73 12/31/18 13:15 APTT 44.0 Seconds (26.9-38.3) H 12/25/18 19:46 - Constitutional Appears: No Acute Distress, Cachectic, Chronically Ill - Head Exam Head Exam: NORMAL INSPECTION - Eye Exam Eye Exam: Scleral icterus - Respiratory Exam Respiratory Exam: Clear to Ausculation Bilateral - Cardiovascular Exam Cardiovascular Exam: REGULAR RHYTHM - GI/Abdominal Exam GI & Abdominal Exam: Distended, Firm, Rigid, Normal Bowel Sounds - Neurological Exam Neurological Exam: Alert, Awake - Psychiatric Exam Psychiatric exam: Anxious Assessment and Plan - Assessment and Plan (Free Text) Assessment: 68 year with liver cirrhosis and ascites s/p paracentesis, now with urinary retention 900o cc on bladder scan and with temp of 100.5 R/o sepsis R/o bladder obstruction/BPH Plan: SIRS with 100.5 temp, and hypotension- will send sepsis work up, including repeat cbc, bmp, vbg with shock, blood culture, ua and urine culture, chest x- ray Mild leukocytosis noted from yesterday's lab Will recheck vitals Will hold off antibiotics until labs returns Urinary retention- inserted a cauti catheter, only few drops of urine drained - Consider urology consult - will give one time dose of tramadol for pain <Jayda Avila - Last Filed: 01/01/19 06:48> Objective - Vital Signs/Intake and Output Vital Signs (last 24 hours): Temp Pulse Resp BP Pulse Ox 97.8 F 58 L 18 88/52 L 98 12/31/18 22:58 12/31/18 22:58 12/31/18 22:58 12/31/18 22:58 12/31/18 22:58 Intake and Output: 12/31/18 01/01/19 18:59 06:59 Intake Total 420 180 Balance 420 180 - Medications Medications: Current Medications Acetaminophen (Tylenol 325mg Tab) 650 mg PO Q4H PRN PRN Reason: Fever >100.5 F Last Admin: 12/29/18 03:37 Dose: 650 mg Albumin Human (Albumin Human 25% (25 Gm/100 Ml)) 25 gm IV Q8 [facility] Stop: 01/01/19 06:01 Last Admin: 12/31/18 22:26 Dose: 25 gm Arformoterol Tartrate (Brovana) 15 mcg IH [id number] [facility] Last Admin: 12/31/18 20:07 Dose: 15 mcg Ascorbic Acid (Vitamin C 500 Mg Tab) 500 mg PO DAILY [facility] Last Admin: 12/31/18 10:16 Dose: 500 mg Budesonide (Pulmicort Respules) 0.5 mg IH [id number] [facility] Last Admin: 12/31/18 20:07 Dose: 0.5 mg Carvedilol (Coreg) 3.125 mg PO BID [facility] Last Admin: 12/31/18 18:28 Dose: Not Given Famotidine (Pepcid) 20 mg PO HS [facility] Last Admin: 12/31/18 22:26 Dose: 20 mg Ferrous Sulfate (Feosol) 324 mg PO DAILY [facility] Last Admin: 12/31/18 10:16 Dose: 324 mg Fluticasone Propionate (Flonase) 1 actuation NS HS [facility] Last Admin: 12/31/18 22:26 Dose: 1 spr Folic Acid (Folic Acid) 1 mg PO DAILY [facility] Last Admin: 12/31/18 10:16 Dose: 1 mg Octreotide Acetate 1,250 mcg/ (Dextrose) 252.5 mls @ 10.1 mls/hr IV .Q24H [facility]; Protocol Sodium Chloride (Sodium Chloride 0.45%) 1,000 mls @ 60 mls/hr IV .[id number] [facility] Insulin Human Regular (Humulin R Low) 0 units SC ACHS [facility]; Protocol Last Admin: 01/01/19 01:24 Dose: Not Given Levothyroxine Sodium (Synthroid) 25 mcg PO ACB [facility] Last Admin: 12/31/18 10:15 Dose: 25 mcg Loratadine (Claritin) 10 mg PO DAILY [facility] Last Admin: 12/31/18 10:16 Dose: 10 mg Midodrine (Proamatine) 5 mg PO TID [facility] Last Admin: 12/31/18 18:28 Dose: 5 mg Rifaximin (Xifaxan) 550 mg PO BID [facility]; Protocol Last Admin: 12/31/18 18:29 Dose: 550 mg Sotalol HCl (Betapace) 80 mg PO BID [facility] Last Admin: 12/31/18 18:25 Dose: Not Given Vitamin E (Vitamin E 400 Units Cap) 400 intlu PO DAILY [facility] - Labs Labs: 01/01/19 02:20 01/01/19 02:20 PT 19.6 SECONDS (9.4-12.5) H 12/31/18 13:15 INR 1.73 12/31/18 13:15 APTT 44.0 Seconds (26.9-38.3) H 12/25/18 19:46 Attending/Attestation - Attestation I have personally seen and examined this patient.: Yes I have fully participated in the care of the patient.: Yes I have reviewed all pertinent clinical information, including history, physical exam and plan: Yes Notes (Text): 01/01/19 06:35 Note: Since bush cath had drained only about 50 ccs over several hours it was removed ..Another bush was inserted,no urine was obtained. PMD to be notified.Pt needs urology consult.
--- NOTE | 2019-01-01 02:39 | PN ---
DATE: 12/31/2018 SUBJECTIVE: Patient was seen and examined at bedside on 12/31/2018. Patient is lying down comfortably on the bed. No fever. No chills. No hematuria. No hematochezia. No headache. No dizziness. No chest pain. No palpitations. Abdomen is big. No swelling of the legs. PHYSICAL EXAMINATION VITAL SIGNS: Temperature 97.7, pulse 58, respiratory rate 18, blood pressure 97/57. HEENT: Head; normocephalic, atraumatic. Eyes; PERRLA. Extraocular muscles intact. Conjunctivae clear. Nose patent. Mucous membranes moist. NECK: Supple. No carotid bruit. No JVD or thyromegaly. CHEST: Bilateral symmetrical. HEART: S1 and S2 positive. LUNGS: Clear to auscultation. ABDOMEN: Soft. Bowel sounds positive. No organomegaly. EXTREMITIES: No edema. No cyanosis. NEUROLOGIC: Patient is awake, alert. Follows simple commands. LABORATORY DATA: White blood cell 12.9, hemoglobin 11.9, hematocrit 34.9, and platelets 109. Sodium 139, potassium 4.4, BUN 42, creatinine 2.7, glucose 111. ASSESSMENT AND PLAN: Mr. Billy is a 68-year-old male with leukocytosis, anemia, thrombocytopenia, hyperchloremia, renal insufficiency, and hyperglycemia. 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 ALT and AST elevated. Patient denies alcohol abuse now. He used to use alcohol, but quit 6 to 7 years ago. 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 Patient has hepatorenal syndrome and ascites. He suggests holding off on colonoscopy as instrumentation of his gut may subject him to bacteremia and spontaneous bacterial peritonitis. Would continue 25% albumin until the albumin is 3.5. If sodium and chloride above normal, we would not use normal saline, consider half normal saline at 50 mL per hour. He should remain off beta blockers as per hepatology. His blood pressure best is 90, would start midodrine 5 mg p.o. t.i.d. Given his creatinine, he should have Diaz to accurate assessment of urine output. He may also require placement of central venous monitoring. According to hall coordinator, continue albumin 100 mL 25% every 6 hours until albumin is more than 3.5. Change intravenous fluid to half normal saline 50 mL. Midodrine 5 mg t.i.d. Diaz catheter. Rifaximin 550 mg p.o. b.i.d. Length of time discussion done with Dr. Rob Fritz, with Dr. Hills, strap buckler machine, and Dr. Ansari. Patient has history of congestive heart failure, cardiomyopathy. Repeat labs. I had length of time discussion done with the patient's . We will follow up. Jewell Martinez MD
[2019-01-01 02:40] LABS: HEMOGLOBIN 11.4 g/dL (14.0-18.0); MEAN CELL VOLUME 101.2 fl (80.0-105.0); MEAN CORPUSCULAR HEMOGLOBIN 34.5 pg (25.0-35.0); MEAN CORPUSCULAR HGB CONC 34.1 g/dl (31.0-37.0); MEAN PLATELET VOLUME 12.4 fl (7.0-11.0); RBC 3.3 10^6/uL (3.5-6.1); RED CELL DISTRIBUTION WIDTH 19.1 % (11.5-14.5); WHITE BLOOD COUNT 10.9 10^3/uL (4.5-11.0)
[2019-01-01 02:41] LABS: VENOUS BLOOD GAS BASE EXCESS -9.4 mmol/L (0.0-2.0); VENOUS BLOOD GAS PO2 34 mm/Hg (30-55); VENOUS BLOOD PH 7.28 (7.32-7.43)
[2019-01-01 02:43] LABS: CALCIUM 8.9 mg/dL (8.4-10.5)
[2019-01-01] MEDS ORDERED: Sodium Chloride 0.45% 1,000 ML IV SCH (05:15)
--- NOTE | 2019-01-01 05:15 | CON ---
DATE: 12/31/2018 HEMATOLOGY CONSULTATION The patient is in room 571. HISTORY OF PRESENT ILLNESS: This is a 68-year-old male. I have been asked to see the patient to comment on his thrombocytopenia and more importantly a clot that was picked up in the portal vein which was substantiated on the MRI, shows that the clot may be old and has recanalization without any evidence of new clots. This is in the background history and the patient having recently been in the hospital where he had an endoscopy. At that time, he was documented to have cirrhosis of the liver with progressive ascites. Endoscopy has shown grade I varices. 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 In view of this, the patient may not be a candidate for any aggressive approach for surgical management as far as his liver may be concerned. The patient does have a strong history of ethanol exposure in the past, quit drinking about 8 years ago, but he has severe cirrhosis as evidenced on the imaging studies. The patient is status post paracentesis and is feeling better. He denies any abdominal pain, nausea, vomiting or diarrhea. The patient is awake, alert and oriented as compared to when he first came in when he was mildly confused, and he had appeared to be probably in hepatic decompensation and a combination of over diuresis. PHYSICAL EXAMINATION: GENERAL: Reveals the patient to be .awake, alert and oriented. No significant distress. VITAL SIGNS: The patient is afebrile, 97.7. Pulse is 58, respirations 18, blood pressure 97/54, pulse ox is 97%. HEENT: Head is normocephalic and atraumatic. Temporal muscle wasting is noted. The patient has sarcopenia as evidenced by loss of muscle mass. Examination of the eyes reveals pupils to be equally reactive to light and accommodation. The patient is anicteric. No oropharyngeal lesions are noted. NECK: Supple. There is no adenopathy. LUNGS: Clear to percussion and auscultation without any adventitious sounds. CARDIOVASCULAR: Reveals S1 and S2 to be normal. No gallop or murmurs heard. ABDOMEN: Distended, soft and nontender. Bowel sounds are present. No rebound, rigidity or guarding is noted. EXTREMITIES: Reveal no significant edema. NEUROLOGICAL: Higher functions are normal. No focal deficits are noted. SKIN: Dry. No skin lesions are noted. LABORATORY DATA: Reveals the following: White count is 12.9, hemoglobin 11.9, hematocrit 34.9. Platelet count is around 109,000, was down to the lowest level of 57,000 in 10/2018. Chemistries reveal electrolytes to be normal. BUN is 42, creatinine is 2.7. Blood sugars have been running over 100. His creatinine was highest at 2.7, had been low at 1.3. The patient's INR is 1.73 and PTT is 44. As I mentioned, the MRI of the abdomen which was done two days ago reveals severe cirrhosis of the liver. There is a clot in the portal vein which is partially thrombosed, but there is a small flow void centrally within the portal vein consistent with recanalization. There is no evidence of any masses in the liver. Liver appears to be atrophic with an irregular contour. ASSESSMENT, NOTES AND PLAN: I had detailed discussion with the patient and the patient's who happens to be my patient from years ago. I had detailed discussion with Dr. Mobley who is a family friend of the patient. Spoke to Dr. Godoy. Spoke to Dr. North. The patient is also going to be seen by liver surgeon Dr. Martinez to get his input to see what the patient could and could not get. In the meantime, the family asked me if the patient may be a candidate for liver biopsy which I said yes, depending on what Dr. Godoy says. The patient may be seen by the etch operator semiconductor wafers either at the [facility] or one of our local etch operator semiconductor wafers in [facility]. I told him at this time that we would not worry about the platelet count. Maybe, the patient slightly decompensated when he came, but he appears to be better now. The patient's diuretic medicines may have to be closely monitored, so that he does not go into kidney failure. The patient has been getting right now on the medications listed, IV albumin every 8 hours. He is on sotalol 80 b.i.d. He is on Brovana tartrate 15 mcg inhaled every 12 hours. He is on Claritin 10 mg p.o. daily. He is on carvedilol 3.125 mg b.i.d., ferrous sulfate 325 mg daily. He is on fluticasone propionate nasal inhalation at bedtime, folic acid 1 mg daily, famotidine 20 mg p.o. at bedtime. He is on midodrine 5 mg p.o. t.i.d., 0.5 mg inhaled every 12 hours, levothyroxine 25 mcg daily. He is on Tylenol p.r.n., ascorbic acid 500 mg p.o. daily, vitamin E 400 international units daily. He is on rifaximin 550 mg p.o. b.i.d. for hepatic encephalopathy. PLAN: The patient and would discuss the case with Dr. Godoy. From a hematological perspective at this point in time, no active intervention, but supportive care would be necessary. .The patient definitely needs to be seen by etch operator semiconductor wafers and whatever input we could get from the liver surgeon as to further management as far as the cirrhosis of the liver is concerned. Please make a note that I have ordered also blood work to rule out any other causes for the clotting in the portal vein as sometimes patients with either Factor V Leiden prothrombin gene mutation or MTHFR gene mutation can have abnormalities with clotting in the portal vein, though I think that appears to be unlikely in this particular case. Primary tumors have been ruled out as that can be another cause of portal vein thrombosis. Time spent with the patient greater than 45 minutes in correlating all the information and discussing with various team members and also talking to the patient and the patient's . Kevin Hills MD
[2019-01-01 06:32] LABS: VENOUS BLOOD GAS BASE EXCESS -8.6 mmol/L (0.0-2.0); VENOUS BLOOD GAS PO2 200 mm/Hg (30-55)
[2019-01-01] MEDS: Albumin Human 25% (25 gm/100 ml) IV SCH ×3 (07:08→22:00)
[2019-01-01 07:17] LABS: ALB/GLOB RATIO 0.8 (1.1-1.8); ALBUMIN 2.8 g/dL (3.0-4.8); CALCIUM 8.3 mg/dL (8.4-10.5)
[2019-01-01] MEDS: Arformoterol 15 mcg/2 ml Inh Sol IH SCH ×2 (09:27→22:16)
[2019-01-01] MEDS: Budesonide 0.5 mg/2 ml Inhal Susp UD IH SCH ×2 (09:27→22:16)
[2019-01-01] MEDS: Octreotide 1,250 MCG in Dextrose 5% In Water 250 ML IV SCH (09:32)
[2019-01-01] MEDS: Levothyroxine 25 MCG TAB PO SCH (09:34)
--- NOTE | 2019-01-01 09:38 | RAD ---
Date of service: 01/01/2019 HISTORY: r/o pneumonia COMPARISON: 12/25/2018 FINDINGS: LUNGS: No active pulmonary disease. PLEURA: No significant pleural effusion identified, no pneumothorax apparent. CARDIOVASCULAR: No aortic atherosclerotic calcification present. Normal cardiac size. Mild vascular congestion OSSEOUS STRUCTURES: No significant abnormalities. VISUALIZED UPPER ABDOMEN: Normal. OTHER FINDINGS: None. IMPRESSION: No active disease.
--- NOTE | 2019-01-01 11:24 | CP.PCM.PN ---
Subjective - Date & Time of Evaluation Date of Evaluation: 01/01/19 Time of Evaluation: 11:02 - Subjective Subjective: 68 year old male cirrhosis, ascites, hepatorenal syndrome. Patient remains alert appropriate to questions and commands. No obvious encephalopathy. Started midodrine yesterday and somatostatin early AM. He was oliguric overnight. Fol ey place this morning. Objective - Vital Signs/Intake and Output Vital Signs (last 24 hours): Temp Pulse Resp BP Pulse Ox 99.4 F 96 H 18 99/54 L 94 L 01/01/19 06:00 01/01/19 06:00 01/01/19 06:00 01/01/19 09:29 01/01/19 06:00 Intake and Output: 01/01/19 01/01/19 06:59 18:59 Intake Total 300 Output Total 20 Balance 280 - Medications Medications: Current Medications Acetaminophen (Tylenol 325mg Tab) 650 mg PO Q4H PRN PRN Reason: Fever >100.5 F Last Admin: 12/29/18 03:37 Dose: 650 mg Arformoterol Tartrate (Brovana) 15 mcg IH [id number] [facility] Last Admin: 01/01/19 09:27 Dose: Not Given Ascorbic Acid (Vitamin C 500 Mg Tab) 500 mg PO DAILY [facility] Last Admin: 01/01/19 09:33 Dose: 500 mg Budesonide (Pulmicort Respules) 0.5 mg IH [id number] [facility] Last Admin: 01/01/19 09:27 Dose: Not Given Carvedilol (Coreg) 3.125 mg PO BID [facility] Last Admin: 01/01/19 09:29 Dose: Not Given Famotidine (Pepcid) 20 mg PO [facility] Last Admin: 12/31/18 22:26 Dose: 20 mg Ferrous Sulfate (Feosol) 324 mg PO DAILY [facility] Last Admin: 01/01/19 09:33 Dose: 324 mg Fluticasone Propionate (Flonase) 1 actuation NS [facility] Last Admin: 12/31/18 22:26 Dose: 1 spr Folic Acid (Folic Acid) 1 mg PO DAILY [facility] Last Admin: 01/01/19 09:33 Dose: 1 mg Octreotide Acetate 1,250 mcg/ (Dextrose) 252.5 mls @ 10.1 mls/hr IV .Q24H [facility]; Protocol Last Admin: 01/01/19 09:32 Dose: 50 mcg/hr, 10.1 mls/hr Sodium Chloride (Sodium Chloride 0.45%) 1,000 mls @ 60 mls/hr IV .[id number] [facility] Last Admin: 01/01/19 07:05 Dose: 60 mls/hr Insulin Human Regular (Humulin R Low) 0 units SC ACHS [facility]; Protocol Last Admin: 01/01/19 08:59 Dose: Not Given Levothyroxine Sodium (Synthroid) 25 mcg PO ACB [facility] Last Admin: 01/01/19 09:34 Dose: 25 mcg Loratadine (Claritin) 10 mg PO DAILY [facility] Last Admin: 01/01/19 09:33 Dose: 10 mg Midodrine (Proamatine) 5 mg PO TID [facility] Last Admin: 01/01/19 09:33 Dose: 5 mg Rifaximin (Xifaxan) 550 mg PO BID [facility]; Protocol Last Admin: 01/01/19 09:33 Dose: 550 mg Sotalol HCl (Betapace) 80 mg PO BID [facility] Last Admin: 01/01/19 09:00 Dose: Not Given Vitamin E (Vitamin E 400 Units Cap) 400 intlu PO DAILY [facility] Last Admin: 01/01/19 09:32 Dose: 400 intlu - Labs Labs: 01/01/19 02:20 01/01/19 06:10 PT 19.6 SECONDS (9.4-12.5) H 12/31/18 13:15 INR 1.73 12/31/18 13:15 APTT 44.0 Seconds (26.9-38.3) H 12/25/18 19:46 - Constitutional Appears: Cachectic, Chronically Ill - Head Exam Head Exam: ATRAUMATIC, NORMAL INSPECTION, NORMOCEPHALIC - Eye Exam Eye Exam: Scleral icterus - GI/Abdominal Exam GI & Abdominal Exam: Firm Additional comments: moderate ascites, non tender - Back Exam Additional comments: anasrca - Neurological Exam Neurological Exam: Alert, Awake Assessment and Plan (1) Hepatorenal syndrome Assessment & Plan: remains oliguric, received 300 cc 25% aibumin. Will replace until >3.5. BP improved on midodrine. Started somatostatin at 50 ncg/hr. Will need transfer to ICU. Recommend central line and arterial line. May need dopamine. Status: Acute (2) Portal vein thrombosis Assessment & Plan: appears non-occlusive. However, may need to consider anti-coagulation in view of reportedly recent onset of ascites. However, if he is anti-coagulated will need upper endoscopy to assess for varices Status: Acute (3) Hepatic encephalopathy Assessment & Plan: continues xifaxan, hold lactulose due to diarrhea and dehydration Status: Acute (4) Sepsis Assessment & Plan: follow up cultures. All cultures negative to date. Now obvious SBP. Status: Acute - Assessment and Plan (Free Text) Assessment: .
[2019-01-01] MEDS ORDERED: Heparin25000 units/250ml 1/2NS 25,000 UNITS/250 ML BAG IV PRN (12:32)
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
[2019-01-01 13:15] LABS: INR 2.12
[2019-01-01] MEDS ORDERED: Piperacillin/Tazobact 2.25gm 2.25 GM/100 ML BAG IVPB STA (13:48)
--- NOTE | 2019-01-01 13:53 | CP.PCM.PN ---
<Jeff Manzo - Last Filed: 01/01/19 20:52> Subjective - Date & Time of Evaluation Date of Evaluation: 01/01/19 Time of Evaluation: 08:00 - Subjective Subjective: PGY5 GI Follow-up Note Pt seen and examined bedside Denies any abd pain +temp of 100.5 as per Rn, rectal x1 tolerating diet only 50cc output from [facility] ROS: 12 point ROS conducted, neg other than above Objective - Vital Signs/Intake and Output Vital Signs (last 24 hours): Temp Pulse Resp BP Pulse Ox 99.4 F 96 H 18 99/54 L 94 L 01/01/19 06:00 01/01/19 06:00 01/01/19 06:00 01/01/19 09:29 01/01/19 06:00 Intake and Output: 01/01/19 01/01/19 06:59 18:59 Intake Total 300 Output Total 20 Balance 280 - Medications Medications: Current Medications Acetaminophen (Tylenol 325mg Tab) 650 mg PO Q4H PRN PRN Reason: Fever >100.5 F Last Admin: 12/29/18 03:37 Dose: 650 mg Albumin Human (Albumin Human 25% (25 Gm/100 Ml)) 50 gm IV Q8 [facility] Stop: 01/01/19 22:01 Arformoterol Tartrate (Brovana) 15 mcg IH [id number] [facility] Last Admin: 01/01/19 09:27 Dose: Not Given Ascorbic Acid (Vitamin C 500 Mg Tab) 500 mg PO DAILY [facility] Last Admin: 01/01/19 09:33 Dose: 500 mg Budesonide (Pulmicort Respules) 0.5 mg IH [id number] [facility] Last Admin: 01/01/19 09:27 Dose: Not Given Carvedilol (Coreg) 3.125 mg PO BID [facility] Last Admin: 01/01/19 09:29 Dose: Not Given Famotidine (Pepcid) 20 mg PO [facility] Last Admin: 12/31/18 22:26 Dose: 20 mg Ferrous Sulfate (Feosol) 324 mg PO DAILY [facility] Last Admin: 01/01/19 09:33 Dose: 324 mg Fluticasone Propionate (Flonase) 1 actuation NS HS [facility] Last Admin: 12/31/18 22:26 Dose: 1 spr Folic Acid (Folic Acid) 1 mg PO DAILY [facility] Last Admin: 01/01/19 09:33 Dose: 1 mg Octreotide Acetate 1,250 mcg/ (Dextrose) 252.5 mls @ 10.1 mls/hr IV .Q24H [facility]; Protocol Last Admin: 01/01/19 09:32 Dose: 50 mcg/hr, 10.1 mls/hr Sodium Chloride (Sodium Chloride 0.45%) 1,000 mls @ 60 mls/hr IV .[id number] [facility] Last Admin: 01/01/19 07:05 Dose: 60 mls/hr Heparin Sodium/Sodium Chloride (Heparin 10976 Units/250ml 1/2 Normal Saline) 25,000 units in 250 mls @ 12.002 mls/hr IV .[id number] PRN; Protocol PRN Reason: ADJUST RATE PER PROTOCOL Last Admin: 01/01/19 13:37 Dose: 18 units/kg/hr, 12.002 mls/hr Insulin Human Regular (Humulin R Low) 0 units SC ACHS [facility]; Protocol Last Admin: 01/01/19 12:37 Dose: 1 unit Levothyroxine Sodium (Synthroid) 25 mcg PO ACB [facility] Last Admin: 01/01/19 09:34 Dose: 25 mcg Loratadine (Claritin) 10 mg PO DAILY [facility] Last Admin: 01/01/19 09:33 Dose: 10 mg Midodrine (Proamatine) 5 mg PO TID [facility] Last Admin: 01/01/19 09:33 Dose: 5 mg Rifaximin (Xifaxan) 550 mg PO BID [facility]; Protocol Last Admin: 01/01/19 09:33 Dose: 550 mg Sotalol HCl (Betapace) 80 mg PO BID [facility] Last Admin: 01/01/19 09:00 Dose: Not Given Vitamin E (Vitamin E 400 Units Cap) 400 intlu PO DAILY [facility] Last Admin: 01/01/19 09:32 Dose: 400 intlu - Labs Labs: 01/01/19 02:20 01/01/19 06:10 PT 24.0 SECONDS (9.4-12.5) H 01/01/19 13:00 INR 2.12 01/01/19 13:00 APTT 44.0 Seconds (26.9-38.3) H 12/25/18 19:46 - Constitutional Appears: Non-toxic, No Acute Distress - Head Exam Head Exam: ATRAUMATIC, NORMOCEPHALIC - Eye Exam Eye Exam: Normal appearance - ENT Exam ENT Exam: Mucous Membranes Moist, Normal Exam - Neck Exam Neck Exam: Normal Inspection - Respiratory Exam Respiratory Exam: Clear to Ausculation Bilateral, NORMAL BREATHING PATTERN. absent: Rales, Rhonchi, Wheezes - Cardiovascular Exam Cardiovascular Exam: REGULAR RHYTHM, +S1, +S2 - GI/Abdominal Exam GI & Abdominal Exam: Distended, Soft, Normal Bowel Sounds. 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 Prior EGD 10/2018 showed lower third of esophagus small varices. No prior colonoscopy. 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 2/2 prerenal and nephrotoxic Drugs, DDx: hepatorenal syndrome Plan: -will hold on colonoscopy as pt is not medically optimized, will consider again once renal function improves -HRS protocol initiated, by hepatobiliary -currently on midrodrine, albumin, octreotide as per hepatobiliary -may benefit from additional fluid challenge with Crystalloids fluids or plasma fuel house attendant (i.e albumin) -could consider additional urinalysis to differential HRS vs Prerenal (urine sodium, urine vs serum osmol) -continue to monitor renal function -continue xifaxan, would hold lactulose due to diarrhea -continue to hold all nephrotoxic drugs including diuretics, tran inhib, and NSAIDs -agree with nephrology consult -in the setting of possible SBP as per hepatobiliary, added zosyn 2.25 q 6 (michelle lly dosed) and advised primary team to get ID consult for zosyn approval for more than 24hrs -will defer PVT treatment to Hepatobiliary and hem/onc Case discussed with Dr. Jayne <Jayne,Kovil V - Last Filed: 01/01/19 23:44> Objective - Vital Signs/Intake and Output Vital Signs (last 24 hours): Temp Pulse Resp BP Pulse Ox 98.2 F 58 L 18 92/51 L 97 01/01/19 12:00 01/01/19 23:24 01/01/19 12:00 01/01/19 23:24 01/01/19 12:00 Intake and Output: 01/01/19 01/02/19 18:59 06:59 Intake Total 720 750 Output Total 5 5 Balance 715 745 - Medications Medications: Current Medications Arformoterol Tartrate (Brovana) 15 mcg IH [id number] [facility] Last Admin: 01/01/19 22:16 Dose: Not Given Budesonide (Pulmicort Respules) 0.5 mg IH [id number] [facility] Last Admin: 01/01/19 22:16 Dose: Not Given Carvedilol (Coreg) 3.125 mg PO BID [facility] Last Admin: 01/01/19 17:43 Dose: Not Given Famotidine (Pepcid) 20 mg PO HS [facility] Last Admin: 01/01/19 22:10 Dose: 20 mg Ferrous Sulfate (Feosol) 324 mg PO DAILY [facility] Last Admin: 01/01/19 09:33 Dose: 324 mg Folic Acid (Folic Acid) 1 mg PO DAILY [facility] Last Admin: 01/01/19 09:33 Dose: 1 mg Octreotide Acetate 1,250 mcg/ (Dextrose) 252.5 mls @ 10.1 mls/hr IV .Q24H [facility]; Protocol Last Admin: 01/01/19 09:32 Dose: 50 mcg/hr, 10.1 mls/hr Heparin Sodium/Sodium Chloride (Heparin 81050 Units/250ml 1/2 Normal Saline) 25,000 units in 250 mls @ 12.002 mls/hr IV .[id number] PRN; Protocol PRN Reason: ADJUST RATE PER PROTOCOL Last Titration: 01/01/19 22:05 Dose: 15 units/kg/hr, 10.002 mls/hr Sodium Chloride (Sodium Chloride 0.9%) 1,000 mls @ 80 mls/hr IV .[id number] [facility] Last Admin: 01/01/19 20:00 Dose: 80 mls/hr Dopamine HCl/Dextrose (Dopamine 400mg/250ml D5w) 400 mg in 250 mls @ 12.502 mls/hr IV .Q20H PRN; Protocol PRN Reason: TITRATE PER MD ORDERS Last Admin: 01/01/19 23:24 Dose: 5 mcg/kg/min, 12.502 mls/hr Meropenem/Sodium Chloride (Merrem Iv 500 Mg/Ns 50 Ml) 500 mg in 50 mls @ 100 mls/hr IVPB Q12 [facility]; Protocol Stop: 01/08/19 23:31 Insulin Human Regular (Humulin R Low) 0 units SC ACHS [facility]; Protocol Last Admin: 01/01/19 22:05 Dose: Not Given Levothyroxine Sodium (Synthroid) 25 mcg PO ACB [facility] Last Admin: 01/01/19 09:34 Dose: 25 mcg Midodrine (Proamatine) 5 mg PO TID [facility] Last Admin: 01/01/19 17:51 Dose: 5 mg Rifaximin (Xifaxan) 550 mg PO BID [facility]; Protocol Last Admin: 01/01/19 17:49 Dose: 550 mg Sotalol HCl (Betapace) 80 mg PO BID [facility] Last Admin: 01/01/19 17:42 Dose: Not Given Vitamin E (Vitamin E 400 Units Cap) 400 intlu PO DAILY [facility] Last Admin: 01/01/19 09:32 Dose: 400 intlu - Labs Labs: 01/01/19 02:20 01/01/19 06:10 PT 27.0 SECONDS (9.4-12.5) H 01/01/19 19:30 INR 2.43 01/01/19 19:30 APTT > 400.0 Seconds (26.9-38.3) H* 01/01/19 19:30 Attending/Attestation - Attestation I have personally seen and examined this patient.: Yes I have fully participated in the care of the patient.: Yes I have reviewed all pertinent clinical information, including history, physical exam and plan: Yes Notes (Text): This is an addendum to GI progress report dictated by the GI Fellow.The patient was seen and examined earlier. Medical records, lab studies, imagings were reviewed. Last 24 hours events reviewed. Agreed with the above treatment plan as outlined in GI Fellow 's notes with the addition of the following 01/01/19 23:42
--- NOTE | 2019-01-01 13:54 | CP.PCM.PCO ---
Physician Communication Note - Physician Communication Note Physician Communication Note: pt. transferred to unit for oliguria overnight,hepatorenal syndrome,Hypoten
[2019-01-01] MEDS ORDERED: Albumin Human 25% (12.5 gm/50 ml) IV SCH (14:00)
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
--- NOTE | 2019-01-01 19:39 | PN ---
DATE: 01/01/2019 PULMONARY PROGRESS NOTE REFERRING PHYSICIAN: Dr. Jewell Martinez. SUBJECTIVE: He is lying in bed at 45 degrees. Last 24 hour events noted. I spoke to at a bedside. Has a decreased urine output with increasing BUN and creatinine seen by support analyst. The patient's Lasix been discontinued since yesterday, also p.o. fluids. No cough or sputum production. I will increase abdominal girth. OBJECTIVE: GENERAL: No acute distress. VITAL SIGNS: Temperature 99, heart rate 96, respiratory rate 18, blood pressure 99/54, and pulse ox 94% on room air. HEENT: Moist mucous membranes. No ulcer or thrush. NECK: Supple. No JVD. LUNGS: Has a fair airflow. No rhonchi. CARDIOVASCULAR: S1 and S2. ABDOMEN: Distended, has ascites. EXTREMITIES: There is no edema. NEUROLOGIC: Awake and alert. Follows simple command. MEDICATIONS: He is on 50 g every 8 hour, sotalol 80 mg twice a day which is on hold, Brovana also on hold, Claritin 10 mg had been given, Coreg is on hold also, ferrous sulfate is getting 324 mg daily, Flonase one spray to each nostril daily, folic acid 1 mg daily. He is started on IV heparin, octreotide IV is started, Pepcid 20 mg daily, Lidoderm 5 mg three times a day, Pulmicort inhaled twice a day, IV fluid half normal saline 60 mL per hour, Synthroid 25 mcg a.c.b., Tylenol p.r.n. basis, vitamin C 500 mg daily, vitamin E 400 mg internation unit daily, Xifaxan 550 mg twice a day, Zosyn 2.25 g IV was given. LABORATORY DATA: Sodium 140, potassium 4.8, chloride 114, bicarb 16, BUN 47, creatinine 3.3, glucose 93,, calcium 8.3, total bilirubin 3.0, AST 106, ALT 50, alk phos is 99, albumin 2.8. Hemoglobin 11.4, hematocrit 3.4, WBC 10.9 and platelet is 130. INR is 2.12. His ABG shows pH 7.40, PCO2 is 23, O2 100. Microbiology; blood culture, urine culture so far there is no growth. Chest x-ray done today shows no active pulmonary disease. IMPRESSION AND PLAN: Chronic obstructive lung disease, sleep apnea syndrome, cardiomyopathy, valvular heart disease, pulmonary hypertension, portal hypertension, portal thrombus, cirrhotic liver, seems like now he is in hepatorenal syndrome, seen by Hepatology Surgery, on IV fluid, antibiotics started. The patient has been transferred to Intensive Care Unit for close cardiopulmonary monitoring and intake and output. Spoke to at bedside, all the questions were answered. Pulmonary point of view, keep head at 45 degrees. Careful with sedation. Continue to use nebulizer treatment. Has a significant asthma, but present he is very stable. Follow up ABG, chest x-ray, CBC, CMP in the morning. Need follow by Nephrology, GI, Cardiology and Hematology. We will follow with you. Alfonso Ansari MD
[2019-01-01] MEDS ORDERED: WATER IV PRN (19:55)
[2019-01-01] MEDS ORDERED: DEXTROSE 5% IV PRN (19:55)
[2019-01-01] MEDS ORDERED: DOPAMINE IV PRN (19:55)
[2019-01-01 20:13] LABS: INR 2.43
[2019-01-01 20:33] LABS: PARTIAL THROMBOPLASTIN TIME > 400.0 Seconds (26.9-38.3)
--- NOTE | 2019-01-01 20:35 | PN ---
DATE: 01/01/2019 SUBJECTIVE: Patient is 68 years old male. Patient was seen and examined at the bedside on 01/01/2019., looking comfortable. No fever. No chills. No hematuria. No hematochezia. Patient has big abdomen. No urinary output. He is awake, alert, and oriented x3. No signs of encephalopathy right now. Started midodrine yesterday and somatostatin, was oliguric overnight. Diaz catheter placed. Urology and Nephrology consult called. I saw the patient early in the morning on the floor, and GI fellow was over the bedside. Plan was to transfer the patient to the unit for close monitoring. PHYSICAL EXAMINATION: VITAL SIGNS: Temperature 97.4, pulse 96, respiratory 18, blood pressure 99/54, and pulse oximetry 94. HEENT: Head is normocephalic and atraumatic. Eyes PERRLA. Extraocular muscles intact. Conjunctivae clear. Nose patent. Mucous membrane moist. NECK: Supple. No carotid bruit. No JVD or thyromegaly. CHEST: Bilaterally symmetrical. HEART: S1 and S2 positive. LUNGS: Clear to auscultation. ABDOMEN: Tense, big. Fluid thrill is positive. EXTREMITIES: No edema. No cyanosis. NEUROLOGIC: Patient is awake, alert. Follows simple commands. MEDICATIONS: Tylenol, Brovana, Pulmicort, Coreg, Pepcid, iron, Flonase, folic acid, half NS, Claritin, midodrine, rifaximin, sotalol, and vitamin E. LABORATORY DATA: White blood cell is 10.9, hemoglobin 11.4, hematocrit 33.4, and platelets 113. Sodium 140, potassium 4.8, BUN 47, creatinine 3.6, and glucose 93. ASSESSMENT AND PLAN: Mr. Des Billy is a 68-year-old male with anemia, thrombocytopenia, hyperchloremia, renal insufficiency developed hepatorenal syndrome, remained oliguric, received 300 mL of 25% albumin. According to Dr. Martinez, we will continue until albumin is 3.5. Blood pressure improved on midodrine. Started on somatostatin. Patient transferred to ICU to find central line arterial line mainly to dopamine. As per Dr. Martinez, portal vein thrombosis appears nonocclusive. According to Dr. Martinez, we may need to consider anticoagulation in view of her portal recent onset of ascites. Senior Ui Ux Developer is on the case. Hepatic encephalopathy, continue with Xifaxan. Hold lactulose due to diarrhea and dehydration, and sepsis. Patient had fever overnight. Put consult with ID. Septic workup done. No obvious supraventricular tachycardia. Patient has history of ethanol abuse, quit 7 years ago. History of cardiomyopathy, congestive heart failure with right-sided disease, severe tricuspid regurgitation and moderate pulmonary hypertension, asthma, and atrial fibrillation. Nephrology and Urology consult called. Repeat labs. Discussion done with patient's , GI fellow, and patient's nurse. We will follow up. Jewell Martinez MD MTDGhazal
[2019-01-01] MEDS: DOPamine 400mg/250ml D5W 400 MG/250 ML BAG IV PRN (23:24)
[2019-01-02] MEDS: MEROPENEM 500 MG in NS 500 MG/50 ML BAG IVPB SCH ×2 (00:03→22:00)
--- NOTE | 2019-01-02 01:17 | PN ---
DATE: 01/01/2019 LOCATION: The patient is in Room 571, and is being transferred to the unit as we speak. SUBJECTIVE: The patient is lying in bed at 45 degrees. I reviewed the events over the last 24 hours, spoke to also the , Sylvia by the bedside. The patient is having decreased urine output overnight and also has been having increase in BUN and creatinine. The patient is being seen by instrumentation specialist and by the payroll lead as well. Diuretics have been discontinued. The patient denies any cough or phlegm production, but has noted to have increase abdominal girth. PHYSICAL EXAMINATION GENERAL: The patient is in no significant distress. VITAL SIGNS: Stable. T-max is 99, heart rate is 96, respirations 18, blood pressure is 99/44, pulse ox is 94% on room air. HEENT: Head is normocephalic, atraumatic. Conjunctivae are pale. Sclerae are anicteric. Examination of the oropharynx reveals no oropharyngeal lesions. Tongue is coated. No ulcerations are noted. NECK: Supple. There is no adenopathy. No jugular venous distension noted. LUNGS: Relatively clear to percussion and auscultation. CARDIOVASCULAR: Reveals S1, S2 to be normal. Gallop is heard. ABDOMEN: Soft and distended. The patient has ascites. EXTREMITIES: Reveal no significant edema. NEUROLOGIC: Reveals higher functions to be normal. The patient follows commands. No focal deficits are noted. MEDICATIONS: The patient's medications were reviewed, he is on sotalol 80 mg b.i.d., which is on hold, Brovana which is on hold, Claritin 10 mg daily, Coreg is on hold, ferrous sulfate is 324 mg daily, he is on folic acid one daily. He has been started on IV heparin for the possibility of the clot having contributed to the ascites that have been acute on the chronic clot. This was a concern that the instrumentation specialist had so we have started the patient on heparin. The patient is also started on octreotide IV to decrease the portal venous pressure, Pepcid 20 mg daily, Lidoderm 5 mg three times a day, Pulmicort inhaled twice a day, the patient is on IV fluids at 60 mL an hour, he is on Synthroid 25 mcg daily, Tylenol p.r.n., vitamin E 400 mg one unit daily, the patient is also on Rifaximin 550 mg b.i.d., and one dose of Zosyn was given 2.25 mg IV. LABORATORY DATA: Reveals sodium of 140, potassium of 4.8, chloride 114, BUN is 47, creatinine is 3.3, bicarb is 16, glucose is 93, calcium is 8.3, total bili is 3, AST is 206, ALT is 50, alk phos is 99, albumin is 2.8. Hemoglobin is 11.4, hematocrit is 34, white count is 10.9, platelet count is 130,000. INR s 2.12. Blood cultures have been negative so far. Chest x-ray shows no active disease. ASSESSMENT, NOTES, AND PLAN: This is a 68-year-old male, cirrhotic with ascites, portal vein thrombosis part of which is recanalized where an acute component is possible, cardiac valvular disease, pulmonary hypertension along with portal hypertension, cirrhosis of the liver probably alcohol related because there are no underlying lesions per se seen in the cirrhotic liver. The patient has been started on IV fluids and is being transferred to the unit for further intensive management. The patient has been started on IV heparin for at least ruling out the possibility of an acute component of a clot in the portal vein that may be contributing to some degree to the ascites. The patient is being monitored by Pulmonology along with Nephrology, Infectious Disease as well. We will follow the patient with you and make appropriate recommendations. For now, the patient is going to continue the heparin and we are going to monitor the platelets and the hemoglobin over the next 72 hours. Concern is the patient may go into hepatorenal syndrome for which albumin or saline infusions may have to be given. Time spent with the patient and the family, specifically the was more than 45 minutes discussing all the findings with the family. Kevin Hills MD
[2019-01-02 04:47] LABS: ALB/GLOB RATIO 1.4 (1.1-1.8); ALBUMIN 4.3 g/dL (3.0-4.8); CALCIUM 8.8 mg/dL (8.4-10.5)
[2019-01-02 04:50] LABS: HEMOGLOBIN 9.1 g/dL (14.0-18.0); MEAN CELL VOLUME 101.6 fl (80.0-105.0); MEAN CORPUSCULAR HEMOGLOBIN 35.7 pg (25.0-35.0); MEAN CORPUSCULAR HGB CONC 35.1 g/dl (31.0-37.0); MEAN PLATELET VOLUME 13.1 fl (7.0-11.0); RBC 2.55 10^6/uL (3.5-6.1); WHITE BLOOD COUNT 12.9 10^3/uL (4.5-11.0)
[2019-01-02] MEDS: Arformoterol 15 mcg/2 ml Inh Sol IH SCH ×3 (06:27→20:08)
[2019-01-02] MEDS: Budesonide 0.5 mg/2 ml Inhal Susp UD IH SCH ×3 (06:27→20:04)
[2019-01-02] MEDS: Insulin Reg-LOW-Coverage SC SCH ×4 (07:30→22:00)
[2019-01-02] MEDS ORDERED: cefTRIAXone 1 gm 1 GM/100 ML BAG IVPB SCH (10:00)
[2019-01-02] MEDS: Levothyroxine 25 MCG TAB PO SCH (10:46)
--- NOTE | 2019-01-02 10:51 | CP.PCM.PN ---
Subjective - Date & Time of Evaluation Date of Evaluation: 01/02/19 Time of Evaluation: 10:23 - Subjective Subjective: 68 year old male with a history of Laennec's cirrhosis, abstinent 6 years. Possible portal vein thrombosis during late 2018 when he was admitted for diuretic related dehydration after starting treatment for lower extremity edema, after which he developed ascites. In retrospect, he may have developed portal vein thrombosis at that time. His diuretics were increased and he was mostly recently admited for encephalopathy. He was treated with lactulose after diuretics stopped, he underwent a paracentesis, and developed diarrhea possibly decreasing intravascular volume. His cultures have been negative. He has since had worsening renal function, with oliguria. He appears to have FANNY, hepatorenal or a combination of both. He was started on somatostatin, dopamine, with poor response. Objective - Vital Signs/Intake and Output Vital Signs (last 24 hours): Temp Pulse Resp BP Pulse Ox 98 F 56 L 19 120/51 L 100 01/02/19 00:00 01/02/19 06:40 01/02/19 06:40 01/02/19 06:01 01/02/19 06:40 Intake and Output: 01/02/19 01/02/19 06:59 18:59 Intake Total 758 100 Output Total 5 Balance 753 100 - Medications Medications: Current Medications Arformoterol Tartrate (Brovana) 15 mcg IH [id number] [facility] Last Admin: 01/02/19 06:27 Dose: 15 mcg Budesonide (Pulmicort Respules) 0.5 mg IH [id number] [facility] Last Admin: 01/02/19 06:27 Dose: 0.5 mg Famotidine (Pepcid) 20 mg PO HS [facility] Last Admin: 01/01/19 22:10 Dose: 20 mg Ferrous Sulfate (Feosol) 324 mg PO DAILY [facility] Last Admin: 01/01/19 09:33 Dose: 324 mg Folic Acid (Folic Acid) 1 mg PO DAILY [facility] Last Admin: 01/01/19 09:33 Dose: 1 mg Octreotide Acetate 1,250 mcg/ (Dextrose) 252.5 mls @ 10.1 mls/hr IV .Q24H [facility]; Protocol Last Admin: 01/01/19 09:32 Dose: 50 mcg/hr, 10.1 mls/hr Heparin Sodium/Sodium Chloride (Heparin 27474 Units/250ml 1/2 Normal Saline) 25,000 units in 250 mls @ 12.002 mls/hr IV .[id number] PRN; Protocol PRN Reason: ADJUST RATE PER PROTOCOL Last Titration: 01/02/19 08:44 Dose: 0 units/kg/hr, 0 mls/hr Sodium Chloride (Sodium Chloride 0.9%) 1,000 mls @ 80 mls/hr IV .[id number] [facility] Last Admin: 01/01/19 20:00 Dose: 80 mls/hr Dopamine HCl/Dextrose (Dopamine 400mg/250ml D5w) 400 mg in 250 mls @ 12.502 mls/hr IV .Q20H PRN; Protocol PRN Reason: TITRATE PER MD ORDERS Last Titration: 01/02/19 02:00 Dose: 3 mcg/kg/min, 7.501 mls/hr Meropenem/Sodium Chloride (Merrem Iv 500 Mg/Ns 50 Ml) 500 mg in 50 mls @ 100 mls/hr IVPB Q12 [facility]; Protocol Stop: 01/08/19 23:31 Last Admin: 01/02/19 00:03 Dose: 100 mls/hr Insulin Human Regular (Humulin R Low) 0 units SC ACHS [facility]; Protocol Last Admin: 01/02/19 07:30 Dose: Not Given Levothyroxine Sodium (Synthroid) 25 mcg PO ACB [facility] Last Admin: 01/01/19 09:34 Dose: 25 mcg Midodrine (Proamatine) 5 mg PO TID [facility] Last Admin: 01/01/19 17:51 Dose: 5 mg Rifaximin (Xifaxan) 550 mg PO BID [facility]; Protocol Last Admin: 01/01/19 17:49 Dose: 550 mg Vitamin E (Vitamin E 400 Units Cap) 400 intlu PO DAILY [facility] Last Admin: 01/01/19 09:32 Dose: 400 intlu - Labs Labs: 01/02/19 04:05 01/02/19 04:05 PT 27.0 SECONDS (9.4-12.5) H 01/01/19 19:30 INR 2.43 01/01/19 19:30 APTT > 400.0 Seconds (26.9-38.3) H* 01/02/19 04:05 - Constitutional Appears: Unkempt, Cachectic, Chronically Ill - Head Exam Head Exam: ATRAUMATIC, NORMAL INSPECTION, NORMOCEPHALIC - Respiratory Exam Respiratory Exam: Decreased Breath Sounds, NORMAL BREATHING PATTERN - Cardiovascular Exam Cardiovascular Exam: Bradycardia - GI/Abdominal Exam GI & Abdominal Exam: Distended Additional comments: tense ascites - Extremities Exam Extremities Exam: Joint Swelling, Pedal Edema Additional comments: anasarca - Neurological Exam Neurological Exam: Alert, Awake Assessment and Plan (1) Hepatorenal syndrome Assessment & Plan: Need to normalize distribution of blood flow. Dialysis alone is not likely to help him. He is a poor TIPSS candidate at present. Will place temporary peritoneal venous shunt today, and convert to permenent when kit available. Spoke to , ICU team, and nephrology Status: Acute (2) Portal vein thrombosis Assessment & Plan: PPT too high, hold for OR Status: Acute (3) Hepatic encephalopathy Assessment & Plan: On xifaxan and controlled Status: Acute (4) Sepsis Assessment & Plan: No evidence of sepsis...yet Status: Acute
--- NOTE | 2019-01-02 11:07 | CP.CCUPN ---
<Salvatore Mendez - Last Filed: 01/02/19 10:58> CCU Subjective - Physician Review Subjective (Free Text): 01/02/19 10:59 Salvatore Mendez, PGY-1 ICU Progress Note: Pt was seen and examined this AM at bedside. Pt had no acute overnight events. Pt continues to deny any fevers, chills, chest pain, SOB, cough, abd pain, n/v, c/d or dysuria. He denies any other acute complaints at this time. CCU Objective - Vital Signs / Intake & Output Intake and Output (Last 8hrs): Intake & Output 01/01/19 01/02/19 01/02/19 22:59 06:59 14:59 Intake Total 750 8 100 Output Total 5 Balance 745 8 100 Weight 149 lb 12.8 oz Intake: IV 650 8 100 Left Upper arm 600 Oral 100 Output: Urine 5 Urethral (Diaz) 5 - Physical Exam Head: Positive for: Atraumatic, Normocephalic Pupils: Positive for: PERRL Extroacular Muscles: Positive for: EOMI Conjunctiva: Positive for: Icteric Mouth: Positive for: Moist Mucous Membranes Neck: Positive for: Normal Range of Motion Respiratory/Chest: Positive for: Clear to Auscultation, Good Air Exchange. Negative for: Respiratory Distress, Accessory Muscle Use Cardiovascular: Positive for: Regular Rate and Rhythm, Normal S1, S2. Negative for: Murmurs Abdomen: Positive for: Distention (Tense and distended abdomen. Ascites. ). Negative for: Peritoneal Signs Back: Positive for: Normal Inspection. Negative for: CVA Tenderness Upper Extremity: Positive for: Normal Inspection. Negative for: Cyanosis, Edema Lower Extremity: Positive for: Normal Inspection. Negative for: Edema Neurological: Positive for: GCS=15, CN II-XII Intact, Speech Normal Skin: Positive for: Warm, Dry, Normal Color. Negative for: Rashes Psychiatric: Positive for: Alert, Oriented x 3, Normal Insight, Normal Concentration - Medications Active Medications: Active Medications Generic Name Dose Route Start Last Admin Trade Name Freq PRN Reason Stop Dose Admin Arformoterol Tartrate 15 mcg 12/27/18 20:00 01/02/19 06:27 Brovana IH 15 mcg [id number] SANDRA Administration Budesonide 0.5 mg 12/27/18 20:00 01/02/19 06:27 Pulmicort Respules IH 0.5 mg [id number] SANDRA Administration Famotidine 20 mg 12/27/18 22:00 01/01/19 22:10 Pepcid PO 20 mg HS SANDRA Administration Ferrous Sulfate 324 mg 12/28/18 10:00 01/02/19 10:45 Feosol PO Not Given DAILY SANDRA Folic Acid 1 mg 12/27/18 10:15 01/02/19 10:45 Folic Acid PO Not Given DAILY SANDRA Octreotide Acetate 1,250 mcg/ 252.5 mls @ 10.1 mls/hr 01/01/19 05:00 01/01/19 09:32 Dextrose IV 50 mcg/hr .Q24H SANDRA 10.1 mls/hr Administration Protocol 50 MCG/HR Heparin Sodium/Sodium Chloride 25,000 units in 250 mls @ 12.002 mls/hr 01/01/19 12:32 01/02/19 08:44 Heparin 50880 Units/250ml 1/2 Normal Saline IV 0 units/kg/hr .[id number] PRN 0 mls/hr ADJUST RATE PER PROTOCOL Titration Protocol 18 UNITS/KG/HR Sodium Chloride 1,000 mls @ 80 mls/hr 01/01/19 19:15 01/01/19 20:00 Sodium Chloride 0.9% IV 80 mls/hr .[id number] SANDRA Administration Dopamine HCl/Dextrose 400 mg in 250 mls @ 12.502 mls/hr 01/01/19 20:09 01/02/19 02:00 Dopamine 400mg/250ml D5w IV 3 mcg/kg/min .Q20H PRN 7.501 mls/hr TITRATE PER MD ORDERS Titration Protocol 5 MCG/KG/MIN Meropenem/Sodium Chloride 500 mg in 50 mls @ 100 mls/hr 01/01/19 23:30 01/02/19 00:03 Merrem Iv 500 Mg/Ns 50 Ml IVPB 01/08/19 23:31 100 mls/hr Q12 SANDRA Administration Protocol Insulin Human Regular 0 units 12/26/18 07:30 01/02/19 07:30 Humulin R Low SC Not Given ACHS SANDRA Protocol Levothyroxine Sodium 25 mcg 12/27/18 10:00 01/02/19 10:46 Synthroid PO Not Given ACB SANDRA Midodrine 5 mg 12/31/18 18:00 01/02/19 10:54 Proamatine PO 5 mg TID SANDRA Administration Rifaximin 550 mg 12/26/18 18:00 01/02/19 10:55 Xifaxan PO 550 mg BID SANDRA Administration Protocol Vitamin E 400 intlu 01/01/19 10:00 01/02/19 10:46 Vitamin E 400 Units Cap PO Not Given DAILY SANDRA - Patient Studies Lab Studies: Microbiology Studies 01/01/19 02:00 Blood Culture - Preliminary Blood-Venous Gram Negative Mg Gram Stain - Final 01/01/19 02:20 Blood Culture - Preliminary Blood-Venous NO GROWTH AFTER 24 HOURS Lab Studies 01/02/19 01/02/19 01/02/19 Range/Units 09:14 08:55 04:05 WBC 12.9 H (4.5-11.0) 10^3/uL RBC 2.55 L (3.5-6.1) 10^6/uL Hgb 9.1 L D (14.0-18.0) g/dL Hct 25.9 L (42.0-52.0) % MCV 101.6 (80.0-105.0) fl MCH 35.7 H (25.0-35.0) pg MCHC 35.1 (31.0-37.0) g/dl RDW 20.0 H (11.5-14.5) % Plt Count 97 L (120.0-450.0) 10^3/uL MPV 13.1 H (7.0-11.0) fl PT (9.4-12.5) SECONDS INR APTT (26.9-38.3) Seconds Factor II Activity (70-150) % Sodium (132-148) mmol/L Potassium (3.6-5.0) mmol/L Chloride (98-107) mmol/L Carbon Dioxide (21-33) mmol/L Anion Gap (10-20) BUN (7-21) mg/dL Creatinine (0.8-1.5) mg/dl Est GFR ( Amer) Est GFR (Non-Af Amer) POC Glucose (mg/dL) (65-110) mg/dL Random Glucose (70-110) mg/dL Calcium (8.4-10.5) mg/dL Total Bilirubin (0.2-1.3) mg/dL AST (17-59) U/L ALT (7-56) U/L Alkaline Phosphatase (38-126) U/L Ammonia (9-33) umol/L Total Protein (5.8-8.3) g/dL Albumin (3.0-4.8) g/dL Globulin gm/dL Albumin/Globulin Ratio (1.1-1.8) MTHFR DNA Mutation Anal MTHFR Interpretation MTHFR Reviewed By Blood Type O POSITIVE Blood Type Confirm O POSITIVE Antibody Screen Negative BBK History Checked No verified bt 01/02/19 01/02/19 01/02/19 Range/Units 04:05 04:05 04:05 WBC (4.5-11.0) 10^3/uL RBC (3.5-6.1) 10^6/uL Hgb (14.0-18.0) g/dL Hct (42.0-52.0) % MCV (80.0-105.0) fl MCH (25.0-35.0) pg MCHC (31.0-37.0) g/dl RDW (11.5-14.5) % Plt Count (120.0-450.0) 10^3/uL MPV (7.0-11.0) fl PT (9.4-12.5) SECONDS INR APTT > 400.0 H* (26.9-38.3) Seconds Factor II Activity (70-150) % Sodium 139 (132-148) mmol/L Potassium 5.3 H (3.6-5.0) mmol/L Chloride 110 H (98-107) mmol/L Carbon Dioxide 14 L (21-33) mmol/L Anion Gap 21 H (10-20) BUN 51 H (7-21) mg/dL Creatinine 4.1 H (0.8-1.5) mg/dl Est GFR ( Amer) 18 Est GFR (Non-Af Amer) 14 POC Glucose (mg/dL) (65-110) mg/dL Random Glucose 135 H (70-110) mg/dL Calcium 8.8 (8.4-10.5) mg/dL Total Bilirubin 3.6 H (0.2-1.3) mg/dL AST 108 H (17-59) U/L ALT 40 (7-56) U/L Alkaline Phosphatase 66 (38-126) U/L Ammonia 38 H (9-33) umol/L Total Protein 7.5 (5.8-8.3) g/dL Albumin 4.3 (3.0-4.8) g/dL Globulin 3.2 gm/dL Albumin/Globulin Ratio 1.4 (1.1-1.8) MTHFR DNA Mutation Anal MTHFR Interpretation MTHFR Reviewed By Blood Type Blood Type Confirm Antibody Screen BBK History Checked 01/01/19 01/01/19 01/01/19 Range/Units 21:37 19:30 17:51 WBC (4.5-11.0) 10^3/uL RBC (3.5-6.1) 10^6/uL Hgb (14.0-18.0) g/dL Hct (42.0-52.0) % MCV (80.0-105.0) fl MCH (25.0-35.0) pg MCHC (31.0-37.0) g/dl RDW (11.5-14.5) % Plt Count (120.0-450.0) 10^3/uL MPV (7.0-11.0) fl PT 27.0 H (9.4-12.5) SECONDS INR 2.43 APTT > 400.0 H* (26.9-38.3) Seconds Factor II Activity (70-150) % Sodium (132-148) mmol/L Potassium (3.6-5.0) mmol/L Chloride (98-107) mmol/L Carbon Dioxide (21-33) mmol/L Anion Gap (10-20) BUN (7-21) mg/dL Creatinine (0.8-1.5) mg/dl Est GFR ( Amer) Est GFR (Non-Af Amer) POC Glucose (mg/dL) 140 H 179 H (65-110) mg/dL Random Glucose (70-110) mg/dL Calcium (8.4-10.5) mg/dL Total Bilirubin (0.2-1.3) mg/dL AST (17-59) U/L ALT (7-56) U/L Alkaline Phosphatase (38-126) U/L Ammonia (9-33) umol/L Total Protein (5.8-8.3) g/dL Albumin (3.0-4.8) g/dL Globulin gm/dL Albumin/Globulin Ratio (1.1-1.8) MTHFR DNA Mutation Anal MTHFR Interpretation MTHFR Reviewed By Blood Type Blood Type Confirm Antibody Screen BBK History Checked 01/01/19 01/01/19 12/30/18 Range/Units 13:00 11:48 13:20 WBC (4.5-11.0) 10^3/uL RBC (3.5-6.1) 10^6/uL Hgb (14.0-18.0) g/dL Hct (42.0-52.0) % MCV (80.0-105.0) fl MCH (25.0-35.0) pg MCHC (31.0-37.0) g/dl RDW (11.5-14.5) % Plt Count (120.0-450.0) 10^3/uL MPV (7.0-11.0) fl PT 24.0 H (9.4-12.5) SECONDS INR 2.12 APTT (26.9-38.3) Seconds Factor II Activity 36 L (70-150) % Sodium (132-148) mmol/L Potassium (3.6-5.0) mmol/L Chloride (98-107) mmol/L Carbon Dioxide (21-33) mmol/L Anion Gap (10-20) BUN (7-21) mg/dL Creatinine (0.8-1.5) mg/dl Est GFR ( Amer) Est GFR (Non-Af Amer) POC Glucose (mg/dL) 158 H (65-110) mg/dL Random Glucose (70-110) mg/dL Calcium (8.4-10.5) mg/dL Total Bilirubin (0.2-1.3) mg/dL AST (17-59) U/L ALT (7-56) U/L Alkaline Phosphatase (38-126) U/L Ammonia (9-33) umol/L Total Protein (5.8-8.3) g/dL Albumin (3.0-4.8) g/dL Globulin gm/dL Albumin/Globulin Ratio (1.1-1.8) MTHFR DNA Mutation Anal MTHFR Interpretation MTHFR Reviewed By Blood Type Blood Type Confirm Antibody Screen BBK History Checked 12/30/18 Range/Units 13:20 WBC (4.5-11.0) 10^3/uL RBC (3.5-6.1) 10^6/uL Hgb (14.0-18.0) g/dL Hct (42.0-52.0) % MCV (80.0-105.0) fl MCH (25.0-35.0) pg MCHC (31.0-37.0) g/dl RDW (11.5-14.5) % Plt Count (120.0-450.0) 10^3/uL MPV (7.0-11.0) fl PT (9.4-12.5) SECONDS INR APTT (26.9-38.3) Seconds Factor II Activity (70-150) % Sodium (132-148) mmol/L Potassium (3.6-5.0) mmol/L Chloride (98-107) mmol/L Carbon Dioxide (21-33) mmol/L Anion Gap (10-20) BUN (7-21) mg/dL Creatinine (0.8-1.5) mg/dl Est GFR ( Amer) Est GFR (Non-Af Amer) POC Glucose (mg/dL) (65-110) mg/dL Random Glucose (70-110) mg/dL Calcium (8.4-10.5) mg/dL Total Bilirubin (0.2-1.3) mg/dL AST (17-59) U/L ALT (7-56) U/L Alkaline Phosphatase (38-126) U/L Ammonia (9-33) umol/L Total Protein (5.8-8.3) g/dL Albumin (3.0-4.8) g/dL Globulin gm/dL Albumin/Globulin Ratio (1.1-1.8) MTHFR DNA Mutation Anal see note H MTHFR Interpretation see note MTHFR Reviewed By see note Blood Type Blood Type Confirm Antibody Screen BBK History Checked Laboratory Results - last 24 hr 12/30/18 12/30/18 01/01/19 13:20 13:20 11:48 WBC RBC Hgb Hct MCV MCH MCHC RDW Plt Count MPV PT INR APTT Factor II Activity 36 L Sodium Potassium Chloride Carbon Dioxide Anion Gap BUN Creatinine Est GFR ( Amer) Est GFR (Non-Af Amer) POC Glucose (mg/dL) 158 H Random Glucose Calcium Total Bilirubin AST ALT Alkaline Phosphatase Ammonia Total Protein Albumin Globulin Albumin/Globulin Ratio MTHFR DNA Mutation Anal see note H MTHFR Interpretation see note MTHFR Reviewed By see note Blood Type Blood Type Confirm Antibody Screen BBK History Checked 01/01/19 01/01/19 01/01/19 13:00 17:51 19:30 WBC RBC Hgb Hct MCV MCH MCHC RDW Plt Count MPV PT 24.0 H 27.0 H INR 2.12 2.43 APTT > 400.0 H* Factor II Activity Sodium Potassium Chloride Carbon Dioxide Anion Gap BUN Creatinine Est GFR ( Amer) Est GFR (Non-Af Amer) POC Glucose (mg/dL) 179 H Random Glucose Calcium Total Bilirubin AST ALT Alkaline Phosphatase Ammonia Total Protein Albumin Globulin Albumin/Globulin Ratio MTHFR DNA Mutation Anal MTHFR Interpretation MTHFR Reviewed By Blood Type Blood Type Confirm Antibody Screen BBK History Checked 01/01/19 01/02/19 01/02/19 21:37 04:05 04:05 WBC RBC Hgb Hct MCV MCH MCHC RDW Plt Count MPV PT INR APTT Factor II Activity Sodium 139 Potassium 5.3 H Chloride 110 H Carbon Dioxide 14 L Anion Gap 21 H BUN 51 H Creatinine 4.1 H Est GFR ( Amer) 18 Est GFR (Non-Af Amer) 14 POC Glucose (mg/dL) 140 H Random Glucose 135 H Calcium 8.8 Total Bilirubin 3.6 H AST 108 H ALT 40 Alkaline Phosphatase 66 Ammonia 38 H Total Protein 7.5 Albumin 4.3 Globulin 3.2 Albumin/Globulin Ratio 1.4 MTHFR DNA Mutation Anal MTHFR Interpretation MTHFR Reviewed By Blood Type Blood Type Confirm Antibody Screen BBK History Checked 01/02/19 01/02/19 01/02/19 04:05 04:05 08:55 WBC 12.9 H RBC 2.55 L Hgb 9.1 L D Hct 25.9 L MCV 101.6 MCH 35.7 H MCHC 35.1 RDW 20.0 H Plt Count 97 L MPV 13.1 H PT INR APTT > 400.0 H* Factor II Activity Sodium Potassium Chloride Carbon Dioxide Anion Gap BUN Creatinine Est GFR ( Amer) Est GFR (Non-Af Amer) POC Glucose (mg/dL) Random Glucose Calcium Total Bilirubin AST ALT Alkaline Phosphatase Ammonia Total Protein Albumin Globulin Albumin/Globulin Ratio MTHFR DNA Mutation Anal MTHFR Interpretation MTHFR Reviewed By Blood Type O POSITIVE Blood Type Confirm Antibody Screen Negative BBK History Checked No verified bt 01/02/19 09:14 WBC RBC Hgb Hct MCV MCH MCHC RDW Plt Count MPV PT INR APTT Factor II Activity Sodium Potassium Chloride Carbon Dioxide Anion Gap BUN Creatinine Est GFR ( Amer) Est GFR (Non-Af Amer) POC Glucose (mg/dL) Random Glucose Calcium Total Bilirubin AST ALT Alkaline Phosphatase Ammonia Total Protein Albumin Globulin Albumin/Globulin Ratio MTHFR DNA Mutation Anal MTHFR Interpretation MTHFR Reviewed By Blood Type Blood Type Confirm O POSITIVE Antibody Screen BBK History Checked Fingerstick Blood Sugar Results: 140 Critical Care Progress Note - Nutrition Nutrition: Nutrition Category Date Time Status Liquid Diet [DIET] Diets 01/01/19 Breakfast Ordered Assessment/Plan - Assessment and Plan (Free Text) Assessment: 68 yo M with PMH of 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 Pt will go to OR today. 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 Renal: FANNY - F/u urine studies - Monitor electrolytes and replete as needed - Strict I's and O's - Nephrology following - Urology following Heme: - PTT is noted to be above 400 - Pt will be given 2 units FFP, repeat PT PTT at 12 - Will follow up with lowered PTT and hold heparin until after OR - Gram (-) mg in blood - Merrem on board - F/u ID recs - Ferrous sulfate - Monitor platelet count - Heme/onc following ID: - Merrem - ID following Endo: - ISS - Accuchecks - Synthroid - Maintain euglycemia Patient discussed in detail with Dr. Jeffery Mendez, PGY-1 <Devin Gil - Last Filed: 01/02/19 15:43> CCU Objective - Vital Signs / Intake & Output Intake and Output (Last 8hrs): Intake & Output 01/02/19 01/02/19 01/02/19 06:59 14:59 22:59 Intake Total 8 100 Balance 8 100 Weight 149 lb 12.8 oz Intake: IV 8 100 - Medications Active Medications: Active Medications Generic Name Dose Route Start Last Admin Trade Name Freq PRN Reason Stop Dose Admin Arformoterol Tartrate 15 mcg 12/27/18 20:00 01/02/19 06:27 Brovana IH 15 mcg [id number] SANDRA Administration Budesonide 0.5 mg 12/27/18 20:00 01/02/19 06:27 Pulmicort Respules IH 0.5 mg [id number] SANDRA Administration Famotidine 20 mg 12/27/18 22:00 01/01/19 22:10 Pepcid PO 20 mg HS SANDRA Administration Ferrous Sulfate 324 mg 12/28/18 10:00 01/02/19 10:45 Feosol PO Not Given DAILY SANDRA Folic Acid 1 mg 12/27/18 10:15 01/02/19 10:45 Folic Acid PO Not Given DAILY SANDRA Octreotide Acetate 1,250 mcg/ 252.5 mls @ 10.1 mls/hr 01/01/19 05:00 01/01/19 09:32 Dextrose IV 50 mcg/hr .Q24H SANDRA 10.1 mls/hr Administration Protocol 50 MCG/HR Heparin Sodium/Sodium Chloride 25,000 units in 250 mls @ 12.002 mls/hr 01/01/19 12:32 01/02/19 08:44 Heparin 83289 Units/250ml 1/2 Normal Saline IV 0 units/kg/hr .[id number] PRN 0 mls/hr ADJUST RATE PER PROTOCOL Titration Protocol 18 UNITS/KG/HR Dopamine HCl/Dextrose 400 mg in 250 mls @ 12.502 mls/hr 01/01/19 20:09 01/02/19 02:00 Dopamine 400mg/250ml D5w IV 3 mcg/kg/min .Q20H PRN 7.501 mls/hr TITRATE PER MD ORDERS Titration Protocol 5 MCG/KG/MIN Meropenem/Sodium Chloride 500 mg in 50 mls @ 100 mls/hr 01/01/19 23:30 01/02/19 00:03 Merrem Iv 500 Mg/Ns 50 Ml IVPB 01/08/19 23:31 100 mls/hr Q12 SANDRA Administration Protocol Insulin Human Regular 0 units 12/26/18 07:30 01/02/19 07:30 Humulin R Low SC Not Given ACHS SANDRA Protocol Levothyroxine Sodium 25 mcg 12/27/18 10:00 01/02/19 10:46 Synthroid PO Not Given ACB [facility] Midodrine 5 mg 12/31/18 18:00 01/02/19 10:54 Proamatine PO 5 mg TID SANDRA Administration Rifaximin 550 mg 12/26/18 18:00 01/02/19 10:55 Xifaxan PO 550 mg BID SANDRA Administration Protocol Vitamin E 400 intlu 01/01/19 10:00 01/02/19 10:46 Vitamin E 400 Units Cap PO Not Given DAILY SANDRA - Patient Studies Lab Studies: Microbiology Studies 01/01/19 02:00 Blood Culture - Preliminary Blood-Venous Gram Negative Mg Gram Stain - Final 01/01/19 02:20 Blood Culture - Preliminary Blood-Venous NO GROWTH AFTER 24 HOURS Lab Studies 01/02/19 01/02/19 01/02/19 Range/Units 12:30 12:30 10:56 WBC (4.5-11.0) 10^3/uL RBC (3.5-6.1) 10^6/uL Hgb (14.0-18.0) g/dL Hct (42.0-52.0) % MCV (80.0-105.0) fl MCH (25.0-35.0) pg MCHC (31.0-37.0) g/dl RDW (11.5-14.5) % Plt Count (120.0-450.0) 10^3/uL MPV (7.0-11.0) fl PT 20.1 H (9.4-12.5) SECONDS INR 1.78 APTT 37.3 (26.9-38.3) Seconds Factor II Activity (70-150) % Sodium 138 (132-148) mmol/L Potassium 5.3 H (3.6-5.0) mmol/L Chloride 108 H (98-107) mmol/L Carbon Dioxide 12 L (21-33) mmol/L Anion Gap 24 H (10-20) BUN 52 H (7-21) mg/dL Creatinine 4.1 H (0.8-1.5) mg/dl Est GFR ( Amer) 18 Est GFR (Non-Af Amer) 14 POC Glucose (mg/dL) 151 H (65-110) mg/dL Random Glucose 129 H (70-110) mg/dL Calcium 8.6 (8.4-10.5) mg/dL Total Bilirubin 4.0 H (0.2-1.3) mg/dL AST 115 H (17-59) U/L ALT 49 (7-56) U/L Alkaline Phosphatase 69 (38-126) U/L Ammonia (9-33) umol/L Total Protein 7.7 (5.8-8.3) g/dL Albumin 4.3 (3.0-4.8) g/dL Globulin 3.4 gm/dL Albumin/Globulin Ratio 1.3 (1.1-1.8) MTHFR DNA Mutation Anal MTHFR Interpretation MTHFR Reviewed By Blood Type Blood Type Confirm Antibody Screen BBK History Checked 01/02/19 01/02/19 01/02/19 Range/Units 09:14 08:55 07:19 WBC (4.5-11.0) 10^3/uL RBC (3.5-6.1) 10^6/uL Hgb (14.0-18.0) g/dL Hct (42.0-52.0) % MCV (80.0-105.0) fl MCH (25.0-35.0) pg MCHC (31.0-37.0) g/dl RDW (11.5-14.5) % Plt Count (120.0-450.0) 10^3/uL MPV (7.0-11.0) fl PT (9.4-12.5) SECONDS INR APTT (26.9-38.3) Seconds Factor II Activity (70-150) % Sodium (132-148) mmol/L Potassium (3.6-5.0) mmol/L Chloride (98-107) mmol/L Carbon Dioxide (21-33) mmol/L Anion Gap (10-20) BUN (7-21) mg/dL Creatinine (0.8-1.5) mg/dl Est GFR ( Amer) Est GFR (Non-Af Amer) POC Glucose (mg/dL) 146 H (65-110) mg/dL Random Glucose (70-110) mg/dL Calcium (8.4-10.5) mg/dL Total Bilirubin (0.2-1.3) mg/dL AST (17-59) U/L ALT (7-56) U/L Alkaline Phosphatase (38-126) U/L Ammonia (9-33) umol/L Total Protein (5.8-8.3) g/dL Albumin (3.0-4.8) g/dL Globulin gm/dL Albumin/Globulin Ratio (1.1-1.8) MTHFR DNA Mutation Anal MTHFR Interpretation MTHFR Reviewed By Blood Type O POSITIVE Blood Type Confirm O POSITIVE Antibody Screen Negative BBK History Checked No verified bt 01/02/19 01/02/19 01/02/19 Range/Units 04:05 04:05 04:05 WBC 12.9 H (4.5-11.0) 10^3/uL RBC 2.55 L (3.5-6.1) 10^6/uL Hgb 9.1 L D (14.0-18.0) g/dL Hct 25.9 L (42.0-52.0) % MCV 101.6 (80.0-105.0) fl MCH 35.7 H (25.0-35.0) pg MCHC 35.1 (31.0-37.0) g/dl RDW 20.0 H (11.5-14.5) % Plt Count 97 L (120.0-450.0) 10^3/uL MPV 13.1 H (7.0-11.0) fl PT (9.4-12.5) SECONDS INR APTT > 400.0 H* (26.9-38.3) Seconds Factor II Activity (70-150) % Sodium (132-148) mmol/L Potassium (3.6-5.0) mmol/L Chloride (98-107) mmol/L Carbon Dioxide (21-33) mmol/L Anion Gap (10-20) BUN (7-21) mg/dL Creatinine (0.8-1.5) mg/dl Est GFR ( Amer) Est GFR (Non-Af Amer) POC Glucose (mg/dL) (65-110) mg/dL Random Glucose (70-110) mg/dL Calcium (8.4-10.5) mg/dL Total Bilirubin (0.2-1.3) mg/dL AST (17-59) U/L ALT (7-56) U/L Alkaline Phosphatase (38-126) U/L Ammonia 38 H (9-33) umol/L Total Protein (5.8-8.3) g/dL Albumin (3.0-4.8) g/dL Globulin gm/dL Albumin/Globulin Ratio (1.1-1.8) MTHFR DNA Mutation Anal MTHFR Interpretation MTHFR Reviewed By Blood Type Blood Type Confirm Antibody Screen BBK History Checked 01/02/19 01/01/19 01/01/19 Range/Units 04:05 21:37 19:30 WBC (4.5-11.0) 10^3/uL RBC (3.5-6.1) 10^6/uL Hgb (14.0-18.0) g/dL Hct (42.0-52.0) % MCV (80.0-105.0) fl MCH (25.0-35.0) pg MCHC (31.0-37.0) g/dl RDW (11.5-14.5) % Plt Count (120.0-450.0) 10^3/uL MPV (7.0-11.0) fl PT 27.0 H (9.4-12.5) SECONDS INR 2.43 APTT > 400.0 H* (26.9-38.3) Seconds Factor II Activity (70-150) % Sodium 139 (132-148) mmol/L Potassium 5.3 H (3.6-5.0) mmol/L Chloride 110 H (98-107) mmol/L Carbon Dioxide 14 L (21-33) mmol/L Anion Gap 21 H (10-20) BUN 51 H (7-21) mg/dL Creatinine 4.1 H (0.8-1.5) mg/dl Est GFR ( Amer) 18 Est GFR (Non-Af Amer) 14 POC Glucose (mg/dL) 140 H (65-110) mg/dL Random Glucose 135 H (70-110) mg/dL Calcium 8.8 (8.4-10.5) mg/dL Total Bilirubin 3.6 H (0.2-1.3) mg/dL AST 108 H (17-59) U/L ALT 40 (7-56) U/L Alkaline Phosphatase 66 (38-126) U/L Ammonia (9-33) umol/L Total Protein 7.5 (5.8-8.3) g/dL Albumin 4.3 (3.0-4.8) g/dL Globulin 3.2 gm/dL Albumin/Globulin Ratio 1.4 (1.1-1.8) MTHFR DNA Mutation Anal MTHFR Interpretation MTHFR Reviewed By Blood Type Blood Type Confirm Antibody Screen BBK History Checked 01/01/19 12/30/18 12/30/18 Range/Units 17:51 13:20 13:20 WBC (4.5-11.0) 10^3/uL RBC (3.5-6.1) 10^6/uL Hgb (14.0-18.0) g/dL Hct (42.0-52.0) % MCV (80.0-105.0) fl MCH (25.0-35.0) pg MCHC (31.0-37.0) g/dl RDW (11.5-14.5) % Plt Count (120.0-450.0) 10^3/uL MPV (7.0-11.0) fl PT (9.4-12.5) SECONDS INR APTT (26.9-38.3) Seconds Factor II Activity 36 L (70-150) % Sodium (132-148) mmol/L Potassium (3.6-5.0) mmol/L Chloride (98-107) mmol/L Carbon Dioxide (21-33) mmol/L Anion Gap (10-20) BUN (7-21) mg/dL Creatinine (0.8-1.5) mg/dl Est GFR ( Amer) Est GFR (Non-Af Amer) POC Glucose (mg/dL) 179 H (65-110) mg/dL Random Glucose (70-110) mg/dL Calcium (8.4-10.5) mg/dL Total Bilirubin (0.2-1.3) mg/dL AST (17-59) U/L ALT (7-56) U/L Alkaline Phosphatase (38-126) U/L Ammonia (9-33) umol/L Total Protein (5.8-8.3) g/dL Albumin (3.0-4.8) g/dL Globulin gm/dL Albumin/Globulin Ratio (1.1-1.8) MTHFR DNA Mutation Anal see note H MTHFR Interpretation see note MTHFR Reviewed By see note Blood Type Blood Type Confirm Antibody Screen BBK History Checked Laboratory Results - last 24 hr 12/30/18 12/30/18 01/01/19 13:20 13:20 17:51 WBC RBC Hgb Hct MCV MCH MCHC RDW Plt Count MPV PT INR APTT Factor II Activity 36 L Sodium Potassium Chloride Carbon Dioxide Anion Gap BUN Creatinine Est GFR ( Amer) Est GFR (Non-Af Amer) POC Glucose (mg/dL) 179 H Random Glucose Calcium Total Bilirubin AST ALT Alkaline Phosphatase Ammonia Total Protein Albumin Globulin Albumin/Globulin Ratio MTHFR DNA Mutation Anal see note H MTHFR Interpretation see note MTHFR Reviewed By see note Blood Type Blood Type Confirm Antibody Screen BBK History Checked 01/01/19 01/01/19 01/02/19 19:30 21:37 04:05 WBC RBC Hgb Hct MCV MCH MCHC RDW Plt Count MPV PT 27.0 H INR 2.43 APTT > 400.0 H* Factor II Activity Sodium 139 Potassium 5.3 H Chloride 110 H Carbon Dioxide 14 L Anion Gap 21 H BUN 51 H Creatinine 4.1 H Est GFR ( Amer) 18 Est GFR (Non-Af Amer) 14 POC Glucose (mg/dL) 140 H Random Glucose 135 H Calcium 8.8 Total Bilirubin 3.6 H AST 108 H ALT 40 Alkaline Phosphatase 66 Ammonia Total Protein 7.5 Albumin 4.3 Globulin 3.2 Albumin/Globulin Ratio 1.4 MTHFR DNA Mutation Anal MTHFR Interpretation MTHFR Reviewed By Blood Type Blood Type Confirm Antibody Screen BBK History Checked 01/02/19 01/02/19 01/02/19 04:05 04:05 04:05 WBC 12.9 H RBC 2.55 L Hgb 9.1 L D Hct 25.9 L MCV 101.6 MCH 35.7 H MCHC 35.1 RDW 20.0 H Plt Count 97 L MPV 13.1 H PT INR APTT > 400.0 H* Factor II Activity Sodium Potassium Chloride Carbon Dioxide Anion Gap BUN Creatinine Est GFR ( Amer) Est GFR (Non-Af Amer) POC Glucose (mg/dL) Random Glucose Calcium Total Bilirubin AST ALT Alkaline Phosphatase Ammonia 38 H Total Protein Albumin Globulin Albumin/Globulin Ratio MTHFR DNA Mutation Anal MTHFR Interpretation MTHFR Reviewed By Blood Type Blood Type Confirm Antibody Screen BBK History Checked 01/02/19 01/02/19 01/02/19 07:19 08:55 09:14 WBC RBC Hgb Hct MCV MCH MCHC RDW Plt Count MPV PT INR APTT Factor II Activity Sodium Potassium Chloride Carbon Dioxide Anion Gap BUN Creatinine Est GFR ( Amer) Est GFR (Non-Af Amer) POC Glucose (mg/dL) 146 H Random Glucose Calcium Total Bilirubin AST ALT Alkaline Phosphatase Ammonia Total Protein Albumin Globulin Albumin/Globulin Ratio MTHFR DNA Mutation Anal MTHFR Interpretation MTHFR Reviewed By Blood Type O POSITIVE Blood Type Confirm O POSITIVE Antibody Screen Negative BBK History Checked No verified bt 01/02/19 01/02/19 01/02/19 10:56 12:30 12:30 WBC RBC Hgb Hct MCV MCH MCHC RDW Plt Count MPV PT 20.1 H INR 1.78 APTT 37.3 Factor II Activity Sodium 138 Potassium 5.3 H Chloride 108 H Carbon Dioxide 12 L Anion Gap 24 H BUN 52 H Creatinine 4.1 H Est GFR ( Amer) 18 Est GFR (Non-Af Amer) 14 POC Glucose (mg/dL) 151 H Random Glucose 129 H Calcium 8.6 Total Bilirubin 4.0 H AST 115 H ALT 49 Alkaline Phosphatase 69 Ammonia Total Protein 7.7 Albumin 4.3 Globulin 3.4 Albumin/Globulin Ratio 1.3 MTHFR DNA Mutation Anal MTHFR Interpretation MTHFR Reviewed By Blood Type Blood Type Confirm Antibody Screen BBK History Checked Radiology Impressions: Radiology Impressions Renal Ultrasound 01/01/19 18:45 IMPRESSION: Unremarkable renal ultrasound. Ascites noted. 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 On midodrine, Octreotide and IVF Hepatobiliary, GI following Patient for OR today for placement of peritoneal shunt Afebrile, AAOx3, NAD, comfortable BP stable Cont with Midodrine, Octreotide Fs control Synthroid I/Os, follow up renal low salt diet GI ppx DVT ppx Monitor in MICU
[2019-01-02] MEDS ORDERED: Etomidate 20 mg/10ml Inj IV ONE (12:13)
[2019-01-02] MEDS ORDERED: Phenylephrine 10 mg/ml Inj ONE (12:15)
[2019-01-02] MEDS ORDERED: Bupivacaine 0.5% 50 ML IJ ONE (12:16)
[2019-01-02] MEDS ORDERED: Lidocaine 1% Inj (20ml) ONE (12:16)
[2019-01-02] MEDS ORDERED: Albuterol-Ipratrop 3 mg / 0.5 (3 ml) UD IH STA ×2 (12:21→17:36)
[2019-01-02] MEDS ORDERED: Albuterol-Ipratrop 3 mg / 0.5 (3 ml) UD ONE (12:26)
[2019-01-02 12:48] LABS: INR 1.78; PARTIAL THROMBOPLASTIN TIME 37.3 Seconds (26.9-38.3); PROTHROMBIN TIME 20.1 SECONDS (9.4-12.5)
[2019-01-02 12:58] LABS: ALB/GLOB RATIO 1.3 (1.1-1.8); ALBUMIN 4.3 g/dL (3.0-4.8); CALCIUM 8.6 mg/dL (8.4-10.5)
[2019-01-02] MEDS ORDERED: Midazolam 2 MG/2 ML VIAL ONE ×2 (13:17→13:18)
[2019-01-02] MEDS ORDERED: Esmolol 100 mg/10ml Inj IV ONE (13:19)
--- NOTE | 2019-01-02 13:46 | CP.PCM.PN ---
<Jeff Manzo - Last Filed: 01/02/19 13:48> Subjective - Date & Time of Evaluation Date of Evaluation: 01/02/19 Time of Evaluation: 09:00 - Subjective Subjective: PGY 5 GI Follow-up Pt seen and examined bedside Denies any abd pain decreased appetite reduced urine outpt ROS: 12 point ROS conducted, neg other than above Objective - Vital Signs/Intake and Output Vital Signs (last 24 hours): Temp Pulse Resp BP Pulse Ox 98 F 55 L 21 131/46 L 96 01/02/19 00:00 01/02/19 10:59 01/02/19 10:59 01/02/19 11:00 01/02/19 10:59 Intake and Output: 01/02/19 01/02/19 06:59 18:59 Intake Total 758 100 Output Total 5 Balance 753 100 - Medications Medications: Current Medications Arformoterol Tartrate (Brovana) 15 mcg IH [id number] [facility] Last Admin: 01/02/19 06:27 Dose: 15 mcg Budesonide (Pulmicort Respules) 0.5 mg IH [id number] [facility] Last Admin: 01/02/19 06:27 Dose: 0.5 mg Famotidine (Pepcid) 20 mg PO HS [facility] Last Admin: 01/01/19 22:10 Dose: 20 mg Ferrous Sulfate (Feosol) 324 mg PO DAILY [facility] Last Admin: 01/02/19 10:45 Dose: Not Given Folic Acid (Folic Acid) 1 mg PO DAILY [facility] Last Admin: 01/02/19 10:45 Dose: Not Given Glycopyrrolate (Robinul) Confirm Administered Dose 0.2 mg .ROUTE .STK-MED ONE Stop: 01/02/19 13:46 Octreotide Acetate 1,250 mcg/ (Dextrose) 252.5 mls @ 10.1 mls/hr IV .Q24H [facility]; Protocol Last Admin: 01/01/19 09:32 Dose: 50 mcg/hr, 10.1 mls/hr Heparin Sodium/Sodium Chloride (Heparin 14506 Units/250ml 1/2 Normal Saline) 25,000 units in 250 mls @ 12.002 mls/hr IV .[id number] PRN; Protocol PRN Reason: ADJUST RATE PER PROTOCOL Last Titration: 01/02/19 08:44 Dose: 0 units/kg/hr, 0 mls/hr Sodium Chloride (Sodium Chloride 0.9%) 1,000 mls @ 80 mls/hr IV .[id number] [facility] Last Admin: 01/01/19 20:00 Dose: 80 mls/hr Dopamine HCl/Dextrose (Dopamine 400mg/250ml D5w) 400 mg in 250 mls @ 12.502 mls/hr IV .Q20H PRN; Protocol PRN Reason: TITRATE PER MD ORDERS Last Titration: 01/02/19 02:00 Dose: 3 mcg/kg/min, 7.501 mls/hr Meropenem/Sodium Chloride (Merrem Iv 500 Mg/Ns 50 Ml) 500 mg in 50 mls @ 100 mls/hr IVPB Q12 [facility]; Protocol Stop: 01/08/19 23:31 Last Admin: 01/02/19 00:03 Dose: 100 mls/hr Insulin Human Regular (Humulin R Low) 0 units SC ACHS [facility]; Protocol Last Admin: 01/02/19 07:30 Dose: Not Given Levothyroxine Sodium (Synthroid) 25 mcg PO ACB [facility] Last Admin: 01/02/19 10:46 Dose: Not Given Midodrine (Proamatine) 5 mg PO TID [facility] Last Admin: 01/02/19 10:54 Dose: 5 mg Rifaximin (Xifaxan) 550 mg PO BID [facility]; Protocol Last Admin: 01/02/19 10:55 Dose: 550 mg Vitamin E (Vitamin E 400 Units Cap) 400 intlu PO DAILY [facility] Last Admin: 01/02/19 10:46 Dose: Not Given - Labs Labs: 01/02/19 04:05 01/02/19 12:30 PT 20.1 SECONDS (9.4-12.5) H 01/02/19 12:30 INR 1.78 01/02/19 12:30 APTT 37.3 Seconds (26.9-38.3) 01/02/19 12:30 - Constitutional Appears: No Acute Distress, Chronically Ill - Head Exam Head Exam: ATRAUMATIC, NORMOCEPHALIC - Eye Exam Eye Exam: Normal appearance - ENT Exam ENT Exam: Mucous Membranes Moist, Normal Exam - Neck Exam Neck Exam: Normal Inspection - Respiratory Exam Respiratory Exam: Clear to Ausculation Bilateral, NORMAL BREATHING PATTERN. absent: Rales, Rhonchi, Wheezes, Respiratory Distress - Cardiovascular Exam Cardiovascular Exam: REGULAR RHYTHM, +S1, +S2 - GI/Abdominal Exam GI & Abdominal Exam: Distended, Normal Bowel Sounds. absent: Firm, Guarding, Rigid, Tenderness, Organomegaly, Pulsatile Mass, Rebound Additional comments: shifting fluid - Extremities Exam Extremities Exam: Pedal Edema. 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 Prior EGD 10/2018 showed lower third of esophagus small varices. No prior colonoscopy. Decompensated cirrhosis 2/2 ascites, HE; MELD-na 01/02/19: 31 Grade 2 hepatic encephalopathy (resolved) Partial portal vein thrombosis Renal Failure; failed fluid resusitation; DDx: HRS vs Post renal from increased intrabd pressure E. Coli bacteremia Plan: -will hold on colonoscopy as pt is not medically optimized, will consider again once renal function improves -HRS protocol initiated, by hepatobiliary -currently on midrodrine, albumin, octreotide, agree with continuing -since pt has bush consider measuring intraabd pressure, renal failure may be 2/2 post renal -recommend [place] paracentesis -could consider additional urinalysis to differential HRS vs Prerenal (urine sodium, urine vs serum osmol) -continue to monitor renal function -continue xifaxan, would hold lactulose due to diarrhea -continue to hold all nephrotoxic drugs including diuretics, tran inhib, and NSAIDs -agree with nephrology consult -on merem asd per ID -will defer PVT treatment to Hepatobiliary and hem/onc Case discussed with Dr. Godoy <Julian Godoy V - Last Filed: 01/02/19 23:34> Objective - Vital Signs/Intake and Output Vital Signs (last 24 hours): Temp Pulse Resp BP Pulse Ox 98 F 78 20 114/39 L 93 L 01/02/19 00:00 01/02/19 19:00 01/02/19 19:00 01/02/19 19:00 01/02/19 19:00 Intake and Output: 01/02/19 01/03/19 18:59 06:59 Intake Total 1957 Output Total 1600 Balance 357 - Medications Medications: Current Medications Albuterol/Ipratropium (Duoneb 3 Mg/0.5 Mg (3 Ml) Ud) 3 ml IH [id number] PRN PRN Reason: Shortness of Breath Arformoterol Tartrate (Brovana) 15 mcg IH [id number] [facility] Last Admin: 01/02/19 20:08 Dose: 15 mcg Budesonide (Pulmicort Respules) 0.5 mg IH [id number] [facility] Last Admin: 01/02/19 20:04 Dose: 0.5 mg Famotidine (Pepcid) 20 mg PO HS [facility] Last Admin: 01/02/19 22:05 Dose: 20 mg Ferrous Sulfate (Feosol) 324 mg PO DAILY [facility] Last Admin: 01/02/19 10:45 Dose: Not Given Folic Acid (Folic Acid) 1 mg PO DAILY [facility] Last Admin: 01/02/19 10:45 Dose: Not Given Octreotide Acetate 1,250 mcg/ (Dextrose) 252.5 mls @ 10.1 mls/hr IV .Q24H [facility]; Protocol Last Admin: 01/01/19 09:32 Dose: 50 mcg/hr, 10.1 mls/hr Heparin Sodium/Sodium Chloride (Heparin 53890 Units/250ml 1/2 Normal Saline) 2 5,000 units in 250 mls @ 12.002 mls/hr IV .[id number] PRN; Protocol PRN Reason: ADJUST RATE PER PROTOCOL Last Titration: 01/02/19 08:44 Dose: 0 units/kg/hr, 0 mls/hr Dopamine HCl/Dextrose (Dopamine 400mg/250ml D5w) 400 mg in 250 mls @ 12.502 mls/hr IV .Q20H PRN; Protocol PRN Reason: TITRATE PER MD ORDERS Last Titration: 01/02/19 15:47 Dose: 5 mcg/kg/min, 12.502 mls/hr Meropenem/Sodium Chloride (Merrem Iv 500 Mg/Ns 50 Ml) 500 mg in 50 mls @ 100 mls/hr IVPB Q12 [facility]; Protocol Stop: 01/08/19 23:31 Last Admin: 01/02/19 22:00 Dose: 100 mls/hr Insulin Human Regular (Humulin R Low) 0 units SC ACHS [facility]; Protocol Last Admin: 01/02/19 22:00 Dose: Not Given Levothyroxine Sodium (Synthroid) 25 mcg PO ACB [facility] Last Admin: 01/02/19 10:46 Dose: Not Given Midodrine (Proamatine) 5 mg PO TID [facility] Last Admin: 01/02/19 18:40 Dose: Not Given Rifaximin (Xifaxan) 550 mg PO BID [facility]; Protocol Last Admin: 01/02/19 18:45 Dose: 550 mg Vitamin E (Vitamin E 400 Units Cap) 400 intlu PO DAILY [facility] Last Admin: 01/02/19 10:46 Dose: Not Given - Labs Labs: 01/02/19 16:00 01/02/19 18:26 PT 21.4 SECONDS (9.4-12.5) H 01/02/19 16:00 INR 1.93 01/02/19 16:00 APTT 40.2 Seconds (26.9-38.3) H 01/02/19 16:00 Attending/Attestation - Attestation I have personally seen and examined this patient.: Yes I have fully participated in the care of the patient.: Yes I have reviewed all pertinent clinical information, including history, physical exam and plan: Yes Notes (Text): This is an addendum to GI progress report dictated by the GI Fellow. The patient was seen and examined earlier. Medical records, lab studies, imagings were reviewed. Last 24 hours events reviewed. Agreed with the above treatment plan as outlined in GI Fellow 's notes with the addition of the following 01/02/19 23:31
[2019-01-02] MEDS ORDERED: ePHEDrine 50 mg/ml Inj ONE (13:50)
--- NOTE | 2019-01-02 15:01 | PN ---
DATE: 01/02/2019 Pulmonary Critical Care Progress Note REFERRING PHYSICIAN: Jewell Martinez MD SUBJECTIVE: He is lying in bed. Head up at 45 degrees. Mildly short of breath. No cough. No sputum production. No nausea, no vomiting. Distended abdomen. Normal urine output. No leg swelling. OBJECTIVE: GENERAL: No acute distress. VITAL SIGNS: Temperature 98, heart rate is 55, respiratory rate is 20, blood pressure 131/46, pulse oximetry is 96% on 3 L nasal cannula. HEENT: Moist mucous membranes. Crowded airway. NECK: Supple. No JVD. LUNGS: Have fair airflow with rhonchi. HEART: S1, S2. ABDOMEN: Distended, has ascites. EXTREMITIES: There is no edema. NEUROLOGIC: Awake and alert. Follows simple command. MEDICATIONS: He is twice a day, he is on dopamine, also getting ferrous sulfate 324 mg daily, folic acid 1 mg daily, he is on IV heparin, insulin coverage, also getting meropenem 500 mg every 12 hours, octreotide IV drip, Pepcid 20 mg at bedtime, midodrine 5 mg 3 times a day, Pulmicort inhaled twice a day, normal saline 80 mL/hr, Synthroid 25 mcg a.c.b., vitamin E 400 international units daily, Xifaxan 550 mg twice a day. LABORATORY DATA: Shows hemoglobin 9.1, hematocrit 25.9, WBC 12.9, platelet count is 97. His PTT is over 400, sodium 139, potassium 5.3, chloride 110, bicarbonate 14, BUN 51, creatinine 4.1, glucose 135, calcium 8.8. AST 108, ALT 40, alk phos is 66, albumin is 4.3. Blood culture was done, 1 out of 2, has a Gram-negative josephine. IMPRESSION AND PLAN: Chronic obstructive lung disease, sleep apnea syndrome, cardiomyopathy, valvular heart disease, pulmonary hypertension, portal hypertension, partially occluded portal vein cirrhotic liver. At present, it seems like hepatorenal syndrome with increased BUN, creatinine. Anemia. The patient is being followed by interior decorator painting, manager review. Continue IV fluids. Watch for heart failure, also has significant valvular heart disease, being followed by Cardiology. Pulmonary point of view, encouraged by bronchodilator, gastric prophylaxis, on anticoagulation. Overall poor prognosis. Follow up ABG, chest x-ray, CBC, CMP in the morning. Critical care Thank you and we will follow with you. Alfonso Ansari MD
--- NOTE | 2019-01-02 15:12 | US ---
Date of service: 01/01/2019 PROCEDURE: Ultrasound of the Kidneys HISTORY: acute renal failure COMPARISON: None available. TECHNIQUE: Sonogram of the kidneys. FINDINGS: RIGHT KIDNEY: Measures: 9.6 cm. Normal in size, contour and echogenicity. No stone, solid mass lesion or hydronephrosis visualized. LEFT KIDNEY: Measures: 10.2 cm. Normal in size, contour and echogenicity. No stone, solid mass lesion or hydronephrosis visualized. OTHER FINDINGS: Ascites IMPRESSION: Unremarkable renal ultrasound. Ascites noted.
--- NOTE | 2019-01-02 15:17 | PCM.SURG1 ---
<Mehdi Lopez - Last Filed: 01/02/19 15:14> Surgeon's Initial Post Op Note - Surgeon's Notes Surgeon: Dr. Martinez Restaurant Inspector: Jessica PGY2 Type of Anesthesia: IV Sedation, Local Anesthesia Administered By: Dr. Martinez Pre-Operative Diagnosis: Hepato-Renal Syndrome. Acute Kidney Injury Operative Findings: See operative report Post-Operative Diagnosis: same Operation Performed: Peritoneal Dialysis Catheter. Right Femoral temporary Triple lumen dialysis catheter Specimen/Specimens Removed: None Estimated Blood Loss: EBL {In ML}: 50 Blood Products Given: N/A Drains Used: No Drains Post-Op Condition: Fair Date of Surgery/Procedure: 01/02/19 Time of Surgery/Procedure: 15:18 <Rob Hickman - Last Filed: 01/03/19 08:45> Surgeon's Initial Post Op Note - Surgeon's Notes Operation Performed: Ultrasound guided placement of right femoral triple lumen dialysis catheter and ultrasound guided placement of peritoneal dialysis catheter
--- NOTE | 2019-01-02 15:28 | CP.PCM.PCO ---
Physician Communication Note - Physician Communication Note Physician Communication Note: Hepatorenal syndrome,s/p peritoneal venous shunt placement,on Dopamine gtt,
[2019-01-02 16:18] LABS: BASO # 0.02 K/mm3 (0.0-2.0); BASO % 0.1 % (0.0-3.0); EOS % 0.1 % (1.5-5.0); HEMOGLOBIN 8.7 g/dL (14.0-18.0); LYMPH # 1.4 (1.2-3.4); LYMPH % 10.1 % (22.0-35.0); MEAN CELL VOLUME 102.8 fl (80.0-105.0); MEAN CORPUSCULAR HEMOGLOBIN 34.5 pg (25.0-35.0); MEAN CORPUSCULAR HGB CONC 33.6 g/dl (31.0-37.0); MEAN PLATELET VOLUME 12.8 fl (7.0-11.0); MONO # 1.3 (0.1-0.6); RBC 2.52 10^6/uL (3.5-6.1); RED CELL DISTRIBUTION WIDTH 19.9 % (11.5-14.5); WHITE BLOOD COUNT 13.9 10^3/uL (4.5-11.0)
[2019-01-02 16:26] LABS: INR 1.93; PARTIAL THROMBOPLASTIN TIME 40.2 Seconds (26.9-38.3); PROTHROMBIN TIME 21.4 SECONDS (9.4-12.5)
[2019-01-02 16:45] LABS: ALB/GLOB RATIO 1.1 (1.1-1.8); CALCIUM 8.8 mg/dL (8.4-10.5)
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
[2019-01-02] MEDS ORDERED: Sodium Bicarbonate 8.4% 150 MEQ in Dextrose 5% In Water 1,000 ML IV SCH (17:45)
[2019-01-02 19:09] LABS: ALB/GLOB RATIO 1.2 (1.1-1.8); ALBUMIN 4.2 g/dL (3.0-4.8); CALCIUM 8.7 mg/dL (8.4-10.5)
--- NOTE | 2019-01-02 19:54 | CP.PCM.PN ---
<SonaJohn - Last Filed: 01/02/19 19:49> Subjective - Date & Time of Evaluation Date of Evaluation: 01/02/19 Time of Evaluation: 09:30 - Subjective Subjective: Nephrology progress note - Sona PGY - 2 Patient seen and examined at bedside. No acute complaints, patient for OR today for peritoneal-venous shunt. We explained the potential for dialysis to patient and his , both of whom understood the risks and benefits involved. Objective - Vital Signs/Intake and Output Vital Signs (last 24 hours): Temp Pulse Resp BP Pulse Ox 98 F 78 20 114/39 L 93 L 01/02/19 00:00 01/02/19 19:00 01/02/19 19:00 01/02/19 19:00 01/02/19 19:00 Intake and Output: 01/02/19 01/03/19 18:59 06:59 Intake Total 1957 Output Total 1600 Balance 357 - Medications Medications: Current Medications Albuterol/Ipratropium (Duoneb 3 Mg/0.5 Mg (3 Ml) Ud) 3 ml IH [id number] PRN PRN Reason: Shortness of Breath Arformoterol Tartrate (Brovana) 15 mcg IH [id number] [facility] Last Admin: 01/02/19 17:40 Dose: Not Given Budesonide (Pulmicort Respules) 0.5 mg IH [id number] [facility] Last Admin: 01/02/19 17:41 Dose: Not Given Famotidine (Pepcid) 20 mg PO HS [facility] Last Admin: 01/01/19 22:10 Dose: 20 mg Ferrous Sulfate (Feosol) 324 mg PO DAILY [facility] Last Admin: 01/02/19 10:45 Dose: Not Given Folic Acid (Folic Acid) 1 mg PO DAILY [facility] Last Admin: 01/02/19 10:45 Dose: Not Given Octreotide Acetate 1,250 mcg/ (Dextrose) 252.5 mls @ 10.1 mls/hr IV .Q24H [facility]; Protocol Last Admin: 01/01/19 09:32 Dose: 50 mcg/hr, 10.1 mls/hr Heparin Sodium/Sodium Chloride (Heparin 26463 Units/250ml 1/2 Normal Saline) 25,000 units in 250 mls @ 12.002 mls/hr IV .[id number] PRN; Protocol PRN Reason: ADJUST RATE PER PROTOCOL Last Titration: 01/02/19 08:44 Dose: 0 units/kg/hr, 0 mls/hr Dopamine HCl/Dextrose (Dopamine 400mg/250ml D5w) 400 mg in 250 mls @ 12.502 mls/hr IV .Q20H PRN; Protocol PRN Reason: TITRATE PER MD ORDERS Last Titration: 01/02/19 15:47 Dose: 5 mcg/kg/min, 12.502 mls/hr Meropenem/Sodium Chloride (Merrem Iv 500 Mg/Ns 50 Ml) 500 mg in 50 mls @ 100 mls/hr IVPB Q12 [facility]; Protocol Stop: 01/08/19 23:31 Last Admin: 01/02/19 00:03 Dose: 100 mls/hr Sodium Bicarbonate 150 meq/ (Dextrose) 1,150 mls @ 60 mls/hr IV .[id number] [facility] Insulin Human Regular (Humulin R Low) 0 units SC ACHS [facility]; Protocol Last Admin: 01/02/19 16:30 Dose: Not Given Levothyroxine Sodium (Synthroid) 25 mcg PO ACB [facility] Last Admin: 01/02/19 10:46 Dose: Not Given Midodrine (Proamatine) 5 mg PO TID [facility] Last Admin: 01/02/19 18:40 Dose: Not Given Rifaximin (Xifaxan) 550 mg PO BID [facility]; Protocol Last Admin: 01/02/19 18:45 Dose: 550 mg Vitamin E (Vitamin E 400 Units Cap) 400 intlu PO DAILY [facility] Last Admin: 01/02/19 10:46 Dose: Not Given - Labs Labs: 01/02/19 16:00 01/02/19 18:26 PT 21.4 SECONDS (9.4-12.5) H 01/02/19 16:00 INR 1.93 01/02/19 16:00 APTT 40.2 Seconds (26.9-38.3) H 01/02/19 16:00 - Constitutional Appears: Well - Head Exam Head Exam: ATRAUMATIC, NORMAL INSPECTION, NORMOCEPHALIC - Eye Exam Eye Exam: EOMI, PERRL, Scleral icterus Pupil Exam: NORMAL ACCOMODATION, PERRL - ENT Exam ENT Exam: Mucous Membranes Moist, Normal Exam - Neck Exam Neck Exam: Full ROM, Normal Inspection. absent: Lymphadenopathy - Respiratory Exam Respiratory Exam: Clear to Ausculation Bilateral, NORMAL BREATHING PATTERN - Cardiovascular Exam Cardiovascular Exam: REGULAR RHYTHM, +S1, +S2. absent: Murmur - GI/Abdominal Exam GI & Abdominal Exam: Soft, Normal Bowel Sounds. absent: Tenderness - Extremities Exam Extremities Exam: Full ROM, Normal Capillary Refill, Normal Inspection. absent: Joint Swelling, Pedal Edema - Back Exam Back Exam: NORMAL INSPECTION - Neurological Exam Neurological Exam: Alert, Awake, CN II-XII Intact, Normal Gait, Oriented x3 - Psychiatric Exam Psychiatric exam: Normal Affect, Normal Mood - Skin Skin Exam: Dry, Intact, Normal Color, Warm Assessment and Plan - Assessment and Plan (Free Text) Assessment: 68 M with pertinent medical history of alcohol abuse (6 years sober), Laenec's cirrhosis, and CHF pEF presented with confusion and abdominal distension; Nephrology consulted for questionable hepatorenal syndrome. Plan FANNY, possibly 2/2 hypoperfusion vs hepatorenal syndrome (HRS): Patient needs to be given fluid challenge to determine if there is another cause for FANNY before terming this hepatorenal syndrome. It should be noted, however, that BUN/Cr ratio is low, indicating renal azotemia vs liver disease. - Start NS @ 80 mls/hr - Hold all diuretics - Patient is on midodrine, albumin, and octreotide in case of HRS; OR today for peritoneo-venous shunt - Dopamine started to encourage renal perfusion CHFpEF - Gentle hydration - Albumin - Currently holding diuretics, aldactone, and beta blockers in light of patient's hypotension Pulmonary HTN - Currently holding all diuretics <Ralph Pascual - Last Filed: 01/02/19 20:45> Objective - Vital Signs/Intake and Output Vital Signs (last 24 hours): Temp Pulse Resp BP Pulse Ox 98 F 78 20 114/39 L 93 L 01/02/19 00:00 01/02/19 19:00 01/02/19 19:00 01/02/19 19:00 01/02/19 19:00 Intake and Output: 01/02/19 01/03/19 18:59 06:59 Intake Total 1957 Output Total 1600 Balance 357 - Medications Medications: Current Medications Albuterol/Ipratropium (Duoneb 3 Mg/0.5 Mg (3 Ml) Ud) 3 ml IH [id number] PRN PRN Reason: Shortness of Breath Arformoterol Tartrate (Brovana) 15 mcg IH [id number] [facility] Last Admin: 01/02/19 20:08 Dose: 15 mcg Budesonide (Pulmicort Respules) 0.5 mg IH [id number] [facility] Last Admin: 01/02/19 20:04 Dose: 0.5 mg Famotidine (Pepcid) 20 mg PO HS [facility] Last Admin: 01/01/19 22:10 Dose: 20 mg Ferrous Sulfate (Feosol) 324 mg PO DAILY [facility] Last Admin: 01/02/19 10:45 Dose: Not Given Folic Acid (Folic Acid) 1 mg PO DAILY [facility] Last Admin: 01/02/19 10:45 Dose: Not Given Octreotide Acetate 1,250 mcg/ (Dextrose) 252.5 mls @ 10.1 mls/hr IV .Q24H [facility]; Protocol Last Admin: 01/01/19 09:32 Dose: 50 mcg/hr, 10.1 mls/hr Heparin Sodium/Sodium Chloride (Heparin 92394 Units/250ml 1/2 Normal Saline) 25,000 units in 250 mls @ 12.002 mls/hr IV .[id number] PRN; Protocol PRN Reason: ADJUST RATE PER PROTOCOL Last Titration: 01/02/19 08:44 Dose: 0 units/kg/hr, 0 mls/hr Dopamine HCl/Dextrose (Dopamine 400mg/250ml D5w) 400 mg in 250 mls @ 12.502 mls/hr IV .Q20H PRN; Protocol PRN Reason: TITRATE PER MD ORDERS Last Titration: 01/02/19 15:47 Dose: 5 mcg/kg/min, 12.502 mls/hr Meropenem/Sodium Chloride (Merrem Iv 500 Mg/Ns 50 Ml) 500 mg in 50 mls @ 100 mls/hr IVPB Q12 [facility]; Protocol Stop: 01/08/19 23:31 Last Admin: 01/02/19 00:03 Dose: 100 mls/hr Sodium Bicarbonate 150 meq/ (Dextrose) 1,150 mls @ 60 mls/hr IV .[id number] [facility] Insulin Human Regular (Humulin R Low) 0 units SC ACHS [facility]; Protocol Last Admin: 01/02/19 16:30 Dose: Not Given Levothyroxine Sodium (Synthroid) 25 mcg PO ACB [facility] Last Admin: 01/02/19 10:46 Dose: Not Given Midodrine (Proamatine) 5 mg PO TID [facility] Last Admin: 01/02/19 18:40 Dose: Not Given Rifaximin (Xifaxan) 550 mg PO BID [facility]; Protocol Last Admin: 01/02/19 18:45 Dose: 550 mg Vitamin E (Vitamin E 400 Units Cap) 400 intlu PO DAILY [facility] Last Admin: 01/02/19 10:46 Dose: Not Given - Labs Labs: 01/02/19 16:00 01/02/19 18:26 PT 21.4 SECONDS (9.4-12.5) H 01/02/19 16:00 INR 1.93 01/02/19 16:00 APTT 40.2 Seconds (26.9-38.3) H 01/02/19 16:00 Attending/Attestation - Attestation I have personally seen and examined this patient.: Yes I have fully participated in the care of the patient.: Yes I have reviewed all pertinent clinical information, including history, physical exam and plan: Yes Notes (Text): See full attending note from consultation; Called back by ICU team this evening with evidence of decompensated CHF on CXR and persistent hyperkalemia/profound metablic acidosis; initiating HD urgently this evening for volume and electrolyte control; 2hr HD session with 1L net UF goal, will follow with full HD session in the morning.
--- NOTE | 2019-01-02 20:21 | PN ---
DATE: 01/02/2019 SUBJECTIVE: Patient was seen and examined at bedside on 01/02/2019, looking comfortable. No fever. No chills. No hematuria or hematochezia. was sitting on the bedside also. Stomach is distended. No swelling of the legs. PHYSICAL EXAMINATION VITAL SIGNS: Temperature 98, heart rate 55, respiratory rate 20, blood pressure 130/46, and pulse oximetry 96% on 3L nasal cannula. HEENT: Head is normocephalic and atraumatic. Eyes PERRLA. Extraocular muscles intact. Conjunctivae clear. Nose patent. Mucous membrane moist. NECK: Supple. No carotid bruit. No JVD or thyromegaly. LUNGS: Has fair airflow with the rhonchi. ABDOMEN: Distended. Water pulse wave is positive. EXTREMITIES: No edema. No cyanosis. NEUROLOGIC: Patient is awake, alert, follows simple commands. MEDICATIONS: Dopamine, iron sulfate, folic acid, heparin, Pepcid, midodrine, Pulmicort, normal saline, Synthroid. LABORATORY DATA: Hemoglobin 9.1, hematocrit 25.9, white blood cells 12.9, and platelets 97. BUN 51, creatinine 4.1, AST 108, ALT 40. ASSESSMENT AND PLAN: Mr. Des Billy is a 68-year-old male with chronic obstructive lung disease, sleep apnea syndrome, cardiomyopathy, valvular heart disease, pulmonary hypertension, portal hypertension, has hepatorenal syndrome. Increased BUN and creatinine. Hosiery Mender, delivery sales worker, Infectious Disease, and urologist, is on the case. I will follow up with the obstetrics tech also. A peritoneovenous shunt placement. On dopamine drip. Discussion done with the and family members. Continue present treatment. Repeat labs. We will follow up. Jewell Martinez MD
[2019-01-03] MEDS: DOPamine 400mg/250ml D5W 400 MG/250 ML BAG IV PRN (00:13)
[2019-01-03] MEDS: Octreotide 1,250 MCG in Dextrose 5% In Water 250 ML IV SCH (00:14)
--- NOTE | 2019-01-03 01:46 | PN ---
DATE: 01/02/2019 This is [facility] visit in the intensive care unit. For Dr. Hills. SUBJECTIVE: The patient is a 68-year-old male, admitted by the emergency room approximately eight days prior for altered mental status with known history of decompensated liver failure, cirrhosis, history of ethanol abuse, pulmonary hypertension, COPD, atrial fibrillation with an ammonia level of 75 on admission. At present, he seems sitting up in bed with family at the bedside preparing for peritoneal dialysis after placement earlier today of a peritoneal venous shunt with impending hepatorenal syndrome. At present, diuretics are now on hold. He continues on dopamine with the patient not tolerating diet at present with liquids generally being taken as per family members. The patient also has a component of portal vein thrombosis for which IV heparin had initially been given. OBJECTIVE PHYSICAL EXAMINATION: VITAL SIGNS: Temperature 98, pulse 78, respirations 20, blood pressure 114/39, pulse ox 93%. HEENT: Sclerae mildly icteric. Tongue is dry. NECK: Supple. HEART: Regular rate, occasional ectopic beats. LUNGS: Scattered rhonchi, faint rales on the right. ABDOMEN: Distended, positive ascitic fluid waves. Minimal tenderness to gentle palpation. EXTREMITIES: Faint +1 edema. NEUROLOGIC: Confused, but awake and alert. The patient keeps taking off his nebulizer treatment mask. SKIN: Mildly icteric. LABORATORY DATA: The patient's labs were done. White blood cell count of 13.9, hemoglobin 8.7, hematocrit 25.9, platelet count of 101,000 with a metabolic panel showing a potassium of 5.5, with BUN of 54, creatinine of 4.5, nonfasting glucose of 122, total bilirubin of 4.8, AST of 135. The patient did have a renal ultrasound done yesterday. It was read as unremarkable renal ultrasound with ascites noted. The patient did have a chest x-ray done early today after placement of his dialysis catheter with results unavailable at this time. ASSESSMENT: For this patient is that of hepatic encephalopathy secondary to liver cirrhosis/history of ethanol abuse, cardiomyopathy, pulmonary hypertension, possibly occluded portal vein, early hepatorenal syndrome, acute renal failure, anemia of chronic disease, history of sleep apnea, chronic obstructive pulmonary disease, fluid overload. The plan for this patient after conversation with Dr. Hills is to continue present medical regimen with consult now with Dr. Choudhury for systemic inflammatory response syndrome with positive blood cultures as of yesterday for gram positive cocci and gram negative rods for which antibiotics are now begun. We will monitor clinically and with labs with prognosis for this patient guarded. The patient's family's questions were answered to their satisfaction. This is a complex patient with comprehensive medically necessary and appropriate visit carried out in the intensive care unit in excess of 45 minutes with the patient's family's questions answered to their satisfaction at length. It appeared that the patient is recently discharged in October with 14 days of antibiotics being given for similar presentation and is referred for those notes and findings. We will continue with present care as per Dr. Pascual, Renal, and group segment consultant's recommendations as above. Dylan Terrazas MD
[2019-01-03 06:24] LABS: ARTERIAL BLOOD GAS HCO3 12.1 mmol/L (21-28); ARTERIAL BLOOD GAS HEMOGLOBIN 9.4 g/dL (11.7-17.4); ARTERIAL BLOOD GAS O2 CAPACITY 12.9 mL/dl (16-24); ARTERIAL BLOOD GAS O2 CONTENT 11.7 ML/dl (15-23); ARTERIAL BLOOD GAS PCO2 27 mm/Hg (35-45); ARTERIAL BLOOD GAS PH 7.26 (7.35-7.45); ARTERIAL BLOOD GAS TCO2 12.9 mmol.L (22-28)
[2019-01-03] MEDS: Albuterol-Ipratrop 3 mg / 0.5 (3 ml) UD IH PRN ×3 (07:44→15:37)
[2019-01-03] MEDS: Arformoterol 15 mcg/2 ml Inh Sol IH SCH ×2 (07:44→20:45)
[2019-01-03] MEDS: Budesonide 0.5 mg/2 ml Inhal Susp UD IH SCH ×2 (07:44→20:45)
--- NOTE | 2019-01-03 08:17 | OP ---
PROCEDURE DATE: 01/02/2019 SURGEON: Rob Fritz MD MEDICATION MANAGER: Mehdi Lopez DO ANESTHESIOLOGIST: Maryse Martinez MD ANESTHESIA: Sedation with local anesthesia. PREOPERATIVE DIAGNOSES: Hepatorenal syndrome, acute kidney injury. POSTOPERATIVE DIAGNOSES: Hepatorenal syndrome, acute kidney injury. PROCEDURES: ultrasound guided Peritoneal dialysis catheter placementm and right groin triple-lumen Shiley catheter placement. INDICATION: A 68-year-old male admitted to [facility] with encephalopathy and ultimately developed renal insufficiency consistent with hepatorenal syndrome/acute kidney injury following paracentesis in the setting of diarrhea following treatment with lactulose following admission for encephalopathy. Following onset of oliguria patient developed worsening ascites and oliguria with a rising creatinine. DESCRIPTION OF PROCEDURE: The patient was transferred from the ICU into the operative suite. Time-out was performed without difficulty. The patient's chest, abdomen and groins were prepped. Using ultrasound guidance, the right femoral vein was visualized and percutaneously accessed. A guidewire was placed through the 18-gauge needle, and a 14-gauge double-lumen dialysis catheter was placed over the guidewire. The hub of the catheter was secured to the skin. There was some bleeding from the dilatation site. A U-stitch was placed around the catheter as it entered the skin to control the bleeding. At this point time, again using ultrasound guidance, we were able to isolate a large pocket of ascites in the infraumbilical region. We then used ultrasound guidance to place a needle into the abdomen, where we had retrieved clear bile-tinged fluid. A guidewire was placed within the needle. We then passed the PD catheter subcutaneously and the track was dilated x2 and the catheter was placed within the tract. At this point in time, we then put a small tunnel lateral to the right side for the cuff to be subcutaneous. The sites were closed with 4-0 Ethilon sutures in an interrupted fashion. We then constructed a connection from the peritoneal dialysis catheter to the blue port of the Shiley catheter. We only opened the connection and the blood flew from the femoral vein to the abdomen. The pressure in the vein was about 34 mmHg. As such, we stopped the patient's IV fluids and we took off about 400 mL of ascitic fluid. This was done using a three-way stopcock. With three-way stopcock, we closed both ends. We placed dressings over the catheters, and additional U-stitch was placed around the Shiley catheter to the exit of the skin because there was bleeding probably secondary to anticoagulation. At this point in time, the patient was removed from the OR table and placed on the ICU bed and transferred back to the ICU. Estimated blood loss was about 100 mL. Rob Fritz M.D. cc: Jewell Martinez MD MTDD
[2019-01-03] MEDS: Insulin Reg-LOW-Coverage SC SCH ×5 (09:11→23:00)
--- NOTE | 2019-01-03 09:32 | CP.PCM.PN ---
Subjective - Date & Time of Evaluation Date of Evaluation: 01/03/19 Time of Evaluation: 09:06 - Subjective Subjective: 68 year old male with a history of Laennec's cirrhosis, abstinent 6 years, with partial portal vein thrombosis during late 2018. Recently admitted for encephalopathy. He appears to have FANNY, hepatorenal or a combination of both. He was started on somatostatin, dopamine, with poor response. Post placement of Shiley/PD catheter. Now on dialysis for fluid overload. H/O pulmonary hypertension. Spoke to transplant surgeon at [facility], agreeing with need to remove fluid, then assess heart again for pulmonary hypertension. Objective - Vital Signs/Intake and Output Vital Signs (last 24 hours): Temp Pulse Resp BP Pulse Ox 98 F 65 21 85/42 L 100 01/03/19 04:00 01/03/19 08:29 01/03/19 07:50 01/03/19 07:41 01/03/19 07:50 Intake and Output: 01/03/19 01/03/19 06:59 18:59 Intake Total 436 Output Total 1500 Balance -1064 - Medications Medications: Current Medications Albuterol/Ipratropium (Duoneb 3 Mg/0.5 Mg (3 Ml) Ud) 3 ml IH [id number] PRN PRN Reason: Shortness of Breath Last Admin: 01/03/19 07:44 Dose: 3 ml Arformoterol Tartrate (Brovana) 15 mcg IH [id number] [facility] Last Admin: 01/03/19 07:44 Dose: 15 mcg Budesonide (Pulmicort Respules) 0.5 mg IH [id number] [facility] Last Admin: 01/03/19 07:44 Dose: 0.5 mg Famotidine (Pepcid) 20 mg PO HS [facility] Last Admin: 01/02/19 22:05 Dose: 20 mg Ferrous Sulfate (Feosol) 324 mg PO DAILY [facility] Last Admin: 01/02/19 10:45 Dose: Not Given Folic Acid (Folic Acid) 1 mg PO DAILY [facility] Last Admin: 01/02/19 10:45 Dose: Not Given Octreotide Acetate 1,250 mcg/ (Dextrose) 252.5 mls @ 10.1 mls/hr IV .Q24H [facility]; Protocol Last Admin: 01/03/19 00:14 Dose: 50 mcg/hr, 10.1 mls/hr Heparin Sodium/Sodium Chloride (Heparin 82495 Units/250ml 1/2 Normal Saline) 25,000 units in 250 mls @ 12.002 mls/hr IV .[id number] PRN; Protocol PRN Reason: ADJUST RATE PER PROTOCOL Last Titration: 01/02/19 08:44 Dose: 0 units/kg/hr, 0 mls/hr Dopamine HCl/Dextrose (Dopamine 400mg/250ml D5w) 400 mg in 250 mls @ 12.502 mls/hr IV .Q20H [facility]; Protocol PRN Reason: TITRATE PER MD ORDERS Last Admin: 01/03/19 00:13 Dose: 5 mcg/kg/min, 12.502 mls/hr Meropenem/Sodium Chloride (Merrem Iv 500 Mg/Ns 50 Ml) 500 mg in 50 mls @ 100 mls/hr IVPB Q12 [facility]; Protocol Stop: 01/08/19 23:31 Last Admin: 01/02/19 22:00 Dose: 100 mls/hr Insulin Human Regular (Humulin R Low) 0 units SC ACHS [facility]; Protocol Last Admin: 01/02/19 22:00 Dose: Not Given Levothyroxine Sodium (Synthroid) 25 mcg PO ACB [facility] Last Admin: 01/02/19 10:46 Dose: Not Given Midodrine (Proamatine) 5 mg PO TID [facility] Last Admin: 01/02/19 18:40 Dose: Not Given Rifaximin (Xifaxan) 550 mg PO BID [facility]; Protocol Last Admin: 01/02/19 18:45 Dose: 550 mg Vitamin E (Vitamin E 400 Units Cap) 400 intlu PO DAILY [facility] Last Admin: 01/02/19 10:46 Dose: Not Given - Labs Labs: 01/02/19 16:00 01/02/19 18:26 PT 21.4 SECONDS (9.4-12.5) H 01/02/19 16:00 INR 1.93 01/02/19 16:00 APTT 40.2 Seconds (26.9-38.3) H 01/02/19 16:00 - Constitutional Appears: Chronically Ill - Head Exam Head Exam: ATRAUMATIC, NORMAL INSPECTION, NORMOCEPHALIC - Eye Exam Eye Exam: PERRL - Cardiovascular Exam Cardiovascular Exam: REGULAR RHYTHM, RRR - GI/Abdominal Exam GI & Abdominal Exam: Firm Additional comments: tympanic, moderate ascites - Extremities Exam Extremities Exam: Pedal Edema Additional comments: anasarca - Neurological Exam Neurological Exam: Alert, Awake Additional comments: appropriate to questions Assessment and Plan (1) Hepatorenal syndrome Assessment & Plan: Appears less like HRS, dino like FANNY with fluid overload. Dialyzed yesterday. CVP was 34, now 20. Agree with renal and need to dialyze again today. Would hope to get CVP below 10. Will talk to hepatology at [facility] today Status: Acute (2) Portal vein thrombosis Assessment & Plan: Hold heparin for now Status: Acute (3) Hepatic encephalopathy Assessment & Plan: Controlled on xifaxan, hold lactulose Status: Acute (4) Sepsis Assessment & Plan: cultures negative to date Status: Acute (5) Cirrhosis of liver Assessment & Plan: MELD today 33, will contact [facility] for discussion and possible transfer. Will need to have heart re-assessed for pulmonary hypertension after his CVP is in a normal range Status: Acute
--- NOTE | 2019-01-03 09:43 | RAD ---
Date of service: 01/03/2019 HISTORY: chf COMPARISON: 01/02/2019 FINDINGS: LUNGS: No significant change in the diffuse right-sided infiltrate PLEURA: No significant pleural effusion identified, no pneumothorax apparent. CARDIOVASCULAR: No aortic atherosclerotic calcification present. Mild cardiomegaly moderate vascular congestion OSSEOUS STRUCTURES: No significant abnormalities. VISUALIZED UPPER ABDOMEN: Normal. OTHER FINDINGS: None. IMPRESSION: No change in diffuse right-sided infiltrate and vascular congestion
--- NOTE | 2019-01-03 09:54 | RAD ---
Date of service: 01/02/2019 PROCEDURE: CHEST RADIOGRAPH, 1 VIEW HISTORY: sob/wheezing COMPARISON: 01/01/2019 FINDINGS: LUNGS: Right upper lobe infiltrate consistent with pneumonia. There is also vascular and interstitial congestion PLEURA: No pneumothorax or pleural fluid seen. CARDIOVASCULAR: No aortic atherosclerotic calcification present. Mild cardiomegaly OSSEOUS STRUCTURES: No significant abnormalities. VISUALIZED UPPER ABDOMEN: Normal. OTHER FINDINGS: None. IMPRESSION: Right upper lobe infiltrate consistent with pneumonia. There is also vascular and interstitial congestion
[2019-01-03] MEDS: MEROPENEM 500 MG in NS 500 MG/50 ML BAG IVPB SCH (10:10)
[2019-01-03 10:15] LABS: BASO # 0.03 K/mm3 (0.0-2.0); BASO % 0.2 % (0.0-3.0); EOS % 0.1 % (1.5-5.0); HEMOGLOBIN 9.1 g/dL (14.0-18.0); LYMPH # 0.8 (1.2-3.4); LYMPH % 5.1 % (22.0-35.0); MEAN CELL VOLUME 103.1 fl (80.0-105.0); MEAN CORPUSCULAR HEMOGLOBIN 35.7 pg (25.0-35.0); MEAN CORPUSCULAR HGB CONC 34.6 g/dl (31.0-37.0); MEAN PLATELET VOLUME 13.1 fl (7.0-11.0); MONO # 1.2 (0.1-0.6); MONO % 7.9 % (1.0-6.0); RBC 2.55 10^6/uL (3.5-6.1); RED CELL DISTRIBUTION WIDTH 20.4 % (11.5-14.5)
[2019-01-03] MEDS: Levothyroxine 25 MCG TAB PO SCH (10:15)
[2019-01-03 10:36] LABS: ALB/GLOB RATIO 1.1 (1.1-1.8); ALBUMIN 3.8 g/dL (3.0-4.8)
[2019-01-03 10:39] LABS: CALCIUM 8.6 mg/dL (8.4-10.5)
[2019-01-03] MEDS ORDERED: Vancomycin 1.7 GM in Sodium Chloride 0.9% 500 ML IVPB ONE (10:48)
[2019-01-03] MEDS ORDERED: cefTRIAXone 1 gm 1 GM/100 ML BAG IVPB SCH (11:00)
--- NOTE | 2019-01-03 11:07 | CP.CCUPN ---
<Salvatore Mendez - Last Filed: 01/03/19 11:03> CCU Subjective - Physician Review Subjective (Free Text): 01/03/19 11:03 Salvatore Mendez, PGY-1 ICU Progress Note: Pt was seen and examined this AM at bedside. Pt had PD catheter and shiley femoral cath placed in OR yesterday. Pt had 400cc's out in OR with another 1.5L removed by dialysis which was started yesterday. Pt is on bipap and sating well. Pt continues to deny any fevers, chills, chest pain, SOB, cough, abd pain, n/v, c/d or dysuria. He denies any other acute complaints at this time. CCU Objective - Vital Signs / Intake & Output Vital Signs (Last 4 hours): Vital Signs Pulse Resp BP Pulse Ox 01/03/19 10:02 64 01/03/19 08:29 65 01/03/19 07:50 71 21 100 01/03/19 07:41 81 22 85/42 L 93 L 01/03/19 07:40 81 17 95 01/03/19 07:30 81 19 100 01/03/19 07:20 81 18 104/50 L 99 01/03/19 07:10 81 19 100 Intake and Output (Last 8hrs): Intake & Output 01/02/19 01/03/19 01/03/19 22:59 06:59 14:59 Intake Total 1857 436 Output Total 1600 1500 Balance 257 -1064 Weight 149 lb 9.6 oz Intake: IV 562 376 Left Upper arm 420 120 Right Hand 156 Oral 720 60 Blood Product 575 Output: Urine 0 0 Urethral (Diaz) 0 0 Other 1600 1500 Other: # Bowel Movements 0 - Physical Exam Head: Positive for: Atraumatic, Normocephalic Pupils: Positive for: PERRL Extroacular Muscles: Positive for: EOMI Conjunctiva: Positive for: Icteric Mouth: Positive for: Moist Mucous Membranes Neck: Positive for: Normal Range of Motion Respiratory/Chest: Positive for: Clear to Auscultation, Good Air Exchange. Negative for: Respiratory Distress, Accessory Muscle Use Cardiovascular: Positive for: Regular Rate and Rhythm, Normal S1, S2. Negative for: Murmurs Abdomen: Positive for: Distention (Tense and distended abdomen. Ascites. ). Negative for: Peritoneal Signs Back: Positive for: Normal Inspection. Negative for: CVA Tenderness Upper Extremity: Positive for: Normal Inspection. Negative for: Cyanosis, Edema Lower Extremity: Positive for: Normal Inspection. Negative for: Edema Neurological: Positive for: GCS=15, CN II-XII Intact, Speech Normal Skin: Positive for: Warm, Dry, Other (jaundiced). Negative for: Rashes Psychiatric: Positive for: Alert, Oriented x 3, Normal Insight, Normal Concentration - Medications Active Medications: Active Medications Generic Name Dose Route Start Last Admin Trade Name Freq PRN Reason Stop Dose Admin Albuterol/Ipratropium 3 ml 01/02/19 17:51 01/03/19 07:44 Duoneb 3 Mg/0.5 Mg (3 Ml) Ud IH 3 ml [id number] PRN Administration Shortness of Breath Arformoterol Tartrate 15 mcg 12/27/18 20:00 01/03/19 07:44 Brovana IH 15 mcg [id number] SANDRA Administration Budesonide 0.5 mg 12/27/18 20:00 01/03/19 07:44 Pulmicort Respules IH 0.5 mg [id number] SANDRA Administration Famotidine 20 mg 12/27/18 22:00 01/02/19 22:05 Pepcid PO 20 mg HS SANDRA Administration Ferrous Sulfate 324 mg 12/28/18 10:00 01/03/19 10:15 Feosol PO 324 mg DAILY SANDRA Administration Folic Acid 1 mg 12/27/18 10:15 01/03/19 10:15 Folic Acid PO 1 mg DAILY SANDRA Administration Octreotide Acetate 1,250 mcg/ 252.5 mls @ 10.1 mls/hr 01/01/19 05:00 01/03/19 00:14 Dextrose IV 50 mcg/hr .Q24H SANDRA 10.1 mls/hr Administration Protocol 50 MCG/HR Heparin Sodium/Sodium Chloride 25,000 units in 250 mls @ 12.002 mls/hr 01/01/19 12:32 01/02/19 08:44 Heparin 14625 Units/250ml 1/2 Normal Saline IV 0 units/kg/hr .[id number] PRN 0 mls/hr ADJUST RATE PER PROTOCOL Titration Protocol 18 UNITS/KG/HR Ceftriaxone Sodium 1 gm in 100 mls @ 100 mls/hr 01/03/19 11:00 Rocephin 1 Gram Ivpb IVPB DAILY SANDRA Protocol Vancomycin HCl 1.7 gm/ Sodium 500 mls @ 167 mls/hr 01/03/19 10:48 Chloride IVPB 01/03/19 13:47 ONCE ONE Protocol Insulin Human Regular 0 units 12/26/18 07:30 01/03/19 09:11 Humulin R Low SC Not Given ACHS SANDRA Protocol Levothyroxine Sodium 25 mcg 12/27/18 10:00 01/03/19 10:15 Synthroid PO 25 mcg ACB SANDRA Administration Midodrine 5 mg 12/31/18 18:00 01/02/19 18:40 Proamatine PO Not Given TID SANDRA Rifaximin 550 mg 12/26/18 18:00 01/03/19 10:16 Xifaxan PO 550 mg BID SANDRA Administration Protocol Vitamin E 400 intlu 01/01/19 10:00 01/02/19 10:46 Vitamin E 400 Units Cap PO Not Given DAILY SANDRA - Patient Studies Lab Studies: Microbiology Studies 01/01/19 02:00 Blood Culture - Final Blood-Venous Escherichia Coli Gram Stain - Final 01/01/19 02:20 S.aureus & Coag-Neg Staph PNA FISH - Final Blood-Venous Blood Culture - Preliminary Gram Positive Cocci Gram Stain - Final 01/01/19 15:00 MRSA Culture (Admit) - Final Naris MRSA NOT DETECTED Lab Studies 01/03/19 01/03/19 01/03/19 Range/Units 10:00 10:00 07:33 WBC 15.0 H (4.5-11.0) 10^3/uL RBC 2.55 L (3.5-6.1) 10^6/uL Hgb 9.1 L (14.0-18.0) g/dL Hct 26.3 L (42.0-52.0) % MCV 103.1 (80.0-105.0) fl MCH 35.7 H (25.0-35.0) pg MCHC 34.6 (31.0-37.0) g/dl RDW 20.4 H (11.5-14.5) % Plt Count 105 L (120.0-450.0) 10^3/uL MPV 13.1 H (7.0-11.0) fl Neut % (Auto) 86.7 H (50.0-68.0) % Lymph % (Auto) 5.1 L (22.0-35.0) % Towns % (Auto) 7.9 H (1.0-6.0) % Eos % (Auto) 0.1 L (1.5-5.0) % Baso % (Auto) 0.2 (0.0-3.0) % Lymph # (Auto) 0.8 L (1.2-3.4) Towns # (Auto) 1.2 H (0.1-0.6) Eos # (Auto) 0.0 (0.0-0.7) Baso # (Auto) 0.03 (0.0-2.0) K/mm3 Absolute Neuts (auto) 13.01 H (1.4-6.5) PT (9.4-12.5) SECONDS INR APTT (26.9-38.3) Seconds pCO2 (35-45) mm/Hg pO2 (80-100) mm/Hg HCO3 (21-28) mmol/L ABG pH (7.35-7.45) ABG Total CO2 (22-28) mmol.L ABG O2 Saturation (95-98) % ABG O2 Content (15-23) ML/dl ABG Base Excess (-2.0-3.0) mmol/L ABG Hemoglobin (11.7-17.4) g/dL ABG Carboxyhemoglobin (0.5-1.5) % POC ABG HHb (Measured) (0-5) % ABG Methemoglobin (0.0-3.0) % ABG O2 Capacity (16-24) mL/dl Hgb O2 Saturation (95.0-98.0) % FiO2 % Sodium 136 (132-148) mmol/L Potassium 5.1 H (3.6-5.0) mmol/L Chloride 106 (98-107) mmol/L Carbon Dioxide 13 L (21-33) mmol/L Anion Gap 22 H (10-20) BUN 40 H (7-21) mg/dL Creatinine 3.8 H (0.8-1.5) mg/dl Est GFR ( Amer) 19 Est GFR (Non-Af Amer) 16 POC Glucose (mg/dL) 130 H (65-110) mg/dL Random Glucose 116 H (70-110) mg/dL Calcium 8.6 (8.4-10.5) mg/dL Phosphorus (2.5-4.5) mg/dL Magnesium (1.7-2.2) mg/dL Total Bilirubin 5.6 H (0.2-1.3) mg/dL AST 1413 H (17-59) U/L ALT 274 H (7-56) U/L Alkaline Phosphatase 106 (38-126) U/L Total Protein 7.1 (5.8-8.3) g/dL Albumin 3.8 (3.0-4.8) g/dL Globulin 3.3 gm/dL Albumin/Globulin Ratio 1.1 (1.1-1.8) 01/03/19 01/02/19 01/02/19 Range/Units 05:55 22:17 18:26 WBC (4.5-11.0) 10^3/uL RBC (3.5-6.1) 10^6/uL Hgb (14.0-18.0) g/dL Hct (42.0-52.0) % MCV (80.0-105.0) fl MCH (25.0-35.0) pg MCHC (31.0-37.0) g/dl RDW (11.5-14.5) % Plt Count (120.0-450.0) 10^3/uL MPV (7.0-11.0) fl Neut % (Auto) (50.0-68.0) % Lymph % (Auto) (22.0-35.0) % Towns % (Auto) (1.0-6.0) % Eos % (Auto) (1.5-5.0) % Baso % (Auto) (0.0-3.0) % Lymph # (Auto) (1.2-3.4) Towns # (Auto) (0.1-0.6) Eos # (Auto) (0.0-0.7) Baso # (Auto) (0.0-2.0) K/mm3 Absolute Neuts (auto) (1.4-6.5) PT (9.4-12.5) SECONDS INR APTT (26.9-38.3) Seconds pCO2 27 L (35-45) mm/Hg pO2 56.0 L (80-100) mm/Hg HCO3 12.1 L (21-28) mmol/L ABG pH 7.26 L (7.35-7.45) ABG Total CO2 12.9 L (22-28) mmol.L ABG O2 Saturation 91.0 L (95-98) % ABG O2 Content 11.7 L (15-23) ML/dl ABG Base Excess -13.6 L (-2.0-3.0) mmol/L ABG Hemoglobin 9.4 L (11.7-17.4) g/dL ABG Carboxyhemoglobin 2.5 H (0.5-1.5) % POC ABG HHb (Measured) 8.7 H (0-5) % ABG Methemoglobin 0.6 (0.0-3.0) % ABG O2 Capacity 12.9 L (16-24) mL/dl Hgb O2 Saturation 88.2 L (95.0-98.0) % FiO2 32.0 % Sodium 138 (132-148) mmol/L Potassium 5.5 H (3.6-5.0) mmol/L Chloride 108 H (98-107) mmol/L Carbon Dioxide 11 L (21-33) mmol/L Anion Gap 25 H (10-20) BUN 54 H (7-21) mg/dL Creatinine 4.5 H (0.8-1.5) mg/dl Est GFR ( Amer) 16 Est GFR (Non-Af Amer) 13 POC Glucose (mg/dL) 127 H (65-110) mg/dL Random Glucose 122 H (70-110) mg/dL Calcium 8.7 (8.4-10.5) mg/dL Phosphorus (2.5-4.5) mg/dL Magnesium (1.7-2.2) mg/dL Total Bilirubin 4.8 H (0.2-1.3) mg/dL AST 135 H (17-59) U/L ALT 48 (7-56) U/L Alkaline Phosphatase 78 (38-126) U/L Total Protein 7.8 (5.8-8.3) g/dL Albumin 4.2 (3.0-4.8) g/dL Globulin 3.6 gm/dL Albumin/Globulin Ratio 1.2 (1.1-1.8) 01/02/19 01/02/19 01/02/19 Range/Units 16:26 16:00 16:00 WBC (4.5-11.0) 10^3/uL RBC (3.5-6.1) 10^6/uL Hgb (14.0-18.0) g/dL Hct (42.0-52.0) % MCV (80.0-105.0) fl MCH (25.0-35.0) pg MCHC (31.0-37.0) g/dl RDW (11.5-14.5) % Plt Count (120.0-450.0) 10^3/uL MPV (7.0-11.0) fl Neut % (Auto) (50.0-68.0) % Lymph % (Auto) (22.0-35.0) % Towns % (Auto) (1.0-6.0) % Eos % (Auto) (1.5-5.0) % Baso % (Auto) (0.0-3.0) % Lymph # (Auto) (1.2-3.4) Towns # (Auto) (0.1-0.6) Eos # (Auto) (0.0-0.7) Baso # (Auto) (0.0-2.0) K/mm3 Absolute Neuts (auto) (1.4-6.5) PT 21.4 H (9.4-12.5) SECONDS INR 1.93 APTT 40.2 H (26.9-38.3) Seconds pCO2 (35-45) mm/Hg pO2 (80-100) mm/Hg HCO3 (21-28) mmol/L ABG pH (7.35-7.45) ABG Total CO2 (22-28) mmol.L ABG O2 Saturation (95-98) % ABG O2 Content (15-23) ML/dl ABG Base Excess (-2.0-3.0) mmol/L ABG Hemoglobin (11.7-17.4) g/dL ABG Carboxyhemoglobin (0.5-1.5) % POC ABG HHb (Measured) (0-5) % ABG Methemoglobin (0.0-3.0) % ABG O2 Capacity (16-24) mL/dl Hgb O2 Saturation (95.0-98.0) % FiO2 % Sodium 138 (132-148) mmol/L Potassium 5.3 H (3.6-5.0) mmol/L Chloride 109 H (98-107) mmol/L Carbon Dioxide 11 L (21-33) mmol/L Anion Gap 24 H (10-20) BUN 52 H (7-21) mg/dL Creatinine 4.5 H (0.8-1.5) mg/dl Est GFR ( Amer) 16 Est GFR (Non-Af Amer) 13 POC Glucose (mg/dL) 152 H (65-110) mg/dL Random Glucose 120 H (70-110) mg/dL Calcium 8.8 (8.4-10.5) mg/dL Phosphorus 5.5 H (2.5-4.5) mg/dL Magnesium 1.9 (1.7-2.2) mg/dL Total Bilirubin 4.5 H (0.2-1.3) mg/dL AST 122 H (17-59) U/L ALT 43 (7-56) U/L Alkaline Phosphatase 77 (38-126) U/L Total Protein 7.6 (5.8-8.3) g/dL Albumin 4.0 (3.0-4.8) g/dL Globulin 3.6 gm/dL Albumin/Globulin Ratio 1.1 (1.1-1.8) 01/02/19 01/02/19 01/02/19 Range/Units 16:00 12:30 12:30 WBC 13.9 H (4.5-11.0) 10^3/uL RBC 2.52 L (3.5-6.1) 10^6/uL Hgb 8.7 L (14.0-18.0) g/dL Hct 25.9 L (42.0-52.0) % MCV 102.8 (80.0-105.0) fl MCH 34.5 (25.0-35.0) pg MCHC 33.6 (31.0-37.0) g/dl RDW 19.9 H (11.5-14.5) % Plt Count 101 L (120.0-450.0) 10^3/uL MPV 12.8 H (7.0-11.0) fl Neut % (Auto) 80.7 H (50.0-68.0) % Lymph % (Auto) 10.1 L (22.0-35.0) % Towns % (Auto) 9.0 H (1.0-6.0) % Eos % (Auto) 0.1 L (1.5-5.0) % Baso % (Auto) 0.1 (0.0-3.0) % Lymph # (Auto) 1.4 (1.2-3.4) Towns # (Auto) 1.3 H (0.1-0.6) Eos # (Auto) 0.0 (0.0-0.7) Baso # (Auto) 0.02 (0.0-2.0) K/mm3 Absolute Neuts (auto) 11.22 H (1.4-6.5) PT 20.1 H (9.4-12.5) SECONDS INR 1.78 APTT 37.3 (26.9-38.3) Seconds pCO2 (35-45) mm/Hg pO2 (80-100) mm/Hg HCO3 (21-28) mmol/L ABG pH (7.35-7.45) ABG Total CO2 (22-28) mmol.L ABG O2 Saturation (95-98) % ABG O2 Content (15-23) ML/dl ABG Base Excess (-2.0-3.0) mmol/L ABG Hemoglobin (11.7-17.4) g/dL ABG Carboxyhemoglobin (0.5-1.5) % POC ABG HHb (Measured) (0-5) % ABG Methemoglobin (0.0-3.0) % ABG O2 Capacity (16-24) mL/dl Hgb O2 Saturation (95.0-98.0) % FiO2 % Sodium 138 (132-148) mmol/L Potassium 5.3 H (3.6-5.0) mmol/L Chloride 108 H (98-107) mmol/L Carbon Dioxide 12 L (21-33) mmol/L Anion Gap 24 H (10-20) BUN 52 H (7-21) mg/dL Creatinine 4.1 H (0.8-1.5) mg/dl Est GFR ( Amer) 18 Est GFR (Non-Af Amer) 14 POC Glucose (mg/dL) (65-110) mg/dL Random Glucose 129 H (70-110) mg/dL Calcium 8.6 (8.4-10.5) mg/dL Phosphorus (2.5-4.5) mg/dL Magnesium (1.7-2.2) mg/dL Total Bilirubin 4.0 H (0.2-1.3) mg/dL AST 115 H (17-59) U/L ALT 49 (7-56) U/L Alkaline Phosphatase 69 (38-126) U/L Total Protein 7.7 (5.8-8.3) g/dL Albumin 4.3 (3.0-4.8) g/dL Globulin 3.4 gm/dL Albumin/Globulin Ratio 1.3 (1.1-1.8) 01/02/19 01/02/19 Range/Units 10:56 07:19 WBC (4.5-11.0) 10^3/uL RBC (3.5-6.1) 10^6/uL Hgb (14.0-18.0) g/dL Hct (42.0-52.0) % MCV (80.0-105.0) fl MCH (25.0-35.0) pg MCHC (31.0-37.0) g/dl RDW (11.5-14.5) % Plt Count (120.0-450.0) 10^3/uL MPV (7.0-11.0) fl Neut % (Auto) (50.0-68.0) % Lymph % (Auto) (22.0-35.0) % Towns % (Auto) (1.0-6.0) % Eos % (Auto) (1.5-5.0) % Baso % (Auto) (0.0-3.0) % Lymph # (Auto) (1.2-3.4) Towns # (Auto) (0.1-0.6) Eos # (Auto) (0.0-0.7) Baso # (Auto) (0.0-2.0) K/mm3 Absolute Neuts (auto) (1.4-6.5) PT (9.4-12.5) SECONDS INR APTT (26.9-38.3) Seconds pCO2 (35-45) mm/Hg pO2 (80-100) mm/Hg HCO3 (21-28) mmol/L ABG pH (7.35-7.45) ABG Total CO2 (22-28) mmol.L ABG O2 Saturation (95-98) % ABG O2 Content (15-23) ML/dl ABG Base Excess (-2.0-3.0) mmol/L ABG Hemoglobin (11.7-17.4) g/dL ABG Carboxyhemoglobin (0.5-1.5) % POC ABG HHb (Measured) (0-5) % ABG Methemoglobin (0.0-3.0) % ABG O2 Capacity (16-24) mL/dl Hgb O2 Saturation (95.0-98.0) % FiO2 % Sodium (132-148) mmol/L Potassium (3.6-5.0) mmol/L Chloride (98-107) mmol/L Carbon Dioxide (21-33) mmol/L Anion Gap (10-20) BUN (7-21) mg/dL Creatinine (0.8-1.5) mg/dl Est GFR ( Amer) Est GFR (Non-Af Amer) POC Glucose (mg/dL) 151 H 146 H (65-110) mg/dL Random Glucose (70-110) mg/dL Calcium (8.4-10.5) mg/dL Phosphorus (2.5-4.5) mg/dL Magnesium (1.7-2.2) mg/dL Total Bilirubin (0.2-1.3) mg/dL AST (17-59) U/L ALT (7-56) U/L Alkaline Phosphatase (38-126) U/L Total Protein (5.8-8.3) g/dL Albumin (3.0-4.8) g/dL Globulin gm/dL Albumin/Globulin Ratio (1.1-1.8) Laboratory Results - last 24 hr 01/02/19 01/02/19 01/02/19 07:19 10:56 12:30 WBC RBC Hgb Hct MCV MCH MCHC RDW Plt Count MPV Neut % (Auto) Lymph % (Auto) Towns % (Auto) Eos % (Auto) Baso % (Auto) Lymph # (Auto) Towns # (Auto) Eos # (Auto) Baso # (Auto) Absolute Neuts (auto) PT 20.1 H INR 1.78 APTT 37.3 pCO2 pO2 HCO3 ABG pH ABG Total CO2 ABG O2 Saturation ABG O2 Content ABG Base Excess ABG Hemoglobin ABG Carboxyhemoglobin POC ABG HHb (Measured) ABG Methemoglobin ABG O2 Capacity Hgb O2 Saturation FiO2 Sodium Potassium Chloride Carbon Dioxide Anion Gap BUN Creatinine Est GFR ( Amer) Est GFR (Non-Af Amer) POC Glucose (mg/dL) 146 H 151 H Random Glucose Calcium Phosphorus Magnesium Total Bilirubin AST ALT Alkaline Phosphatase Total Protein Albumin Globulin Albumin/Globulin Ratio 01/02/19 01/02/19 01/02/19 12:30 16:00 16:00 WBC 13.9 H RBC 2.52 L Hgb 8.7 L Hct 25.9 L MCV 102.8 MCH 34.5 MCHC 33.6 RDW 19.9 H Plt Count 101 L MPV 12.8 H Neut % (Auto) 80.7 H Lymph % (Auto) 10.1 L Towns % (Auto) 9.0 H Eos % (Auto) 0.1 L Baso % (Auto) 0.1 Lymph # (Auto) 1.4 Towns # (Auto) 1.3 H Eos # (Auto) 0.0 Baso # (Auto) 0.02 Absolute Neuts (auto) 11.22 H PT 21.4 H INR 1.93 APTT 40.2 H pCO2 pO2 HCO3 ABG pH ABG Total CO2 ABG O2 Saturation ABG O2 Content ABG Base Excess ABG Hemoglobin ABG Carboxyhemoglobin POC ABG HHb (Measured) ABG Methemoglobin ABG O2 Capacity Hgb O2 Saturation FiO2 Sodium 138 Potassium 5.3 H Chloride 108 H Carbon Dioxide 12 L Anion Gap 24 H BUN 52 H Creatinine 4.1 H Est GFR ( Amer) 18 Est GFR (Non-Af Amer) 14 POC Glucose (mg/dL) Random Glucose 129 H Calcium 8.6 Phosphorus Magnesium Total Bilirubin 4.0 H AST 115 H ALT 49 Alkaline Phosphatase 69 Total Protein 7.7 Albumin 4.3 Globulin 3.4 Albumin/Globulin Ratio 1.3 01/02/19 01/02/1901/02/19 16:00 16:26 18:26 WBC RBC Hgb Hct MCV MCH MCHC RDW Plt Count MPV Neut % (Auto) Lymph % (Auto) Towns % (Auto) Eos % (Auto) Baso % (Auto) Lymph # (Auto) Towns # (Auto) Eos # (Auto) Baso # (Auto) Absolute Neuts (auto) PT INR APTT pCO2 pO2 HCO3 ABG pH ABG Total CO2 ABG O2 Saturation ABG O2 Content ABG Base Excess ABG Hemoglobin ABG Carboxyhemoglobin POC ABG HHb (Measured) ABG Methemoglobin ABG O2 Capacity Hgb O2 Saturation FiO2 Sodium 138 138 Potassium 5.3 H 5.5 H Chloride 109 H 108 H Carbon Dioxide 11 L 11 L Anion Gap 24 H 25 H BUN 52 H 54 H Creatinine 4.5 H 4.5 H Est GFR ( Amer) 16 16 Est GFR (Non-Af Amer) 13 13 POC Glucose (mg/dL) 152 H Random Glucose 120 H 122 H Calcium 8.8 8.7 Phosphorus 5.5 H Magnesium 1.9 Total Bilirubin 4.5 H 4.8 H AST 122 H 135 H ALT 43 48 Alkaline Phosphatase 77 78 Total Protein 7.6 7.8 Albumin 4.0 4.2 Globulin 3.6 3.6 Albumin/Globulin Ratio 1.1 1.2 01/02/19 01/03/19 01/03/19 22:17 05:55 07:33 WBC RBC Hgb Hct MCV MCH MCHC RDW Plt Count MPV Neut % (Auto) Lymph % (Auto) Towns % (Auto) Eos % (Auto) Baso % (Auto) Lymph # (Auto) Towns # (Auto) Eos # (Auto) Baso # (Auto) Absolute Neuts (auto) PT INR APTT pCO2 27 L pO2 56.0 L HCO3 12.1 L ABG pH 7.26 L ABG Total CO2 12.9 L ABG O2 Saturation 91.0 L ABG O2 Content 11.7 L ABG Base Excess -13.6 L ABG Hemoglobin 9.4 L ABG Carboxyhemoglobin 2.5 H POC ABG HHb (Measured) 8.7 H ABG Methemoglobin 0.6 ABG O2 Capacity 12.9 L Hgb O2 Saturation 88.2 L FiO2 32.0 Sodium Potassium Chloride Carbon Dioxide Anion Gap BUN Creatinine Est GFR ( Amer) Est GFR (Non-Af Amer) POC Glucose (mg/dL) 127 H 130 H Random Glucose Calcium Phosphorus Magnesium Total Bilirubin AST ALT Alkaline Phosphatase Total Protein Albumin Globulin Albumin/Globulin Ratio 01/03/19 01/03/19 10:00 10:00 WBC 15.0 H RBC 2.55 L Hgb 9.1 L Hct 26.3 L MCV 103.1 MCH 35.7 H MCHC 34.6 RDW 20.4 H Plt Count 105 L MPV 13.1 H Neut % (Auto) 86.7 H Lymph % (Auto) 5.1 L Towns % (Auto) 7.9 H Eos % (Auto) 0.1 L Baso % (Auto) 0.2 Lymph # (Auto) 0.8 L Towns # (Auto) 1.2 H Eos # (Auto) 0.0 Baso # (Auto) 0.03 Absolute Neuts (auto) 13.01 H PT INR APTT pCO2 pO2 HCO3 ABG pH ABG Total CO2 ABG O2 Saturation ABG O2 Content ABG Base Excess ABG Hemoglobin ABG Carboxyhemoglobin POC ABG HHb (Measured) ABG Methemoglobin ABG O2 Capacity Hgb O2 Saturation FiO2 Sodium 136 Potassium 5.1 H Chloride 106 Carbon Dioxide 13 L Anion Gap 22 H BUN 40 H Creatinine 3.8 H Est GFR ( Amer) 19 Est GFR (Non-Af Amer) 16 POC Glucose (mg/dL) Random Glucose 116 H Calcium 8.6 Phosphorus Magnesium Total Bilirubin 5.6 H AST 1413 H ALT 274 H Alkaline Phosphatase 106 Total Protein 7.1 Albumin 3.8 Globulin 3.3 Albumin/Globulin Ratio 1.1 Radiology Impressions: Radiology Impressions Renal Ultrasound 01/01/19 18:45 IMPRESSION: Unremarkable renal ultrasound. Ascites noted. Chest X-Ray 01/02/19 18:19 IMPRESSION: Right upper lobe infiltrate consistent with pneumonia. 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 Pt went for PD cath and shiley in OR yesterday. Pt tolerated dialysis through cath site and 1.5L were removed during dialysis, additional to the 400cc removal in OR. 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 - Heparin gtt for portal vein thrombosis - cont to hold 2/2 hepato surg recs - Albumin - IVF - Octreotide - Rifaximin, h/o hepatic encephalopathy - Pepcid - Liquid diet per GI - GI following - Hepatobiliary surgery following Renal: Hepatorenal syndrome vs FANNY - F/u urine studies - Albumin, IVF, octreotide - Gentle IV hydration - HD for today - Dialysis done yesterday removed 1.5L - Monitor electrolytes and replete as needed - Strict I's and O's - Nephrology following - Urology following Heme: - Pt given 2 units FFP, PTT decreased from 400 to the 30s - Will hold hep drip for thrombus per hepato surg recs - Gram (-) josephine in blood - Gram (+) cocci in blood - Merrem and vanc on board - F/u ID recs - Ferrous sulfate - Cont to monitor platelet count - Heme/onc following ID: - Merrem, vanc (renally dosed) - ID following Endo: - ISS - Accuchecks - Synthroid - Maintain euglycemia Patient discussed in detail with Dr. Jeffery Mendez, PGY-1 <Devin Gil - Last Filed: 01/03/19 12:18> CCU Objective - Vital Signs / Intake & Output Vital Signs (Last 4 hours): Vital Signs Pulse 01/03/19 10:02 64 01/03/19 08:29 65 Intake and Output (Last 8hrs): Intake & Output 01/02/19 01/03/19 01/03/19 22:59 06:59 14:59 Intake Total 1857 436 Output Total 1600 1500 Balance 257 -1064 Weight 149 lb 9.6 oz Intake: IV 562 376 Left Upper arm 420 120 Right Hand 156 Oral 720 60 Blood Product 575 Output: Urine 0 0 Urethral (Diaz) 0 0 Other 1600 1500 Other: # Bowel Movements 0 - Medications Active Medications: Active Medications Generic Name Dose Route Start Last Admin Trade Name Freq PRN Reason Stop Dose Admin Albuterol/Ipratropium 3 ml 01/02/19 17:51 01/03/19 07:44 Duoneb 3 Mg/0.5 Mg (3 Ml) Ud IH 3 ml [id number] PRN Administration Shortness of Breath Arformoterol Tartrate 15 mcg 12/27/18 20:00 01/03/19 07:44 Brovana IH 15 mcg [id number] SANDRA Administration Budesonide 0.5 mg 12/27/18 20:00 01/03/19 07:44 Pulmicort Respules IH 0.5 mg [id number] SANDRA Administration Famotidine 20 mg 12/27/18 22:00 01/02/19 22:05 Pepcid PO 20 mg HS SANDRA Administration Ferrous Sulfate 324 mg 12/28/18 10:00 01/03/19 10:15 Feosol PO 324 mg DAILY SANDRA Administration Folic Acid 1 mg 12/27/18 10:15 01/03/19 10:15 Folic Acid PO 1 mg DAILY SANDRA Administration Octreotide Acetate 1,250 mcg/ 252.5 mls @ 10.1 mls/hr 01/01/19 05:00 01/03/19 00:14 Dextrose IV 50 mcg/hr .Q24H SANDRA 10.1 mls/hr Administration Protocol 50 MCG/HR Heparin Sodium/Sodium Chloride 25,000 units in 250 mls @ 12.002 mls/hr 01/01/19 12:32 01/02/19 08:44 Heparin 24293 Units/250ml 1/2 Normal Saline IV 0 units/kg/hr .[id number] PRN 0 mls/hr ADJUST RATE PER PROTOCOL Titration Protocol 18 UNITS/KG/HR Ceftriaxone Sodium 1 gm in 100 mls @ 100 mls/hr 01/03/19 11:00 Rocephin 1 Gram Ivpb IVPB DAILY SANDRA Protocol Vancomycin HCl 1.7 gm/ Sodium 500 mls @ 167 mls/hr 01/03/19 10:48 Chloride IVPB 01/03/19 13:47 ONCE ONE Protocol NOREPINEPHRINE BIT/0.9 % NACL 4 mg in 250 mls @ 15 mls/hr 01/03/19 11:53 Levophed 4 Mg/ 250 Ml Ns Premixed IV .[id number] PRN TITRATE PER MD ORDER Protocol 4 MCG/MIN Insulin Human Regular 0 units 12/26/18 07:30 01/03/19 09:11 Humulin R Low SC Not Given ACHS [facility] Protocol Levothyroxine Sodium 25 mcg 12/27/18 10:00 01/03/19 10:15 Synthroid PO 25 mcg ACB SANDRA Administration Midodrine 5 mg 12/31/18 18:00 01/02/19 18:40 Proamatine PO Not Given TID SANDRA Rifaximin 550 mg 12/26/18 18:00 01/03/19 10:16 Xifaxan PO 550 mg BID SANDRA Administration Protocol Vitamin E 400 intlu 01/01/19 10:00 01/02/19 10:46 Vitamin E 400 Units Cap PO Not Given DAILY SANDRA - Patient Studies Lab Studies: Microbiology Studies 01/01/19 02:00 Blood Culture - Final Blood-Venous Escherichia Coli Gram Stain - Final 01/01/19 02:20 S.aureus & Coag-Neg Staph PNA FISH - Final Blood-Venous Blood Culture - Preliminary Gram Positive Cocci Gram Stain - Final 01/01/19 15:00 MRSA Culture (Admit) - Final Naris MRSA NOT DETECTED Lab Studies 01/03/19 01/03/19 01/03/19 Range/Units 10:00 10:00 07:33 WBC 15.0 H (4.5-11.0) 10^3/uL RBC 2.55 L (3.5-6.1) 10^6/uL Hgb 9.1 L (14.0-18.0) g/dL Hct 26.3 L (42.0-52.0) % MCV 103.1 (80.0-105.0) fl MCH 35.7 H (25.0-35.0) pg MCHC 34.6 (31.0-37.0) g/dl RDW 20.4 H (11.5-14.5) % Plt Count 105 L (120.0-450.0) 10^3/uL MPV 13.1 H (7.0-11.0) fl Neut % (Auto) 86.7 H (50.0-68.0) % Lymph % (Auto) 5.1 L (22.0-35.0) % Towns % (Auto) 7.9 H (1.0-6.0) % Eos % (Auto) 0.1 L (1.5-5.0) % Baso % (Auto) 0.2 (0.0-3.0) % Lymph # (Auto) 0.8 L (1.2-3.4) Towns # (Auto) 1.2 H (0.1-0.6) Eos # (Auto) 0.0 (0.0-0.7) Baso # (Auto) 0.03 (0.0-2.0) K/mm3 Absolute Neuts (auto) 13.01 H (1.4-6.5) PT (9.4-12.5) SECONDS INR APTT (26.9-38.3) Seconds pCO2 (35-45) mm/Hg pO2 (80-100) mm/Hg HCO3 (21-28) mmol/L ABG pH (7.35-7.45) ABG Total CO2 (22-28) mmol.L ABG O2 Saturation (95-98) % ABG O2 Content (15-23) ML/dl ABG Base Excess (-2.0-3.0) mmol/L ABG Hemoglobin (11.7-17.4) g/dL ABG Carboxyhemoglobin (0.5-1.5) % POC ABG HHb (Measured) (0-5) % ABG Methemoglobin (0.0-3.0) % ABG O2 Capacity (16-24) mL/dl Hgb O2 Saturation (95.0-98.0) % FiO2 % Sodium 136 (132-148) mmol/L Potassium 5.1 H (3.6-5.0) mmol/L Chloride 106 (98-107) mmol/L Carbon Dioxide 13 L (21-33) mmol/L Anion Gap 22 H (10-20) BUN 40 H (7-21) mg/dL Creatinine 3.8 H (0.8-1.5) mg/dl Est GFR ( Amer) 19 Est GFR (Non-Af Amer) 16 POC Glucose (mg/dL) 130 H (65-110) mg/dL Random Glucose 116 H (70-110) mg/dL Calcium 8.6 (8.4-10.5) mg/dL Phosphorus (2.5-4.5) mg/dL Magnesium (1.7-2.2) mg/dL Total Bilirubin 5.6 H (0.2-1.3) mg/dL AST 1413 H (17-59) U/L ALT 274 H (7-56) U/L Alkaline Phosphatase 106 (38-126) U/L Total Protein 7.1 (5.8-8.3) g/dL Albumin 3.8 (3.0-4.8) g/dL Globulin 3.3 gm/dL Albumin/Globulin Ratio 1.1 (1.1-1.8) Prothrombin Mut Interp Prothrombin Gene Mutate Prothromb Gene Review 01/03/19 01/02/19 01/02/19 Range/Units 05:55 22:17 18:26 WBC (4.5-11.0) 10^3/uL RBC (3.5-6.1) 10^6/uL Hgb (14.0-18.0) g/dL Hct (42.0-52.0) % MCV (80.0-105.0) fl MCH (25.0-35.0) pg MCHC (31.0-37.0) g/dl RDW (11.5-14.5) % Plt Count (120.0-450.0) 10^3/uL MPV (7.0-11.0) fl Neut % (Auto) (50.0-68.0) % Lymph % (Auto) (22.0-35.0) % Towns % (Auto) (1.0-6.0) % Eos % (Auto) (1.5-5.0) % Baso % (Auto) (0.0-3.0) % Lymph # (Auto) (1.2-3.4) Towns # (Auto) (0.1-0.6) Eos # (Auto) (0.0-0.7) Baso # (Auto) (0.0-2.0) K/mm3 Absolute Neuts (auto) (1.4-6.5) PT (9.4-12.5) SECONDS INR APTT (26.9-38.3) Seconds pCO2 27 L (35-45) mm/Hg pO2 56.0 L (80-100) mm/Hg HCO3 12.1 L (21-28) mmol/L ABG pH 7.26 L (7.35-7.45) ABG Total CO2 12.9 L (22-28) mmol.L ABG O2 Saturation 91.0 L (95-98) % ABG O2 Content 11.7 L (15-23) ML/dl ABG Base Excess -13.6 L (-2.0-3.0) mmol/L ABG Hemoglobin 9.4 L (11.7-17.4) g/dL ABG Carboxyhemoglobin 2.5 H (0.5-1.5) % POC ABG HHb (Measured) 8.7 H (0-5) % ABG Methemoglobin 0.6 (0.0-3.0) % ABG O2 Capacity 12.9 L (16-24) mL/dl Hgb O2 Saturation 88.2 L (95.0-98.0) % FiO2 32.0 % Sodium 138 (132-148) mmol/L Potassium 5.5 H (3.6-5.0) mmol/L Chloride 108 H (98-107) mmol/L Carbon Dioxide 11 L (21-33) mmol/L Anion Gap 25 H (10-20) BUN 54 H (7-21) mg/dL Creatinine 4.5 H (0.8-1.5) mg/dl Est GFR ( Amer) 16 Est GFR (Non-Af Amer) 13 POC Glucose (mg/dL) 127 H (65-110) mg/dL Random Glucose 122 H (70-110) mg/dL Calcium 8.7 (8.4-10.5) mg/dL Phosphorus (2.5-4.5) mg/dL Magnesium (1.7-2.2) mg/dL Total Bilirubin 4.8 H (0.2-1.3) mg/dL AST 135 H (17-59) U/L ALT 48 (7-56) U/L Alkaline Phosphatase 78 (38-126) U/L Total Protein 7.8 (5.8-8.3) g/dL Albumin 4.2 (3.0-4.8) g/dL Globulin 3.6 gm/dL Albumin/Globulin Ratio 1.2 (1.1-1.8) Prothrombin Mut Interp Prothrombin Gene Mutate Prothromb Gene Review 01/02/19 01/02/19 01/02/19 Range/Units 16:26 16:00 16:00 WBC (4.5-11.0) 10^3/uL RBC (3.5-6.1) 10^6/uL Hgb (14.0-18.0) g/dL Hct (42.0-52.0) % MCV (80.0-105.0) fl MCH (25.0-35.0) pg MCHC (31.0-37.0) g/dl RDW (11.5-14.5) % Plt Count (120.0-450.0) 10^3/uL MPV (7.0-11.0) fl Neut % (Auto) (50.0-68.0) % Lymph % (Auto) (22.0-35.0) % Towns % (Auto) (1.0-6.0) % Eos % (Auto) (1.5-5.0) % Baso % (Auto) (0.0-3.0) % Lymph # (Auto) (1.2-3.4) Towns # (Auto) (0.1-0.6) Eos # (Auto) (0.0-0.7) Baso # (Auto) (0.0-2.0) K/mm3 Absolute Neuts (auto) (1.4-6.5) PT 21.4 H (9.4-12.5) SECONDS INR 1.93 APTT 40.2 H (26.9-38.3) Seconds pCO2 (35-45) mm/Hg pO2 (80-100) mm/Hg HCO3 (21-28) mmol/L ABG pH (7.35-7.45) ABG Total CO2 (22-28) mmol.L ABG O2 Saturation (95-98) % ABG O2 Content (15-23) ML/dl ABG Base Excess (-2.0-3.0) mmol/L ABG Hemoglobin (11.7-17.4) g/dL ABG Carboxyhemoglobin (0.5-1.5) % POC ABG HHb (Measured) (0-5) % ABG Methemoglobin (0.0-3.0) % ABG O2 Capacity (16-24) mL/dl Hgb O2 Saturation (95.0-98.0) % FiO2 % Sodium 138 (132-148) mmol/L Potassium 5.3 H (3.6-5.0) mmol/L Chloride 109 H (98-107) mmol/L Carbon Dioxide 11 L (21-33) mmol/L Anion Gap 24 H (10-20) BUN 52 H (7-21) mg/dL Creatinine 4.5 H (0.8-1.5) mg/dl Est GFR ( Amer) 16 Est GFR (Non-Af Amer) 13 POC Glucose (mg/dL) 152 H (65-110) mg/dL Random Glucose 120 H (70-110) mg/dL Calcium 8.8 (8.4-10.5) mg/dL Phosphorus 5.5 H (2.5-4.5) mg/dL Magnesium 1.9 (1.7-2.2) mg/dL Total Bilirubin 4.5 H (0.2-1.3) mg/dL AST 122 H (17-59) U/L ALT 43 (7-56) U/L Alkaline Phosphatase 77 (38-126) U/L Total Protein 7.6 (5.8-8.3) g/dL Albumin 4.0 (3.0-4.8) g/dL Globulin 3.6 gm/dL Albumin/Globulin Ratio 1.1 (1.1-1.8) Prothrombin Mut Interp Prothrombin Gene Mutate Prothromb Gene Review 01/02/19 01/02/19 01/02/19 Range/Units 16:00 12:30 12:30 WBC 13.9 H (4.5-11.0) 10^3/uL RBC 2.52 L (3.5-6.1) 10^6/uL Hgb 8.7 L (14.0-18.0) g/dL Hct 25.9 L (42.0-52.0) % MCV 102.8 (80.0-105.0) fl MCH 34.5 (25.0-35.0) pg MCHC 33.6 (31.0-37.0) g/dl RDW 19.9 H (11.5-14.5) % Plt Count 101 L (120.0-450.0) 10^3/uL MPV 12.8 H (7.0-11.0) fl Neut % (Auto) 80.7 H (50.0-68.0) % Lymph % (Auto) 10.1 L (22.0-35.0) % Towns % (Auto) 9.0 H (1.0-6.0) % Eos % (Auto) 0.1 L (1.5-5.0) % Baso % (Auto) 0.1 (0.0-3.0) % Lymph # (Auto) 1.4 (1.2-3.4) Towns # (Auto) 1.3 H (0.1-0.6) Eos # (Auto) 0.0 (0.0-0.7) Baso # (Auto) 0.02 (0.0-2.0) K/mm3 Absolute Neuts (auto) 11.22 H (1.4-6.5) PT 20.1 H (9.4-12.5) SECONDS INR 1.78 APTT 37.3 (26.9-38.3) Seconds pCO2 (35-45) mm/Hg pO2 (80-100) mm/Hg HCO3 (21-28) mmol/L ABG pH (7.35-7.45) ABG Total CO2 (22-28) mmol.L ABG O2 Saturation (95-98) % ABG O2 Content (15-23) ML/dl ABG Base Excess (-2.0-3.0) mmol/L ABG Hemoglobin (11.7-17.4) g/dL ABG Carboxyhemoglobin (0.5-1.5) % POC ABG HHb (Measured) (0-5) % ABG Methemoglobin (0.0-3.0) % ABG O2 Capacity (16-24) mL/dl Hgb O2 Saturation (95.0-98.0) % FiO2 % Sodium 138 (132-148) mmol/L Potassium 5.3 H (3.6-5.0) mmol/L Chloride 108 H (98-107) mmol/L Carbon Dioxide 12 L (21-33) mmol/L Anion Gap 24 H (10-20) BUN 52 H (7-21) mg/dL Creatinine 4.1 H (0.8-1.5) mg/dl Est GFR ( Amer) 18 Est GFR (Non-Af Amer) 14 POC Glucose (mg/dL) (65-110) mg/dL Random Glucose 129 H (70-110) mg/dL Calcium 8.6 (8.4-10.5) mg/dL Phosphorus (2.5-4.5) mg/dL Magnesium (1.7-2.2) mg/dL Total Bilirubin 4.0 H (0.2-1.3) mg/dL AST 115 H (17-59) U/L ALT 49 (7-56) U/L Alkaline Phosphatase 69 (38-126) U/L Total Protein 7.7 (5.8-8.3) g/dL Albumin 4.3 (3.0-4.8) g/dL Globulin 3.4 gm/dL Albumin/Globulin Ratio 1.3 (1.1-1.8) Prothrombin Mut Interp Prothrombin Gene Mutate Prothromb Gene Review 12/31/18 Range/Units 06:00 WBC (4.5-11.0) 10^3/uL RBC (3.5-6.1) 10^6/uL Hgb (14.0-18.0) g/dL Hct (42.0-52.0) % MCV (80.0-105.0) fl MCH (25.0-35.0) pg MCHC (31.0-37.0) g/dl RDW (11.5-14.5) % Plt Count (120.0-450.0) 10^3/uL MPV (7.0-11.0) fl Neut % (Auto) (50.0-68.0) % Lymph % (Auto) (22.0-35.0) % Towns % (Auto) (1.0-6.0) % Eos % (Auto) (1.5-5.0) % Baso % (Auto) (0.0-3.0) % Lymph # (Auto) (1.2-3.4) Towns # (Auto) (0.1-0.6) Eos # (Auto) (0.0-0.7) Baso # (Auto) (0.0-2.0) K/mm3 Absolute Neuts (auto) (1.4-6.5) PT (9.4-12.5) SECONDS INR APTT (26.9-38.3) Seconds pCO2 (35-45) mm/Hg pO2 (80-100) mm/Hg HCO3 (21-28) mmol/L ABG pH (7.35-7.45) ABG Total CO2 (22-28) mmol.L ABG O2 Saturation (95-98) % ABG O2 Content (15-23) ML/dl ABG Base Excess (-2.0-3.0) mmol/L ABG Hemoglobin (11.7-17.4) g/dL ABG Carboxyhemoglobin (0.5-1.5) % POC ABG HHb (Measured) (0-5) % ABG Methemoglobin (0.0-3.0) % ABG O2 Capacity (16-24) mL/dl Hgb O2 Saturation (95.0-98.0) % FiO2 % Sodium (132-148) mmol/L Potassium (3.6-5.0) mmol/L Chloride (98-107) mmol/L Carbon Dioxide (21-33) mmol/L Anion Gap (10-20) BUN (7-21) mg/dL Creatinine (0.8-1.5) mg/dl Est GFR ( Amer) Est GFR (Non-Af Amer) POC Glucose (mg/dL) (65-110) mg/dL Random Glucose (70-110) mg/dL Calcium (8.4-10.5) mg/dL Phosphorus (2.5-4.5) mg/dL Magnesium (1.7-2.2) mg/dL Total Bilirubin (0.2-1.3) mg/dL AST (17-59) U/L ALT (7-56) U/L Alkaline Phosphatase (38-126) U/L Total Protein (5.8-8.3) g/dL Albumin (3.0-4.8) g/dL Globulin gm/dL Albumin/Globulin Ratio (1.1-1.8) Prothrombin Mut Interp see note Prothrombin Gene Mutate see note Prothromb Gene Review see note Laboratory Results - last 24 hr 12/31/18 01/02/19 01/02/19 06:00 12:30 12:30 WBC RBC Hgb Hct MCV MCH MCHC RDW Plt Count MPV Neut % (Auto) Lymph % (Auto) Towns % (Auto) Eos % (Auto) Baso % (Auto) Lymph # (Auto) Towns # (Auto) Eos # (Auto) Baso # (Auto) Absolute Neuts (auto) PT 20.1 H INR 1.78 APTT 37.3 pCO2 pO2 HCO3 ABG pH ABG Total CO2 ABG O2 Saturation ABG O2 Content ABG Base Excess ABG Hemoglobin ABG Carboxyhemoglobin POC ABG HHb (Measured) ABG Methemoglobin ABG O2 Capacity Hgb O2 Saturation FiO2 Sodium 138 Potassium 5.3 H Chloride 108 H Carbon Dioxide 12 L Anion Gap 24 H BUN 52 H Creatinine 4.1 H Est GFR ( Amer) 18 Est GFR (Non-Af Amer) 14 POC Glucose (mg/dL) Random Glucose 129 H Calcium 8.6 Phosphorus Magnesium Total Bilirubin 4.0 H AST 115 H ALT 49 Alkaline Phosphatase 69 Total Protein 7.7 Albumin 4.3 Globulin 3.4 Albumin/Globulin Ratio 1.3 Prothrombin Mut Interp see note Prothrombin Gene Mutate see note Prothromb Gene Review see note 01/02/19 01/02/19 01/02/19 16:00 16:00 16:00 WBC 13.9 H RBC 2.52 L Hgb 8.7 L Hct 25.9 L MCV 102.8 MCH 34.5 MCHC 33.6 RDW 19.9 H Plt Count 101 L MPV 12.8 H Neut % (Auto) 80.7 H Lymph % (Auto) 10.1 L Towns % (Auto) 9.0 H Eos % (Auto) 0.1 L Baso % (Auto) 0.1 Lymph # (Auto) 1.4 Towns # (Auto) 1.3 H Eos # (Auto) 0.0 Baso # (Auto) 0.02 Absolute Neuts (auto) 11.22 H PT 21.4 H INR 1.93 APTT 40.2 H pCO2 pO2 HCO3 ABG pH ABG Total CO2 ABG O2 Saturation ABG O2 Content ABG Base Excess ABG Hemoglobin ABG Carboxyhemoglobin POC ABG HHb (Measured) ABG Methemoglobin ABG O2 Capacity Hgb O2 Saturation FiO2 Sodium 138 Potassium 5.3 H Chloride 109 H Carbon Dioxide 11 L Anion Gap 24 H BUN 52 H Creatinine 4.5 H Est GFR ( Amer) 16 Est GFR (Non-Af Amer) 13 POC Glucose (mg/dL) Random Glucose 120 H Calcium 8.8 Phosphorus 5.5 H Magnesium 1.9 Total Bilirubin 4.5 H AST 122 H ALT 43 Alkaline Phosphatase 77 Total Protein 7.6 Albumin 4.0 Globulin 3.6 Albumin/Globulin Ratio 1.1 Prothrombin Mut Interp Prothrombin Gene Mutate Prothromb Gene Review 01/02/19 01/02/19 01/02/19 16:26 18:26 22:17 WBC RBC Hgb Hct MCV MCH MCHC RDW Plt Count MPV Neut % (Auto) Lymph % (Auto) Towns % (Auto) Eos % (Auto) Baso % (Auto) Lymph # (Auto) Towns # (Auto) Eos # (Auto) Baso # (Auto) Absolute Neuts (auto) PT INR APTT pCO2 pO2 HCO3 ABG pH ABG Total CO2 ABG O2 Saturation ABG O2 Content ABG Base Excess ABG Hemoglobin ABG Carboxyhemoglobin POC ABG HHb (Measured) ABG Methemoglobin ABG O2 Capacity Hgb O2 Saturation FiO2 Sodium 138 Potassium 5.5 H Chloride 108 H Carbon Dioxide 11 L Anion Gap 25 H BUN 54 H Creatinine 4.5 H Est GFR ( Amer) 16 Est GFR (Non-Af Amer) 13 POC Glucose (mg/dL) 152 H 127 H Random Glucose 122 H Calcium 8.7 Phosphorus Magnesium Total Bilirubin 4.8 H AST 135 H ALT 48 Alkaline Phosphatase 78 Total Protein 7.8 Albumin 4.2 Globulin 3.6 Albumin/Globulin Ratio 1.2 Prothrombin Mut Interp Prothrombin Gene Mutate Prothromb Gene Review 01/03/19 01/03/19 01/03/19 05:55 07:33 10:00 WBC 15.0 H RBC 2.55 L Hgb 9.1 L Hct 26.3 L MCV 103.1 MCH 35.7 H MCHC 34.6 RDW 20.4 H Plt Count 105 L MPV 13.1 H Neut % (Auto) 86.7 H Lymph % (Auto) 5.1 L Towns % (Auto) 7.9 H Eos % (Auto) 0.1 L Baso % (Auto) 0.2 Lymph # (Auto) 0.8 L Towns # (Auto) 1.2 H Eos # (Auto) 0.0 Baso # (Auto) 0.03 Absolute Neuts (auto) 13.01 H PT INR APTT pCO2 27 L pO2 56.0 L HCO3 12.1 L ABG pH 7.26 L ABG Total CO2 12.9 L ABG O2 Saturation 91.0 L ABG O2 Content 11.7 L ABG Base Excess -13.6 L ABG Hemoglobin 9.4 L ABG Carboxyhemoglobin 2.5 H POC ABG HHb (Measured) 8.7 H ABG Methemoglobin 0.6 ABG O2 Capacity 12.9 L Hgb O2 Saturation 88.2 L FiO2 32.0 Sodium Potassium Chloride Carbon Dioxide Anion Gap BUN Creatinine Est GFR ( Amer) Est GFR (Non-Af Amer) POC Glucose (mg/dL) 130 H Random Glucose Calcium Phosphorus Magnesium Total Bilirubin AST ALT Alkaline Phosphatase Total Protein Albumin Globulin Albumin/Globulin Ratio Prothrombin Mut Interp Prothrombin Gene Mutate Prothromb Gene Review 01/03/19 10:00 WBC RBC Hgb Hct MCV MCH MCHC RDW Plt Count MPV Neut % (Auto) Lymph % (Auto) Towns % (Auto) Eos % (Auto) Baso % (Auto) Lymph # (Auto) Towns # (Auto) Eos # (Auto) Baso # (Auto) Absolute Neuts (auto) PT INR APTT pCO2 pO2 HCO3 ABG pH ABG Total CO2 ABG O2 Saturation ABG O2 Content ABG Base Excess ABG Hemoglobin ABG Carboxyhemoglobin POC ABG HHb (Measured) ABG Methemoglobin ABG O2 Capacity Hgb O2 Saturation FiO2 Sodium 136 Potassium 5.1 H Chloride 106 Carbon Dioxide 13 L Anion Gap 22 H BUN 40 H Creatinine 3.8 H Est GFR ( Amer) 19 Est GFR (Non-Af Amer) 16 POC Glucose (mg/dL) Random Glucose 116 H Calcium 8.6 Phosphorus Magnesium Total Bilirubin 5.6 H AST 1413 H ALT 274 H Alkaline Phosphatase 106 Total Protein 7.1 Albumin 3.8 Globulin 3.3 Albumin/Globulin Ratio 1.1 Prothrombin Mut Interp Prothrombin Gene Mutate Prothromb Gene Review Radiology Impressions: Radiology Impressions Renal Ultrasound 01/01/19 18:45 IMPRESSION: Unremarkable renal ultrasound. Ascites noted. Chest X-Ray 01/02/19 18:19 IMPRESSION: Right upper lobe infiltrate consistent with pneumonia. 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 On midodrine, Octreotide and IVF Hepatobiliary, GI following Patient had peritoneal shunt placed Yesterday patients family fed him liquids while laying flat, after which patient developed SOB, ?Aspiration Currently Afebrile, AAOx3, NAD, comfortable BP stable, on BIPAP Cont with Midodrine, Octreotide, IVF HD as per renal; tolerated HD yesterday Fs control Synthroid low salt diet GI ppx DVT ppx Monitor in MICU
[2019-01-03] MEDS: NOREPINEPHRINE BIT/0.9 % NACL 4 MG/250 ML BAG IV PRN ×2 (12:25→20:31)
[2019-01-03] MEDS ORDERED: Sodium Chloride 0.9% 250 ML IV STA ×2 (13:45→14:01)
[2019-01-03] MEDS ORDERED: Albumin Human 25% (25 gm/100 ml) IV ONE (13:51)
[2019-01-03] MEDS ORDERED: Albumin Human 25% (12.5 gm/50 ml) IV ONE (13:51)
--- NOTE | 2019-01-03 14:00 | PN ---
DATE: 01/03/2019 PULMONARY CRITICAL CARE PROGRESS NOTE REFERRING PHYSICIAN: Jewell Martinez MD SUBJECTIVE: The patient is seen lying in bed, BiPAP in place. Family at bedside. The patient had dialysis catheter placed yesterday as well as had 400 mL of ascitic fluid was removed yesterday. The patient was started on hemodialysis yesterday where 1.5 liters was removed yesterday. No acute distress noted at this time. No headache, rhinitis, chest pain, cough, shortness of breath, abdominal pain, nausea, vomiting, diarrhea, leg pain or leg swelling reported. OBJECTIVE: GENERAL: No acute distress. VITAL SIGNS: Blood pressure 85/42, pulse 81, oxygen saturation 100% and temperature 98. HEENT: Moist mucous membranes. NECK: Supple. No JVD. RESPIRATORY: Fair airflow bilaterally. CARDIOVASCULAR: S1 and S2. ABDOMEN: Distended. Positive ascites. EXTREMITIES: No bilateral lower extremity edema. NEUROLOGIC: Awake, alert and verbal. Follows commands. MEDICATIONS: Reviewed. DuoNeb 3 mL inhalation every 4 hours p.r.n., Brovana 15 mcg inhalation every 12 hours, Pulmicort 0.5 mg inhalation every 12 hours, Rocephin 1 g daily, Pepcid 20 mg at bedtime, ferrous sulfate 324 mg daily, folic acid 1 mg daily, heparin 25,000 units in 250 mL at 12.002 mL per hour, Humulin R sliding a.c. and at bedtime, Synthroid 25 mcg daily, midodrine 5 mg 3 times a day, Levophed 4 mg in 250 mL at 50 mL per hour, octreotide acetate 1250 mcg every 24 hours, Xifaxan 550 mg twice a day, vancomycin 1.7 g one time dose and vitamin E 400 units daily. LABORATORY DATA: Reviewed. WBC 15, RBC 2.55, hemoglobin 9.1, hematocrit 26.3 and platelets 105. PCO2 of 27, pO2 of 56, HCO3 of 12.1, ABG pH 7.26 and FiO2 32. Sodium 136, potassium 5.1, chloride 106, carbon dioxide 13, anion gap 22, BUN 40, creatinine 3.8, GFR 16, POC glucose 130, random glucose 116, calcium 8.6, total bilirubin 5.6, AST 1413, ALT 274, alkaline phosphatase 106, total protein 7.1, albumin 3.8, globulin 3.3 and albumin-globulin ratio 1.1. Chest x-ray shows no change in diffuse right-sided infiltrate vascular congestion. IMPRESSION AND PLAN: Chronic obstructive lung disease, sleep apnea syndrome, cardiomyopathy, valvular heart disease, pulmonary hypertension, portal hypertension, partially occluded portal vein, cirrhotic liver, acute kidney injury, the patient started on hemodialysis. The patient currently being followed by [facility], and [facility]. The patient has significant valvular heart disease, followed by Cardiology. Pulmonary point of view, continue inhaled bronchodilator, gastric prophylaxis. The patient is on anticoagulation therapy. We will order procalcitonin level to evaluate for bacterial pneumonia with the patient having right-sided infiltrate. Overall prognosis poor. We will order followup ABG, chest x-ray, CBC and CMP in the morning. We will order also swallow evaluation to evaluate for aspiration. Critical care time spent more than 35 minutes. This patient was seen and examined with Dr. Ansari. Discussed assessment and plan as described above. This patient was seen and examined with Kenan Montague, Nurse Practitioner. Discussed assessment and plan as described above. Thank you for this consult and we will follow with you. Kenan Montague APN Alfonso Ansari MD JOSUE
--- NOTE | 2019-01-03 14:05 | CP.PCM.PN ---
<Samuel Rodgers - Last Filed: 01/03/19 14:10> Subjective - Date & Time of Evaluation Date of Evaluation: 01/03/19 Time of Evaluation: 06:00 - Subjective Subjective: Patient seen and evaluated bedside in ICU. Patient states he is feeling better, no acute issues overnight, says breathing has improved. Patient denies chest pain, SOB, fever, chills, or any other complaints at this time. Objective - Vital Signs/Intake and Output Vital Signs (last 24 hours): Temp Pulse Resp BP Pulse Ox 98 F 75 24 101/56 L 100 01/03/19 04:00 01/03/19 13:15 01/03/19 13:15 01/03/19 13:15 01/03/19 13:15 Intake and Output: 01/03/19 01/03/19 06:59 18:59 Intake Total 436 Output Total 1500 Balance -1064 - Medications Medications: Current Medications Albumin Human (Albumin Human 25% (12.5 Gm/50 Ml)) 25 gm IV ONCE ONE Stop: 01/03/19 13:52 Albuterol/Ipratropium (Duoneb 3 Mg/0.5 Mg (3 Ml) Ud) 3 ml IH [id number] PRN PRN Reason: Shortness of Breath Last Admin: 01/03/19 13:02 Dose: 3 ml Arformoterol Tartrate (Brovana) 15 mcg IH [id number] [facility] Last Admin: 01/03/19 07:44 Dose: 15 mcg Budesonide (Pulmicort Respules) 0.5 mg IH [id number] [facility] Last Admin: 01/03/19 07:44 Dose: 0.5 mg Famotidine (Pepcid) 20 mg PO HS [facility] Last Admin: 01/02/19 22:05 Dose: 20 mg Ferrous Sulfate (Feosol) 324 mg PO DAILY [facility] Last Admin: 01/03/19 10:15 Dose: 324 mg Folic Acid (Folic Acid) 1 mg PO DAILY [facility] Last Admin: 01/03/19 10:15 Dose: 1 mg Hydrocortisone Sodium Succinate (Solu-Cortef) 100 mg IVP Q8 [facility] Octreotide Acetate 1,250 mcg/ (Dextrose) 252.5 mls @ 10.1 mls/hr IV .Q24H [facility]; Protocol Last Admin: 01/03/19 00:14 Dose: 50 mcg/hr, 10.1 mls/hr Heparin Sodium/Sodium Chloride (Heparin 23426 Units/250ml 1/2 Normal Saline) 25,000 units in 250 mls @ 12.002 mls/hr IV .[id number] PRN; Protocol PRN Reason: ADJUST RATE PER PROTOCOL Last Titration: 01/02/19 08:44 Dose: 0 units/kg/hr, 0 mls/hr Ceftriaxone Sodium (Rocephin 1 Gram Ivpb) 1 gm in 100 mls @ 100 mls/hr IVPB DAILY [facility]; Protocol NOREPINEPHRINE BIT/0.9 % NACL (Levophed 4 Mg/ 250 Ml Ns Premixed) 4 mg in 250 mls @ 15 mls/hr IV .[id number] PRN; Protocol PRN Reason: TITRATE PER MD ORDER Last Admin: 01/03/19 12:25 Dose: 4 mcg/min, 15 mls/hr Sodium Chloride (Sodium Chloride 0.9%) 250 mls @ 999 mls/hr IV .Q16M [facility] Stop: 01/03/19 14:16 Insulin Human Regular (Humulin R Low) 0 units SC ACHS [facility]; Protocol Last Admin: 01/03/19 12:20 Dose: Not Given Levothyroxine Sodium (Synthroid) 25 mcg PO ACB [facility] Last Admin: 01/03/19 10:15 Dose: 25 mcg Midodrine (Proamatine) 10 mg PO TID [facility] Midodrine (Proamatine) 5 mg PO ONCE ONE Stop: 01/03/19 14:00 Rifaximin (Xifaxan) 550 mg PO BID [facility]; Protocol Last Admin: 01/03/19 10:16 Dose: 550 mg Vitamin E (Vitamin E 400 Units Cap) 400 intlu PO DAILY [facility] Last Admin: 01/02/19 10:46 Dose: Not Given - Labs Labs: 01/03/19 10:00 01/03/19 10:00 PT 21.4 SECONDS (9.4-12.5) H 01/02/19 16:00 INR 1.93 01/02/19 16:00 APTT 40.2 Seconds (26.9-38.3) H 01/02/19 16:00 - Constitutional Appears: No Acute Distress - Head Exam Head Exam: ATRAUMATIC, NORMAL INSPECTION, NORMOCEPHALIC - Eye Exam Eye Exam: Normal appearance - ENT Exam ENT Exam: Mucous Membranes Moist - Respiratory Exam Respiratory Exam: Clear to Ausculation Bilateral, NORMAL BREATHING PATTERN - Cardiovascular Exam Cardiovascular Exam: REGULAR RHYTHM, +S1, +S2 - Extremities Exam Extremities Exam: absent: Pedal Edema - Neurological Exam Neurological Exam: Alert, Awake, Oriented x3 Assessment and Plan - Assessment and Plan (Free Text) Assessment: 68 M with pertinent medical history of alcohol abuse (6 years sober), Laenec's cirrhosis, and CHF pEF presented with confusion and abdominal distension; Nephrology consulted for questionable hepatorenal syndrome. Plan: FANNY, possibly 2/2 ATN v hypoperfusion vs hepatorenal syndrome (HRS): - given adequate fluid replacement and albumin - levophed started - Hold all diuretics - Patient is on albumin, and octreotide in case of HRS - Daily HD session CHFpEF - Gentle hydration - Albumin - Currently holding diuretics, aldactone, and beta blockers in light of patient's hypotension Pulmonary HTN - Currently holding all diuretics - Brovana SIRS - elevated WBC - blood cultures growing gram + cocci sensitive to ceftriaxone - Continue vanc anf cef <Ralph Pascual - Last Filed: 01/04/19 07:01> Objective - Vital Signs/Intake and Output Vital Signs (last 24 hours): Temp Pulse Resp BP Pulse Ox 97.3 F L 52 L 22 90/46 L 100 01/03/19 20:00 01/04/19 05:10 01/04/19 05:10 01/04/19 05:54 01/04/19 05:10 Intake and Output: 01/03/19 01/04/19 18:59 06:59 Intake Total 100 652.5 Balance 100 652.5 - Medications Medications: Current Medications Albuterol/Ipratropium (Duoneb 3 Mg/0.5 Mg (3 Ml) Ud) 3 ml IH [id number] PRN PRN Reason: Shortness of Breath Last Admin: 01/03/19 15:37 Dose: 3 ml Arformoterol Tartrate (Brovana) 15 mcg IH [id number] [facility] Last Admin: 01/03/19 07:44 Dose: 15 mcg Budesonide (Pulmicort Respules) 0.5 mg IH [id number] [facility] Last Admin: 01/03/19 07:44 Dose: 0.5 mg Famotidine (Pepcid) 20 mg PO HS [facility] Last Admin: 01/03/19 22:40 Dose: Not Given Ferrous Sulfate (Feosol) 324 mg PO DAILY [facility] Last Admin: 01/03/19 10:15 Dose: 324 mg Folic Acid (Folic Acid) 1 mg PO DAILY [facility] Last Admin: 01/03/19 10:15 Dose: 1 mg Hydrocortisone Sodium Succinate (Solu-Cortef) 100 mg IVP Q8 [facility] Last Admin: 01/04/19 05:54 Dose: 100 mg Octreotide Acetate 1,250 mcg/ (Dextrose) 252.5 mls @ 10.1 mls/hr IV .Q24H [facility]; Protocol Last Admin: 01/04/19 05:56 Dose: 49.5 mcg/hr, 10 mls/hr Heparin Sodium/Sodium Chloride (Heparin 37222 Units/250ml 1/2 Normal Saline) 25,000 units in 250 mls @ 12.002 mls/hr IV .[id number] PRN; Protocol PRN Reason: ADJUST RATE PER PROTOCOL Last Titration: 01/02/19 08:44 Dose: 0 units/kg/hr, 0 mls/hr Ceftriaxone Sodium (Rocephin 1 Gram Ivpb) 1 gm in 100 mls @ 100 mls/hr IVPB DAILY [facility]; Protocol Last Admin: 01/03/19 18:06 Dose: 100 mls/hr NOREPINEPHRINE BIT/0.9 % NACL (Levophed 4 Mg/ 250 Ml Ns Premixed) 4 mg in 250 mls @ 15 mls/hr IV .[id number] PRN; Protocol PRN Reason: TITRATE PER MD ORDER Last Admin: 01/04/19 05:53 Dose: 8 mcg/min, 30 mls/hr Vasopressin 20 units/ Dextrose 101 mls @ 9.09 mls/hr IV .Q11H7M [facility]; Protocol Last Admin: 01/04/19 05:54 Dose: 9.09 mls/hr Insulin Human Regular (Humulin R Low) 0 units SC ACHS [facility]; Protocol Last Admin: 01/03/19 23:00 Dose: Not Given Levothyroxine Sodium (Synthroid) 25 mcg PO ACB [facility] Last Admin: 01/03/19 10:15 Dose: 25 mcg Midodrine (Proamatine) 10 mg PO TID [facility] Last Admin: 01/03/19 14:23 Dose: 10 mg Rifaximin (Xifaxan) 550 mg PO BID [facility]; Protocol Last Admin: 01/03/19 10:16 Dose: 550 mg Vitamin E (Vitamin E 400 Units Cap) 400 intlu PO DAILY [facility] Last Admin: 01/03/19 10:40 Dose: Not Given - Labs Labs: 01/03/19 10:00 01/03/19 10:00 PT 21.4 SECONDS (9.4-12.5) H 01/02/19 16:00 INR 1.93 01/02/19 16:00 APTT 40.2 Seconds (26.9-38.3) H 01/02/19 16:00 Attending/Attestation - Attestation I have personally seen and examined this patient.: Yes I have fully participated in the care of the patient.: Yes I have reviewed all pertinent clinical information, including history, physical exam and plan: Yes Notes (Text): Patient seen and examined; I agree with the resident's note as above with the following additions/edits: 68 yo M w/ pmh of liver cirrhosis, CHF(with right sided dysfunction, possible diastolic dysfunction), pulm HTN, COPD/asthma, previous alcohol abuse, a-fib, presented with increasing abdominal girth and confusion; nephrology following for acute renal failure; Initiated on HD last night in the setting of decompensated CHF and electrolyte abnormalities (hyperkalemia, metabolic acidosis); anuric renal failure of sudden onset; cannot r/o ATN but degree of ATN is out of proportion to inciting insult found (only mild persistent hypotension and sepsis); working diagnosis should still be HRS and should be treated accordingly with vasoconstrictor therapy; discussed with CCM team, since patient is in ICU setting should be on levophed to keep MAP consistently > 65; CXR still showing pulm edema; giving full HD session today with 2L UF goal; will likely dialyze again tomorrow; -awaiting echo results; -avoid nephrotoxic insults; -agree with starting empiric MRSA coverage; re-dose vanco after HD;
--- NOTE | 2019-01-03 14:07 | CP.PCM.PN ---
Subjective - Date & Time of Evaluation Date of Evaluation: 01/03/19 Time of Evaluation: 14:05 - Subjective Subjective: Patient became hypotensive after dialysis. Patient is currently awake, alert, and oriented x3 and is at baseline with his mentation. Patient baseline SBP had been in the 90's during hospital course, however after dialysis SBP was noted to be in the 70's. Levophed and Midodrine was increased. Patient will be given a 500 cc bolus of normal saline, albumin 25%, and solu-cortef. Will continue to monitor blood pressure closely. Objective - Vital Signs/Intake and Output Vital Signs (last 24 hours): Temp Pulse Resp BP Pulse Ox 98 F 75 24 101/56 L 100 01/03/19 04:00 01/03/19 13:15 01/03/19 13:15 01/03/19 13:15 01/03/19 13:15 Intake and Output: 01/03/19 01/03/19 06:59 18:59 Intake Total 436 Output Total 1500 Balance -1064 - Medications Medications: Current Medications Albumin Human (Albumin Human 25% (12.5 Gm/50 Ml)) 25 gm IV ONCE ONE Stop: 01/03/19 13:52 Albuterol/Ipratropium (Duoneb 3 Mg/0.5 Mg (3 Ml) Ud) 3 ml IH [id number] PRN PRN Reason: Shortness of Breath Last Admin: 01/03/19 13:02 Dose: 3 ml Arformoterol Tartrate (Brovana) 15 mcg IH [id number] [facility] Last Admin: 01/03/19 07:44 Dose: 15 mcg Budesonide (Pulmicort Respules) 0.5 mg IH [id number] [facility] Last Admin: 01/03/19 07:44 Dose: 0.5 mg Famotidine (Pepcid) 20 mg PO HS [facility] Last Admin: 01/02/19 22:05 Dose: 20 mg Ferrous Sulfate (Feosol) 324 mg PO DAILY [facility] Last Admin: 01/03/19 10:15 Dose: 324 mg Folic Acid (Folic Acid) 1 mg PO DAILY [facility] Last Admin: 01/03/19 10:15 Dose: 1 mg Hydrocortisone Sodium Succinate (Solu-Cortef) 100 mg IVP Q8 [facility] Octreotide Acetate 1,250 mcg/ (Dextrose) 252.5 mls @ 10.1 mls/hr IV .Q24H [facility]; Protocol Last Admin: 01/03/19 00:14 Dose: 50 mcg/hr, 10.1 mls/hr Heparin Sodium/Sodium Chloride (Heparin 78189 Units/250ml 1/2 Normal Saline) 25,000 units in 250 mls @ 12.002 mls/hr IV .[id number] PRN; Protocol PRN Reason: ADJUST RATE PER PROTOCOL Last Titration: 01/02/19 08:44 Dose: 0 units/kg/hr, 0 mls/hr Ceftriaxone Sodium (Rocephin 1 Gram Ivpb) 1 gm in 100 mls @ 100 mls/hr IVPB DAILY [facility]; Protocol NOREPINEPHRINE BIT/0.9 % NACL (Levophed 4 Mg/ 250 Ml Ns Premixed) 4 mg in 250 mls @ 15 mls/hr IV .[id number] PRN; Protocol PRN Reason: TITRATE PER MD ORDER Last Admin: 01/03/19 12:25 Dose: 4 mcg/min, 15 mls/hr Sodium Chloride (Sodium Chloride 0.9%) 250 mls @ 999 mls/hr IV .Q16M [facility] Stop: 01/03/19 14:16 Insulin Human Regular (Humulin R Low) 0 units SC ACHS [facility]; Protocol Last Admin: 01/03/19 12:20 Dose: Not Given Levothyroxine Sodium (Synthroid) 25 mcg PO ACB [facility] Last Admin: 01/03/19 10:15 Dose: 25 mcg Midodrine (Proamatine) 10 mg PO TID [facility] Midodrine (Proamatine) 5 mg PO ONCE ONE Stop: 01/03/19 14:00 Rifaximin (Xifaxan) 550 mg PO BID [facility]; Protocol Last Admin: 01/03/19 10:16 Dose: 550 mg Vitamin E (Vitamin E 400 Units Cap) 400 intlu PO DAILY [facility] Last Admin: 01/02/19 10:46 Dose: Not Given - Labs Labs: 01/03/19 10:00 01/03/19 10:00 PT 21.4 SECONDS (9.4-12.5) H 01/02/19 16:00 INR 1.93 01/02/19 16:00 APTT 40.2 Seconds (26.9-38.3) H 01/02/19 16:00
--- NOTE | 2019-01-03 14:12 | CP.PCM.PN ---
Subjective - Date & Time of Evaluation Date of Evaluation: 01/03/19 Time of Evaluation: 10:40 - Subjective Subjective: Patient is undergoing dialysis, no fevers, not in distress. Dialysis was placed yesterday. Objective - Vital Signs/Intake and Output Vital Signs (last 24 hours): Temp Pulse Resp BP Pulse Ox 98 F 76 20 103/42 L 95 01/02/19 00:00 01/02/19 16:20 01/02/19 16:20 01/02/19 16:16 01/02/19 16:20 Intake and Output: 01/02/19 01/02/19 06:59 18:59 Intake Total 758 242 Output Total 5 Balance 753 242 - Medications Medications: Current Medications Arformoterol Tartrate (Brovana) 15 mcg IH [id number] [facility] Last Admin: 01/02/19 06:27 Dose: 15 mcg Budesonide (Pulmicort Respules) 0.5 mg IH [id number] [facility] Last Admin: 01/02/19 06:27 Dose: 0.5 mg Famotidine (Pepcid) 20 mg PO HS [facility] Last Admin: 01/01/19 22:10 Dose: 20 mg Ferrous Sulfate (Feosol) 324 mg PO DAILY [facility] Last Admin: 01/02/19 10:45 Dose: Not Given Folic Acid (Folic Acid) 1 mg PO DAILY [facility] Last Admin: 01/02/19 10:45 Dose: Not Given Octreotide Acetate 1,250 mcg/ (Dextrose) 252.5 mls @ 10.1 mls/hr IV .Q24H [facility]; Protocol Last Admin: 01/01/19 09:32 Dose: 50 mcg/hr, 10.1 mls/hr Heparin Sodium/Sodium Chloride (Heparin 50484 Units/250ml 1/2 Normal Saline) 25,000 units in 250 mls @ 12.002 mls/hr IV .[id number] PRN; Protocol PRN Reason: ADJUST RATE PER PROTOCOL Last Titration: 01/02/19 08:44 Dose: 0 units/kg/hr, 0 mls/hr Dopamine HCl/Dextrose (Dopamine 400mg/250ml D5w) 400 mg in 250 mls @ 12.502 mls/hr IV .Q20H PRN; Protocol PRN Reason: TITRATE PER MD ORDERS Last Titration: 01/02/19 15:47 Dose: 5 mcg/kg/min, 12.502 mls/hr Meropenem/Sodium Chloride (Merrem Iv 500 Mg/Ns 50 Ml) 500 mg in 50 mls @ 100 mls/hr IVPB Q12 [facility]; Protocol Stop: 01/08/19 23:31 Last Admin: 01/02/19 00:03 Dose: 100 mls/hr Insulin Human Regular (Humulin R Low) 0 units SC ACHS [facility]; Protocol Last Admin: 01/02/19 11:30 Dose: Not Given Levothyroxine Sodium (Synthroid) 25 mcg PO ACB [facility] Last Admin: 01/02/19 10:46 Dose: Not Given Midodrine (Proamatine) 5 mg PO TID [facility] Last Admin: 01/02/19 15:48 Dose: Not Given Rifaximin (Xifaxan) 550 mg PO BID [facility]; Protocol Last Admin: 01/02/19 10:55 Dose: 550 mg Vitamin E (Vitamin E 400 Units Cap) 400 intlu PO DAILY [facility] Last Admin: 01/02/19 10:46 Dose: Not Given - Labs Labs: 01/02/19 16:00 01/02/19 16:00 PT 21.4 SECONDS (9.4-12.5) H 01/02/19 16:00 INR 1.93 01/02/19 16:00 APTT 40.2 Seconds (26.9-38.3) H 01/02/19 16:00 - Constitutional Appears: Chronically Ill - Head Exam Head Exam: NORMAL INSPECTION - Respiratory Exam Respiratory Exam: Decreased Breath Sounds - Cardiovascular Exam Cardiovascular Exam: +S1, +S2 - GI/Abdominal Exam GI & Abdominal Exam: Soft. absent: Tenderness Assessment and Plan - Assessment and Plan (Free Text) Plan: Assessment systemic inflammatory response syndrome, with fevers, sepsis due to E. coli and Strep bacteremia, consider GI as source need to rule out SBP, R/O UTI decompensated liver cirrhosis with worsening renal failure as well, S/P hepatic encephalopathy history of acute bronchitis cataracts COPD history of alcholism chronic CHF Plan switched Merrem to Rocephin and we are still awaiting the identification and sensitivities of the Strep in the blood - we have also given a dose of IV Vancomycin; PICC line on left arm just got placed as well dialysis catheter, making these unlikely sources of the bacteremia Should consider repeat paracentesis for fluid analysis and cultures will get urine cx as well follow up repeat blood cx will continue monitor clinically follow up further recommendations of GI and Renal
--- NOTE | 2019-01-03 14:54 | CP.PCM.PN ---
<Jeff Manzo - Last Filed: 01/03/19 15:06> Subjective - Date & Time of Evaluation Date of Evaluation: 01/03/19 Time of Evaluation: 08:00 - Subjective Subjective: PGY5 GI Follow-up Pt seen and examine bedside 24hr events noted s/p shunt respiratory distress from fluid overload start on dialysis last night and today Objective - Vital Signs/Intake and Output Vital Signs (last 24 hours): Temp Pulse Resp BP Pulse Ox 98 F 67 22 72/42 L 89 L 01/03/19 04:00 01/03/19 14:03 01/03/19 14:03 01/03/19 14:04 01/03/19 14:03 Intake and Output: 01/03/19 01/03/19 06:59 18:59 Intake Total 436 15 Output Total 1500 Balance -1064 15 - Medications Medications: Current Medications Albuterol/Ipratropium (Duoneb 3 Mg/0.5 Mg (3 Ml) Ud) 3 ml IH [id number] PRN PRN Reason: Shortness of Breath Last Admin: 01/03/19 13:02 Dose: 3 ml Arformoterol Tartrate (Brovana) 15 mcg IH [id number] [facility] Last Admin: 01/03/19 07:44 Dose: 15 mcg Budesonide (Pulmicort Respules) 0.5 mg IH [id number] [facility] Last Admin: 01/03/19 07:44 Dose: 0.5 mg Famotidine (Pepcid) 20 mg PO HS [facility] Last Admin: 01/02/19 22:05 Dose: 20 mg Ferrous Sulfate (Feosol) 324 mg PO DAILY [facility] Last Admin: 01/03/19 10:15 Dose: 324 mg Folic Acid (Folic Acid) 1 mg PO DAILY [facility] Last Admin: 01/03/19 10:15 Dose: 1 mg Hydrocortisone Sodium Succinate (Solu-Cortef) 100 mg IVP Q8 [facility] Octreotide Acetate 1,250 mcg/ (Dextrose) 252.5 mls @ 10.1 mls/hr IV .Q24H [facility]; Protocol Last Admin: 01/03/19 00:14 Dose: 50 mcg/hr, 10.1 mls/hr Heparin Sodium/Sodium Chloride (Heparin 03465 Units/250ml 1/2 Normal Saline) 25,000 units in 250 mls @ 12.002 mls/hr IV .[id number] PRN; Protocol PRN Reason: ADJUST RATE PER PROTOCOL Last Titration: 01/02/19 08:44 Dose: 0 units/kg/hr, 0 mls/hr Ceftriaxone Sodium (Rocephin 1 Gram Ivpb) 1 gm in 100 mls @ 100 mls/hr IVPB DAILY [facility]; Protocol NOREPINEPHRINE BIT/0.9 % NACL (Levophed 4 Mg/ 250 Ml Ns Premixed) 4 mg in 250 mls @ 15 mls/hr IV .[id number] PRN; Protocol PRN Reason: TITRATE PER MD ORDER Last Titration: 01/03/19 13:45 Dose: 6 mcg/min, 22.5 mls/hr Insulin Human Regular (Humulin R Low) 0 units SC ACHS [facility]; Protocol Last Admin: 01/03/19 12:20 Dose: Not Given Levothyroxine Sodium (Synthroid) 25 mcg PO ACB [facility] Last Admin: 01/03/19 10:15 Dose: 25 mcg Midodrine (Proamatine) 10 mg PO TID [facility] Last Admin: 01/03/19 14:23 Dose: 10 mg Rifaximin (Xifaxan) 550 mg PO BID [facility]; Protocol Last Admin: 01/03/19 10:16 Dose: 550 mg Vitamin E (Vitamin E 400 Units Cap) 400 intlu PO DAILY [facility] Last Admin: 01/02/19 10:46 Dose: Not Given - Labs Labs: 01/03/19 10:00 01/03/19 10:00 PT 21.4 SECONDS (9.4-12.5) H 01/02/19 16:00 INR 1.93 01/02/19 16:00 APTT 40.2 Seconds (26.9-38.3) H 01/02/19 16:00 Assessment and Plan - Assessment and Plan (Free Text) Assessment: 68 year old male with PMH of 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 Prior EGD 10/2018 showed lower third of esophagus small varices. No prior colonoscopy. s/p POD #1 Peritoneal Dialysis Catheter. Right Femoral temporary Triple lumen dialysis catheter Decompensated cirrhosis 2/2 ascites, HE; MELD-na 2/22/19: 33 Grade 2 hepatic encephalopathy (resolved) Partial portal vein thrombosis Renal Failure; failed fluid resusitation; DDx: HRS vs Post renal from increased intrabd pressure; on HD E. Coli bacteremia pHTN Plan: -will hold on colonoscopy as pt is not medically optimized, will consider again once renal function improves -HRS protocol initiated, by hepatobiliary -currently on midrodrine, Levophed, albumin, octreotide, agree with continuing -On HD, consider CVVHD 2/2 hypotension? -continue xifaxan, would hold lactulose due to diarrhea -continue to hold all nephrotoxic drugs including diuretics, tran inhib, and NSAIDs -agree with nephrology consult -on merem asd per ID -will defer PVT treatment to Hepatobiliary and hem/onc -agree with fluid challege and albumin -agree with eval from [facility] Case discussed with Dr. Godoy <Julian Godoy V - Last Filed: 01/03/19 23:44> Objective - Vital Signs/Intake and Output Vital Signs (last 24 hours): Temp Pulse Resp BP Pulse Ox 97.6 F 73 22 99/42 L 95 01/03/19 16:00 01/03/19 19:17 01/03/19 19:10 01/03/19 19:31 01/03/19 19:31 Intake and Output: 01/03/19 01/04/19 18:59 06:59 Intake Total 100 150 Balance 100 150 - Medications Medications: Current Medications Albuterol/Ipratropium (Duoneb 3 Mg/0.5 Mg (3 Ml) Ud) 3 ml IH [id number] PRN PRN Reason: Shortness of Breath Last Admin: 01/03/19 15:37 Dose: 3 ml Arformoterol Tartrate (Brovana) 15 mcg IH [id number] [facility] Last Admin: 01/03/19 07:44 Dose: 15 mcg Budesonide (Pulmicort Respules) 0.5 mg IH [id number] [facility] Last Admin: 01/03/19 07:44 Dose: 0.5 mg Famotidine (Pepcid) 20 mg PO HS [facility] Last Admin: 01/02/19 22:05 Dose: 20 mg Ferrous Sulfate (Feosol) 324 mg PO DAILY [facility] Last Admin: 01/03/19 10:15 Dose: 324 mg Folic Acid (Folic Acid) 1 mg PO DAILY [facility] Last Admin: 01/03/19 10:15 Dose: 1 mg Hydrocortisone Sodium Succinate (Solu-Cortef) 100 mg IVP Q8 [facility] Octreotide Acetate 1,250 mcg/ (Dextrose) 252.5 mls @ 10.1 mls/hr IV .Q24H [facility]; Protocol Last Admin: 01/03/19 00:14 Dose: 50 mcg/hr, 10.1 mls/hr Heparin Sodium/Sodium Chloride (Heparin 50354 Units/250ml 1/2 Normal Saline) 25,000 units in 250 mls @ 12.002 mls/hr IV .[id number] PRN; Protocol PRN Reason: ADJUST RATE PER PROTOCOL Last Titration: 01/02/19 08:44 Dose: 0 units/kg/hr, 0 mls/hr Ceftriaxone Sodium (Rocephin 1 Gram Ivpb) 1 gm in 100 mls @ 100 mls/hr IVPB DAILY [facility]; Protocol Last Admin: 01/03/19 18:06 Dose: 100 mls/hr NOREPINEPHRINE BIT/0.9 % NACL (Levophed 4 Mg/ 250 Ml Ns Premixed) 4 mg in 250 mls @ 15 mls/hr IV .[id number] PRN; Protocol PRN Reason: TITRATE PER MD ORDER Last Titration: 01/03/19 20:42 Dose: 10 mcg/min, 37.5 mls/hr Vasopressin 20 units/ Dextrose 101 mls @ 9.09 mls/hr IV .Q11H7M [facility]; Protocol Last Admin: 01/03/19 18:26 Dose: 9.09 mls/hr Insulin Human Regular (Humulin R Low) 0 units SC ACHS [facility]; Protocol Last Admin: 01/03/19 16:30 Dose: Not Given Levothyroxine Sodium (Synthroid) 25 mcg PO ACB [facility] Last Admin: 01/03/19 10:15 Dose: 25 mcg Midodrine (Proamatine) 10 mg PO TID [facility] Last Admin: 01/03/19 14:23 Dose: 10 mg Rifaximin (Xifaxan) 550 mg PO BID [facility]; Protocol Last Admin: 01/03/19 10:16 Dose: 550 mg Vitamin E (Vitamin E 400 Units Cap) 400 intlu PO DAILY [facility] Last Admin: 01/03/19 10:40 Dose: Not Given - Labs Labs: 01/03/19 10:00 01/03/19 10:00 PT 21.4 SECONDS (9.4-12.5) H 01/02/19 16:00 INR 1.93 01/02/19 16:00 APTT 40.2 Seconds (26.9-38.3) H 01/02/19 16:00 Attending/Attestation - Attestation I have personally seen and examined this patient.: Yes I have fully participated in the care of the patient.: Yes I have reviewed all pertinent clinical information, including history, physical exam and plan: Yes Notes (Text): This is an addendum to GI progress report dictated by the GI Fellow. The patient was seen and examined earlier. Medical records, lab studies, imagings were reviewed. Last 24 hours events reviewed. Agreed with the above treatment plan as outlined in GI Fellow 's notes with the addition of the following 01/03/19 23:44
[2019-01-03] MEDS ORDERED: Albuterol-Ipratrop 3 mg / 0.5 (3 ml) UD IH STA (15:35)
--- NOTE | 2019-01-03 16:33 | CP.PCM.PN ---
Subjective - Date & Time of Evaluation Date of Evaluation: 01/03/19 Time of Evaluation: 16:28 - Subjective Subjective: Pt was assessed for SOB. Pt was informed at the time that bipap was the best option to help with his SOB and low 02 sat, which the pt initially refused. After extensive discussion, pt stated he would like to wait 1 hour to see if his SOB improves. Provider was called back in and informed that the pt would now like to go on bipap. Respiratory called to start bipap on pt. Objective - Vital Signs/Intake and Output Vital Signs (last 24 hours): Temp Pulse Resp BP Pulse Ox 98 F 67 22 72/42 L 89 L 01/03/19 04:00 01/03/19 14:03 01/03/19 14:03 01/03/19 14:04 01/03/19 14:03 Intake and Output: 01/03/19 01/03/19 06:59 18:59 Intake Total 436 15 Output Total 1500 Balance -1064 15 - Medications Medications: Current Medications Albuterol/Ipratropium (Duoneb 3 Mg/0.5 Mg (3 Ml) Ud) 3 ml IH [id number] PRN PRN Reason: Shortness of Breath Last Admin: 01/03/19 15:37 Dose: 3 ml Arformoterol Tartrate (Brovana) 15 mcg IH [id number] [facility] Last Admin: 01/03/19 07:44 Dose: 15 mcg Budesonide (Pulmicort Respules) 0.5 mg IH [id number] [facility] Last Admin: 01/03/19 07:44 Dose: 0.5 mg Famotidine (Pepcid) 20 mg PO HS [facility] Last Admin: 01/02/19 22:05 Dose: 20 mg Ferrous Sulfate (Feosol) 324 mg PO DAILY [facility] Last Admin: 01/03/19 10:15 Dose: 324 mg Folic Acid (Folic Acid) 1 mg PO DAILY [facility] Last Admin: 01/03/19 10:15 Dose: 1 mg Hydrocortisone Sodium Succinate (Solu-Cortef) 100 mg IVP Q8 [facility] Octreotide Acetate 1,250 mcg/ (Dextrose) 252.5 mls @ 10.1 mls/hr IV .Q24H [facility]; Protocol Last Admin: 01/03/19 00:14 Dose: 50 mcg/hr, 10.1 mls/hr Heparin Sodium/Sodium Chloride (Heparin 88391 Units/250ml 1/2 Normal Saline) 25,000 units in 250 mls @ 12.002 mls/hr IV .[id number] PRN; Protocol PRN Reason: ADJUST RATE PER PROTOCOL Last Titration: 01/02/19 08:44 Dose: 0 units/kg/hr, 0 mls/hr Ceftriaxone Sodium (Rocephin 1 Gram Ivpb) 1 gm in 100 mls @ 100 mls/hr IVPB DAILY [facility]; Protocol NOREPINEPHRINE BIT/0.9 % NACL (Levophed 4 Mg/ 250 Ml Ns Premixed) 4 mg in 250 mls @ 15 mls/hr IV .[id number] PRN; Protocol PRN Reason: TITRATE PER MD ORDER Last Titration: 01/03/19 13:45 Dose: 6 mcg/min, 22.5 mls/hr Insulin Human Regular (Humulin R Low) 0 units SC ACHS [facility]; Protocol Last Admin: 01/03/19 12:20 Dose: Not Given Levothyroxine Sodium (Synthroid) 25 mcg PO ACB [facility] Last Admin: 01/03/19 10:15 Dose: 25 mcg Midodrine (Proamatine) 10 mg PO TID [facility] Last Admin: 01/03/19 14:23 Dose: 10 mg Rifaximin (Xifaxan) 550 mg PO BID [facility]; Protocol Last Admin: 01/03/19 10:16 Dose: 550 mg Vitamin E (Vitamin E 400 Units Cap) 400 intlu PO DAILY [facility] Last Admin: 01/02/19 10:46 Dose: Not Given - Labs Labs: 01/03/19 10:00 01/03/19 10:00 PT 21.4 SECONDS (9.4-12.5) H 01/02/19 16:00 INR 1.93 01/02/19 16:00 APTT 40.2 Seconds (26.9-38.3) H 01/02/19 16:00
--- NOTE | 2019-01-03 18:02 | CARD ---
APPROVED REPORT Date of service: 01/03/2019 EXAM: Two-dimensional and M-mode echocardiogram with Doppler and color Doppler. INDICATION Pulmonary Hypertention 2D DIMENSIONS Left Atrium (2D)5.6 (1.6-4.0cm)IVSd1.0 (0.7-1.1cm) LVDd4.1 (3.9-5.9cm)PWd0.9 (0.7-1.1cm) LVDs2.7 (2.5-4.0cm)FS (%) 35.1 % LVEF (%)65.0 (>50%) M-Mode DIMENSIONS Aortic Root3.10 (2.2-3.7cm)Aortic Cusp Exc.1.50 (1.5-2.0cm) Aortic Valve AoV Peak Ajxdjwod722.0cm/Srinivasan Peak GR.7mmHg Mitral Valve MV [id number]/A ratio0.0MVA (PHT)1.45cm2 MVA (Planimetry)1.39cm2 TDI E/Lateral E'0.0E/Medial E'0.0 Pulmonary Valve PV Peak Xzypgmri83.2cm/sPV Peak Grad.2mmHg Tricuspid Valve TR Peak [id number]/sRAP [id number] Peak Gr.32mmHg [id number] LEFT VENTRICLE The left ventricle is normal size. There is normal left ventricular wall thickness. The left ventricular function is normal. The left ventricular ejection fraction is within the normal range. There is a flattened septum No left ventricle thrombus noted on this study. RIGHT VENTRICLE The right ventricle is moderately dilated. There is normal right ventricular wall thickness. The right ventricular systolic function is normal. ATRIA The left atrium is severely dilated. The right atrium is severely dilated. AORTIC VALVE The aortic valve is mildly thickened. There is mild aortic regurgitation. There is no aortic valvular stenosis. MITRAL VALVE The mitral valve is thickened and displays decreased opening. Mitral regurgitation is mild. There is severe mitral valve stenosis. TRICUSPID VALVE There is severe tricuspid regurgitation. PULMONIC VALVE There is mild pulmonic valvular regurgitation. GREAT VESSELS The aortic root is normal in size. The IVC is normal in size and collapses >50% with inspiration. PERICARDIAL EFFUSION There is no pericardial effusion. <Conclusion> There is normal left ventricular wall thickness. The left ventricular function is normal. The left ventricular ejection fraction is within the normal range. There is a flattened septum There is mild aortic regurgitation. There is severe mitral valve stenosis.Mitral regurgitation is mild. There is severe tricuspid regurgitation. Both atria are severely dilated.
[2019-01-03] MEDS: Vasopressin 20 UNITS in Dextrose 5% In Water 100 ML IV SCH (18:26)
[2019-01-04] MEDS ORDERED: Dextrose 50% SYRINGE Inj (50 ml) IVP STA (01:00)
--- NOTE | 2019-01-04 01:46 | PN ---
DATE: 01/03/2019 SUBJECTIVE: Patient is a 68-year-old male. Patient was seen and examined at bedside on 01/03/2019, looking comfortable. Daughter and was at the bedside. Patient had dialysis catheter placed yesterday as well as 400 mL of ascitic fluid was removed yesterday. Patient was started on dialysis yesterday where 1.5 L was removed, was having Ventimask. Feeling shortness of breath. No nausea, vomiting, or diarrhea. No hematuria or hematochezia. No headache. No dizziness. PHYSICAL EXAMINATION: VITAL SIGNS: Blood pressure 85/42, pulse 81, oxygen saturation 100%, and temperature 98. HEENT: Head is normocephalic and atraumatic. Eyes; PERRLA. Extraocular muscles intact. Conjunctivae clear. Nose patent. NECK: Supple. No carotid bruits. No JVD or thyromegaly. CHEST: Bilateral symmetrical. HEART: S1 and S2 positive. LUNGS: Fair airflow bilaterally. ABDOMEN: Soft and distended. Fluid thrill positive. EXTREMITIES: No edema. No cyanosis. NEUROLOGIC: Patient is awake, alert. Follows simple commands. MEDICATIONS: DuoNeb, Brovana, Pulmicort, Rocephin, Pepcid, heparin, Synthroid, Levophed, octreotide acetate, midodrine, Rifaximin, and vancomycin. LABORATORY DATA: White blood cell 15, hemoglobin noted , and hematocrit 26.3. Sodium 136, potassium 5.1, BUN 40, creatinine 3.8. AST and ALT 274. ASSESSMENT AND PLAN: Mr. Des Billy is a 68-year-old male with multiple medical problem, hepatorenal syndrome, ascites, chronic obstructive lung disease, sleep apnea syndrome, cardiomyopathy, valvular heart disease, pulmonary hypertension, portal hypertension, partially occluded portal vein, cirrhosis of the liver, and acute kidney injury. Patient was started on hemodialysis. Juvenile Corrections Officer, marketing account manager, urologist, and personal injury law specialist is on the case. Patient has significant valvular heart disease. Quality Facilitator is on the case. Continue inhaled bronchodilators. Patient is very sick. Family is aware of that. Gastrointestinal and deep venous thrombosis prophylaxis. Repeat labs. We will follow up. Jewell Martinez MD MTDGhazal
[2019-01-04] MEDS: NOREPINEPHRINE BIT/0.9 % NACL 4 MG/250 ML BAG IV PRN ×4 (05:53→19:24)
[2019-01-04] MEDS: Vasopressin 20 UNITS in Dextrose 5% In Water 100 ML IV SCH ×2 (05:54→19:24)
[2019-01-04] MEDS: Octreotide 1,250 MCG in Dextrose 5% In Water 250 ML IV SCH ×2 (05:56→14:53)
[2019-01-04 06:25] LABS: BASO # 0.02 K/mm3 (0.0-2.0); BASO % 0.1 % (0.0-3.0); EOS % 0.1 % (1.5-5.0); HEMOGLOBIN 8.8 g/dL (14.0-18.0); LYMPH # 1.1 (1.2-3.4); LYMPH % 7.4 % (22.0-35.0); MEAN CELL VOLUME 107.1 fl (80.0-105.0); MEAN CORPUSCULAR HEMOGLOBIN 34.6 pg (25.0-35.0); MEAN CORPUSCULAR HGB CONC 32.4 g/dl (31.0-37.0); MONO # 1.1 (0.1-0.6); MONO % 7.5 % (1.0-6.0); RBC 2.54 10^6/uL (3.5-6.1); RED CELL DISTRIBUTION WIDTH 20.8 % (11.5-14.5)
[2019-01-04 07:31] LABS: ALB/GLOB RATIO 1.2 (1.1-1.8); ALBUMIN 3.7 g/dL (3.0-4.8); CALCIUM 8.4 mg/dL (8.4-10.5)
[2019-01-04 07:42] LABS: INR 4.39; PROTHROMBIN TIME 49.6 SECONDS (9.4-12.5)
[2019-01-04] MEDS: Arformoterol 15 mcg/2 ml Inh Sol IH SCH (07:55)
[2019-01-04] MEDS: Budesonide 0.5 mg/2 ml Inhal Susp UD IH SCH (07:55)
[2019-01-04] MEDS: Insulin Reg-LOW-Coverage SC SCH ×4 (08:32→22:34)
--- NOTE | 2019-01-04 09:24 | RAD ---
Date of service: 01/04/2019 HISTORY: follow up infiltrate COMPARISON: 01/03/2019 FINDINGS: LUNGS: The lungs are well inflated. There is interval severe worsening of dense multifocal consolidation in both lungs, worse on the right. PLEURA: Worsening pleural effusions. No pneumothorax. CARDIOVASCULAR: Mild cardiomegaly. No aortic atherosclerotic calcifications present. OSSEOUS STRUCTURES: Within normal limits for the patient's age. VISUALIZED UPPER ABDOMEN: Normal. OTHER FINDINGS: None. IMPRESSION: Interval severe worsening of multifocal consolidation in both lungs, worse on the right and worsening pleural effusions.
--- NOTE | 2019-01-04 11:29 | CP.PCM.PN ---
<Narciso Pablo - Last Filed: 01/04/19 11:39> Subjective - Date & Time of Evaluation Date of Evaluation: 01/04/19 Time of Evaluation: 07:50 - Subjective Subjective: PGY6 GI Fellow Progress Note Patient seen and examined bedside this morning. The patient is wearing BIPAP mask. Confused and unable to participate much in subjective/objective examination. Overnight, had worsening SOB prompting BIPAP. 12 system ROS cannot be performed given clinical condition Objective - Vital Signs/Intake and Output Vital Signs (last 24 hours): Temp Pulse Resp BP Pulse Ox 98.8 F 74 24 81/57 L 91 L 01/04/19 08:00 01/04/19 09:02 01/04/19 08:50 01/04/19 08:48 01/04/19 08:50 Intake and Output: 01/04/19 01/04/19 06:59 18:59 Intake Total 677.5 225 Balance 677.5 225 - Medications Medications: Current Medications Albuterol/Ipratropium (Duoneb 3 Mg/0.5 Mg (3 Ml) Ud) 3 ml IH [id number] PRN PRN Reason: Shortness of Breath Last Admin: 01/03/19 15:37 Dose: 3 ml Arformoterol Tartrate (Brovana) 15 mcg IH [id number] [facility] Last Admin: 01/04/19 07:55 Dose: 15 mcg Budesonide (Pulmicort Respules) 0.5 mg IH [id number] [facility] Last Admin: 01/04/19 07:55 Dose: 0.5 mg Famotidine (Pepcid) 20 mg PO HS [facility] Last Admin: 01/03/19 22:40 Dose: Not Given Ferrous Sulfate (Feosol) 324 mg PO DAILY [facility] Last Admin: 01/04/19 09:23 Dose: Not Given Folic Acid (Folic Acid) 1 mg PO DAILY [facility] Last Admin: 01/04/19 09:23 Dose: Not Given Hydrocortisone Sodium Succinate (Solu-Cortef) 100 mg IVP Q8 [facility] Last Admin: 01/04/19 05:54 Dose: 100 mg Octreotide Acetate 1,250 mcg/ (Dextrose) 252.5 mls @ 10.1 mls/hr IV .Q24H [facility]; Protocol Last Admin: 01/04/19 05:56 Dose: 49.5 mcg/hr, 10 mls/hr Heparin Sodium/Sodium Chloride (Heparin 75742 Units/250ml 1/2 Normal Saline) 25,000 units in 250 mls @ 12.002 mls/hr IV .[id number] PRN; Protocol PRN Reason: ADJUST RATE PER PROTOCOL Last Titration: 01/02/19 08:44 Dose: 0 units/kg/hr, 0 mls/hr NOREPINEPHRINE BIT/0.9 % NACL (Levophed 4 Mg/ 250 Ml Ns Premixed) 4 mg in 250 mls @ 15 mls/hr IV .[id number] PRN; Protocol PRN Reason: TITRATE PER MD ORDER Last Admin: 01/04/19 10:19 Dose: 20 mcg/min, 75 mls/hr Vasopressin 20 units/ Dextrose 101 mls @ 9.09 mls/hr IV .Q11H7M [facility]; Protocol Last Admin: 01/04/19 05:54 Dose: 9.09 mls/hr Meropenem/Sodium Chloride (Merrem Iv 500 Mg/Ns 50 Ml) 500 mg in 50 mls @ 100 mls/hr IVPB Q12 [facility]; Protocol Stop: 01/14/19 10:46 Insulin Human Regular (Humulin R Low) 0 units SC ACHS [facility]; Protocol Last Admin: 01/04/19 08:32 Dose: Not Given Levothyroxine Sodium (Synthroid) 25 mcg PO ACB [facility] Last Admin: 01/03/19 10:15 Dose: 25 mcg Midodrine (Proamatine) 10 mg PO TID [facility] Last Admin: 01/04/19 09:23 Dose: Not Given Rifaximin (Xifaxan) 550 mg PO BID [facility]; Protocol Last Admin: 01/04/19 09:24 Dose: Not Given Vitamin E (Vitamin E 400 Units Cap) 400 intlu PO DAILY [facility] Last Admin: 01/04/19 09:24 Dose: Not Given - Labs Labs: 01/04/19 06:00 01/04/19 06:00 PT 49.6 SECONDS (9.4-12.5) H 01/04/19 06:00 INR 4.39 H* 01/04/19 06:00 APTT 40.2 Seconds (26.9-38.3) H 01/02/19 16:00 - Constitutional Appears: Toxic, Confused, Chronically Ill - Eye Exam Eye Exam: EOMI, PERRL, Scleral icterus - ENT Exam ENT Exam: Mucous Membranes Dry - Respiratory Exam Respiratory Exam: Decreased Breath Sounds, Rales. absent: Clear to Ausculation Bilateral, Rhonchi, Wheezes Additional comments: on BIPAP - Cardiovascular Exam Cardiovascular Exam: Tachycardia, +S1, +S2 - GI/Abdominal Exam GI & Abdominal Exam: Distended, Soft, Normal Bowel Sounds. absent: Firm, Guarding, Rigid, Tenderness, Organomegaly - Extremities Exam Additional comments: B/L LE edema - Neurological Exam Neurological Exam: Altered, Awake. 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 complicated by ascites, varices, hepatic encephalopathy and now acute renal failure (possible HRS component), atrial fibrillation, CHF with right heart disease/severe TR/moderate pulmonary HTN, COPD, asthma and hypothyroidism who presented with altered mental status -Acute liver failure -Hepatic encephalopathy -Acute renal failure requiring HD; suspect component of HRS -Acute respiratory distress requiring BIPAP -Severe TR and moderate pulmonary HTN -E coli bacteremia Plan: -Worsening pulmonary status - on BIPAP -Patient with progressively worsening disease; likely advancement of underlying disease process with possible ischemic hepatopathy component given hypotension despite dual-pressor suport -Monitor LFTs and PT/INR -Acute liver failure with ongoing LFT derangement with AST 3235/ALT 484 today, INR 4.39 and worsening encephalopathy - transfer to [facility] pending and team aware of status -Renal function modestly improved (Cr downtrending) on HRS cocktail with Midodrine, Octreotide, dual-pressor support with Vasopressin, Levophed and intermittent hemodialysis -Continue Xifaxin 550mg PO BID for HE; can consider addition of Lactulose rectally twice today if patient can tolerate and monitor response -Hepatobiliary surgery following -Grim prognosis given multiorgan failure and modest response to therapy thusfar -Consider discussion with family for hospice care in light of multiorgan dysfunction and grim overall prognosis <Julian Godoy V - Last Filed: 01/04/19 19:30> Objective - Vital Signs/Intake and Output Vital Signs (last 24 hours): Temp Pulse Resp BP Pulse Ox 97.3 F L 80 33 H 88/30 L 94 L 01/04/19 16:00 01/04/19 18:00 01/04/19 18:00 01/04/19 18:00 01/04/19 18:00 Intake and Output: 01/04/19 01/05/19 18:59 06:59 Intake Total 1905.5 Output Total 2020 Balance -114.5 - Medications Medications: Current Medications Albuterol/Ipratropium (Duoneb 3 Mg/0.5 Mg (3 Ml) Ud) 3 ml IH [id number] PRN PRN Reason: Shortness of Breath Last Admin: 01/03/19 15:37 Dose: 3 ml Arformoterol Tartrate (Brovana) 15 mcg IH [id number] [facility] Last Admin: 01/04/19 07:55 Dose: 15 mcg Budesonide (Pulmicort Respules) 0.5 mg IH [id number] [facility] Last Admin: 01/04/19 07:55 Dose: 0.5 mg Famotidine (Pepcid) 20 mg PO HS [facility] Last Admin: 01/03/19 22:40 Dose: Not Given Hydrocortisone Sodium Succinate (Solu-Cortef) 100 mg IVP Q8 [facility] Last Admin: 01/04/19 13:14 Dose: 100 mg Octreotide Acetate 1,250 mcg/ (Dextrose) 252.5 mls @ 10.1 mls/hr IV .Q24H [facility]; Protocol Last Admin: 01/04/19 14:53 Dose: 49.5 mcg/hr, 10 mls/hr Heparin Sodium/Sodium Chloride (Heparin 54220 Units/250ml 1/2 Normal Saline) 25,000 units in 250 mls @ 12.002 mls/hr IV .[id number] PRN; Protocol PRN Reason: ADJUST RATE PER PROTOCOL Last Titration: 01/02/19 08:44 Dose: 0 units/kg/hr, 0 mls/hr NOREPINEPHRINE BIT/0.9 % NACL (Levophed 4 Mg/ 250 Ml Ns Premixed) 4 mg in 250 mls @ 15 mls/hr IV .[id number] PRN; Protocol PRN Reason: TITRATE PER MD ORDER Last Admin: 01/04/19 14:52 Dose: 20 mcg/min, 75 mls/hr Vasopressin 20 units/ Dextrose 101 mls @ 9.09 mls/hr IV .Q11H7M [facility]; Protocol Last Admin: 01/04/19 05:54 Dose: 9.09 mls/hr Meropenem/Sodium Chloride (Merrem Iv 500 Mg/Ns 50 Ml) 500 mg in 50 mls @ 100 mls/hr IVPB Q12 [facility]; Protocol Stop: 01/14/19 10:46 Last Admin: 01/04/19 13:14 Dose: 100 mls/hr Insulin Human Regular (Humulin R Low) 0 units SC ACHS [facility]; Protocol Last Admin: 01/04/19 17:26 Dose: Not Given Levothyroxine Sodium (Synthroid) 25 mcg PO ACB [facility] Last Admin: 01/04/19 12:26 Dose: Not Given Midodrine (Proamatine) 10 mg PO TID [facility] Last Admin: 01/04/19 17:27 Dose: Not Given Rifaximin (Xifaxan) 550 mg PO BID [facility]; Protocol Last Admin: 01/04/19 17:27 Dose: Not Given - Labs Labs: 01/04/19 06:00 01/04/19 06:00 PT 49.6 SECONDS (9.4-12.5) H 01/04/19 06:00 INR 4.39 H* 01/04/19 06:00 APTT 40.2 Seconds (26.9-38.3) H 01/02/19 16:00 Attending/Attestation - Attestation I have personally seen and examined this patient.: Yes I have fully participated in the care of the patient.: Yes I have reviewed all pertinent clinical information, including history, physical exam and plan: Yes Notes (Text): This is an addendum to GI progress report dictated by the GI Fellow. The patient was seen and examined earlier. Medical records, lab studies, imagings were reviewed. Last 24 hours events reviewed. Agreed with the above treatment plan as outlined in GI Fellow 's notes with the addition of the following Patient is on BiPAP Not responsive Ammonia level 22 INR elevated over 4 Patient benefit from lactulose however there is significant risk of bleeding NG tube/Dobbhoff tube risk benefits alternatives explained to patient's and daughter who were at bedside family is reluctant to have placement of any tube now Patient awaiting for transfer to [facility] multiorgan failure Significant valvular heart disease, pulmonary hypertension, renal failure, probably sepsis discussed with the Discussed with clock mechanic Dr. Peterson 01/04/19 19:24
--- NOTE | 2019-01-04 11:43 | PN ---
DATE: 01/04/2019 PULMONARY PROGRESS NOTE REFERRING PHYSICIAN: Jewell Martinez MD SUBJECTIVE: The patient is seen lying in bed, BiPAP in place. Not responsive to verbal or tactile stimuli at this time. Nursing staff reports the patient is currently on Levophed 16 mcg, who was hypothermic overnight and is on the warming blanket. Blood sugars were low. The patient received boluses of dextrose which helped to increase blood sugar. At this time the patient is being set up to undergo dialysis who was hypotensive; overnight blood pressure at this time is 110/41. Heart rate 50. OBJECTIVE: VITAL SIGNS: Blood pressure 110/41, heart rate 50, oxygen saturation 93% and temperature 98.8 axillary. HEENT: Moist mucous membranes. NECK: Supple. No JVD. RESPIRATORY: Few rhonchi bilaterally. CARDIOVASCULAR: S1 and S2. ABDOMEN: Distended. Positive ascites. EXTREMITIES: Bilateral lower extremity edema. NEUROLOGIC: Lethargic. MEDICATIONS: Reviewed. DuoNeb 3 mL inhalation every 4 hours p.r.n., Brovana 15 mcg inhalation every 12 hours, Pulmicort 0.5 mg inhalation every 12 hours, Rocephin 1 g daily, Pepcid 20 mg at bedtime, ferrous sulfate 324 mg daily, folic acid 1 mg daily, heparin 25,000 units in 250 mL at 12.002 mL per hour, Solu-Cortef 100 mg every 8 hours, Humulin R sliding scale before a meal and at bedtime, Synthroid 25 mcg before a meal, midodrine 10 mg three times a day, Levophed 4 mg in 250 mL at 50 mL per hour IV p.r.n., octreotide acetate 1250 mcg in 250/2.5 mL at 10.1 mL per hour for 24 hours, Xifaxan 550 mg twice a day, vasopressin 20 units , dextrose 10 mL at 9.09 mL per hour, and vitamin E 400 units daily. LABORATORY DATA: Reviewed. WBC 15, RBC 2.54, hemoglobin 8.8, hematocrit 27.2 and platelets 108. PT 49.6, INR 4.39. Sodium 138, potassium 5.1, chloride 106, carbon dioxide 8, anion gap 29, BUN 22, creatinine 2.9, GFR 20, POC glucose 53, random glucose 58, calcium 8.4, phosphorus 6.8, magnesium 2, total bilirubin 6.7, AST 3235, ALT 484, alkaline phosphatase 171, total protein 6.8, albumin 3.6, globulin 2.1 and albumin-globulin ratio 1.2. Hepatitis B antigen negative. Blood cultures preliminary no growth after 24 hours. Chest x-ray shows interval severe worsening of multifocal consolidation in both lungs, worse on the right and worsening pleural effusion. IMPRESSION AND PLAN: Chronic obstructive lung disease; sleep apnea syndrome; cardiomyopathy; valvular heart disease; pulmonary hypertension; portal hypertension; partially occluded portal vein; cirrhotic liver; acute kidney injury, on hemodialysis. The patient being followed by survival equipment repairer, garde manger, and casket trimmer. The patient also has significant valvular heart disease. Continue pressors and antibiotics per Infectious Disease. ABG for today pending, procalcitonin received and pending. Will follow up when available. The patient's overall prognosis is poor. We will follow up in the morning with ABGs, chest x-ray, CBC, and CMP. Critical care time spent more than 35 minutes. This patient was seen and examined with Dr. Ansari. Discussed assessment and plan as described above. This patient was seen and examined with Kenan Montague, nurse practitioner. Discussed assessment and plan as described above. Thank you for this consult. We will follow with you. Kenan Montague APN Alfonso Ansari MD
[2019-01-04] MEDS: Levothyroxine 25 MCG TAB PO SCH (12:26)
[2019-01-04] MEDS: MEROPENEM 500 MG in NS 500 MG/50 ML BAG IVPB SCH (13:14)
--- NOTE | 2019-01-04 14:16 | PN ---
DATE: 01/04/2019 SUBJECTIVE: The patient is on BiPap and O2 support, is on Levophed and vasopressin for blood pressure support and is getting dialysis at this time. He is encephalopathic and fairly unresponsive. The patient's family is at bedside. PHYSICAL EXAMINATION: VITAL SIGNS: Temperature is 98.8, his pulse is 74, respirations are 24 and BP is 110/60. SKIN: Warm and dry. HEENT: Head, atraumatic, normocephalic. Eyes reactive to light. Eras, nose and throat seemed to be within normal limits. NECK: Supple. No JVD. No thyroid enlargement or lymph nodes. HEART: Has regular rate and rhythm. Normal S1, S2. LUNGS: Reveal mild rhonchi bilaterally. ABDOMEN: Slightly distended, little to no bowel sounds. GENITALIA AND RECTAL: Deferred. MUSCULOSKELETAL: No joint deformities. EXTREMITIES: Reveal positive lower extremity edema. NEUROLOGIC: The patient is fairly obtunded but seems to be moving all extremities. LABORATORY DATA: His white count is 15, hemoglobin is 8.8 and hematocrit 27.2 with platelets of 108,000. His sodium is 138, potassium 5.1, chloride 106, CO2 of 8 with a BUN of 22, creatinine of 2.9 and a glucose of 149. Liver function test significantly elevated. Bilirubin is 6.7, AST is 3235 and ALT is 484 with an alkaline phosphatase of 171. As far as chest x-ray, it reveals interval severe worsening of the multifocal consolidation in both lungs, worse on the right, and worsening pleural effusions. IMPRESSION: This patient has hepatic encephalopathy with severe metabolic acidosis and hepatorenal syndrome with liver failure and renal failure. He has a history of chronic obstructive pulmonary disease and is status post peritoneovenous shunt. The patient has obstructive sleep apnea, cardiomyopathy, pulmonary hypertension, bilateral pneumonia with ascites and he has partial portal vein occlusion and portal hypertension as well as hypotension and anemia. PLAN: We will continue with dialysis. The patient is on BiPAP with O2 support. We will continue with aggressive pulmonary toilet and at this point, he is on Brovana, DuoNeb, Feosol, folic acid. His heparin drip has been held. The patient is getting meropenem, Levophed, Pepcid, midodrine, Pulmicort, Solu-Cortef, Synthroid and vasopressin. We will continue to treat aggressively along with the other consultants and the primary care doctor. Luis Peterson MD
--- NOTE | 2019-01-04 15:41 | PN ---
DATE: 01/04/2019 SUBJECTIVE: The patient is seen in 129, bed 6. The patient is to discussion with the nurse. The patient had an uneventful night. The patient appears to be comfortable, on BIPAP and no fevers reported. PHYSICAL EXAMINATION: VITAL SIGNS: Temperature is 98, blood pressure is 81/50, respiratory rate 24, heart rate of 73. HEENT: Unremarkable. NECK: Supple. LUNGS: Have decreased breath sounds. HEART: Normal S1, S2. ABDOMEN: Soft, nontender. LABORATORY EXAMINATION: Reveals a white count of 15,000, hemoglobin of 8, platelets of 108. BUN of 22, creatinine of 2.9, AST is 32, 35 and the urinalysis is noted and serology is noted. Microbiology reveals group Streptococcus anginosus group in the blood cultures from the 01/01/2019 in one bottle and E. coli in the blood cultures in another bottle. IMAGING STUDIES: Reveals the patient has a abdominal MRI on the 12/27/2018 which shows severe cirrhosis. Partial thrombosis of the portal vein. Review of orders reveals the patient is currently on ceftriaxone and progress note is reviewed. ASSESSMENT AND PLAN: This is a 68-year-old male with systemic inflammatory response syndrome with sepsis actually with Escherichia coli and Streptococcus bacteremia with gastrointestinal source, spontaneous bacterial peritonitis as possible in a patient with decompensated liver cirrhosis and renal failure and hepatic encephalopathy and chronic obstructive lung disease, history of alcoholism and congestive heart failure. Currently on ceftriaxone. The ascitic fluid cultures are negative. His sensitivity of the Escherichia coli is noted to be pansensitive with the exception of ampicillin this and the Streptococcus anginosus group is ceftriaxone resistant, penicillin sensitive, and vancomycin sensitive. Repeat blood cultures are negative. We will discontinue the ceftriaxone and use restart the meropenem. Because of the Streptococcus sanguinis resistant to ceftriaxone. The patient who is probable gastrointestinal I source. We will follow closely with you. We will stop with repeat cultures negative from the 01/02/2019. The patient had an echo yesterday read by Dr. Muñiz. No evidence of any vegetations. Joseph Honeycutt MD [facility] # [id number]
--- NOTE | 2019-01-04 19:46 | PN ---
DATE: 01/04/2019 This is [facility] in the intensive care unit. For Dr. Hills. SUBJECTIVE: The patient is a 68-year-old male, seen lying supine in the intensive care unit with BiPAP on, with the patient appearing more jaundiced and weaker this visit with the family at bedside. His underlying diagnosis is that of altered mental status with decompensated liver failure, cirrhosis, pulmonary hypertension, with positive blood cultures along with partial portal vein obstruction. The patient also had grade I varices on endoscopy in the past with cardiomyopathy. He is supposed to be followed by Dr. Rubin, liver surgeon, and the patient is now decompensated to hepatorenal syndrome despite aggressive support from the intensive care unit. PHYSICAL EXAMINATION: VITAL SIGNS: Temperature 97.4, pulse 85, respirations 28, blood pressure 79/51, pulse ox 93%. HEENT: Sclerae icteric. BiPAP is on. NECK: Supple. HEART: Regular rate. LUNGS: Scattered rhonchi, decreased breath sounds at the bases. ABDOMEN: Soft, mildly distended. EXTREMITIES: No edema. Restrained. SKIN: Icteric. NEUROLOGIC: Opens eyes to command. LABORATORY DATA: The patient's labs were done. White blood cell count of 15, hemoglobin 8.8, hematocrit 27.2, platelet count of 108,000 with no active bleeding. His INR was noted to be 4.39 with a PT of 49.6, previous value two days prior was 1.9. Metabolic panel shows a potassium of 5.1, BUN of 22 with a creatinine of 2.9, improved from 3.8 yesterday and 4.5 two days prior. Lactic acid was just done at 6.3; total bill of 6.7; AST is now 3235, up from 1413 yesterday with an ALT of 484, up from 274 yesterday with an alkaline phosphatase of 171. Ammonia level is 22. ASSESSMENT: For this patient is that of hepatorenal syndrome with coagulopathy; respiratory distress; pleural effusions; chronic obstructive pulmonary disease; cardiomyopathy; pulmonary hypertension; portal hypertension; partially occluded portal vein; cirrhosis of the liver; acute kidney injury, on dialysis; valvular heart disease; hepatic encephalopathy; history of ethanol abuse. After conversation with Dr. Hills and Dr. Rubin, it is recommended to hold of giving 1 unit of plasma to correct his INR. We will repeat the values in the morning as this is associated with his ongoing hepatorenal syndrome along with anemic indices. However, there appears to be no active bleeding at this point with correction of electrolytes as per his repairer kiln car Dr. Pascual. Dr. Martinez spoke with the patient's family regarding do not resuscitate and do not intubate status as the patient's condition has deteriorated with the prognosis guarded. We will monitor clinically and with labs. Dylan Terrazas MD
--- NOTE | 2019-01-04 19:55 | CP.PCM.PN ---
Subjective - Date & Time of Evaluation Date of Evaluation: 01/04/19 Time of Evaluation: 10:00 - Subjective Subjective: 68 yo M w/ pmh of liver cirrhosis, CHF, COPD/asthma, previous alcohol abuse, a- fib, admitted with decompensated liver failure, nephrology following for acute renal failure; Patient seen on HD this morning; noted to be obtunded, change in mental status from yesterday; Objective - Vital Signs/Intake and Output Vital Signs (last 24 hours): Temp Pulse Resp BP Pulse Ox 97.3 F L 80 33 H 88/30 L 94 L 01/04/19 16:00 01/04/19 18:00 01/04/19 18:00 01/04/19 19:24 01/04/19 18:00 Intake and Output: 01/04/19 01/05/19 18:59 06:59 Intake Total 2155.5 Output Total 2020 Balance 135.5 - Medications Medications: Current Medications Albuterol/Ipratropium (Duoneb 3 Mg/0.5 Mg (3 Ml) Ud) 3 ml IH [id number] PRN PRN Reason: Shortness of Breath Last Admin: 01/03/19 15:37 Dose: 3 ml Arformoterol Tartrate (Brovana) 15 mcg IH [id number] [facility] Last Admin: 01/04/19 07:55 Dose: 15 mcg Budesonide (Pulmicort Respules) 0.5 mg IH [id number] [facility] Last Admin: 01/04/19 07:55 Dose: 0.5 mg Famotidine (Pepcid) 20 mg PO HS [facility] Last Admin: 01/03/19 22:40 Dose: Not Given Hydrocortisone Sodium Succinate (Solu-Cortef) 100 mg IVP Q8 [facility] Last Admin: 01/04/19 13:14 Dose: 100 mg Octreotide Acetate 1,250 mcg/ (Dextrose) 252.5 mls @ 10.1 mls/hr IV .Q24H [facility]; Protocol Last Admin: 01/04/19 14:53 Dose: 49.5 mcg/hr, 10 mls/hr Heparin Sodium/Sodium Chloride (Heparin 25921 Units/250ml 1/2 Normal Saline) 25,000 units in 250 mls @ 12.002 mls/hr IV .[id number] PRN; Protocol PRN Reason: ADJUST RATE PER PROTOCOL Last Titration: 01/02/19 08:44 Dose: 0 units/kg/hr, 0 mls/hr NOREPINEPHRINE BIT/0.9 % NACL (Levophed 4 Mg/ 250 Ml Ns Premixed) 4 mg in 250 mls @ 15 mls/hr IV .[id number] PRN; Protocol PRN Reason: TITRATE PER MD ORDER Last Admin: 01/04/19 19:24 Dose: 20 mcg/min, 75 mls/hr Vasopressin 20 units/ Dextrose 101 mls @ 9.09 mls/hr IV .Q11H7M [facility]; Protocol Last Admin: 01/04/19 19:24 Dose: 9.09 mls/hr Meropenem/Sodium Chloride (Merrem Iv 500 Mg/Ns 50 Ml) 500 mg in 50 mls @ 100 mls/hr IVPB Q12 [facility]; Protocol Stop: 01/14/19 10:46 Last Admin: 01/04/19 13:14 Dose: 100 mls/hr Insulin Human Regular (Humulin R Low) 0 units SC ACHS [facility]; Protocol Last Admin: 01/04/19 17:26 Dose: Not Given Levothyroxine Sodium (Synthroid) 25 mcg PO ACB [facility] Last Admin: 01/04/19 12:26 Dose: Not Given Midodrine (Proamatine) 10 mg PO TID [facility] Last Admin: 01/04/19 17:27 Dose: Not Given Rifaximin (Xifaxan) 550 mg PO BID [facility]; Protocol Last Admin: 01/04/19 17:27 Dose: Not Given - Labs Labs: 01/04/19 06:00 01/04/19 06:00 PT 49.6 SECONDS (9.4-12.5) H 01/04/19 06:00 INR 4.39 H* 01/04/19 06:00 APTT 40.2 Seconds (26.9-38.3) H 01/02/19 16:00 - Constitutional Appears: Toxic - Eye Exam Eye Exam: Scleral icterus - Cardiovascular Exam Cardiovascular Exam: RRR. absent: Gallop, Rubs - GI/Abdominal Exam GI & Abdominal Exam: Distended, Soft - Extremities Exam Additional comments: ansarca - Neurological Exam Additional comments: obtunded - Skin Skin Exam: Warm. absent: Cyanosis Assessment and Plan (1) Acute renal failure Assessment & Plan: Oligo-anuric renal failure in the setting of progressive liver failure and shock; patient dialyzed urgently this morning in the setting of severe metabolic acidosis and impending respiratory failure with worsening CXR findings; profound lactic acidosis and hypoglycemia consistent with liver failure; on vasopressor support with levophed at 8 mcg and vasopressin at 0.03 mcg; discussed with CCM attending and decision made to increase levophed during HD to help with UF; over all prognosis is very poor; -will plan for HD session tomorrow as acidosis is likely to persist; will decide on fluid removal in the morning; -full bicarb drip in the interim; -antibiotics dosed for HD; -f/u with surgery regarding continuation of peritoneo-venous shunt (was intended to help renal perfusion; unfortunately we are well beyond that stage); -cardiology consult regarding echo findings (discussed with CCM team); Status: Acute (2) Lactic acidosis Status: Acute (3) Septic shock Status: Acute (4) Hepatorenal syndrome Status: Acute (5) Sepsis Status: Acute (6) CHF (congestive heart failure) Status: Acute - Assessment and Plan (Free Text) Assessment: Critical care time spent in assessing patient and discussion with CCM team > 35 minutes.
[2019-01-05] MEDS: Sodium Bicarbonate 8.4% 150 MEQ in Dextrose 5% In Water 1,000 ML IV SCH ×2 (01:48→17:41)
--- NOTE | 2019-01-05 01:59 | PN ---
DATE: 01/04/2019 SUBJECTIVE: The patient is a 68-year-old male. Patient was seen and examined at the bedside on 01/04/2019. The patient was having BiPAP, he is in the Unit, looks like more jaundiced and lethargic. Daughter and are at the bedside. Length of time of discussion done with the daughter, and Dr. Martinez, the patient's ICU team including surgical team. The patient is looking very sick. Family was informed. No fever, no chills. Getting attacks of hypoglycemia, then dextrose was given. Dialysis done, 2 L of fluid was taken out. PHYSICAL EXAMINATION: VITAL SIGNS: Temperature 97.4, pulse 87, respiratory rate 28, blood pressure 100/50, and pulse oximetry 93%. HEENT: Head is normocephalic and atraumatic. Eyes; PERRLA. Extraocular muscles intact. Conjunctivae clear. Nose patent. Mucous membranes moist. NECK: Supple. No carotid bruits. No JVD, no thyromegaly. CHEST: Bilaterally symmetrical. HEART: S1 and S2 positive. LUNGS: Scattered rhonchi, decreased breath sounds at both bases. ABDOMEN: Soft and distended. EXTREMITIES: No edema. No cyanosis. NEUROLOGIC: Patient is lethargic, just opens eyes if we say his name. LABORATORY DATA: White blood cells 15, hemoglobin 8.8, and hematocrit 27.2, and platelets 108,000. INR 4.39, PT 49.6. Potassium 5.1, BUN 22, creatinine 2.9. Lactic acid is 6.3. Total bilirubin 6.7. AST 3235 and ALT 1413. ASSESSMENT AND PLAN: Mr. Des Billy is a 68-year-old male with abnormal liver function tests trending up, hepatorenal syndrome, coagulopathy, respiratory distress and is getting BiPAP, pleural effusion, chronic obstructive lung disease, cardiomyopathy, pulmonary hypertension, portal hypertension, partially occluded portal vein, cirrhosis of the liver, kidney injury on dialysis, valvular heart disease, hepatic encephalopathy, history of ethanol abuse in the past. Discussion done with Dr. Martinez. We will repeat labs. There is no active bleeding at this point. Nephrology, Dr. Pascual is on the case. Prognosis guarded. Discussion done with the patient's and daughter about Code Status. They are thinking about that. GI and DVT prophylaxis. Repeat labs. We will follow up. Discussion done with Dr. Ansari, ICU team and Dr. Martinez. Jewell Martinez MD
[2019-01-05] MEDS: DOPamine 400mg/250ml D5W 400 MG/250 ML BAG IV PRN ×2 (04:10→15:03)
[2019-01-05] MEDS ORDERED: DOPamine 400mg/250ml D5W 400 MG/250 ML BAG IV ONE (04:11)
[2019-01-05] MEDS ORDERED: Phytonadione 10 MG in Sodium Chloride 0.9% 50 ML IV ONE ×3 (04:22→17:00)
--- NOTE | 2019-01-05 04:40 | PCM.PROC ---
Procedures Attestation:: I certify that I have explained the specified Operation(s) or Procedure(s), risks, benefits and reasonable alternatives to the Patient and/or other person responsible. The opportunity was given to ask questions and all questions answered - Intubation Time Out Performed: Yes Sedative: None Laryngoscope: Glidescope ET Tube Size: 7.5 ET Tube Secured Locarion: Lips ET Tube Placement Confirmation: Visualized Passing Through Cords, Breath Sounds Equal Bilaterally, No Breath Sounds Over Epigastrum, Confirmation w/Capnometry Patient Tolerated Procedure: Well Procedure Immediate Complications: None (Called at 0402 because pt. is hypotensive and maxed on levophed and vasopressin. Pt. was hypoxemic low 50's al though couldn't confirm it is accurate reading as pt. is on Bipap. Pt. is unresponsive with agonal breathing. Added dopamine at 10 mcg and phenylepherine as well as 1 L bolus NS open all the way. Oxygenation improved after intubation. BP improved on dopamine, IVF and phenylepherine to 112/100. Ordered Solu-cortef 100 mg IV Q8. FFP and Vitamin K for A-line placement.)
[2019-01-05] MEDS: Vasopressin 20 UNITS in Dextrose 5% In Water 100 ML IV SCH ×2 (05:29→15:37)
[2019-01-05 05:39] LABS: ARTERIAL BLOOD GAS HCO3 8.3 mmol/L (21-28); ARTERIAL BLOOD GAS HEMOGLOBIN 7.6 g/dL (11.7-17.4); ARTERIAL BLOOD GAS PCO2 37 mm/Hg (35-45); ARTERIAL BLOOD GAS PH 6.96 (7.35-7.45); ARTERIAL BLOOD GAS TCO2 9.4 mmol.L (22-28)
[2019-01-05] MEDS ORDERED: Sodium Bicarbonate (8.4%) 50 Meq Syringe IVP STA (05:46)
[2019-01-05 06:13] LABS: BASO # 0.07 K/mm3 (0.0-2.0); BASO % 0.5 % (0.0-3.0); HEMOGLOBIN 8.1 g/dL (14.0-18.0); LYMPH # 2.4 (1.2-3.4); LYMPH % 16.6 % (22.0-35.0); MEAN CELL VOLUME 111.9 fl (80.0-105.0); MEAN CORPUSCULAR HEMOGLOBIN 34.5 pg (25.0-35.0); MEAN CORPUSCULAR HGB CONC 30.8 g/dl (31.0-37.0); MEAN PLATELET VOLUME 12.6 fl (7.0-11.0); MONO # 0.7 (0.1-0.6); MONO % 4.9 % (1.0-6.0); RBC 2.35 10^6/uL (3.5-6.1); RED CELL DISTRIBUTION WIDTH 21.5 % (11.5-14.5); WHITE BLOOD COUNT 14.4 10^3/uL (4.5-11.0)
[2019-01-05] MEDS ORDERED: Sodium Bicarbonate (8.4%) 50 Meq Syringe IVP ONE (06:17)
[2019-01-05 06:52] LABS: ALBUMIN 2.5 g/dL (3.0-4.8); CALCIUM 6.9 mg/dL (8.4-10.5)
[2019-01-05] MEDS ORDERED: Calcium Gluconate in NS 1 GM/50 ML BAG IV ONE (07:15)
[2019-01-05 07:28] LABS: PARTIAL THROMBOPLASTIN TIME 94.3 Seconds (26.9-38.3); PROTHROMBIN TIME 113.6 SECONDS (9.4-12.5)
[2019-01-05 07:47] LABS: INR 10.05
[2019-01-05] MEDS: Arformoterol 15 mcg/2 ml Inh Sol IH SCH (07:55)
[2019-01-05] MEDS: Budesonide 0.5 mg/2 ml Inhal Susp UD IH SCH (07:55)
--- NOTE | 2019-01-05 08:18 | CP.PCM.PN ---
Subjective - Date & Time of Evaluation Date of Evaluation: 01/05/19 Time of Evaluation: 08:10 - Subjective Subjective: 68 year old male with a history of Laennec's cirrhosis, abstinent 6 years, with partial portal vein thrombosis during late 2018. Recently admitted for encephalopathy. In FANNY, hepatorenal or a combination of both. Anuric on floor, started on somatostatin, dopamine, with poor response. Post placement of Shiley/PD catheter. Intubated, on dialysis for fluid overload, now on multiple pressors. H/O pulmonary hypertension with a mean PA 50's. Spoke to transplant surgeon at [facility], agreeing with need to remove fluid, then assess heart again for pulmonary hypertension. Has since rapidly declined, now on multiple pressors, intubated, acidotic, coagulopathic. Objective - Vital Signs/Intake and Output Vital Signs (last 24 hours): Temp Pulse Resp BP Pulse Ox 97.5 F L 60 18 136/91 H 86 L 01/05/19 04:30 01/05/19 07:10 01/05/19 04:23 01/05/19 06:16 01/05/19 07:10 Intake and Output: 01/05/19 01/05/19 06:59 18:59 Intake Total 1833 Output Total 30 Balance 1803 - Medications Medications: Current Medications Albuterol/Ipratropium (Duoneb 3 Mg/0.5 Mg (3 Ml) Ud) 3 ml IH [id number] PRN PRN Reason: Shortness of Breath Last Admin: 01/03/19 15:37 Dose: 3 ml Arformoterol Tartrate (Brovana) 15 mcg [facility]H [id number] Last Admin: 01/04/19 07:55 Dose: 15 mcg Artificial Tears (Refresh Opth Soln) 0.3 ml OU BID [facility] Budesonide (Pulmicort Respules) 0.5 mg IH [id number] [facility] Last Admin: 01/04/19 07:55 Dose: 0.5 mg Dextrose (Dextrose 50% Inj) 50 ml IV STAT PRN; Protocol PRN Reason: Hypoglycemia Protocol Last Admin: 01/04/19 21:00 Dose: 50 ml Famotidine (Pepcid) 20 mg IVP DAILY [facility] Hydrocortisone Sodium Succinate (Solu-Cortef) 100 mg IVP Q8 [facility] Last Admin: 01/05/19 05:28 Dose: 100 mg Octreotide Acetate 1,250 mcg/ (Dextrose) 252.5 mls @ 10.1 mls/hr IV .Q24H [facility]; Protocol Last Admin: 01/04/19 14:53 Dose: 49.5 mcg/hr, 10 mls/hr Heparin Sodium/Sodium Chloride (Heparin 64967 Units/250ml 1/2 Normal Saline) 25,000 units in 250 mls @ 12.002 mls/hr IV .[id number] PRN; Protocol PRN Reason: ADJUST RATE PER PROTOCOL Last Titration: 01/02/19 08:44 Dose: 0 units/kg/hr, 0 mls/hr Vasopressin 20 units/ Dextrose 101 mls @ 9.09 mls/hr IV .Q11H7M [facility]; Protocol Last Admin: 01/05/19 05:29 Dose: 9.09 mls/hr Meropenem/Sodium Chloride (Merrem Iv 500 Mg/Ns 50 Ml) 500 mg in 50 mls @ 100 mls/hr IVPB Q12 [facility]; Protocol Stop: 01/14/19 10:46 Last Admin: 01/04/19 13:14 Dose: 100 mls/hr Norepinephrine Bitartrate 8 mg (/ Sodium Chloride) 258 mls @ 7.74 mls/hr IV .Q24H PRN; Protocol PRN Reason: TITRATE PER MD ORDER Last Titration: 01/05/19 02:29 Dose: 25 mcg/min, 48.38 mls/hr Sodium Bicarbonate 150 meq/ (Dextrose) 1,150 mls @ 150 mls/hr IV .Q7H40M [facility] Last Admin: 01/05/19 01:48 Dose: 150 mls/hr Dopamine HCl/Dextrose (Dopamine 400mg/250ml D5w) 400 mg in 250 mls @ 12.723 mls/hr IV .[id number] PRN; Protocol PRN Reason: TITRATE PER MD ORDER Last Admin: 01/05/19 04:10 Dose: 10 mcg/kg/min, 25.446 mls/hr Phenylephrine HCl 40 mg/ (Sodium Chloride) 254 mls @ 38.1 mls/hr IV .Q6H40M PRN; Protocol PRN Reason: TITRATE PER MD ORDER Last Admin: 01/05/19 04:20 Dose: 100 mcg/min, 38.1 mls/hr Calcium Gluconate (Calcium Gluconate 1g/50ml Ns) 1 gm in 50 mls @ 50 mls/hr IV ONCE ONE Stop: 01/05/19 08:14 Last Admin: 01/05/19 07:20 Dose: 50 mls/hr Insulin Human Regular (Humulin R Low) 0 units SC ACHS [facility]; Protocol Last Admin: 01/04/19 22:34 Dose: Not Given Levothyroxine Sodium (Synthroid) 25 mcg PO ACB [facility] Last Admin: 01/04/19 12:26 Dose: Not Given Midodrine (Proamatine) 10 mg PO TID [facility] Last Admin: 01/04/19 17:27 Dose: Not Given Rifaximin (Xifaxan) 550 mg PO BID [facility]; Protocol Last Admin: 01/04/19 17:27 Dose: Not Given - Labs Labs: 01/05/19 05:30 01/05/19 05:30 PT 113.6 SECONDS (9.4-12.5) H 01/05/19 05:30 INR 10.05 H* 01/05/19 05:30 APTT 94.3 Seconds (26.9-38.3) H 01/05/19 05:30 - Constitutional Appears: Cachectic, Chronically Ill - Neck Exam Additional comments: intubated - Rectal Exam Additional comments: distended Assessment and Plan (1) Hepatorenal syndrome Assessment & Plan: no improvement, anuric Status: Acute (2) Portal vein thrombosis Assessment & Plan: unchanged Status: Acute (3) Hepatic encephalopathy Assessment & Plan: intubated Status: Acute (4) Sepsis Assessment & Plan: in multi-system organ failure, multiplepressors Status: Acute (5) Cirrhosis of liver Assessment & Plan: in gucci liver failure, unsalvagable. Family discussed situation with Dr Peterson.. made DNR Status: Acute
[2019-01-05] MEDS: Lubricant Eye Drops UD OU SCH ×3 (09:20→17:42)
[2019-01-05] MEDS: Insulin Reg-LOW-Coverage SC SCH ×3 (09:21→17:42)
[2019-01-05] MEDS: MEROPENEM 500 MG in NS 500 MG/50 ML BAG IVPB SCH (09:22)
[2019-01-05] MEDS: Levothyroxine 25 MCG TAB PO SCH (09:22)
--- NOTE | 2019-01-05 09:56 | PN ---
DATE: 01/05/2019 PULMONARY PROGRESS NOTE REFERRING PHYSICIAN: Jewell Martinez MD SUBJECTIVE: The patient is seen lying in bed, intubated on ventilator. Family at the bedside. Presently on multiple pressors. PHYSICAL EXAMINATION: GENERAL: Jaundiced. Not responsive to stimuli tactile, verbal VITAL SIGNS: Blood pressure 136/91, pulse 60, oxygen saturation 92% and temperature 97.5 axillary. HEENT: Intubated. Icteric sclera. NECK: No JVD. RESPIRATORY: Fair airflow bilaterally. CARDIOVASCULAR: S1 and S2. ABDOMEN: Distended. Positive ascites. EXTREMITIES: +1 bilateral lower extremity edema. NEUROLOGIC: Sedated. MEDICATIONS: Reviewed. DuoNeb 3 mL inhalation every 4 hours p.r.n., Brovana 15 mcg every 12 hours, artificial tears 0.3 mL twice a day, Pulmicort 0.5 mg inhalation every 12 hours, dopamine 400 mg in 250 mL at 12.723 mL per hour, Pepcid 20 mg daily, heparin 25,000 units in 250 mL p.r.n., Solu-Cortef 100 mg IV push every 8 hours, Humulin R sliding scale a.c. and at bedtime, Synthroid 25 mcg in the morning, meropenem 500 mg every 12 hours, midodrine 10 mg three times a day, norepinephrine bitartrate 8 mg every 24 hours p.r.n., octreotide acetate 1250 mcg in 252.5 mL at 10.1 mL per hour, phenylephrine 40 mg in 254 mL at 38.1 mL per hour, Xifaxan 550 mg twice a day, sodium bicarbonate 150 mEq and vasopressin 20 units in dextrose. LABORATORY DATA: Reviewed. WBC 14.4, RBC 2.35, hemoglobin 8.1, hematocrit 26.3 and platelets 76. PT 113.6, INR 10.05 and APTT 94.3. PCO2 of 34, PO2 210, HCO3 of 8.3, ABG pH 6.96 on FiO2 of 100. Sodium 134, potassium 4.3, chloride 100, carbon dioxide 9, anion gap 30, BUN 11, creatinine 2.3, GFR 28, POC glucose 193, random glucose 108, calcium 6.9, phosphorus 7.9, magnesium 2.0, total bilirubin 6, AST 6853, ALT 891, alkaline phosphatase 230, total protein 5, albumin 2.5, globulin 2.5 and albumin-globulin ratio 1. Blood cultures preliminary no growth after 48 hours. Chest x-ray report pending. IMPRESSION AND PLAN: Chronic obstructive lung disease; sleep apnea syndrome; cardiomyopathy; valvular heart disease; pulmonary hypertension; portal hypertension; partially occluded portal vein; cirrhotic liver; acute kidney injury on hemodialysis; hepatorenal syndrome and probable aspiration pneumonia. The patient presently in metabolic acidosis getting bicarbonate. Dr. Ansari had long in-depth conversation with family yesterday at patient's bedside regarding prognosis and plan of care. The family discussing goals of care. Continue antibiotic therapy. Continue present vent settings. The patient is being followed by multiple specialities, Infectious Disease, Cardiology, Nephrology and Hematology. Continue pressors. The patient's overall prognosis is grave/poor. We will followup in the morning with ABG's, chest x-rays, CBC and CMP. Case discussed with nursing staff. Critical care time spent more than 35 minutes. This patient was seen and examined with Dr. Ansari. Discussed assessment and plan as described above. This patient was seen and examined with Kenan Montague, nurse practitioner. Discussed assessment and plan as described above. Thank you for this consult. We will follow with you. Kenan Montague APN Alfonso Ansari MD JOSUE
--- NOTE | 2019-01-05 11:18 | RAD ---
Date of service: 01/05/2019 HISTORY: intubated COMPARISON: 01/04/2019 FINDINGS: The endotracheal tube terminates 1.0 cm proximal to the gudelia. LUNGS: The lungs are well inflated. There is worsening multifocal consolidation in both lungs with relative sparing of the left lower lobe. PLEURA: Small effusions. No pneumothorax. CARDIOVASCULAR: Moderate cardiomegaly. No aortic atherosclerotic calcifications present. OSSEOUS STRUCTURES: Within normal limits for the patient's age. VISUALIZED UPPER ABDOMEN: Normal. OTHER FINDINGS: None. IMPRESSION: Worsening multifocal consolidation in the lungs with relative sparing of the left lower lobe which may represent multifocal pneumonia or worsening pulmonary edema. Stable small effusions. Endotracheal tube terminates 1.0 cm proximal to the gudelia.
--- NOTE | 2019-01-05 11:28 | CP.PCM.PN ---
<Narciso Pablo - Last Filed: 01/05/19 11:15> Subjective - Date & Time of Evaluation Date of Evaluation: 01/05/19 Time of Evaluation: 09:00 - Subjective Subjective: PGY6 GI Fellow Progress Note Patient seen and exmained bedside this morning. Family at bedside. Patient has been intubated since my last examination and remains on multi-pressor support. 12 system ROS cannot be performed given clinical condition Objective - Vital Signs/Intake and Output Vital Signs (last 24 hours): Temp Pulse Resp BP Pulse Ox 97.5 F L 60 18 136/91 H 86 L 01/05/19 04:30 01/05/19 07:10 01/05/19 04:23 01/05/19 06:16 01/05/19 07:10 Intake and Output: 01/05/19 01/05/19 06:59 18:59 Intake Total 1833 254 Output Total 30 Balance 1803 254 - Medications Medications: Current Medications Albuterol/Ipratropium (Duoneb 3 Mg/0.5 Mg (3 Ml) Ud) 3 ml IH [id number] PRN PRN Reason: Shortness of Breath Last Admin: 01/03/19 15:37 Dose: 3 ml Arformoterol Tartrate (Brovana) 15 mcg IH [id number] [facility] Last Admin: 01/05/19 07:55 Dose: 15 mcg Artificial Tears (Refresh Opth Soln) 0.3 ml OU BID [facility] Last Admin: 01/05/19 09:20 Dose: 1 drop Budesonide (Pulmicort Respules) 0.5 mg IH [id number] [facility] Last Admin: 01/05/19 07:55 Dose: 0.5 mg Dextrose (Dextrose 50% Inj) 50 ml IV STAT PRN; Protocol PRN Reason: Hypoglycemia Protocol Last Admin: 01/04/19 21:00 Dose: 50 ml Famotidine (Pepcid) 20 mg IVP DAILY [facility] Last Admin: 01/05/19 09:20 Dose: 20 mg Hydrocortisone Sodium Succinate (Solu-Cortef) 100 mg IVP Q8 [facility] Last Admin: 01/05/19 05:28 Dose: 100 mg Octreotide Acetate 1,250 mcg/ (Dextrose) 252.5 mls @ 10.1 mls/hr IV .Q24H [facility]; Protocol Last Admin: 01/04/19 14:53 Dose: 49.5 mcg/hr, 10 mls/hr Heparin Sodium/Sodium Chloride (Heparin 23417 Units/250ml 1/2 Normal Saline) 25,000 units in 250 mls @ 12.002 mls/hr IV .[id number] PRN; Protocol PRN Reason: ADJUST RATE PER PROTOCOL Last Titration: 01/02/19 08:44 Dose: 0 units/kg/hr, 0 mls/hr Vasopressin 20 units/ Dextrose 101 mls @ 9.09 mls/hr IV .Q11H7M [facility]; Protocol Last Admin: 01/05/19 05:29 Dose: 9.09 mls/hr Meropenem/Sodium Chloride (Merrem Iv 500 Mg/Ns 50 Ml) 500 mg in 50 mls @ 100 mls/hr IVPB Q12 [facility]DRA; Protocol Stop: 01/14/19 10:46 Last Admin: 01/05/19 09:22 Dose: 100 mls/hr Norepinephrine Bitartrate 8 mg (/ Sodium Chloride) 258 mls @ 7.74 mls/hr IV .Q24H PRN; Protocol PRN Reason: TITRATE PER MD ORDER Last Titration: 01/05/19 02:29 Dose: 25 mcg/min, 48.38 mls/hr Sodium Bicarbonate 150 meq/ (Dextrose) 1,150 mls @ 150 mls/hr IV .Q7H40M [facility] Last Admin: 01/05/19 01:48 Dose: 150 mls/hr Dopamine HCl/Dextrose (Dopamine 400mg/250ml D5w) 400 mg in 250 mls @ 12.723 mls/hr IV .[id number] PRN; Protocol PRN Reason: TITRATE PER MD ORDER Last Admin: 01/05/19 04:10 Dose: 10 mcg/kg/min, 25.446 mls/hr Phenylephrine HCl 40 mg/ (Sodium Chloride) 254 mls @ 38.1 mls/hr IV .Q6H40M PRN; Protocol PRN Reason: TITRATE PER MD ORDER Last Admin: 01/05/19 11:02 Dose: 100 mcg/min, 38.1 mls/hr Phytonadione 10 mg/ Sodium (Chloride) 51 mls @ 100 mls/hr IV ONCE ONE Stop: 01/05/19 17:30 Insulin Human Regular (Humulin R Low) 0 units SC ACHS [facility]; Protocol Last Admin: 01/05/19 09:21 Dose: Not Given Levothyroxine Sodium (Synthroid) 25 mcg PO ACB [facility] Last Admin: 01/05/19 09:22 Dose: Not Given Midodrine (Proamatine) 10 mg PO TID [facility] Last Admin: 01/04/19 17:27 Dose: Not Given Rifaximin (Xifaxan) 550 mg PO BID [facility]; Protocol Last Admin: 01/05/19 09:22 Dose: Not Given - Labs Labs: 01/05/19 05:30 01/05/19 05:30 PT 113.6 SECONDS (9.4-12.5) H 01/05/19 05:30 INR 10.05 H* 01/05/19 05:30 APTT 94.3 Seconds (26.9-38.3) H 01/05/19 05:30 - Constitutional Appears: Chronically Ill, Other (unresponsive to tactile/painful stimuli) - Eye Exam Eye Exam: PERRL - ENT Exam ENT Exam: Mucous Membranes Dry - Respiratory Exam Respiratory Exam: Rales, Rhonchi. absent: Clear to Ausculation Bilateral, Wheezes - Cardiovascular Exam Cardiovascular Exam: Bradycardia, +S1, +S2 - GI/Abdominal Exam GI & Abdominal Exam: Distended, Soft, Normal Bowel Sounds. absent: Firm, Guarding, Rigid, Tenderness, Organomegaly - Extremities Exam Additional comments: B/L LE edema - Neurological Exam Neurological Exam: Altered - Skin Skin Exam: Dry Additional comments: feet/hands cool to touch; jaundice Assessment and Plan - Assessment and Plan (Free Text) Assessment: Patient is a 68yo male with PMHx significant for decompensated EtOH (now sober 6 years)/cardiac cirrhosis complicated by ascites, varices, hepatic encephalopathy and now acute renal failure (possible HRS component), atrial fibrillation, CHF with right heart disease/severe TR/moderate pulmonary HTN, COPD, asthma and hypothyroidism who presented with altered mental status -Acute liver failure -Hepatic encephalopathy -Acute renal failure requiring HD; suspect component of HRS -Acute respiratory distress requiring BIPAP -Severe TR and moderate pulmonary HTN -E coli bacteremia Plan: -Patient intubated overnight -LFTs/INR/Albumin/Platelets all downtrending with worsening intrinsic liver function -Multiple pressors on board - Dopamine/Levophed/Vasopressin/Phenylephrine -Renal function relatively unchanged, on intermittent HD and HRS cocktail -Hepatobiliary, nephrology, pulmonology and ID teams following -Long discussion with family at bedside regarding grave prognosis in the setting of multi-organ failure -Consider discussion for comfort or hospice care in light of multiorgan dysfunction and grim overall prognosis <Julian Godoy V - Last Filed: 01/05/19 22:58> Objective - Vital Signs/Intake and Output Vital Signs (last 24 hours): Temp Pulse Resp BP Pulse Ox 97 F L 30 L 15 99/40 L 87 L 01/05/19 16:00 01/05/19 19:10 01/05/19 19:13 01/05/19 15:37 01/05/19 19:21 Intake and Output: 01/05/19 01/06/19 18:59 06:59 Intake Total 756.5 Balance 756.5 - Medications Medications: Current Medications Albuterol/Ipratropium (Duoneb 3 Mg/0.5 Mg (3 Ml) Ud) 3 ml IH [id number] PRN PRN Reason: Shortness of Breath Last Admin: 01/03/19 15:37 Dose: 3 ml Arformoterol Tartrate (Brovana) 15 mcg IH [id number] [facility] Last Admin: 01/05/19 07:55 Dose: 15 mcg Artificial Tears (Refresh Opth Soln) 0.3 ml OU BID [facility] Last Admin: 01/05/19 17:42 Dose: 1 drop Artificial Tears (Artificial Tears Opht Oint) 0 gm OU QID [facility] Last Admin: 01/05/19 17:41 Dose: 1 dose Budesonide (Pulmicort Respules) 0.5 mg IH [id number] [facility] Last Admin: 01/05/19 07:55 Dose: 0.5 mg Dextrose (Dextrose 50% Inj) 50 ml IV STAT PRN; Protocol PRN Reason: Hypoglycemia Protocol Last Admin: 01/04/19 21:00 Dose: 50 ml Famotidine (Pepcid) 20 mg IVP DAILY [facility] Last Admin: 01/05/19 09:20 Dose: 20 mg Hydrocortisone Sodium Succinate (Solu-Cortef) 100 mg IVP Q8 [facility] Last Admin: 01/05/19 14:57 Dose: 100 mg Octreotide Acetate 1,250 mcg/ (Dextrose) 252.5 mls @ 10.1 mls/hr IV .Q24H [facility]; Protocol Last Admin: 01/05/19 17:57 Dose: 49.5 mcg/hr, 10 mls/hr Heparin Sodium/Sodium Chloride (Heparin 24836 Units/250ml 1/2 Normal Saline) 25,000 units in 250 mls @ 12.002 mls/hr IV .[id number] PRN; Protocol PRN Reason: ADJUST RATE PER PROTOCOL Last Titration: 01/02/19 08:44 Dose: 0 units/kg/hr, 0 mls/hr Vasopressin 20 units/ Dextrose 101 mls @ 9.09 mls/hr IV .Q11H7M [facility]; Protocol Last Admin: 01/05/19 15:37 Dose: 9.09 mls/hr Meropenem/Sodium Chloride (Merrem Iv 500 Mg/Ns 50 Ml) 500 mg in 50 mls @ 100 mls/hr IVPB Q12 [facility]; Protocol Stop: 01/14/19 10:46 Last Admin: 01/05/19 09:22 Dose: 100 mls/hr Norepinephrine Bitartrate 8 mg (/ Sodium Chloride) 258 mls @ 7.74 mls/hr IV .Q24H PRN; Protocol PRN Reason: TITRATE PER MD ORDER Last Admin: 01/05/19 14:53 Dose: 25 mcg/min, 48.38 mls/hr Sodium Bicarbonate 150 meq/ (Dextrose) 1,150 mls @ 150 mls/hr IV .Q7H40M [facility] Last Admin: 01/05/19 17:41 Dose: 150 mls/hr Dopamine HCl/Dextrose (Dopamine 400mg/250ml D5w) 400 mg in 250 mls @ 12.723 mls/hr IV .[id number] PRN; Protocol PRN Reason: TITRATE PER MD ORDER Last Admin: 01/05/19 15:03 Dose: 10 mcg/kg/min, 25.446 mls/hr Phenylephrine HCl 40 mg/ (Sodium Chloride) 254 mls @ 38.1 mls/hr IV .Q6H40M PRN; Protocol PRN Reason: TITRATE PER MD ORDER Last Admin: 01/05/19 11:02 Dose: 100 mcg/min, 38.1 mls/hr Insulin Human Regular (Humulin R Low) 0 units SC ACHS [facility]; Protocol Last Admin: 01/05/19 17:42 Dose: Not Given Levothyroxine Sodium (Synthroid) 25 mcg PO ACB [facility] Last Admin: 01/05/19 09:22 Dose: Not Given Midodrine (Proamatine) 10 mg PO TID [facility] Last Admin: 01/05/19 14:55 Dose: Not Given - Labs Labs: 01/05/19 05:30 01/05/19 05:30 PT 113.6 SECONDS (9.4-12.5) H 01/05/19 05:30 INR 10.05 H* 01/05/19 05:30 APTT 94.3 Seconds (26.9-38.3) H 01/05/19 05:30 Attending/Attestation - Attestation I have personally seen and examined this patient.: Yes I have fully participated in the care of the patient.: Yes I have reviewed all pertinent clinical information, including history, physical exam and plan: Yes Notes (Text): This is an addendum to GI progress report dictated by the GI Fellow. The patient was seen and examined earlier. Medical records, lab studies, imagings were reviewed. Last 24 hours events reviewed. Agreed with the above treatment plan as outlined in GI Fellow 's notes with the addition of the following 01/05/19 22:57
[2019-01-05] MEDS ORDERED: Phytonadione 10 mg/ml Inj (Adult) SC ONE (12:00)
[2019-01-05] MEDS: Mineral Oil/Petrolatum Opht Oint(3.5 gm) OU SCH ×2 (14:58→17:41)
--- NOTE | 2019-01-05 14:59 | PCM.PROC ---
<Antoine Mendoza - Last Filed: 01/05/19 14:56> Procedures Attestation:: I certify that I have explained the specified Operation(s) or Procedure(s), risks, benefits and reasonable alternatives to the Patient and/or other person responsible. The opportunity was given to ask questions and all questions answered - Arterial Line Left Femoral Aseptic technique was employed throughout the procedure: Hand Hygiene done prior to procedure, Full sterile barriers (mask, hair cover, sterile gown, sterile gloves), Full body sterile drape, Chloraprep Antiseptic: 2 minute prep for Femoral Time Out Performed: Yes Pt. placed on Pulse Ox Monitor: Yes Ultrasound Used for Placement: Yes Gauge (Size): 20 gauge Technique Used: Guide Wire Technique Secured by: Suture Post procedure dressing: Clear vapor permeable, Chlorhexidine disc (Biopatch) Patient Tolerated Procedure: no complications Immediate Complications: none Additional Comments: Supervised by Dr. Wells. Patient on multiple pressors and difficult to assess blood pressure with standard cuff. <Felisa Wells - Last Filed: 01/05/19 23:25> Attending/Attestation - Attestation I have personally seen and examined this patient.: Yes I have fully participated in the care of the patient.: Yes I have reviewed all pertinent clinical information, including history, physical exam and plan: Yes
[2019-01-05 17:11] VITALS: BP 112/40
[2019-01-05 17:16] VITALS: TEMP 97
[2019-01-05] MEDS: Octreotide 1,250 MCG in Dextrose 5% In Water 250 ML IV SCH (17:57)
--- NOTE | 2019-01-05 18:12 | PN ---
DATE: 01/05/2019 SUBJECTIVE: The patient is in bed in no acute distress. No fevers and chills. PHYSICAL EXAMINATION: VITAL SIGNS: Temperature is 97, blood pressure is 136/90, it was down to 85/50, respiratory rate, the patient is on a vent, heart rate of 60. HEENT: Reveals ET tube in place. NECK: Supple. LUNGS: Have decreased breath sounds. HEART: Normal S1, S2. ABDOMINAL: Soft, nontender. LABORATORY DATA: Reveals a white count of 14,000, hemoglobin of 8, and platelets of 76. Chemistries are noted. Creatinine is 2.3. Urinalysis is noted. Microbiology reveals Streptococcus anginosus in the blood and the E. coli in the urine. The Strep E. coli in the blood also, Strep anginosus is resistant to ceftriaxone, but sensitive to penicillin and vancomycin. Dr. Mcneil is reviewed. Dr. Martinez's note is reviewed. ASSESSMENT AND PLAN: This is a 68-year-old male with systemic inflammatory response syndrome and sepsis with E. Coli and Streptococcus anginosus bacteremia gastrointestinal source with possible spontaneous bacterial peritonitis, decompensated liver cirrhosis, renal failure, hepatic encephalopathy, chronic obstructive lung disease, alcoholism, congestive heart failure and now with respiratory failure, intubated on a ventilator, on meropenem, renal failure. Overall prognosis quite poor. Joseph Honeycutt MD
--- NOTE | 2019-01-05 18:12 | PN ---
DATE: 01/05/2019 SUBJECTIVE The patient is on the ventilator and totally unresponsive with a FiO2 of 60%. He is on a bicarb drip as well as vasopressin, phenylephrine, dopamine, Levophed for blood pressure support and to correct the acidosis. The patient's family made the patient a DNR this morning. I talked to the family as well as a family member from [facility] on the phone about the patient's diagnosis, prognosis, and treatment and family as well as the family member on the phone, who is a rn palliative understood the very poor prognosis. PHYSICAL EXAMINATION VITAL SIGNS: Temperature is 97.5, pulse is 60, respirations are 22, and his BP is 136/91. HEENT: Head; atraumatic, normocephalic. Eyes; sluggishly reactive to light. Ear, nose, and throat seem to be within normal limits. NECK: Supple. No JVD. No thyroid enlargement. No lymph nodes. CARDIOPULMONARY: Heart; has a regular rate and rhythm. Normal S1, S2. LUNGS: Reveal bilateral rhonchi. ABDOMEN: Soft. Little to no bowel sounds. MUSCULOSKELETAL: No joint deformities. EXTREMITIES: Reveal positive edema. GENITALIA: Deferred. RECTAL: Deferred. SKIN: Warm and dry. NEUROLOGIC: The patient is unresponsive on the ventilator. LABORATORY DATA: His white count is 14.4, hemoglobin is 8.1, hematocrit 26.3, with platelets of 76,000. The patient's PT is 113.6, INR is 10.05, and PTT is 94.3. Arterial blood gas reveals a pH of 6.96, pCO2 of 36, and pO2 of 210. Sodium is 134, potassium is 4.3, chloride 100, CO2 of 9, with a BUN of 11, creatinine of 2.3, and a glucose of 193. His chest x-ray, it reveals worsening multifocal consolidation in the lungs with relative sparing of the left lower lobe, which may represent multifocal pneumonia or worsening pulmonary edema. Stable small pleural effusion. IMPRESSION: The patient has hepatic encephalopathy with severe metabolic acidosis and hepatorenal syndrome with liver failure and renal failure. The patient has bilateral infiltrates, most likely pulmonary edema but possible pneumonia. He has a history of chronic obstructive pulmonary disease and is status post a peritoneal venous shunt. The patient has severe coagulopathy, liver failure, obstructive sleep apnea as well as cardiomyopathy, pulmonary hypertension, bilateral pneumonia with ascites, partial portal vein obstruction and portal vein hypertension, anemia, and systemic hypotension. PLAN: We will continue with ventilator support and decrease the FiO2 as tolerated. We will continue to follow his chest x-ray and arterial blood gas and aggressive pulmonary toilet. The patient is getting Brovana as well as bicarb drip. He is on dopamine, he is getting DuoNeb as well as Levophed, meropenem, octreotide, Pepcid, phenylephrine, midodrine, Pulmicort, Solu-Cortef, Synthroid. We will continue to treat aggressively along with the other consultants and the primary care doctor. Luis Peterson MD
--- NOTE | 2019-01-05 19:14 | PN ---
DATE: 01/05/2019 This is Mr. Des Billy's hospital visit on the Intensive Care Unit. For Dr. Hills SUBJECTIVE: The patient is a 68-year-old male now intubated for respiratory failure, seen lying comatose, sedated with family at the bedside with known decompensated liver failure, cirrhosis, pulmonary hypertension, positive blood cultures with partial portal vein obstruction with coagulopathy now along with acute renal failure, status post dialysis with the patient now deteriorating despite aggressive suspender cutter care. OBJECTIVE/PHYSICAL EXAM: VITAL SIGNS: Temperature 97.5, pulse 52 with ventilatory settings as he is intubated, blood pressure 148/111 with a 120/65 repeated. HEENT: A ventilatory tube noted. The patient is unresponsive due to sedation. NECK: No nodes. HEART: Regular rate. LUNGS: Scattered rhonchi, occasional expiratory wheeze. ABDOMEN: Soft. EXTREMITIES: No edema. SKIN: Icteric. No spontaneous movement due to sedation and intubation. LABORATORY DATA: The patient's labs were done; white blood cell count of 14.4, hemoglobin 8.1, hematocrit 26.3, and platelet count of 76,000. With a metabolic panel showing a creatinine of 2.3 improved from 2.9 yesterday with nonfasting glucose of 193 with a value earlier today of less than 20, status post supplementation, calcium is 6.9, phosphorous is 7.9, total bilirubin is 6.0, AST is 6853; yesterday's was 3235 with a ALT of 891 today; yesterday's was 484, alk phos of 230, albumin of 2.5, total protein of 5.0. The patient's PT is 113, INR of 10.5 up from 4.39 yesterday with a PTT of 94.3. The patient had a chest x-ray done earlier today it was read as worsening multifocal consolidation of the lungs with relative sparing of the left lower lobe, which may represent multifocal pneumonia or worsening pulmonary edema, stable small effusions, endotracheal tube terminates 1 cm proximal to the gudelia. ASSESSMENT: For this patient is that of hepatorenal syndrome, cirrhosis, partial portal vein thrombosis, hepatic encephalopathy, acute renal failure, respiratory failure intubated, on dialysis for fluid overload, coagulopathy with elevated INR, and sepsis. PLAN: After Dr. Martinez the attending spoke with family, the patient is now made a DNR as he is already intubated. We will continue aggressive care in the interim with vitamin K not recommended as per Dr. Hills due to his hepatic failure with cryoprecipitate to be given 2 bags to attempt a reversal of his coagulopathy as possible. With this, this was explained to the patient's and daughter at the bedside with consent obtained with the patient's prognosis critical with continuation of patient's care with Hypotears also to be given for his eye protection. This is a complex patient with a comprehensive medically necessary and appropriate visit carried out in excess of 90 minutes with the family's and ICU personnel's questions answered to their satisfaction. Dylan Terrazas MD
--- NOTE | 2019-01-05 19:14 | CON ---
DATE: 01/05/2019 REASON FOR DICTATION: Cardiac evaluation, rule out CHF, status post intubated, status post CPR, cardiorespiratory failure, multiple vasopressors. BRIEF CLINICAL HISTORY: This is a 68-year-old male with past medical history of cirrhosis, hepatic encephalopathy, acute kidney injury, admitted to the floor, move to the ICU, initially admitted on 12/25/2018 with altered mental status and history of chronic atrial fibrillation, history of COPD with asthma, found to be acute liver failure, acute kidney injury, moved to ICU for couple of days, coagulopathy secondary to alcoholic liver disease, cirrhosis, and last night, the patient coded and intubated. Family is at the bedside. Cardiology consult called for cardiac evaluation and followup. PAST MEDICAL HISTORY: Significant for congestive heart failure, chronic atrial fibrillation, COPD, and history of ethanol abuse quit 6 years ago. SOCIAL HISTORY: Former smoker. Former alcohol abuse. No history of substance abuse. ALLERGIES: NO KNOWN DRUG ALLERGIES. MEDICATIONS: On admission, the patient was on Lasix at home, sotalol 1 tablet, carvedilol, and enalapril. Now, the patient is on multiple vasopressors, on Levophed, epinephrine drip, and vasopressin. Blood pressure is still very low. RECENT CARDIAC WORKUP: The patient had an echocardiography done dated 01/03/2019 that shows normal LV function, ejection fraction within the normal limit, flattening of the septum, mild aortic regurgitation, RV systolic pressure, severe mitral valve stenosis, mild mitral regurgitation, severe tricuspid regurgitation both atria severely dilated dated 01/03/2019. Prior to that, the patient had an echo 09/20/2018 that shows ejection fraction 55%, RV systolic function moderately reduced, severely dilated right atrium, interatrial septum intact with no evidence of atrial septal defect moves towards the left atrium consistent with elevated right side pressure, mitral valve area 1.2 to 1.3 by pressure half-time by planimetry 1.6 cm2, history of moderate mitral valvular stenosis, severe tricuspid regurgitation, RV systolic pressure of 51, and moderate pulmonary hypertension dated 09/20/2018. Most recently, the patient had a stress test 07/09/2018 that shows abnormal myocardial perfusion study with partial reversible anterior apical defect in comparison with last study dated 08/11/2016, these findings . Following this, the patient had cardiac catheterization done dated 09/02/2018 that revealed normal coronaries, moderately decreased LV function, ejection fraction 35%. EDP was in the range of 16 to 18. Anterolateral hypokinesis consistent with LA of the clot in LAD. Later on, the LV function improved. The patient had right heart catheterization also at that time that shows RA 15, right ventricular systolic pressure 35/16, pulmonary capillary wedge pressure 33/10, PA pressure 33/10, mean PA was 20, and capillary wedge pressure 16 to 17. Pulmonary vascular resistance 1 Ward unit, cardiac output using thermodilution 3.7, cardiac index 2.3 L, mean gradient across the mitral valve 3.26, and the valve area 1.96 consistent with mild mitral stenosis. The patient with MUGA scan dated back 04/10/2012 that shows ejection fraction 49% and then repeat MUGA 09/23/2018 shows ejection fraction 67%. REVIEW OF SYSTEMS: As per HPI. PHYSICAL EXAMINATION: GENERAL: As follows; height of the patient 5 feet 4 inches, weight of the patient 149, and body mass index 25.7 kg/m2. VITAL SIGNS: Temperature afebrile, heart rate 60, and blood pressure 136/90, on multiple vasopressor. HEENT: PERRLA. Extraocular muscles intact. NECK: Supple. No carotid bruit or thyromegaly. CHEST: Clear to auscultation. HEART: S1 and S2 regular. ABDOMEN: Soft. EXTREMITIES: Clubbing and cyanosis negative. LABORATORY DATA: Blood workup; WBC 14.4, hemoglobin 8.1, hematocrit 26.3, and platelet count 76. INR 10.05. Sodium 134, potassium 4.6, chloride 100, carbon dioxide 9, BUN 11, and creatinine 2.3. EKG on admission in the chart that shows sinus bradycardia, first-degree heart block, and right bundle-branch block. IMPRESSION: A 68-year-old male with past medical history of cirrhosis, quit drinking 6 years ago, history of aortic mitral stenosis, proximal atrial fibrillation, now the patient is normal sinus, admitted with altered mental status, hepatic encephalopathy, coagulopathy, acute kidney injury, and last night the patient was coded and intubated. Now, the patient is in agonal breathing, on hypotensive multiple vasopressors. Overall, the patient's condition is critical. Long-term prognosis is guarded. RECOMMENDATIONS: Continue vasopressors. We will give vitamin K to prevent the bleeding because the patient had significant coagulopathy. INR today jumps from yesterday 4.39 to 10.05. We will give 5 mg subcutaneous and 5 mg through the p.o. through the NG tube. Continue vasopressors. Continue vent management. Overall, the patient's condition is critical. Long-term prognosis guarded. We will follow. Recent echo shows preserved LV function. Family is seeing him with DNR and recently they made the DNR. We will give 5 mg of vitamin K and 10 mg subcutaneously at 12 noon. Alfonso Almodovar MD
--- NOTE | 2019-01-05 19:30 | CP.PCM.PRO ---
Pronouncement of Note - Clinical Findings Physical Exam: No Response Verbal/Painful Stimuli, Absent Peripheral Puls es{Carotid & Femoral}, Absent Heart & Breath Sounds, No Pupillary Light Reflex, No Corneal Reflex, Pupils Fixed & Dilated, Absence of Vital Signs - Pronouncement Time Time of Pronouncement of : 19:20 - Notifications Pronouncement Notifications: Family Notified (family at bedside), Atending Notified Casino Assistant Manager Notified: No - [place] [id number]
[2019-01-05 19:44] VITALS: PULSE 30; RESP 15; O2SAT 87
--- NOTE | 2019-01-06 08:31 | PN ---
DATE: 01/03/2019 This is [facility]'s [facility] [address] visit in Intensive Care Unit. SUBJECTIVE: The patient is a 68-year-old male seen lying, awake in bed, reporting shortness of breath with his and daughter at the bedside. The patient known to have decompensated liver failure, admitted for mental status change with ammonia level noted to be significantly elevated on admission with the patient now with impending renal failure status post peritoneal dialysis yesterday, dialysis catheter placed as per Dr. Martinez. The patient being monitored by Dr. Pascual, renal sql server consultant. His hemoglobin has stabilized with a value today of 9.1, yesterday being 8.7; however, his kidney function continues to be compromised with a creatinine of 3.8. His liver function test have also significantly worsened since yesterday with AST of 1413 and ALT of 274. OBJECTIVE/PHYSICAL EXAMINATION: VITAL SIGNS: Temperature 98, pulse of 67, respirations 22, blood pressure 72/42, pulse ox of 89% and the patient is being monitored by Dr. Ansari, Pulmonology and the facility maintenance helper. HEENT: Sclerae are icteric. Tongue is dry. NECK: Supple. HEART: Tachy rate. LUNGS: Faint crackles at the bases, occasional rhonchi. ABDOMEN: Distended with catheter noted in C2. EXTREMITIES: Faint +1 edema. NEUROLOGIC: Confused, but awake and alert. SKIN: Icteric tinge. LABORATORY DATA: The patient had a chest x-ray done earlier today. It was read as no change and diffuse right-sided infiltrate and vascular congestion. Echocardiogram was done and has not been read yet. The patient did have positive blood cultures noted two days prior with Gram-positive cocci in one bottle and E. coli now noted to be in the other bottle of blood culture sent. The patient's labs were done. White blood cell count of 15, hemoglobin of 9.1 up from 8.7 yesterday, hematocrit of 26.3, platelet count of 105,000 with no active bleeding. His INR done yesterday noted to be 1.93 with a PTT of 40.2. Metabolic panel shows a potassium of 5.1, BUN of 40, creatinine of 3.8 down from 4.5 yesterday with a total bilirubin of 5.6, AST of 1413, with an ALT of 274. 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 His factor V Leiden testing was negative but the factor II findings were significant for being low at 36, normal being above 70. ASSESSMENT: Sepsis with Escherichia coli, Streptococcus bacteremia, decompensated liver cirrhosis with impending hepatorenal failure, history of hepatic encephalopathy, mild congestive heart failure, acute renal failure on dialysis, ascites, chronic obstructive pulmonary disease, history of ethyl alcohol abuse, liver cirrhosis, partial pleural vein thrombosis, anemia of chronic disease. PLAN: After conversation with to continue his present medical regimen with peritoneal dialysis as indicated with pressors for blood pressure support as indicated with monitoring patient's lab with consideration for treating his should be necessary with deterioration of valves otherwise. We will continue sql server consultant's recommendations with the prognosis for this patient guarded. This is a complex patient with a comprehensive medically of 60 minutes with the patient's family's questions answered to their satisfaction along with consultants discussions held as above. Dylan Terrazas MD
== END 2019-01-05 19:20 | DRG 432 ==
LOC: ED 18:17 → ERH 22:28 → 5RSO 12-26 00:30 → CCU 01-01 14:34
PROVIDERS: ADMIT Internal Medicine; ATTEND Internal Medicine
PROC: BW40ZZZ Ultrasonography of Abdomen (ICD-10-PCS; 2018-12-27)
PROC: 0W9G3ZX Drainage of Peritoneal Cavity, Percutaneous Approach, Diagnostic (ICD-10-PCS; principal; 2018-12-27 11:00)
PROC: 05HY33Z Insertion of Infusion Device into Upper Vein, Percutaneous Approach (ICD-10-PCS; 2019-01-01)
PROC: B54NZZA Ultrasonography of Left Upper Extremity Veins, Guidance (ICD-10-PCS; 2019-01-01)
PROC: 0WHG33Z Insertion of Infusion Device into Peritoneal Cavity, Percutaneous Approach (ICD-10-PCS; 2019-01-02)
PROC: 3E1M39Z Irrigation of Peritoneal Cavity using Dialysate, Percutaneous Approach (ICD-10-PCS; 2019-01-02)
PROC: 30233K1 Transfusion of Nonautologous Frozen Plasma into Peripheral Vein, Percutaneous Approach (ICD-10-PCS; 2019-01-02)
PROC: BW40ZZZ Ultrasonography of Abdomen (ICD-10-PCS; 2019-01-02)
PROC: 5A1D70Z Performance of Urinary Filtration, Intermittent, Less than 6 Hours Per Day (ICD-10-PCS; 2019-01-02)
PROC: 5A1D70Z Performance of Urinary Filtration, Intermittent, Less than 6 Hours Per Day (ICD-10-PCS; 2019-01-03)
PROC: 0BH18EZ Insertion of Endotracheal Airway into Trachea, Via Natural or Artificial Opening Endoscopic (ICD-10-PCS; 2019-01-05)
PROC: 04HY32Z Insertion of Monitoring Device into Lower Artery, Percutaneous Approach (ICD-10-PCS; 2019-01-05)
PROC: 5A1935Z Respiratory Ventilation, Less than 24 Consecutive Hours (ICD-10-PCS; 2019-01-05)
DX: K70.31 Alcoholic cirrhosis of liver with ascites (principal); K76.7 Hepatorenal syndrome; I81 Portal vein thrombosis; J18.1 Lobar pneumonia, unspecified organism; A41.51 Sepsis due to Escherichia coli [E. coli]; J96.90 Respiratory failure, unspecified, unspecified whether with hypoxia or hypercapnia; R65.21 Severe sepsis with septic shock; K76.6 Portal hypertension; N17.9 Acute kidney failure, unspecified; I42.9 Cardiomyopathy, unspecified; I85.10 Secondary esophageal varices without bleeding; D68.9 Coagulation defect, unspecified; E87.2 Acidosis; I50.32 Chronic diastolic (congestive) heart failure; K72.90 Hepatic failure, unspecified without coma; J44.9 Chronic obstructive pulmonary disease, unspecified; I48.91 Unspecified atrial fibrillation; I27.20 Pulmonary hypertension, unspecified; F10.10 Alcohol abuse, uncomplicated; G47.30 Sleep apnea, unspecified; D69.6 Thrombocytopenia, unspecified; Z87.891 Personal history of nicotine dependence; I00 Rheumatic fever without heart involvement; R33.9 Retention of urine, unspecified; Z99.2 Dependence on renal dialysis; B95.4 Other streptococcus as the cause of diseases classified elsewhere; D63.8 Anemia in other chronic diseases classified elsewhere; E03.9 Hypothyroidism, unspecified; E16.2 Hypoglycemia, unspecified; E86.0 Dehydration; E87.5 Hyperkalemia; E87.8 Other disorders of electrolyte and fluid balance, not elsewhere classified; G47.33 Obstructive sleep apnea (adult) (pediatric); H26.9 Unspecified cataract; I08.1 Rheumatic disorders of both mitral and tricuspid valves; I11.0 Hypertensive heart disease with heart failure; I48.2 Chronic atrial fibrillation; I95.3 Hypotension of hemodialysis; K29.50 Unspecified chronic gastritis without bleeding; T50.2X5A Adverse effect of carbonic-anhydrase inhibitors, benzothiadiazides and other diuretics, initial encounter; Z16.19 Resistance to other specified beta lactam antibiotics; Z66 Do not resuscitate; Z79.01 Long term (current) use of anticoagulants